=== PATIENT | male | born 1935 | race Caucasian/White ===

== ENCOUNTER 2018-01-20 12:07 | Inpatient (IN) | payer OTHER, SELFPAY ==
[2018-01-20] VITALS (13 sets, daily range): BP systolic 101–124; BP diastolic 64–94; PULSE 70–146; RESP 15–26; TEMP 36.1–36.9; O2SAT 95–99; BMI 23.6
--- NOTE | 2018-01-20 12:40 | DI.RAD.S_ITS ---
PROCEDURE: XR CHEST 2V INDICATIONS: sob TECHNIQUE: 2 views of the chest were acquired. COMPARISON: [facility], , CHEST 1 VIEW, 12/23/2016, 8:45. [facility], , CHEST 2 VIEW, 09/23/2016, 12:03. [facility], , CHEST 1 VIEW, 09/22/2016, 19:06. FINDINGS: Surgical changes and devices: None. Lungs and pleura: No pleural effusions or pneumothorax. Lungs are abnormal with pulmonary hyperexpansion consistent with COPD and there is superimposed mild pulmonary edema. Mediastinum: Mediastinal contours are normal. Heart size is at the upper limits of normal. Bones and chest wall: No suspicious bony abnormalities. Soft tissues appear unremarkable. IMPRESSION: Presumed COPD given the pulmonary hyperexpansion present and there is superimposed mild pulmonary edema and heart size is at the upper limits of normal. Dictated by: Solitario Lam M.D. on 01/20/2018 at 13:01 Approved by: Solitario Lam M.D. on 01/20/2018 at 13:02
[2018-01-20 12:49] LABS: Add Manual Diff / Slide Review NO; Basophils Percent Auto 0.6 % (0-2); Hematocrit 44.4 % (41-53); Lymphocytes Percent Auto 17.1 % (25-40); Mean Corpuscular HGB Conc 33.9 % (30-36); Mean Corpuscular Hemoglobin 31.9 PG (26-34); Mean Corpuscular Volume 94.1 fL (80-100); Monocytes Percent Auto 10.7 % (3-14); Neutrophils Absolute Auto 6500 /uL (3000-5900); Neutrophils Percent Auto 70.6 % (50-75); Platelet Count 162 X10^3/uL (150-400); Red Blood Cell Count 4.71 X10^6/uL (4.5-5.9); White Blood Cell Count 9.3 X10^3/uL (4.5-11.0)
[2018-01-20 12:50] LABS: INR 3.6 (0.9-1.3); Prothrombin Time 40.6 SECONDS (10.1-12.7)
[2018-01-20 12:56] LABS: Blood Urea Nitrogen 24 mg/dL (9-20); Calcium 8.9 mg/dL (8.4-10.2); Carbon Dioxide 24 mmol/L (22-32); Chloride 93 mmol/L (98-107); Estimated Glomerular Filt Rate > 60.0 mL/min (>60); Glucose 127 mg/dL (80-110); HEMOLYSIS 30 (0-50); Potassium 4.3 mmol/L (3.4-5.1); Sodium 125 mmol/L (137-145)
[2018-01-20 13:08] LABS: Troponin I 0.029 ng/mL (0.01-0.034)
--- NOTE | 2018-01-20 14:26 | ED_ITS ---
HPI - SOB/Dyspnea General Chief Complaint: Shortness of Breath/Dyspnea Stated Complaint: Shortness of Breath Time Seen by Provider: 01/20/18 12:26 History of Present Illness HPI 82-year-old male with pAfib/pFlutter (metoprolol and warfarin) and CHF presents for evaluation of 2-3 days of poorly characterized shortness breath that is without clear provoking and relieving factors. Patient without fevers, chills, chest pain. * PE risk factors: no prior DVT or PE. * CHF: denies weight gain, orthopnea, or change in diuretic use. Triage note: Patient was brought in by EMS from the dermatology clinic where he was complaining og (sic) shortness of breath that started today and diarrhea x 3 days. M/S/F/SocHx notable for: A. fib with RVR, CHF, NSTEMI, atrial flutter with RVR, actinic keratosis; remainder reviewed with patient and in chart. ROS: Negative constitutional, eye, cardiovascular, pulmonary, GI, , MSK, skin , neurologic, psychiatric, endocrine unless noted in the HPI. Exam Gen: Pleasant, non-toxic appearing, resting comfortably. HEENT: NC, AT, PEERL, EOMI, trachea midline. Resp: Clear to auscultation bilaterally, normal work of breathing. Card: RRR with no M/R/G, no crackles in lung bases, no pedal edema, no JVD appreciated. GI: NT/ND Vascular: Both ankles, calves, and thighs of equal size, no calf tenderness to palpation bilaterally. MSK: No chest wall TTP. No visible deformities, strength and tone WNL. Skin: Normal color with no visible lesions. Neuro: AO x 3, no facial asymmetry, vision and hearing WNL. Psych: Mood and affect appropriate. Labs / Imaging (pertinent): WBC 9.3, Hb 15.0, PT/INR 3.6, Na 125, K 4.3, creatinine 1.00, troponin 0.029, BNP 587. EKG: atrial fibrillation with ventricular rate of 124 bpm, nonspecific ST segment changes. CXR: presumed COPD given the pulmonary hyperexpansion present and there is superimposed mild pulmonary edema and heart size is at the upper limits of normal. MDM Previous chart, nursing note, and vitals reviewed. A: 82-year-old male with pAfib/pFlutter (metoprolol and warfarin) and CHF presents for evaluation of 2-3 days of poorly characterized shortness breath that is without clear provoking and relieving factors. DDx: pneumonia, reactive airway disease / COPD / Asthma, bronchitis, pneumothorax, anxiety, PE, CHF, pleural effusion, pericardial effusion, ACS. Evaluation: patient with A. fib with RVR, no clear inciting event for demand mediated rapid ventricular response. PRN IV metoprolol ordered. Patient without anemia, no clear evidence of infection. However patient noted to have new onset moderate to severe hyponatremia without clear symptomatology. Patient has mild CHF exacerbation, however it is unclear if this is contribute into shortness of breath as the patient would be an intermittently asymptomatic on the ED. Lasix withheld as this may worsen as hyponatremia. Urine electrolytes, TSH, and cortisol were sent and are pending at the time of admission. [place] to be excluded based upon the the above evaluation is pneumonia, reactive airway disease, bronchitis, pneumothorax, anxiety, PE (therapeutic PT/INR, and absence of hypotension, hypoxemia, as well as a low-risk history), patient has mild pulmonary edema, however is unclear if this is driving his symptoms. Imaging is also without evidence of a pleural effusion, pericardial effusion, ACS is considered effectively excluded given the lack of clear ischemia on his EKG and a negative troponin. Impression: A. fib with RVR, shortness breath, hyponatremia (please reference below for remainder of encounter information) Critical Care Time Organ system(s): Cardiopulmonary Intervention: Assessment of the patient, interpretation of studies, communication related to patient care. Time: 30 minutes were spent directly related to patient care exclusive of separately billed procedures. Related Data Home Medications Medication Instructions Recorded Confirmed rosuvastatin [Crestor] 10 mg PO QDAY #0 08/30/16 01/20/18 spironolactone 12.5 mg PO QDAY #0 12/10/16 01/20/18 flecainide 1 dose PO DIRECTED #0 03/18/17 01/20/18 metoprolol tartrate 50 tab PO BID #30 tab 08/04/17 01/20/18 cholecalciferol (vitamin D3) 1,000 unit PO DAILY 01/20/18 01/20/18 [Vitamin D3] tamsulosin [Flomax] 0.8 mg PO QPM 01/20/18 01/20/18 warfarin [Coumadin] 2.5 mg PO SUMOWEFR 01/20/18 01/20/18 warfarin [Coumadin] 5 mg PO TUTHSA 01/20/18 01/20/18 Previous Rx's Medication Instructions Recorded furosemide 20 mg OR QAM #45 tab 04/10/17 losartan 50 mg tablet 50 mg PO QDAY #90 tab 12/13/17 zolpidem 10 mg tablet 10 mg PO HS PRN #30 tab 01/03/18 Allergies Allergy/AdvReac Type Severity Reaction Status Date / Time KAYLYNN Inhibitors AdvReac Intermediate COUGH Unverified 09/14/17 12:13 [KAYLYNN INHIBITORS] PFSH Family History Father Heart disease Mother Heart disease Social History Smoking Status: Never smoker Exam Initial Vital Signs Initial Vital Signs: Vital Signs Temperature 97.9 F 01/20/18 12:17 Pulse Rate 110 H 01/20/18 12:17 Respiratory Rate 18 01/20/18 12:17 Blood Pressure 118/78 01/20/18 12:17 Pulse Oximetry 97 01/20/18 12:17 Course Orders Ordered: ED Orders 01/20/18 12:00 B Type Natriuretic Peptide Stat Basic Metabolic Panel Stat Calcium Urine Random Stat Complete Blood Count AUTO DIFF Stat Cortisol Random Stat Creatinine Urine Random Stat Osmolality Urine Stat Osmolality, Serum Stat Prothrombin Time INR Stat Sodium Urine Random Stat Thyroid Stimulating Hormone Stat Troponin I Stat Urea Nitrogen,Urine Random Stat 01/20/18 12:40 XR chest 2V Stat 01/20/18 13:49 Urinalysis and Microscopic Stat Metoprolol Tartrate (Lopressor) 5 mg IV Q5M JERRICA Stop: 01/20/18 14:41 Vital Signs - 8 hr 01/20/18 12:17 01/20/18 13:41 Temperature 97.9 F Pulse Rate 110 H 132 H Respiratory Rate 18 20 Blood Pressure 118/78 Blood Pressure [Left Arm] 112/80 Pulse Oximetry 97 97 MDM - SOB/Dyspnea Lab Data Result diagrams: 01/20/18 12:00 01/20/18 12:00 Lab Results 01/20/18 01/20/18 01/20/18 Range/Units 12:00 12:00 12:00 WBC 9.3 (4.5-11.0) X10^3/uL RBC 4.71 (4.5-5.9) X10^6/uL Hgb 15.0 (13.5-17.5) g/dL Hct 44.4 (41-53) % MCV 94.1 (80-100) fL MCH 31.9 (26-34) PG MCHC 33.9 (30-36) % RDW 15.0 H (11.6-14.8) % Plt Count 162 (150-400) X10^3/uL Neut % (Auto) 70.6 (50-75) % Lymph % (Auto) 17.1 L (25-40) % [place] % (Auto) 10.7 (3-14) % Eos % (Auto) 1.0 L (2-4) % Baso % (Auto) 0.6 (0-2) % Neut # (Auto) 6500 H (3151-8153) /uL PT 40.6 H (10.1-12.7) SECONDS INR 3.6 H (0.9-1.3) Sodium 125 L (137-145) mmol/L Potassium 4.3 (3.4-5.1) mmol/L Chloride 93 L (98-107) mmol/L Carbon Dioxide 24 (22-32) mmol/L BUN 24 H (9-20) mg/dL Creatinine 1.00 (0.66-1.25) mg/dL Estimated GFR > 60.0 (>60) mL/min BUN/Creatinine Ratio 24.0 H (6-22) Glucose 127 H (80-110) mg/dL Calcium 8.9 (8.4-10.2) mg/dL Troponin I 0.029 (0.01-0.034) ng/mL B-Natriuretic Peptide 587.0 H (<100) Discharge Plan Departure Prescriptions: No Action rosuvastatin [Crestor] 10 MG tablet 10 mg PO QDAY Qty: 0 RF: 0 spironolactone 25 MG tablet 12.5 mg PO QDAY Qty: 0 RF: 0 flecainide 100 MG tablet 1 dose PO DIRECTED Qty: 0 RF: 0 furosemide 40 MG tablet 20 mg OR QAM Qty: 45 RF: 3 metoprolol tartrate 25 MG tablet 50 tab PO BID Qty: 30 RF: 3 losartan 50 mg tablet 50 mg PO QDAY Qty: 90 RF: 3 zolpidem 10 mg tablet 10 mg PO HS PRN (Reason: insomnia) Qty: 30 RF: 0 warfarin [Coumadin] 5 mg Tablet 2.5 mg PO SUMOWEFR RF: 0 cholecalciferol (vitamin D3) [Vitamin D3] 1,000 unit Tablet 1,000 unit PO DAILY RF: 0 tamsulosin [Flomax] 0.4 MG capsule 0.8 mg PO QPM RF: 0 warfarin [Coumadin] 5 MG tablet 5 mg PO TUTHSA RF: 0
[2018-01-20] MEDS: METOPROLOL TARTRATE 5 MG/5 ML INJ IV ×4 (14:32→20:39)
[2018-01-20 14:59] LABS: Bacteria Urine None Seen
[2018-01-20 15:05] LABS: Thyroid Stimulating Hormone 5.49 uIU/mL (0.47-4.68)
[2018-01-20 15:12] LABS: Appearance Urine UA CLEAR; Bilirubin Urine UA NEGATIVE (NEGATIVE); Color Urine UA YELLOW; Glucose Urine UA NEGATIVE (Normal); Ketones Urine UA NEGATIVE (NEGATIVE); Leukocyte Esterase Urine UA NEGATIVE (NEGATIVE); Nitrite Urine UA Negative (Negative); Occult Blood Urine UA 1+ (Negative); Protein Urine UA NEGATIVE (Negative); Urobilinogen Urine UA 0.2 E.U./dL (0.2); pH Urine UA 5.5 (4.5-8.0)
[2018-01-20 15:19] LABS: Culture Indicated Urine Cult Not Indicated; RBC Urine 1-5/HPF (0-5/HPF); Squamous Epithelial Cell Urine 0-1 /HPF; WBC Urine 0-1/HPF (0-5/HPF)
[2018-01-20 15:22] LABS: Cortisol Random 18.6 ug/dL
[2018-01-20 15:45] LABS: Calcium Urine Random 7.9
[2018-01-20 15:46] LABS: Urea Nitrogen,Urine Random 299 md/dL
[2018-01-20 15:48] LABS: Creatinine Urine Random 28.3 mg/dL; Sodium Urine Random 40 mmol/L (30-90)
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
[2018-01-20] MEDS: dilTIAZem CD 120 MG CAP PO (18:13)
[2018-01-20 19:23] LABS: Troponin I 0.027 ng/mL (0.01-0.034)
[2018-01-20 19:39] LABS: Free T4, Direct Thyroxine 1.98 ng/dL (0.78-2.19)
[2018-01-20] MEDS: ROSUVASTATIN 10 MG TABLET PO (20:28)
[2018-01-20] MEDS: SODIUM CHLORIDE 0.9% 1,000 ML 75 ML IV (22:49)
[2018-01-20] MEDS: METOPROLOL 25 MG TABLET PO (22:50)
[2018-01-20] MEDS: dilTIAZem 25 MG/5 ML SDV 15 MG IV (22:52)
[2018-01-21] VITALS (19 sets, daily range): BP systolic 88–130; BP diastolic 48–94; PULSE 74–144; RESP 15–21; TEMP 35.6–36.4; O2SAT 95–98
--- NOTE | 2018-01-21 04:42 | PC.NURSE ---
Denies any urinary bladder discomfort, pain or CP. 0007- voided 100 cc. scanned 421 PVR, 0230 voided 100 cc PVR 303 cc per bladder scanned. 0345 voided scant amount 15 cc & PVR 257 cc. Pt. reported I did not have my Flomax last night. He also went to the BR & 1 unmeasured void. Will monitor.
[2018-01-21] MEDS: METOPROLOL TARTRATE 5 MG/5 ML INJ IV ×3 (05:04→16:52)
[2018-01-21] MEDS: SODIUM CHLORIDE 0.9% FLUSH 10 ML IV ×2 (05:06→20:48)
--- NOTE | 2018-01-21 05:29 | PC.NURSE ---
Hr. up to 130-140, Apical pulse 1 minute count 120, Metoprolol 5 mg. admin. IVP. B/P 135/70 prior to Metoprolol pushed slowly over 5 mins. Denies any CP & no C/O dizziness. Rechecked B/P after Metoprolol 127/68 & HR. 98-135, will monitor.
[2018-01-21 06:21] LABS: Add Manual Diff / Slide Review NO; Basophils Percent Auto 0.8 % (0-2); Eosinophils Percent Auto 1.5 % (2-4); Hematocrit 44.1 % (41-53); Hemoglobin 14.9 g/dL (13.5-17.5); Lymphocytes Percent Auto 21.3 % (25-40); Mean Corpuscular HGB Conc 33.7 % (30-36); Mean Corpuscular Hemoglobin 31.6 PG (26-34); Mean Corpuscular Volume 93.8 fL (80-100); Monocytes Percent Auto 9.6 % (3-14); Neutrophils Absolute Auto 5300 /uL (3000-5900); Neutrophils Percent Auto 66.8 % (50-75); Platelet Count 163 X10^3/uL (150-400); Red Cell Distribution Width 14.6 % (11.6-14.8); White Blood Cell Count 7.9 X10^3/uL (4.5-11.0)
[2018-01-21 06:30] LABS: INR 3.3 (0.9-1.3); Prothrombin Time 36.7 SECONDS (10.1-12.7)
[2018-01-21 06:37] LABS: Blood Urea Nitrogen 20 mg/dL (9-20); Calcium 8.7 mg/dL (8.4-10.2); Carbon Dioxide 23 mmol/L (22-32); Chloride 96 mmol/L (98-107); Estimated Glomerular Filt Rate > 60.0 mL/min (>60); Glucose 113 mg/dL (80-110); HEMOLYSIS < 15 (0-50); Magnesium 1.9 mg/dL (1.6-2.3); Potassium 4.1 mmol/L (3.4-5.1); Sodium 129 mmol/L (137-145)
[2018-01-21] MEDS: dilTIAZem CD 120 MG CAP PO (07:01)
[2018-01-21] MEDS: METOPROLOL 25 MG TABLET PO ×2 (07:01→20:48)
--- NOTE | 2018-01-21 07:41 | PC.NURSE ---
HR. still up in 130-140's Diltiazem & Metoprolol due @ 0900 given early & report given to day RN. To follow up & monitor.
[2018-01-21] MEDS: CHOLECALCIFEROL (VITAMIN D3) 1,000 UNIT TABLET 1000 UNIT PO (09:08)
[2018-01-21] MEDS: FUROSEMIDE 20 MG TABLET PO (09:08)
--- NOTE | 2018-01-21 09:20 | PT.IIE ---
Surgical History (Last Updated 01/20/18 @ 16:32 by Domitila Keyes MD) S/P excision of skin lesion, follow-up exam (Acute) Medical History (Last Updated 01/20/18 @ 16:31 by Domitila Keyes MD) Atrial fibrillation and flutter (Acute) BPH (benign prostatic hyperplasia) (Acute) Chronic back pain (Acute) Congestive heart failure (Acute) Dyslipidemia (Acute) Skin lesion of face (Acute) Physical Therapy Inpatient Evaluation/Re-Eval M1 PT/OT-IP Prior Functional Status Start: 01/21/18 11:13 Freq: NEEDED Status: Active Protocol: Document 01/21/18 09:20 AB (Rec: 01/21/18 11:32 AB [id number]) Medical Review Prior Functional Status Medical History Reviewed Yes Communication able to make needs known Mobility and Gait pt stated that he is independent with all mobilities and ambulation without AD Social History Household Members other Living Arrangements House Number of Floors (Floors) One Floor Number of Stairs To Enter/Railing? 2 steps to enter without rail Home Environment Tub/Shower Home Equipment Grab Bars In Shower Employment Status Retired Additional Social History Comment pt lives with a roommate and can assist M2 PT-IP Current Condition Start: 01/21/18 11:13 Freq: NEEDED Status: Active Protocol: Document 01/21/18 09:20 AB (Rec: 01/21/18 11:32 AB [id number]) Physical Therapy Current Condition Current Condition Evaluation Date 01/21/18 Treatment Diagnosis CHF Onset Date 01/20/18 M3 PT-IP Subjective Start: 01/21/18 11:13 Freq: NEEDED Status: Active Protocol: Document 01/21/18 09:20 AB (Rec: 01/21/18 11:32 AB [id number]) Subjective Physical Therapy Visit Type Type Initial Evaluation Visit Start Time 09:20 Visit Stop Time 09:55 Total Visit Minutes 35 Number of INTERNET SALES ASSOCIATE Visits 0 Physical Therapy Visit Comments Patient Comments pt agreeable to do therapy Therapy Pain Assessment Pain Present Pain Present Denied Pain M4 PT-IP Mobility and Gait Start: 01/21/18 11:13 Freq: NEEDED Status: Active Protocol: Document 01/21/18 09:20 AB (Rec: 01/21/18 11:32 AB [id number]) PT-Bed Mobility Assessment Rolling Level of Assist Standby Assistance Supine to Sit Supine to Sit Standby Assistance Sit to Supine Sit to Supine Standby Assistance Scooting Scooting to Edge of Bed Standby Assistance PT-Transfer Assessment Sit to and From Stand Sit to and from Stand Standby Assistance Equipment Transfer Assistive Device Gait Belt Transfers Transfer Destination Bed Transfer Technique Stand Step Pivot Transfer Ability Level of Assist Standby Assistance Gait Assessment Gait Gait Assistance Required: Standby Assistance Contact Guard Assist Distance (Feet) (feet) 40 Able to Maintain Weight Bearing Status Yes During Gait Assistive Devices Assistive Device Gait Belt Orthotic/Prosthetic Devices or Brace: No Gait Deviations General Gait Pattern Antalgic Factors Limiting Gait Function Factors Limiting Gait Function Decreased Activity Tolerance Decreased Strength Poor Balance Comments Gait Comments BP 98/69 without c/o dizziness /lightheadedness CT: 84-108 bpm with activity O2 sat 96% PT-Balance Assessment Sitting Balance and Reactions Static Sitting Balance Ability Good Dynamic Sitting Balance Ability Good Standing Balance and Reactions Static Standing Balance Ability Good Dynamic Standing Balance Ability Fair M5 PT-IP Objective Assessments Start: 01/21/18 11:13 Freq: NEEDED Status: Active Protocol: Document 01/21/18 09:20 AB (Rec: 01/21/18 11:32 AB [id number]) Orientation Orientation/Cognition Level of Alertness Alert Orientation Name Age Birthday Month Date Year Day of Week Place Situation Safety Awareness Understands Safety Issues Strength Lower Extremity Strength Assessment Within Functional Limits M6 PT-IP Treatment Start: 01/21/18 11:13 Freq: NEEDED Status: Active Protocol: Document 01/21/18 09:20 AB (Rec: 01/21/18 11:32 AB [id number]) Physical Therapy Treatment Education Education Provided Safety M7 PT-IP Assessment and Plan Start: 01/21/18 11:13 Freq: NEEDED Status: Active Protocol: Document 01/21/18 09:20 AB (Rec: 01/21/18 11:32 AB [id number]) PT Summary Assessment and Plan Potential Rehabilitation Potential Good Status of Condition at Evaluation Stable Summary Impairments Pain ROM Strength Balance Coordination Sensation Tone Cognition Bed Mobility Transfers Gait Activity Tolerance Assessment Summary pt requiring SBA to CGA with mobility and will likely progress during hospital stay. pt plans to go home with his room mate to assist him at home. Goals Bed Mobility Goal Independent Transfer Goal Independent Gait Goal Independent Gait Distance 150 Other Goals up/down 2 steps without rails Days to Meet Goals 3 Frequency of Treatment Frequency Of Treatment Once a Day Treatment Plan Physical Therapy Treatment Plan Bed Mobility Training Transfer Training Gait Training Therapeutic Exercise Balance Retraining Post Op Education Discharge Planning Manual Therapy Recommendations To Nursing Amount of Assist Needed 1 Person Assist Discharge Recommendations PT Discharge Recommendations Home with Assistance
--- NOTE | 2018-01-21 09:20 | PT.IIE ---
Surgical History (Last Updated 01/20/18 @ 16:32 by Domitila Keyes MD) S/P excision of skin lesion, follow-up exam (Acute) Medical History (Last Updated 01/20/18 @ 16:31 by Domitila Keyes MD) Atrial fibrillation and flutter (Acute) BPH (benign prostatic hyperplasia) (Acute) Chronic back pain (Acute) Congestive heart failure (Acute) Dyslipidemia (Acute) Skin lesion of face (Acute) Physical Therapy Inpatient Evaluation/Re-Eval M1 PT/OT-IP Prior Functional Status Start: 01/21/18 11:13 Freq: NEEDED Status: Active Protocol: Document 01/21/18 09:20 AB (Rec: 01/21/18 11:32 AB [id number]) Medical Review Prior Functional Status Medical History Reviewed Yes Communication able to make needs known Mobility and Gait pt stated that he is independent with all mobilities and ambulation without AD Social History Household Members other Living Arrangements House Number of Floors (Floors) One Floor Number of Stairs To Enter/Railing? 2 steps to enter without rail Home Environment Tub/Shower Home Equipment Grab Bars In Shower Employment Status Retired Additional Social History Comment pt lives with a roommate and can assist M2 PT-IP Current Condition Start: 01/21/18 11:13 Freq: NEEDED Status: Active Protocol: Document 01/21/18 09:20 AB (Rec: 01/21/18 11:32 AB [id number]) Physical Therapy Current Condition Current Condition Evaluation Date 01/21/18 Treatment Diagnosis CHF Onset Date 01/20/18 M3 PT-IP Subjective Start: 01/21/18 11:13 Freq: NEEDED Status: Active Protocol: Document 01/21/18 09:20 AB (Rec: 01/21/18 11:32 AB [id number]) Subjective Physical Therapy Visit Type Type Initial Evaluation Visit Start Time 09:20 Visit Stop Time 09:55 Total Visit Minutes 35 Number of [employer]IL[employer] CAR [employer] Visits 0 Physical Therapy Visit Comments Patient Comments pt agreeable to do therapy Therapy Pain Assessment Pain Present Pain Present Denied Pain M4 PT-IP Mobility and Gait Start: 01/21/18 11:13 Freq: NEEDED Status: Active Protocol: Document 01/21/18 09:20 AB (Rec: 01/21/18 11:32 AB [id number]) PT-Bed Mobility Assessment Rolling Level of Assist Standby Assistance Supine to Sit Supine to Sit Standby Assistance Sit to Supine Sit to Supine Standby Assistance Scooting Scooting to Edge of Bed Standby Assistance PT-Transfer Assessment Sit to and From Stand Sit to and from Stand Standby Assistance Equipment Transfer Assistive Device Gait Belt Transfers Transfer Destination Bed Transfer Technique Stand Step Pivot Transfer Ability Level of Assist Standby Assistance Gait Assessment Gait Gait Assistance Required: Standby Assistance Contact Guard Assist Distance (Feet) (feet) 40 Able to Maintain Weight Bearing Status Yes During Gait Assistive Devices Assistive Device Gait Belt Orthotic/Prosthetic Devices or Brace: No Gait Deviations General Gait Pattern Antalgic Factors Limiting Gait Function Factors Limiting Gait Function Decreased Activity Tolerance Decreased Strength Poor Balance Comments Gait Comments BP 98/69 without c/o dizziness /lightheadedness GA: 84-130 bpm with activity O2 sat 96% PT-Balance Assessment Sitting Balance and Reactions Static Sitting Balance Ability Good Dynamic Sitting Balance Ability Good Standing Balance and Reactions Static Standing Balance Ability Good Dynamic Standing Balance Ability Fair M5 PT-IP Objective Assessments Start: 01/21/18 11:13 Freq: NEEDED Status: Active Protocol: Document 01/21/18 09:20 AB (Rec: 01/21/18 11:32 AB [id number]) Orientation Orientation/Cognition Level of Alertness Alert Orientation Name Age Birthday Month Date Year Day of Week Place Situation Safety Awareness Understands Safety Issues Strength Lower Extremity Strength Assessment Within Functional Limits M6 PT-IP Treatment Start: 01/21/18 11:13 Freq: NEEDED Status: Active Protocol: Document 01/21/18 09:20 AB (Rec: 01/21/18 11:32 AB [id number]) Physical Therapy Treatment Education Education Provided Safety M7 PT-IP Assessment and Plan Start: 01/21/18 11:13 Freq: NEEDED Status: Active Protocol: Document 01/21/18 09:20 AB (Rec: 01/21/18 11:32 AB [id number]) PT Summary Assessment and Plan Potential Rehabilitation Potential Good Status of Condition at Evaluation Stable Summary Impairments Pain ROM Strength Balance Coordination Sensation Tone Cognition Bed Mobility Transfers Gait Activity Tolerance Assessment Summary pt requiring SBA to CGA with mobility. pt with decrease activity tolerance; increase in HR with activity to 130 bpm . Pt will likely progress during hospital stay. pt plans to go home with his room mate to assist him at home. Goals Bed Mobility Goal Independent Transfer Goal Independent Gait Goal Independent Gait Distance 150 Other Goals up/down 2 steps without rails Days to Meet Goals 3 Frequency of Treatment Frequency Of Treatment Once a Day Treatment Plan Physical Therapy Treatment Plan Bed Mobility Training Transfer Training Gait Training Therapeutic Exercise Balance Retraining Post Op Education Discharge Planning Manual Therapy Recommendations To Nursing Amount of Assist Needed 1 Person Assist Discharge Recommendations PT Discharge Recommendations Home with Assistance
--- NOTE | 2018-01-21 13:13 | P.PN_ITS ---
Subjective Date Patient Seen: 01/21/18 Time Patient Seen: 12:45 Interval history: This is an 82-year-old female with complex medical problems presenting with is progressive dyspnea at rest and exertion, complains of chills palpitations, intermittent cough, general weakness secondary to atrial fibrillation with rapid ventricular response, CHF exacerbation, hyponatremia. No events overnight, patient reports overall feeling better. His ventricular rate remains suboptimally controlled. Exam Vital Signs (past 8 hours): - 01/21/18 05:05 01/21/18 05:36 01/21/18 05:37 Temperature Pulse Rate 138 H Respiratory Rate 18 Blood Pressure 130/75 H 127/68 H Pulse Oximetry 95 97 01/21/18 07:00 01/21/18 07:37 01/21/18 08:00 Temperature 96.0 F L Pulse Rate 135 H 137 H Respiratory Rate 17 20 Blood Pressure 121/77 H 127/89 H Pulse Oximetry 96 98 Oxygen Delivery Method Room Air Oxygen Flow Rate 0 Narrative Exam Narrative: Constitutional: Well-nourished and well-developed male in NAd; he is alert and oriented x3 HEENT: Unremarkable exam; except for small wound on his forehead after excisional biopsy of skin lesion prior to admission. Eyes: PERRLA, EOMI Neck: Supple, no jugular venous distention, no bruits on auscultation of his carotid arteries Cardiovascular: Irregular rate with suboptiumallty controlled rate, no cardiac murmurs Pulmonary: Clear to auscultation bilaterally, decreased at the bases, no obvious rales, crepitations or wheezing detected Gastrointestinal: No discernible organomegaly, bowel sounds present Extremities: Warm to touch, no edema Skin: with fresh wound on patient's forehead, 1.2x 1.3 cm in size after recent excisional biopsy Objective Imaging Chest x-ray: Radiologist's impression: IMPRESSION: Presumed COPD given the pulmonary hyperexpansion present and there is superimposed mild pulmonary edema and heart size is at the upper limits of normal. Dictated by: Solitario Lam M.D. on 01/20/2018 at 13:01 Approved by: Solitario Lam M.D. on 01/20/2018 at 13:02 ECG: remains in afib with RVR per admission EKG and telemetry readings Labs Result Diagrams: 01/21/18 05:58 08/18/18 05:58 Labs: Laboratory Results - last 24 hr 01/20/18 01/20/18 01/20/18 12:00 12:00 12:00 WBC RBC Hgb Hct MCV MCH MCHC RDW Plt Count Neut % (Auto) Lymph % (Auto) [place] % (Auto) Eos % (Auto) Baso % (Auto) Neut # (Auto) PT INR Sodium Potassium Chloride Carbon Dioxide BUN Creatinine Estimated GFR BUN/Creatinine Ratio Glucose Calcium Magnesium Troponin I 0.029 B-Natriuretic Peptide 587.0 H TSH Free T4 Random Cortisol Urine Color Urine Appearance Urine pH Ur Specific [place] Urine Protein Urine Glucose (UA) Urine Ketones Urine Occult Blood Urine Nitrate Urine Bilirubin Urine Urobilinogen Ur Leukocyte Esterase Urine RBC Urine WBC Ur Squamous Epith Cells Urine Bacteria Ur Culture Indicated? Micro UA Comment Ur Random Sodium 40 Ur Random Calcium Urine Creatinine 28.3 Urine Urea Nitrogen 01/20/18 01/20/18 01/20/18 12:00 12:00 12:00 WBC RBC Hgb Hct MCV MCH MCHC RDW Plt Count Neut % (Auto) Lymph % (Auto) [place] % (Auto) Eos % (Auto) Baso % (Auto) Neut # (Auto) PT INR Sodium Potassium Chloride Carbon Dioxide BUN Creatinine Estimated GFR BUN/Creatinine Ratio Glucose Calcium Magnesium Troponin I B-Natriuretic Peptide TSH 5.49 H Free T4 Random Cortisol 18.6 Urine Color Urine Appearance Urine pH Ur Specific [place] Urine Protein Urine Glucose (UA) Urine Ketones Urine Occult Blood Urine Nitrate Urine Bilirubin Urine Urobilinogen Ur Leukocyte Esterase Urine RBC Urine WBC Ur Squamous Epith Cells Urine Bacteria Ur Culture Indicated? Micro UA Comment Ur Random Sodium Ur Random Calcium 7.9 Urine Creatinine Urine Urea Nitrogen 01/20/18 01/20/18 01/20/18 12:00 13:30 18:40 WBC RBC Hgb Hct MCV MCH MCHC RDW Plt Count Neut % (Auto) Lymph % (Auto) [place] % (Auto) Eos % (Auto) Baso % (Auto) Neut # (Auto) PT INR Sodium Potassium Chloride Carbon Dioxide BUN Creatinine Estimated GFR BUN/Creatinine Ratio Glucose Calcium Magnesium Troponin I 0.027 B-Natriuretic Peptide TSH Free T4 Random Cortisol Urine Color Yellow Urine Appearance Clear Urine pH 5.5 Ur Specific [place] 1.010 Urine Protein Negative Urine Glucose (UA) Negative Urine Ketones Negative Urine Occult Blood 1+ H Urine Nitrate Negative Urine Bilirubin Negative Urine Urobilinogen 0.2 Ur Leukocyte Esterase Negative Urine RBC 1-5/hpf Urine WBC 0-1/hpf Ur Squamous Epith Cells 0-1 /hpf Urine Bacteria None seen Ur Culture Indicated? Cult not indicated Micro UA Comment Not Reportable Ur Random Sodium Ur Random Calcium Urine Creatinine Urine Urea Nitrogen 299 01/20/18 01/21/18 01/21/18 18:40 05:58 05:58 WBC 7.9 RBC 4.70 Hgb 14.9 Hct 44.1 MCV 93.8 MCH 31.6 MCHC 33.7 RDW 14.6 Plt Count 163 Neut % (Auto) 66.8 Lymph % (Auto) 21.3 L [place] % (Auto) 9.6 Eos % (Auto) 1.5 L Baso % (Auto) 0.8 Neut # (Auto) 5300 PT 36.7 H INR 3.3 H Sodium Potassium Chloride Carbon Dioxide BUN Creatinine Estimated GFR BUN/Creatinine Ratio Glucose Calcium Magnesium Troponin I B-Natriuretic Peptide TSH Free T4 1.98 Random Cortisol Urine Color Urine Appearance Urine pH Ur Specific [place] Urine Protein Urine Glucose (UA) Urine Ketones Urine Occult Blood Urine Nitrate Urine Bilirubin Urine Urobilinogen Ur Leukocyte Esterase Urine RBC Urine WBC Ur Squamous Epith Cells Urine Bacteria Ur Culture Indicated? Micro UA Comment Ur Random Sodium Ur Random Calcium Urine Creatinine Urine Urea Nitrogen 01/21/18 05:58 WBC RBC Hgb Hct MCV MCH MCHC RDW Plt Count Neut % (Auto) Lymph % (Auto) [place] % (Auto) Eos % (Auto) Baso % (Auto) Neut # (Auto) PT INR Sodium 129 L Potassium 4.1 Chloride 96 L Carbon Dioxide 23 BUN 20 Creatinine 0.80 Estimated GFR > 60.0 BUN/Creatinine Ratio 25.0 H Glucose 113 H Calcium 8.7 Magnesium 1.9 Troponin I B-Natriuretic Peptide TSH Free T4 Random Cortisol Urine Color Urine Appearance Urine pH Ur Specific [place] Urine Protein Urine Glucose (UA) Urine Ketones Urine Occult Blood Urine Nitrate Urine Bilirubin Urine Urobilinogen Ur Leukocyte Esterase Urine RBC Urine WBC Ur Squamous Epith Cells Urine Bacteria Ur Culture Indicated? Micro UA Comment Ur Random Sodium Ur Random Calcium Urine Creatinine Urine Urea Nitrogen Assessment & Plan Plan: Assessment/Plan Narrative: 1. Acute hypoxic respiratory failure: Multifactorial, resolving, currently saturating well on minimal oxygen support via nasal cannula. 2. Atrial fibrillation with rapid ventricular response: Remains suboptimally controlled. Continue dose adjustments of current medications including long- lasting calcium channel blockers and beta-blockers for optimal control. Patient remains on systemic anticoagulation with Coumadin, current INR at 3.3. 3. Congestive heart failure, acute on chronic, diastolic: with acceptable control on current diuretic therapy with PO lasix, continue as is. 4. BPH/obstructive uropathy: resume tx with PO Flomax 5. Forehead Skin lesion: Status post excision this AM, pending the results of skin histology 6. 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 Hyponatremia: resolving, continue careful IV hydration with NS. Time Spent With Patient Time with patient: 25 - 35 minutes
[2018-01-21] MEDS: SODIUM CHLORIDE 0.9% 1,000 ML 100 ML IV ×2 (13:16→22:19)
[2018-01-21] MEDS: TAMSULOSIN 0.4 MG CAPSULE PO (13:16)
[2018-01-21] MEDS: dilTIAZem 25 MG/5 ML SDV 15 MG IV (13:21)
[2018-01-21] MEDS: dilTIAZem SR 60 MG PO (13:21)
--- NOTE | 2018-01-21 13:31 | OT.IP.EVAL ---
Past Medical History (Last Updated 01/20/18 @ 16:31 by Domitila Keyes MD) Atrial fibrillation and flutter (Acute) BPH (benign prostatic hyperplasia) (Acute) Chronic back pain (Acute) Congestive heart failure (Acute) Dyslipidemia (Acute) Skin lesion of face (Acute) Surgical History (Last Updated 01/20/18 @ 16:32 by Domitila Keyes MD) S/P excision of skin lesion, follow-up exam (Acute) Occupational Therapy Inpatient Evaluation/Re-Eval M1 PT/OT-IP Prior Functional Status Start: 01/21/18 11:13 Freq: NEEDED Status: Active Protocol: Document 01/21/18 09:20 AB (Rec: 01/21/18 11:32 AB [id number]) Medical Review Prior Functional Status Medical History Reviewed Yes Communication able to make needs known Mobility and Gait pt stated that he is independent with all mobilities and ambulation without AD Social History Household Members other Living Arrangements House Number of Floors (Floors) One Floor Number of Stairs To Enter/Railing? 2 steps to enter without rail Home Environment Tub/Shower Home Equipment Grab Bars In Shower Employment Status Retired Additional Social History Comment pt lives with a roommate and can assist M1 PT/OT-IP Prior Functional Status Start: 01/21/18 13:20 Freq: NEEDED Status: Active Protocol: Document 01/21/18 13:21 [facility] (Rec: 01/21/18 13:30 [facility] [id number]) Medical Review Prior Functional Status Medical History Reviewed Yes Communication able to make needs known Mobility and Gait pt stated that he is independent with all mobilities and ambulation without AD Activities of Daily Living and IADL's Pt states independent with all ADL's and still changing out oil for his car. Social History Household Members other Living Arrangements House Number of Floors (Floors) One Floor Number of Stairs To Enter/Railing? 2 steps to enter without rail Home Environment Tub/Shower Home Equipment Grab Bars In Shower Employment Status Retired Additional Social History Comment pt lives with a roommate and can assist M2 OT-IP Current Condition Start: 01/21/18 13:20 Freq: Status: Active Protocol: Document 01/21/18 13:21 [facility] (Rec: 01/21/18 13:30 [facility] [id number]) Occupational Therapy Current Condition Current Condition Evaluation Date 01/21/18 Treatment Diagnosis CHF, SOB Diagnosis Onset Date 01/20/18 Weight Bearing Status Weight Bearing Status Weight Bear as Tolerated M3 OT- IP Subjective and Pain Start: 01/21/18 13:20 Freq: Status: Active Protocol: Document 01/21/18 13:21 [facility] (Rec: 01/21/18 13:30 [facility] [id number]) OT- Subjective Occupational Therapy Visit Type Type Initial Evaluation Visit Start Time 12:55 Visit Stop Time 13:10 Total Visit Minutes 15 Occupational Therapy Visit Comments Patient/Caregiver Goals Pt wanting to go home when medically stable. OT Pain Assessment Pain When Pain Assessed At Rest Pain Present Pain Present Denied Pain M4 OT- IP ADL's Start: 01/21/18 13:20 Freq: Status: Active Protocol: Document 01/21/18 13:21 [facility] (Rec: 01/21/18 13:30 [facility] [id number]) OT ADL-Dressing General Eval Upper Body Dressing Ability Standby Assistance Lower Body Dressing Ability Standby Assistance Comments OT Dressing Comments SBA for balance while standing . Pt given AED for LB dressing to help to conserve his energy. M6 OT- IP Functional Cognition Start: 01/21/18 13:20 Freq: Status: Active Protocol: Document 01/21/18 13:21 [facility] (Rec: 01/21/18 13:30 [facility] [id number]) Cognitive Factors Limiting Selfcare Function Cognitive Ability Level of Alertness Alert Patient Orientation Name Age Birthday Month Date Year Day of Week Place Situation Attention Span Ability Capable of Focused Attention Capable of Sustained Attention Ability to Follow Commands Able to Follow Multi-Step Commands Memory Description No Deficits Noted Safety Awareness No Deficits Noted Problem Solving Ability No deficits Noted OT- Vision and Hearing OT- Hearing Assessment OT- Hearing Assessment WFL OT- Vision Assessment Vision Assessment Comments Glasses for distance. M7 OT- IP Mobility and Balance Start: 01/21/18 13:20 Freq: Status: Active Protocol: Document 01/21/18 13:21 [facility] (Rec: 01/21/18 13:30 [facility] [id number]) OT-Transfer Assessment Sit to and From Stand Sit to and from Stand Standby Assistance Transfers Transfer Ability Contact Guard Assistance Technique Transfer Destination Chair Transfer Technique Stand Step Pivot Devices Transfer Assistive Devices Front Wheeled Walker Comments Mobility Comments CGA due to all IV tubing management and pt not having to use a device. OT- Balance Assessment Sitting Balance and Reactions Static Sitting Balance Ability Normal Dynamic Sitting Balance Ability Normal Standing Balance and Reactions Static Standing Balance Ability Normal Dynamic Standing Balance Ability Fair M8 OT- IP Objective Assessments Start: 01/21/18 13:20 Freq: Status: Active Protocol: Document 01/21/18 13:21 [facility] (Rec: 01/21/18 13:30 [facility] [id number]) OT Strength Comments Strength Comments LUE 4-/5, RUE4/5 Left trigger finger for fifth digit. M9 OT- IP Assessment and Plan Start: 01/21/18 13:20 Freq: Status: Active Protocol: Document 01/21/18 13:21 [facility] (Rec: 01/21/18 13:30 [facility] [id number]) OT Summary Assessment and Plan Potential Rehabilitation Potential Excellent Analytic Complexity at Evaluation Low Summary OT Impairments Balance Functional Mobility Bathing Progress Towards Goals Slow Progress due to Medical Issues Assessment Summary Pt low complexity main barrier is increased HR and mildly decreased for dynamic balance otherwise doing well. Pt given LB AED and energy conservation handout and has good understanding and safety for all. When stable to go home with help of roommate. Goals Bathing Goal Standby Assistance Patient/Caregiver Education Goal Demonstrate Energy Conservation and Pacing Caregiver Independent Assisting Patient Days to Meet Goals 3 Frequency of Treatment Frequency Of Treatment Once a Day Treatment Plan OT Treatment Plan ADL Training Functional Mobility Patient/Family Education Discharge Planning Other Treatment Recommendations and Next Shower Treatment Focus Discharge Recommendations OT Discharge Recommendations Home with Assistance
--- NOTE | 2018-01-21 13:40 | PC.NURSE ---
10mg of IV diltiazem given to patient, BP down to 88/57 with HR at 76, patient remains asymptomatic. Conversant and up in chair. Denies pain or other complaint. IV fluids restarted per orders. Blood pressure stabalizing at 101/60 with HR [address] Wise notified. will continue to monitor.
--- NOTE | 2018-01-21 16:59 | PC.NURSE ---
Pt has been up to toilet with FLORIST'S DECORATOR. Call from ICU pt's HR reached as high as 150. Pt returned to bed and reinforced with FLORIST'S DECORATOR and pt to use urinal going forward to void. HR 140's with rest and prn metoprolol administered. Current BP 124/82.
--- NOTE | 2018-01-21 18:40 | PC.NURSE ---
Discussed with hospitalist, Dr. Keyes, pt's blood pressure and elevated heart rate s/p metoprolol administration. New orders obtained and entered by this automotive service writer. [employer], kirk Cedeño.
[2018-01-21] MEDS: dilTIAZem 25 MG/5 ML SDV 10 MG IV (19:02)
--- NOTE | 2018-01-21 19:38 | PC.NURSE ---
Administered diltiazem 10 mg as per MD verbal order. Pt denies any symptoms associated with elevated heartrate. BP checked: 112/48 with hr 74 jumping as high as 104.
[2018-01-21] MEDS: ROSUVASTATIN 10 MG TABLET PO (20:48)
--- NOTE | 2018-01-21 23:19 | PC.NURSE ---
Pt's heartrate per monitor 74-104. No further notifications from ICU s/p diltiazem administration. Pt's heartrate increases to 130's when standing up at bedside to void. Returns to 80's - 100's with rest in bed. Room air 98%. No verbalizations of pain.
[2018-01-22] VITALS (18 sets, daily range): BP systolic 98–138; BP diastolic 63–96; PULSE 82–149; RESP 15–20; TEMP 35.9–36.6; O2SAT 93–98
--- NOTE | 2018-01-22 02:51 | PC.NURSE ---
Pt. voided only 135, 35 cc ealier & 100 cc now. Asked pt. if we can do a bladder scan, but he refused. States I'm not uncomfortable & I don't want any In & Out catheterization. Also reported I'm tired & I want to get some rest/sleep. Denies any CP & other discomfort, no C/O dyspnea & no SOB noted. RA SPO2 95%, will monitor.
[2018-01-22] MEDS: METOPROLOL TARTRATE 5 MG/5 ML INJ IV ×2 (04:30→10:42)
[2018-01-22 08:33] LABS: INR 2.6 (0.9-1.3); Prothrombin Time 29.3 SECONDS (10.1-12.7)
[2018-01-22 08:39] LABS: BUN Creatinine Ratio 22.5 (6-22); Blood Urea Nitrogen 18 mg/dL (9-20); Calcium 8.7 mg/dL (8.4-10.2); Carbon Dioxide 21 mmol/L (22-32); Chloride 100 mmol/L (98-107); Estimated Glomerular Filt Rate > 60.0 mL/min (>60); Glucose 97 mg/dL (80-110); HEMOLYSIS < 15 (0-50); Potassium 3.8 mmol/L (3.4-5.1); Sodium 131 mmol/L (137-145)
[2018-01-22] MEDS: CHOLECALCIFEROL (VITAMIN D3) 1,000 UNIT TABLET 1000 UNIT PO (08:39)
[2018-01-22] MEDS: FUROSEMIDE 20 MG TABLET PO (08:39)
[2018-01-22] MEDS: METOPROLOL 25 MG TABLET PO (08:39)
[2018-01-22] MEDS: TAMSULOSIN 0.4 MG CAPSULE PO (08:39)
[2018-01-22] MEDS: dilTIAZem CD 240 MG CAP PO (08:48)
--- NOTE | 2018-01-22 14:09 | P.PN_ITS ---
Subjective Date Patient Seen: 01/22/18 Time Patient Seen: 11:15 Interval history: This is an 82-year-old female with complex medical problems presenting with is progressive dyspnea at rest and exertion, complains of chills palpitations, intermittent cough, general weakness secondary to atrial fibrillation with rapid ventricular response, CHF exacerbation, hyponatremia. No events overnight, patient reports overall feeling better, remains hemodynamically stable and essentially asymptomatic. His ventricular rate remains suboptimally controlled in spite of continue dose adjustement of his medications for rate control. Exam Vital Signs (past 8 hours): - 01/22/18 07:25 01/22/18 11:00 Temperature 96.7 F L 97.1 F L Pulse Rate 107 H 117 H Respiratory Rate 15 16 Blood Pressure 138/81 H 125/87 H Pulse Oximetry 97 96 Oxygen Delivery Method Room Air Oxygen Flow Rate 0 Narrative Exam Narrative: Constitutional: Well-nourished and well-developed male in NAD; he is alert and oriented x3 HEENT: Unremarkable exam; except for small wound on his forehead after excisional biopsy of skin lesion prior to admission. Eyes: PERRLA, EOMI Neck: Supple, no jugular venous distention, no bruits on auscultation of his carotid arteries Cardiovascular: Irregular rate with suboptiumallty controlled rate, no cardiac murmurs Pulmonary: Clear to auscultation bilaterally, decreased at the bases, no obvious rales, crepitations or wheezing detected Gastrointestinal: No discernible organomegaly, bowel sounds present Extremities: Warm to touch, no edema Skin: with fresh wound on patient's forehead, 1.2x 1.3 cm in size after recent excisional biopsy Objective Imaging Chest x-ray: Radiologist's impression: IMPRESSION: Presumed COPD given the pulmonary hyperexpansion present and there is superimposed mild pulmonary edema and heart size is at the upper limits of normal. Dictated by: Solitario Lam M.D. on 01/20/2018 at 13:01 Approved by: Solitario Lam M.D. on 01/20/2018 at 13:02 Labs Result Diagrams: 01/21/18 05:58 01/22/18 08:00 Labs: Laboratory Results - last 24 hr 01/22/18 01/22/18 08:00 08:00 PT 29.3 H D INR 2.6 H Sodium 131 L Potassium 3.8 Chloride 100 Carbon Dioxide 21 L BUN 18 Creatinine 0.80 Estimated GFR > 60.0 BUN/Creatinine Ratio 22.5 H Glucose 97 Calcium 8.7 Assessment & Plan Plan: Assessment/Plan Narrative: 1. Acute hypoxic respiratory failure: Multifactorial, resolving, currently saturating well on minimal oxygen support via nasal cannula. 2. Atrial fibrillation with rapid ventricular response: Remains suboptimally controlled. Continue dose adjustments of current medications including long- lasting calcium channel blockers and beta-blockers for optimal control. Patient remains on systemic anticoagulation with Coumadin, current INR at 2.6 . 3. Congestive heart failure, acute on chronic, diastolic: with acceptable control on current diuretic therapy with PO lasix, continue as is. 4. BPH/obstructive uropathy: resume tx with PO Flomax 5. Forehead Skin lesion: Status post excision this AM, pending the results of skin histology 6. 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 Hyponatremia: resolving, current Na level at 131. Time Spent With Patient Time with patient: 25 - 35 minutes
[2018-01-22] MEDS: dilTIAZem 25 MG/5 ML SDV 10 MG IV ×3 (14:14→21:33)
--- NOTE | 2018-01-22 15:36 | PC.NURSE ---
Cardiac: Heart rate 130's-140's consistently when seen this am, MD aware, did give diltiazem oral early. No real change in heart rate. Given metoprolol IVP, heart rate did come down to the 90's to 120's but then was back up to the 130's-140's later on. Cardiazem given IVP and this did help to slow the heart rate from 80's to 120's. Usually around 100's. ICU was called prior admin of both drugs and bp was monitored, lowest was 100's systolic, usually 110's systolic. BP remained stable through out and pt had no dizziness or any worsening of symptoms. Pt also denies any dizziness, c/p or any cardiac issue. Pt has been up in the chair all day and has enjoyed visiting with his family and friends. Cont w/poc.
--- NOTE | 2018-01-22 15:40 | PT.IPTN ---
Physical Therapy Treatment Note M2 PT-IP Current Condition Start: 01/21/18 11:13 Freq: NEEDED Status: Active Protocol: Document 01/21/18 09:20 AB (Rec: 01/21/18 11:32 AB [id number]) Physical Therapy Current Condition Current Condition Evaluation Date 01/21/18 Treatment Diagnosis CHF Onset Date 01/20/18 M3 PT-IP Subjective Start: 01/21/18 11:13 Freq: NEEDED Status: Active Protocol: Document 01/22/18 15:00 CLB (Rec: 01/22/18 15:40 CLB [id number]) Subjective Physical Therapy Visit Type Type Treatment Note Visit Start Time 15:00 Visit Stop Time 15:23 Total Visit Minutes 23 Number of MECHANICAL MANUFACTURING TECHNICIAN Visits 1 Physical Therapy Visit Comments Patient Comments pt agreeable to do therapy Therapy Pain Assessment Pain Present Pain Present Denied Pain M4 PT-IP Mobility and Gait Start: 01/21/18 11:13 Freq: NEEDED Status: Active Protocol: Document 01/22/18 15:00 CLB (Rec: 01/22/18 15:40 CLB [id number]) PT-Transfer Assessment Sit to and From Stand Sit to and from Stand Standby Assistance Equipment Transfer Assistive Device Gait Belt Transfer Ability Level of Assist Standby Assistance Gait Assessment Gait Gait Assistance Required: Standby Assistance Contact Guard Assist Distance (Feet) (feet) 40 Able to Maintain Weight Bearing Status Yes During Gait Assistive Devices Assistive Device Gait Belt Orthotic/Prosthetic Devices or Brace: No Gait Deviations General Gait Pattern Decreased Stride Length Decreased Feet Clearance Narrow Based Gait Factors Limiting Gait Function Factors Limiting Gait Function Decreased Activity Tolerance Decreased Strength Poor Balance Comments Gait Comments BP standing 113/82 NV 80-122 bpm with activity 02 sat 92-96% with activity PT-Balance Assessment Sitting Balance and Reactions Static Sitting Balance Ability Good Dynamic Sitting Balance Ability Good Standing Balance and Reactions Static Standing Balance Ability Good Dynamic Standing Balance Ability Fair M5 PT-IP Objective Assessments Start: 01/21/18 11:13 Freq: NEEDED Status: Active Protocol: Document 01/21/18 09:20 AB (Rec: 01/21/18 11:32 AB [id number]) Orientation Orientation/Cognition Level of Alertness Alert Orientation Name Age Birthday Month Date Year Day of Week Place Situation Safety Awareness Understands Safety Issues Strength Lower Extremity Strength Assessment Within Functional Limits M6 PT-IP Treatment Start: 01/21/18 11:13 Freq: NEEDED Status: Active Protocol: Document 01/21/18 09:20 AB (Rec: 01/21/18 11:32 AB [id number]) Physical Therapy Treatment Education Education Provided Safety M7 PT-IP Assessment and Plan Start: 01/21/18 11:13 Freq: NEEDED Status: Active Protocol: Document 01/22/18 15:00 CLB (Rec: 01/22/18 15:40 CLB [id number]) PT Summary Assessment and Plan Potential Rehabilitation Potential Good Summary Impairments Pain ROM Strength Balance Coordination Sensation Tone Cognition Bed Mobility Transfers Gait Activity Tolerance Assessment Summary Pt continues to require SBA/ CGA for mobility with increased activity tolerance this session. Pt HR peaked at 122 bpm but mostly stayed under 100 bpm for most of the treatment. O2 sat stayed above 92% during activity. Goals Bed Mobility Goal Independent Transfer Goal Independent Gait Goal Independent Gait Distance 150 Other Goals up/down 2 steps without rails Days to Meet Goals 3 Frequency of Treatment Frequency Of Treatment Once a Day Treatment Plan Physical Therapy Treatment Plan Bed Mobility Training Transfer Training Gait Training Therapeutic Exercise Balance Retraining Post Op Education Discharge Planning Manual Therapy Recommendations To Nursing Amount of Assist Needed 1 Person Assist Discharge Recommendations PT Discharge Recommendations Home with Assistance
--- NOTE | 2018-01-22 15:44 | CM.IDA ---
Addendum entered by NAY Lobo 01/22/18 15:55: PT/OT: Home w/assist from SO Original Note: Discharge Planning/Care Management CM Discharge Assessment Start: 01/21/18 16:03 Freq: Status: Active Protocol: Document 01/21/18 16:03 JORDI (Rec: 01/21/18 16:06 JORDI [id number]) Discharge Planning Assessment Assigned Area Development Manager JORDI DPOA/Assigned Designee Name Chetna Shirlene, S.O. Contact Information [phone] Advance Directives? Yes Advance Directives on File No History Provided By Patient Prior Living Arrangements House Household Members significant other Comment SO x12 yrs, Chetna. Type of transporation used prior to Drives own vehicle admit Independent with ADL's Yes Is patient alert and oriented? Yes Discharge Plan Home Transportation Arrangement SO vs adult children Referrals Initiated None needed Additional Comment Likely return home. Pt is mobile and active per pt's report. He and SO garden, spend time w/family and grandchildren and are indp. Chetna is 69 yo. Whiteboard Updated in Patient Room with Yes name and ext. # of Area Development Manager Review Status In Process
--- NOTE | 2018-01-22 16:14 | PC.NURSE ---
Pt up in chair @ beginning of shift. HR @ rest per monitor 115. Pt expresses desire to ambulate into bathroom. This was done with walker and one assist. Denies dizziness when up and mobile. Denies chest pain. No cough. Returned to chair after toileting and hand washing @ sink. HR 95 per monitor. Pt states feels a bit more peppy today than yesterday. Chair alarm in place and call light available. Denies h/o falls and follows commands appropriately. Continuous monitor in place for oxygen level and heartrate monitoring.
[2018-01-22] MEDS: WARFARIN 2.5 MG TABLET PO (17:09)
[2018-01-22] MEDS: SODIUM CHLORIDE 0.9% FLUSH 10 ML IV (18:28)
--- NOTE | 2018-01-22 18:32 | PC.NURSE ---
Pt remains up in recliner. Heartrate compared with room monitor and tele monitor board at [facility]. Rate bouncing frequently from 78-148. Pt denies discomfort or distress. IV diltiazem administered via pump. Will continue to monitor.
--- NOTE | 2018-01-22 18:58 | PC.NURSE ---
10 mg iv diltiazem infused via pump. BP 121/84 with HR 74. Room air 97%.
[2018-01-22] MEDS: METOPROLOL 50 MG TABLET PO (19:54)
[2018-01-22] MEDS: ROSUVASTATIN 10 MG TABLET PO (19:54)
--- NOTE | 2018-01-22 20:01 | PC.NURSE ---
Pt standby assistance to toilet, wash and brush teeth @ sink. Walks around room briefly and places self into bed. HR per monitor 150-154. Administered po metoprolol @ this time and allowed pt to rest. HR to 111 while pt sleeps. As dose of po metoprolol has been increased, will monitor effectiveness of po med prior to administering iv meds to control rate.
--- NOTE | 2018-01-22 21:38 | PC.NURSE ---
Pt's heartrate per monitor now in the 140's. BP 132/78 and pt standing at bedside to void. Returned to bed and iv diltiazem administered as ordered for elevated heartrate. One teen's to 120's at rest in bed lying on left side. Will continue to monitor.
--- NOTE | 2018-01-22 22:03 | PC.NURSE ---
Pt resting quietly in bed with eyes closed. BP 98/63 with HR 90 per monitor s/p diltiazem iv administration.
--- NOTE | 2018-01-22 23:15 | PC.NURSE ---
Up to void small amounts frequently throughout this shift. Agreeable to bladder scan upon return to bed. This was delegated to NOC CUTTER HEAD SHARPENER after change of shift report at bedside. Pt is agreeable.
[2018-01-23] VITALS (10 sets, daily range): BP systolic 104–132; BP diastolic 62–87; PULSE 85–133; RESP 16–18; TEMP 36.3–36.7; O2SAT 95–99
--- NOTE | 2018-01-23 00:55 | PC.NURSE ---
Addendum entered by Mildred Licea R.N. 01/23/18 05:07: HR again reported to be sustaining 120-130 range. Patient lying in bed resting but awake; denies any pain/discomfort. Medicated with Diltiazem. Original Note: Addendum entered by Mildred Licea R.N. 01/23/18 02:09: Patient up to bathroom and BASS GUITAR TEACHER called to inform that HR sustaining in 130's. Once back in bed HR did improve but still more in the 120 range so medicated with IV Diltiazem Original Note: Patient is alert and oriented. Breath sounds CTA with RA sat of 95%; on continuous pulse oximeter. HR irregular with rate fluctuating 90-120's while in room doing assessment; telemetry reading at 0000 was afib CVR. Denies nausea. BT present and abdomen is soft. Denies dysuria, urgency or incontinence. Evening RN reports patient has been up to urinate nearly q1h. Bladder scan at shift change showing 190cc in bladder and patient states he feels he is emptying out. Independent with bed mobility. Walks to bathroom with walker and 1 assist. Wearing bilateral RHYS stockings. Fall risk score is high and bed alarm is on.
[2018-01-23] MEDS: dilTIAZem 25 MG/5 ML SDV 10 MG IV ×3 (01:55→12:19)
[2018-01-23] MEDS: SODIUM CHLORIDE 0.9% FLUSH 10 ML IV ×5 (01:58→23:35)
[2018-01-23 05:57] LABS: Add Manual Diff / Slide Review NO; Basophils Percent Auto 0.7 % (0-2); Eosinophils Percent Auto 1.5 % (2-4); Hematocrit 42.5 % (41-53); Hemoglobin 14.6 g/dL (13.5-17.5); Lymphocytes Percent Auto 20.3 % (25-40); Mean Corpuscular HGB Conc 34.3 % (30-36); Mean Corpuscular Hemoglobin 32.2 PG (26-34); Mean Corpuscular Volume 93.8 fL (80-100); Monocytes Percent Auto 10.5 % (3-14); Neutrophils Absolute Auto 6100 /uL (3000-5900); Platelet Count 162 X10^3/uL (150-400); Red Blood Cell Count 4.54 X10^6/uL (4.5-5.9); Red Cell Distribution Width 14.9 % (11.6-14.8); White Blood Cell Count 9.2 X10^3/uL (4.5-11.0)
[2018-01-23 05:59] LABS: BUN Creatinine Ratio 24.3 (6-22); Blood Urea Nitrogen 17 mg/dL (9-20); Calcium 8.7 mg/dL (8.4-10.2); Carbon Dioxide 22 mmol/L (22-32); Chloride 101 mmol/L (98-107); Estimated Glomerular Filt Rate > 60.0 mL/min (>60); Glucose 96 mg/dL (80-110); HEMOLYSIS < 15 (0-50); Magnesium 1.9 mg/dL (1.6-2.3); Potassium 3.7 mmol/L (3.4-5.1); Sodium 134 mmol/L (137-145)
[2018-01-23] MEDS: dilTIAZem CD 240 MG CAP PO (08:19)
[2018-01-23] MEDS: TAMSULOSIN 0.4 MG CAPSULE PO (08:20)
[2018-01-23] MEDS: METOPROLOL 50 MG TABLET PO (08:20)
[2018-01-23] MEDS: FUROSEMIDE 20 MG TABLET PO (08:20)
[2018-01-23] MEDS: METOPROLOL TARTRATE 5 MG/5 ML INJ IV (08:22)
[2018-01-23] MEDS: CHOLECALCIFEROL (VITAMIN D3) 1,000 UNIT TABLET 1000 UNIT PO (08:22)
--- NOTE | 2018-01-23 11:02 | PT.IPTN ---
Current Diagnoses Unspecified atrial fibrillation (01/20/18) Physical Therapy Treatment Note M2 PT-IP Current Condition Start: 01/21/18 11:13 Freq: NEEDED Status: Active Protocol: Document 01/21/18 09:20 AB (Rec: 01/21/18 11:32 AB [id number]) Physical Therapy Current Condition Current Condition Evaluation Date 01/21/18 Treatment Diagnosis CHF Onset Date 01/20/18 M3 PT-IP Subjective Start: 01/21/18 11:13 Freq: NEEDED Status: Active Protocol: Document 01/23/18 09:50 CLB (Rec: 01/23/18 11:02 CLB [email or web address]) Subjective Physical Therapy Visit Type Type Treatment Note Visit Start Time 09:50 Visit Stop Time 10:15 Total Visit Minutes 25 Number of SPRINKLING TRUCK DRIVER Visits 2 Physical Therapy Visit Comments Patient Comments pt agreeable to do therapy Therapy Pain Assessment Pain Present Pain Present Denied Pain M4 PT-IP Mobility and Gait Start: 01/21/18 11:13 Freq: NEEDED Status: Active Protocol: Document 01/23/18 09:50 CLB (Rec: 01/23/18 11:02 CLB [id number]) PT-Transfer Assessment Sit to and From Stand Sit to and from Stand Standby Assistance Equipment Transfer Assistive Device Gait Belt Transfer Ability Level of Assist Standby Assistance Gait Assessment Gait Gait Assistance Required: Standby Assistance Contact Guard Assist Distance (Feet) (feet) 100 Able to Maintain Weight Bearing Status Yes During Gait Assistive Devices Assistive Device Gait Belt Straight Cane Orthotic/Prosthetic Devices or Brace: No Gait Deviations General Gait Pattern Decreased Stride Length Decreased Feet Clearance Narrow Based Gait Factors Limiting Gait Function Factors Limiting Gait Function Decreased Activity Tolerance Decreased Strength Poor Balance Comments Gait Comments Pt CA 77-122 during activity. O2 saturation 94-99% with activity. Pt trailed cane and was able to increase stride length with increased stability. M5 PT-IP Objective Assessments Start: 01/21/18 11:13 Freq: NEEDED Status: Active Protocol: Document 01/21/18 09:20 AB (Rec: 01/21/18 11:32 AB [id number]) Orientation Orientation/Cognition Level of Alertness Alert Orientation Name Age Birthday Month Date Year Day of Week Place Situation Safety Awareness Understands Safety Issues Strength Lower Extremity Strength Assessment Within Functional Limits M6 PT-IP Treatment Start: 01/21/18 11:13 Freq: NEEDED Status: Active Protocol: Document 01/23/18 09:50 CLB (Rec: 01/23/18 11:02 CLB [id number]) Physical Therapy Treatment Exercises Exercises Quad Sets Seated Knee Flexion/Extension Other Treatments Other Treatment Performed seated marches M7 PT-IP Assessment and Plan Start: 01/21/18 11:13 Freq: NEEDED Status: Active Protocol: Document 01/23/18 09:50 CLB (Rec: 01/23/18 11:02 CLB [id number]) PT Summary Assessment and Plan Summary Assessment Summary Pt able to ambulate in room with rest breaks for 100ft. Pt HR randged 77-122 with activity and O2 remained above 92%. Pt trialed cane and has increased stability with cane. Pt will need to trial stairs before d/c home. Goals Bed Mobility Goal Independent Transfer Goal Independent Gait Goal Independent Gait Distance 150 Other Goals up/down 2 steps without rails Days to Meet Goals 3 Frequency of Treatment Frequency Of Treatment Once a Day Treatment Plan Physical Therapy Treatment Plan Bed Mobility Training Transfer Training Gait Training Therapeutic Exercise Balance Retraining Post Op Education Discharge Planning Manual Therapy Recommendations To Nursing Amount of Assist Needed 1 Person Assist Discharge Recommendations PT Discharge Recommendations Home with Assistance
--- NOTE | 2018-01-23 12:12 | PC.NURSE ---
Addendum entered by Mallory Wahl R.N. 01/23/18 12:31: HR 120-130 sustained at rest IV dilt given. Original Note: Am shift note Pt has continued with variable heart rate, with activity up into 130s. Denies any chest pain, IV Metoprolol x1, IV Dilt x1, and PO meds as scheduled. Friend at bedside and making appt with out patient cardiology.
[2018-01-23] MEDS: METOPROLOL 25 MG TABLET PO (12:26)
--- NOTE | 2018-01-23 13:44 | OT.IP.TRT ---
Current Diagnoses Unspecified atrial fibrillation (01/20/18) Occupational Therapy Treatment Note M2 OT-IP Current Condition Start: 01/21/18 13:20 Freq: Status: Active Protocol: Document 01/21/18 13:21 [facility] (Rec: 01/21/18 13:30 [facility] [id number]) Occupational Therapy Current Condition Current Condition Evaluation Date 01/21/18 Treatment Diagnosis CHF, SOB Diagnosis Onset Date 01/20/18 Weight Bearing Status Weight Bearing Status Weight Bear as Tolerated M3 OT- IP Subjective and Pain Start: 01/21/18 13:20 Freq: Status: Active Protocol: Document 01/23/18 13:38 [facility] (Rec: 01/23/18 13:44 [facility] [id number]) OT- Subjective Occupational Therapy Visit Type Type Treatment Note Visit Start Time 10:30 Visit Stop Time 10:45 Total Visit Minutes 15 Occupational Therapy Visit Comments Patient Comments Pt states already showered with aid and has a stool at home to use if needed. OT Pain Assessment Pain When Pain Assessed At Rest Pain Present Pain Present Denied Pain M4 OT- IP ADL's Start: 01/21/18 13:20 Freq: Status: Active Protocol: Document 01/21/18 13:21 [facility] (Rec: 01/21/18 13:30 [facility] [id number]) OT ADL-Dressing General Eval Upper Body Dressing Ability Standby Assistance Lower Body Dressing Ability Standby Assistance Comments OT Dressing Comments SBA for balance while standing . Pt given AED for LB dressing to help to concerve his energy. M6 OT- IP Functional Cognition Start: 01/21/18 13:20 Freq: Status: Active Protocol: Document 01/21/18 13:21 [facility] (Rec: 01/21/18 13:30 [facility] [id number]) Cognitive Factors Limiting Selfcare Function Cognitive Ability Level of Alertness Alert Patient Orientation Name Age Birthday Month Date Year Day of Week Place Situation Attention Span Ability Capable of Focused Attention Capable of Sustained Attention Ability to Follow Commands Able to Follow Multi-Step Commands Memory Description No Deficits Noted Safety Awareness No Deficits Noted Problem Solving Ability No deficits Noted OT- Vision and Hearing OT- Hearing Assessment OT- Hearing Assessment WFL OT- Vision Assessment Vision Assessment Comments Glasses for distance. M7 OT- IP Mobility and Balance Start: 01/21/18 13:20 Freq: Status: Active Protocol: Document 01/23/18 13:38 [facility] (Rec: 01/23/18 13:44 [facility] [id number]) OT-Transfer Assessment Sit to and From Stand Sit to and from Stand Independent Transfers Transfer Ability Standby Assistance Technique Transfer Destination Chair Devices Transfer Assistive Devices None Comments Mobility Comments Pt able to get dwon to the floor to his knees on a pillow and push up from bech seating by the window with increased time. Noted pt tends to take small steps and not able to stand on one foot. Pt states does not use a device at home and suggested may benefit from use of cane. Spoke to GSA COORDINATOR, GSA COORDINATOR to go and see pt regarding use of cane to increase safety with mobility needs. OT- Balance Assessment Sitting Balance and Reactions Static Sitting Balance Ability Normal Dynamic Sitting Balance Ability Normal Standing Balance and Reactions Static Standing Balance Ability Normal Dynamic Standing Balance Ability Fair M8 OT- IP Objective Assessments Start: 01/21/18 13:20 Freq: Status: Active Protocol: Document 01/21/18 13:21 [facility] (Rec: 01/21/18 13:30 [facility] [id number]) OT Strength Comments Strength Comments LUE 4-/5, RUE4/5 Left trigger finger for fifth digit. M9 OT- IP Assessment and Plan Start: 01/21/18 13:20 Freq: Status: Active Protocol: Document 01/23/18 13:38 [facility] (Rec: 01/23/18 13:44 [facility] [id number]) OT Summary Assessment and Plan Summary OT Impairments Balance Functional Mobility Progress Towards Goals Slow Progress due to Medical Issues Assessment Summary Pt continue for increased HR from 80-130's during minimal activity. Pt looking to go home when medically stable and to have room mate to assist for needs. Goals Patient/Caregiver Education Goal Demonstrate Energy Conservation and Pacing Caregiver Independent Assisting Patient OT-Other Goals Pt to be independent in the room for ADl needs except for showering-SBA. Days to Meet Goals 1 Frequency of Treatment Frequency Of Treatment Once a Day Treatment Plan OT Treatment Plan ADL Training Functional Mobility Patient/Family Education Discharge Planning Other Treatment Recommendations and Next Activity tolerance during ADL' Treatment Focus s. Discharge Recommendations OT Discharge Recommendations Home with Assistance
[2018-01-23] MEDS: WARFARIN 2.5 MG TABLET PO (17:01)
--- NOTE | 2018-01-23 17:09 | P.PN_ITS ---
Subjective Date Patient Seen: 01/23/18 Time Patient Seen: 14:00 Interval history: This is an 82-year-old female with complex medical problems presenting with progressive dyspnea at rest and exertion, complains of chills, palpitations, intermittent cough, general weakness secondary to atrial fibrillation with rapid ventricular response, CHF exacerbation, hyponatremia. No events overnight, patient reports overall feeling better, remains hemodynamically stable and essentially asymptomatic. His ventricular rate is better controlled ,continue dose adjustement of his medications for optimal control. Exam Vital Signs (past 8 hours): - 01/23/18 11:00 01/23/18 15:30 Temperature 97.4 F L 97.5 F L Pulse Rate 98 H 101 H Respiratory Rate 17 18 Blood Pressure 116/76 107/62 Pulse Oximetry 99 95 Oxygen Delivery Method Room Air Oxygen Flow Rate 0 Narrative Exam Narrative: Constitutional: Well-nourished and well-developed male in NAD; he is alert and oriented x3 HEENT: Unremarkable exam; except for small wound on his forehead after excisional biopsy of skin lesion prior to admission. Eyes: PERRLA, EOMI Neck: Supple, no jugular venous distention, no bruits on auscultation of his carotid arteries Cardiovascular: Irregular rate with better controlled rate, no cardiac murmurs Pulmonary: Clear to auscultation bilaterally, decreased at the bases, no obvious rales, crepitations or wheezing detected Gastrointestinal: No discernible organomegaly, bowel sounds present Extremities: Warm to touch, no edema Skin: with fresh wound on patient's forehead, 1.2x 1.3 cm in size after recent excisional biopsy Objective Imaging Chest x-ray: Radiologist's impression: IMPRESSION: Presumed COPD given the pulmonary hyperexpansion present and there is superimposed mild pulmonary edema and heart size is at the upper limits of normal. Dictated by: Solitario Lam M.D. on 01/20/2018 at 13:01 Approved by: Solitario Lam M.D. on 01/20/2018 at 13:02 Labs Result Diagrams: 01/23/18 05:38 01/23/18 05:38 Labs: Laboratory Results - last 24 hr 01/23/18 01/23/18 05:38 05:38 WBC 9.2 RBC 4.54 Hgb 14.6 Hct 42.5 MCV 93.8 MCH 32.2 MCHC 34.3 RDW 14.9 H Plt Count 162 Neut % (Auto) 67.0 Lymph % (Auto) 20.3 L [place] % (Auto) 10.5 Eos % (Auto) 1.5 L Baso % (Auto) 0.7 Neut # (Auto) 6100 H Sodium 134 L Potassium 3.7 Chloride 101 Carbon Dioxide 22 BUN 17 Creatinine 0.70 Estimated GFR > 60.0 BUN/Creatinine Ratio 24.3 H Glucose 96 Calcium 8.7 Magnesium 1.9 Assessment & Plan Plan: Assessment/Plan Narrative: 1. Acute hypoxic respiratory failure: Multifactorial, resolving, currently saturating well on minimal oxygen support via nasal cannula. 2. Atrial fibrillation with rapid ventricular response: better controlled. Continue dose adjustments of current medications including long-lasting calcium channel blockers and beta-blockers for optimal control. Patient remains on systemic anticoagulation with Coumadin, current INR at 2.6 . 3. Congestive heart failure, acute on chronic, diastolic: with acceptable control on current diuretic therapy with PO lasix, continue as is. 4. BPH/obstructive uropathy: resume tx with PO Flomax 5. Forehead Skin lesion: Status post excision this AM, pending the results of skin histology 6. COPD/ emphysema: with no signs of exacerbation, current imaging with hyperinflated lungs, no obvious infiltrative changes 7. Hyponatremia: resolving, current Na level at 134. Time Spent With Patient Time with patient: 25 - 35 minutes
[2018-01-23 17:21] LABS: Osmolality, Serum 263 mosm/kg (260-310)
[2018-01-23 17:27] LABS: Osmolality Urine 250 mosm/kg (220-1300)
[2018-01-23] MEDS: METOPROLOL 25 MG TABLET 75 MG PO (21:13)
--- NOTE | 2018-01-23 21:51 | PC.NURSE ---
NAT SHIFT NOTE: Care assumed of this patient. Patient sitting in chair visiting with family. Room air, VSS. A fib on the monitor low 90s to 110s HR. Patient denies pain this shift. Denies dizziness or shortness of breath. Patient did increase to 140s-150s while brushing teeth and ambulating to bathroom. At rest HR returned to 90s-100s. Patient pleasant, alert and oriented times 4. No acute distress, call light in reach. Will continue to monitor.
[2018-01-24] VITALS (8 sets, daily range): BP systolic 96–135; BP diastolic 68–75; PULSE 76–145; RESP 16–20; TEMP 36.2–36.9; O2SAT 94–96
[2018-01-24] MEDS: SODIUM CHLORIDE 0.9% FLUSH 10 ML IV ×3 (03:39→08:02)
[2018-01-24] MEDS: dilTIAZem 25 MG/5 ML SDV 10 MG IV ×2 (03:45→06:28)
--- NOTE | 2018-01-24 04:02 | PC.NURSE ---
Addendum entered by Eva Parnell R.N. 01/24/18 06:57: Pt remains asymptomatic in reporting any changes throughout night. Telemetry monitoring showed again this AM, Heart rate sustaining in 130's-140's. 2nd dose of prn diltiazem 10mg given at 06:28, pre vitals 110/76 HR 145, post vitals 96/68, HR 110. Original Note: Technology Advisor- Pt A&OX4, able to make needs known using call light. High fall risk precautiosn in place & bed alarm on. Pt appropriate, cooperative. Denies pain, shortness of breath, nausea upon rest or ambulating to BR. OOB to BR using walker and SBA, steady gait, walks slowly. Voiding qs, passing flatus, had 2 very small sized shaheen of BM. On continuous O2 monitoring throughout shift, O2 sat 94-97% on RA. On Telemetry monitoring, HR irregular upon auscultation. Coordinator rec'd call from ICU, HR sustaining above 100bpm up to 140's. Diltiazem 10mg IVP prn given at 0345 per AUG. Pt agreed stated having no symptoms after last prn dose given. Pt denied any symptoms at this time, stating, I feel fine. Will monitor. Call light within reach.
[2018-01-24] MEDS: TAMSULOSIN 0.4 MG CAPSULE PO (08:02)
[2018-01-24] MEDS: FUROSEMIDE 20 MG TABLET PO (08:02)
[2018-01-24] MEDS: CHOLECALCIFEROL (VITAMIN D3) 1,000 UNIT TABLET 1000 UNIT PO (08:02)
[2018-01-24] MEDS: METOPROLOL 25 MG TABLET 75 MG PO (08:02)
[2018-01-24] MEDS: dilTIAZem CD 180 MG CAP PO (08:19)
[2018-01-24] MEDS: dilTIAZem CD 120 MG CAP PO (08:19)
--- NOTE | 2018-01-24 10:06 | PM.DS.1 ---
History of Present Illness Date Patient Seen: 01/24/18 Time Patient Seen: 07:30 Chief complaint: Shortness of Breath Narrative: This is an 82-year-old female with complex medical problems presenting with progressive dyspnea at rest and exertion, complains of chest palpitations, intermittent cough, general weakness secondary to atrial fibrillation with rapid ventricular response, CHF exacerbation, hyponatremia. Patient was sent to ED from the office of his senior sql server dba after the excision biopsy of skin lesion on his forehead. While checking for his vital signs he was recognized with AFib with RVR. Upon admission, patient acknowledged having symptoms as above for the last 2-3 weeks but was reluctant to seek medical attention. His EKG/telemetry with ventricular rates in excess of 140 , clinical labs on admission with hyponatremia of 124 Discharge Providers Date of admission: 01/20/18 15:17 Primary care physician: Fabrizio Alan MD Consults: 01/20/18 17:33 Consult to Discharge Planning Routine Comment: Consult to Occupational Therapy Evaluate & Treat Comment: Physician Instructions: Evaluate and treat Consult to Physical Therapy Evaluate & Treat Comment: Physician Instructions: Evaluate and Treat Discharge provider: Domitila Keyes MD Summary Discharge Diagnosis: 1. Acute hypoxic respiratory failure: Multifactorial, resolved, currently saturating well on RA 2. Atrial fibrillation with rapid ventricular response: better controlled. On changes made to his medications . Getting discharged on Cardizem CD 300 mg po qd and metoprolol tartrate at75 mg po BIO.Patient remains on anticoagulaton with Coumadin, with nost recent INR at 2.6 . Patient has a scheduled appointment with his pomology teacher next week. 3. Congestive heart failure, acute on chronic, diastolic: with acceptable control on current diuretic therapy with PO lasix, continue as is. 4. BPH/obstructive uropathy: resume tx with PO Flomax 5. Forehead Skin lesion: Status post excision this AM, pending the results of skin histology 6. COPD/ emphysema: with no signs of exacerbation, current imaging with hyperinflated lungs, no obvious infiltrative changes seen. 7. Hyponatremia: resolving, msot recent Na level at 134 as compared to 124 o admission. Exam Vital Signs (past 8 hours): - 01/24/18 02:36 01/24/18 03:45 01/24/18 03:52 Temperature 98.4 F Pulse Rate 119 H 95 H Respiratory Rate 20 Blood Pressure 107/75 98/69 Pulse Oximetry 94 95 01/24/18 06:28 01/24/18 06:42 01/24/18 07:54 Temperature 97.2 F L Pulse Rate 145 H 110 H 76 Respiratory Rate 16 Blood Pressure 110/75 96/68 110/74 Pulse Oximetry 96 95 01/24/18 08:15 Temperature Pulse Rate Respiratory Rate Blood Pressure Pulse Oximetry 95 Oxygen Delivery Method Room Air Oxygen Flow Rate 0 Narrative Exam Narrative: Constitutional: Well-developed frail appearing male in NAD; he is alert and oriented x3 HEENT: Unremarkable exam; except for small wound on his forehead after excisional biopsy of skin lesion prior to admission. Eyes: PERRLA, EOMI Neck: Supple, no jugular venous distention, no bruits on auscultation of his carotid arteries Cardiovascular: Irregular rate with better controlled rate, no cardiac murmurs Pulmonary: Clear to auscultation bilaterally, decreased at the bases, no obvious rales, crepitations or wheezing detected Gastrointestinal: No discernible organomegaly, bowel sounds present Extremities: Warm to touch, no edema Skin: with fresh wound on patient's forehead, 1.2x 1.3 cm in size after recent excisional biopsy Objective Imaging Chest x-ray: Radiologist's impression: Chest x-ray: Radiologist's impression: IMPRESSION: Presumed COPD given the pulmonary hyperexpansion present and there is superimposed mild pulmonary edema and heart size is at the upper limits of normal. Dictated by: Solitario Lam M.D. on 01/20/2018 at 13:01 Approved by: Solitario Lam M.D. on 01/20/2018 at 13:02 Labs Result Diagrams: 01/23/18 05:38 01/23/18 05:38 Labs: Laboratory Results - last 24 hr 01/20/18 01/20/18 12:00 12:00 Serum Osmolality 263 Urine Osmolality 250 Discharge Plan Discharge Plan Patient Disposition: Home Discharge comment: Patient to see his PCP and pomology teacher in a week Provider Discharge Instructions Diet: Low-fat Activity: as tolerated Discharge Data Primary Care Provider: Fabrizio Alan Attending Provider: Domitila Keyes Admit Date/Time: 01/20/18 15:17
--- NOTE | 2018-01-24 10:16 | P.DS_ITS ---
History of Present Illness Date Patient Seen: 01/24/18 Time Patient Seen: 07:30 Chief complaint: Shortness of Breath Narrative: This is an 82-year-old female with complex medical problems presenting with progressive dyspnea at rest and exertion, complains of chest palpitations, intermittent cough, general weakness secondary to atrial fibrillation with rapid ventricular response, CHF exacerbation, hyponatremia. 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 While checking for his vital signs he was recognized with AFib with RVR. Upon admission, patient acknowledged having symptoms as above for the last 2-3 weeks but was reluctant to seek medical attention. His EKG/telemetry with ventricular rates in excess of 140 , clinical labs on admission with hyponatremia of 124 Discharge Providers Date of admission: 01/20/18 15:17 Primary care physician: Fabrizio Alan MD Consults: 01/20/18 17:33 Consult to Discharge Planning Routine Comment: Consult to Occupational Therapy Evaluate & Treat Comment: Physician Instructions: Evaluate and treat Consult to Physical Therapy Evaluate & Treat Comment: Physician Instructions: Evaluate and Treat Discharge provider: Domitila Keyes MD Summary Discharge Diagnosis: 1. Acute hypoxic respiratory failure: Multifactorial, resolved, currently saturating well on RA 2. Atrial fibrillation with rapid ventricular response: better controlled. On changes made to his medications . Getting discharged on Cardizem CD 300 mg po qd and metoprolol tartrate at75 mg po BIO.Patient remains on anticoagulaton with Coumadin, with nost recent INR at 2.6 . Patient has a scheduled appointment with his leguillon debeader next week. 3. Congestive heart failure, acute on chronic, diastolic: with acceptable control on current diuretic therapy with PO lasix, continue as is. 4. BPH/obstructive uropathy: resume tx with PO Flomax 5. Forehead Skin lesion: Status post excision this AM, pending the results of skin histology 6. COPD/ emphysema: with no signs of exacerbation, current imaging with hyperinflated lungs, no obvious infiltrative changes seen. 7. Hyponatremia: resolving, msot recent Na level at 134 as compared to 124 o admission. Exam Vital Signs (past 8 hours): - 01/24/18 02:36 01/24/18 03:45 01/24/18 03:52 Temperature 98.4 F Pulse Rate 119 H 95 H Respiratory Rate 20 Blood Pressure 107/75 98/69 Pulse Oximetry 94 95 01/24/18 06:28 01/24/18 06:42 01/24/18 07:54 Temperature 97.2 F L Pulse Rate 145 H 110 H 76 Respiratory Rate 16 Blood Pressure 110/75 96/68 110/74 Pulse Oximetry 96 95 01/24/18 08:15 Temperature Pulse Rate Respiratory Rate Blood Pressure Pulse Oximetry 95 Oxygen Delivery Method Room Air Oxygen Flow Rate 0 Narrative Exam Narrative: Constitutional: Well-developed frail appearing male in NAD; he is alert and oriented x3 HEENT: Unremarkable exam; except for small wound on his forehead after excisional biopsy of skin lesion prior to admission. Eyes: PERRLA, EOMI Neck: Supple, no jugular venous distention, no bruits on auscultation of his carotid arteries Cardiovascular: Irregular rate with better controlled rate, no cardiac murmurs Pulmonary: Clear to auscultation bilaterally, decreased at the bases, no obvious rales, crepitations or wheezing detected Gastrointestinal: No discernible organomegaly, bowel sounds present Extremities: Warm to touch, no edema Skin: with fresh wound on patient's forehead, 1.2x 1.3 cm in size after recent excisional biopsy Objective Imaging Chest x-ray: Radiologist's impression: Chest x-ray: Radiologist's impression: IMPRESSION: Presumed COPD given the pulmonary hyperexpansion present and there is superimposed mild pulmonary edema and heart size is at the upper limits of normal. Dictated by: Solitario Lam M.D. on 01/20/2018 at 13:01 Approved by: Solitario Lam M.D. on 01/20/2018 at 13:02 Labs Result Diagrams: 01/23/18 05:38 01/23/18 05:38 Labs: Laboratory Results - last 24 hr 01/20/18 01/20/18 12:00 12:00 Serum Osmolality 263 Urine Osmolality 250 Discharge Plan Discharge Plan Patient Disposition: Home Discharge comment: Patient to see his PCP and leguillon debeader in a week Provider Discharge Instructions Diet: Low-fat Activity: as tolerated Discharge Data Primary Care Provider: Fabrizio Alan Attending Provider: Domitila Keyes Admit Date/Time: 01/20/18 15:17
--- NOTE | 2018-01-24 11:05 | PT.IPTN ---
Current Diagnoses Unspecified atrial fibrillation (01/20/18) Physical Therapy Treatment Note M2 PT-IP Current Condition Start: 01/21/18 11:13 Freq: NEEDED Status: Active Protocol: Document 01/21/18 09:20 AB (Rec: 01/21/18 11:32 AB [id number]) Physical Therapy Current Condition Current Condition Evaluation Date 01/21/18 Treatment Diagnosis CHF Onset Date 01/20/18 M3 PT-IP Subjective Start: 01/21/18 11:13 Freq: NEEDED Status: Active Protocol: Document 01/24/18 09:45 CLB (Rec: 01/24/18 11:05 CLB [email or web address]) Subjective Physical Therapy Visit Type Type Treatment Note Visit Start Time 09:45 Visit Stop Time 10:10 Total Visit Minutes 25 Number of BONDERITE OPERATOR Visits 3 Physical Therapy Visit Comments Patient Comments pt agreeable to do therapy Therapy Pain Assessment Pain Present Pain Present Denied Pain M4 PT-IP Mobility and Gait Start: 01/21/18 11:13 Freq: NEEDED Status: Active Protocol: Document 01/24/18 09:45 CLB (Rec: 01/24/18 11:05 CLB [id number]) PT-Transfer Assessment Sit to and From Stand Sit to and from Stand Standby Assistance Equipment Transfer Assistive Device Gait Belt Transfers Transfer Destination Chair Wheelchair Transfer Technique Stand Step Pivot Transfer Ability Level of Assist Standby Assistance Gait Assessment Gait Gait Assistance Required: Standby Assistance Contact Guard Assist Distance (Feet) (feet) 40 Able to Maintain Weight Bearing Status Yes During Gait Assistive Devices Assistive Device Gait Belt Orthotic/Prosthetic Devices or Brace: No Gait Deviations General Gait Pattern Decreased Stride Length Decreased Feet Clearance Narrow Based Gait Factors Limiting Gait Function Factors Limiting Gait Function Decreased Activity Tolerance Decreased Strength Poor Balance Comments Gait Comments Pt declined use of cane but stated he would get one to use outside on uneven surfaces. Stair Climbing Assessment Evaluation Level of Assist On Stairs Contact Guard Assistance Devices Stair Climbing Assistive Devices Left Railing Right Railing Technique/Endurance Stair Climbing Direction Ascend and Descend Stair Climbing Technique Step Over Step Number of Steps Climbed 3 Query Text: Stair Climbing Set # Repetitions (reps) 1 Comments Stair Climbing Comments Pt completed stairs safely w/ CGA. M5 PT-IP Objective Assessments Start: 01/21/18 11:13 Freq: NEEDED Status: Active Protocol: Document 01/21/18 09:20 AB (Rec: 01/21/18 11:32 AB [id number]) Orientation Orientation/Cognition Level of Alertness Alert Orientation Name Age Birthday Month Date Year Day of Week Place Situation Safety Awareness Understands Safety Issues Strength Lower Extremity Strength Assessment Within Functional Limits M6 PT-IP Treatment Start: 01/21/18 11:13 Freq: NEEDED Status: Active Protocol: Document 01/24/18 09:45 CLB (Rec: 01/24/18 11:05 CLB [id number]) Physical Therapy Treatment Exercises Exercises Quad Sets Seated Knee Flexion/Extension Education Education Provided Safety M7 PT-IP Assessment and Plan Start: 01/21/18 11:13 Freq: NEEDED Status: Active Protocol: Document 01/24/18 09:45 CLB (Rec: 01/24/18 11:05 CLB [id number]) PT Summary Assessment and Plan Summary Assessment Summary Pt ambulated in room w/o AD at times reaching out for counter or foot of bed. Recommended pt use a cane but he states he probably won't use it indoors but would use a cane outdoors on uneven ground. Pt O2 sat remained above 92% and HR ranged between 88-122 with activity. Pt seems able to d/c home with assist. Goals Bed Mobility Goal Independent Transfer Goal Independent Gait Goal Independent Gait Distance 150 Other Goals up/down 2 steps without rails Days to Meet Goals 3 Frequency of Treatment Frequency Of Treatment Once a Day Treatment Plan Physical Therapy Treatment Plan Bed Mobility Training Transfer Training Gait Training Therapeutic Exercise Balance Retraining Post Op Education Discharge Planning Manual Therapy Recommendations To Nursing Amount of Assist Needed 1 Person Assist Discharge Recommendations PT Discharge Recommendations Home with Assistance Equipment Needed for Home Before recommended use of SPC. Pt Discharge stated he would get one from his daughter in law or [employer].
--- NOTE | 2018-01-24 11:43 | OT.IP.TRT ---
Current Diagnoses Unspecified atrial fibrillation (01/20/18) Occupational Therapy Treatment Note M3 OT- IP Subjective and Pain Start: 01/21/18 13:20 Freq: Status: Active Protocol: Document 01/24/18 11:43 PJM (Rec: 01/24/18 15:31 PJ [id number]) OT- Subjective Occupational Therapy Visit Type Type Treatment Note Visit Start Time 11:15 Visit Stop Time 11:43 Total Visit Minutes 28 Occupational Therapy Visit Comments Patient Comments I am going home today. OT Pain Assessment Pain When Pain Assessed After Treatment Pain Present Pain Present Denied Pain M4 OT- IP ADL's Start: 01/21/18 13:20 Freq: Status: Active Protocol: Document 01/24/18 11:43 PJM (Rec: 01/24/18 15:31 PJ [id number]) OT ADL-Grooming General Evaluation Grooming Ability Independent Comments OT Grooming Comments standing at sink OT ADL-Oral Care General Eval Oral Care Ability Independent Comments Oral Care Comments standing at sink OT ADL-Dressing General Eval Upper Body Dressing Ability Independent Lower Body Dressing Ability Minimal Assistance Areas Needing Assistance Shoes Comments OT Dressing Comments Pt independent with dressing except for min assist with tight shoes due to B pedal edema. Discussed with pt and his roommate. Pt would benefit from Velcro closure shoes for adjustability of width and a firmer heel. Pt provided with long shoe horn yesterday. OT ADL-Toileting General Evaluation Toileting Ability Independent OT ADL-Bathing Comments OT Bathing Comments Pt declined to shower here. Pt has shower seat and grab bar at home. M7 OT- IP Mobility and Balance Start: 01/21/18 13:20 Freq: Status: Active Protocol: Document 01/24/18 11:43 PJM (Rec: 01/24/18 15:31 PJ [id number]) OT-Transfer Assessment Sit to and From Stand Sit to and from Stand Independent Transfers Transfer Ability Independent Technique Transfer Destination Chair Toilet Transfer Technique Stand Step Pivot Devices Transfer Assistive Devices None OT- Gait Assessment Gait Gait Assistance Required: Independent Assistive Devices Assistive Device None Comments Gait Ability Comments Pt ambulating without a device in room today. He states he will obtain cane from [employer] today as per P.T. recommendations. NO LOB noted . Pt moves slowly and stiffly. OT- Balance Assessment Sitting Balance and Reactions Static Sitting Balance Ability Normal Dynamic Sitting Balance Ability Good Standing Balance and Reactions Static Standing Balance Ability Good Dynamic Standing Balance Ability Good Comments Other Balance Tests/Deviations/Treatment No LOB noted during LB : clothing management or when standing to put on pullover shirt. M9 OT- IP Assessment and Plan Start: 01/21/18 13:20 Freq: Status: Active Protocol: Document 01/24/18 11:43 PJM (Rec: 01/24/18 15:31 PJM [id number]) OT Summary Assessment and Plan Summary Assessment Summary Pt appears close to or at self care and functional mobility baseline. He performs self care tasks slowly and carefully. His roommate states his gait is at baseline. Pt plans to d/c home today with assist from roommate PRN. Goals OT-Other Goals met Frequency of Treatment Frequency Of Treatment Discharge Discharge Recommendations OT Discharge Recommendations Home with Assistance
--- NOTE | 2018-01-24 11:56 | PC.NURSE ---
Pt is dressed and ready to be discharged home with room mate. Pt denies pain. HL removed and Pt is dressed. Reviewed d/c instructions with both, discussed d/c meds and dose changes, reviewed chf guidelines and stroke education. Pt to follow up with Dr. Dahl and Dr. Alan in one week. Pt and Friend deny further questions and are ready to be take out to pov when he finishes lunch.
== END 2018-01-24 13:10 | disposition home or self-care (01) | DRG 308 ==
LOC: ED 14:28 → AC 15:18
PROVIDERS: Admitting Provider Hospitalist; Emergency Provider Emergency Medicine; Family Provider Family Medicine; PCP Family Medicine; Visit Provider Hospitalist
DX: I48.91 Unspecified atrial fibrillation (principal); I50.33 Acute on chronic diastolic (congestive) heart failure; E87.1 Hypo-osmolality and hyponatremia; N13.8 Other obstructive and reflux uropathy; Z79.01 Long term (current) use of anticoagulants; J44.9 Chronic obstructive pulmonary disease, unspecified; N40.1 Benign prostatic hyperplasia with lower urinary tract symptoms; L98.9 Disorder of the skin and subcutaneous tissue, unspecified; I48.92 Unspecified atrial flutter
CPT/HCPCS: 36415; 71046; 80048; 81001; 82340; 82533; 82570; 83735; 83880; 83930; 83935; 84300; 84439; 84443; 84484; 84540; 85025; 85610; 93005; 93010; 94762; 96374; 97110; 97116; 97161; 97165; 97530; 97535; 99283; 99285

== ENCOUNTER → 2018-02-03 13:21 | Outpatient (CLI) | payer OTHER, SELFPAY ==
[2018-01-20 17:18] VITALS: BMI 23.6
[2018-02-03 14:02] LABS: Add Manual Diff / Slide Review NO; Basophils Percent Auto 0.7 % (0-2); Eosinophils Percent Auto 1.1 % (2-4); Hematocrit 44.9 % (41-53); Hemoglobin 15.2 g/dL (13.5-17.5); Lymphocytes Percent Auto 16.5 % (25-40); Mean Corpuscular Hemoglobin 32.1 PG (26-34); Mean Corpuscular Volume 94.4 fL (80-100); Monocytes Percent Auto 10.3 % (3-14); Neutrophils Absolute Auto 5900 /uL (3000-5900); Neutrophils Percent Auto 71.4 % (50-75); Platelet Count 175 X10^3/uL (150-400); Red Blood Cell Count 4.75 X10^6/uL (4.5-5.9); Red Cell Distribution Width 15.3 % (11.6-14.8); White Blood Cell Count 8.2 X10^3/uL (4.5-11.0)
[2018-02-03 14:21] LABS: Alanine Aminotransferase 51 IU/L (21-72); Albumin 3.8 g/dL (3.5-5.0); Albumin Globulin Ratio 1.4 (1.0-2.8); Alkaline Phosphatase 60 U/L (38-126); Aspartate Aminotransferase 44 IU/L (17-59); BUN Creatinine Ratio 18.8 (6-22); Bilirubin Total 1.3 mg/dL (0.2-1.3); Blood Urea Nitrogen 15 mg/dL (9-20); Carbon Dioxide 27 mmol/L (22-32); Chloride 98 mmol/L (98-107); Cholesterol 82 mg/dL (140-199); Estimated Glomerular Filt Rate > 60.0 mL/min (>60); Globulin 2.7 g/dL (1.7-4.1); Glucose 104 mg/dL (80-110); HDL Cholesterol 41 mg/dL (40-60); HEMOLYSIS 39 (0-50); LDL Cholesterol Calculated 31 mg/dL (<100); Potassium 4.1 mmol/L (3.4-5.1); Sodium 133 mmol/L (137-145); Total Protein 6.5 g/dL (6.3-8.2); Triglycerides 49 mg/dL (35-150)
== END ==
PROVIDERS: PCP Family Medicine; Visit Provider Internal Medicine Cardiovascular Disease
DX: I48.91 Unspecified atrial fibrillation (principal); I10 Essential (primary) hypertension; I50.9 Heart failure, unspecified; Z13.220 Encounter for screening for lipoid disorders
CPT/HCPCS: 36415; 80053; 80061; 85025

== ENCOUNTER → 2018-02-13 08:18 | Outpatient (CLI) | payer OTHER, SELFPAY ==
[2018-01-20 17:18] VITALS: BMI 23.6
--- NOTE | 2018-02-13 | DI.ECHO.S_ITS ---
[facility] +---------+ : : [address] : : : : [id number] : : : : Phone: [phone]---------+ Echocardiogram Report + + :Name: ABDON LOMELI Study Date: 02/13/2018 Height: 73 in : :[facility] Exam Location: [facility] Weight: 197 lb : : Gender: Male BSA: 2.1 m2 : :: 1935 Age: 82 yrs BP: 112/80 mmHg: :Reason For Study: AFIB : : Performed By: Shan Blackman : :Referring: DEMETRA AL : + + Interpretation Summary The left ventricle is normal in size. Left ventricular systolic function is moderately reduced. Left ventricular ejection fraction is estimated to be 40 +/- 5%. Compared to the prior exam, left ventricular function is slightly decreased. There is mild to moderate global hypokinesis of the left ventricle. The right ventricle is moderately dilated. Right ventricular systolic function is mildly reduced. Right ventricular systolic function has decreased since previous exam. The right ventricular systolic pressure is estimated at 37 mmHg assuming a right atrial pressure of 8 mm Hg. Both atria are severely dilated. The interatrial septum bows toward right atrium consistent with elevated left atrial pressure. There is mild to moderate mitral regurgitation. Compared to the prior echo study, there has been an increase in the severity of mitral regurgitation. There is mild aortic regurgitation. There has been no significant change since the previous study. The tricuspid valve does not coapt well. There is moderate tricuspid regurgitation. Compared to the prior echo exam, there has been an increase in TR severity. The ascending aorta is mild-moderately enlarged. There has been no significant change since the previous study. Procedure: A two-dimensional transthoracic echocardiogram with color flow and Doppler was performed. The study quality was technically adequate. Comparison is made with the echocardiogram of 12/09/16. The patient was in atrial fibrillation with rapid ventricular response during the exam with a heart rate exceeding 100 bpm. The patient had a heart rate of 88-151 beats per minute. Left Ventricle: The left ventricle is normal in size. Left ventricular wall thickness is moderately increased. Left ventricular systolic function is moderately reduced. Left ventricular ejection fraction is estimated to be 40 +/- 5%. Compared to the prior exam, left ventricular function is slightly decreased. There is mild to moderate global hypokinesis of the left ventricle. Diastolic function could not be accurately assessed due to atrial fibrillation. Right Ventricle: The right ventricle is moderately dilated. Right ventricular systolic function is mildly reduced. Right ventricular systolic function has decreased since previous exam. Atria: Both atria are severely dilated. The interatrial septum bows toward right atrium consistent with elevated left atrial pressure. The interatrial septum is intact with no evidence for an atrial septal defect. Mitral Valve: The mitral valve is normal in structure but abnormal in function. There is mild to moderate mitral regurgitation. Compared to the prior echo study, there has been an increase in the severity of mitral regurgitation. Aortic Valve: The aortic valve is trileaflet. The aortic valve opens well. There is mild aortic regurgitation. There has been no significant change since the previous study. Tricuspid Valve: The tricuspid valve does not coapt well. There is moderate tricuspid regurgitation. Compared to the prior echo exam, there has been an increase in TR severity. The right ventricular systolic pressure is estimated at 37 mmHg assuming a right atrial pressure of 8 mm Hg. Pulmonic Valve: The pulmonic valve is normal in structure and function. There is trace pulmonic regurgitation. Great Vessels: The aortic root is normal size. The ascending aorta is mild- moderately enlarged. There has been no significant change since the previous study. The pulmonary artery is normal size. The IVC is dilated (diameter is greater than 2.1 cm) yet it collapses greater than 50% with a sniff. This suggests a right atrial pressure of 8 mm Hg. Pericardium/ Pleura There is no pericardial effusion. There is no pleural effusion. MMode/2D Measurements & Calculations LVIDd: 4.4 cm Ao root diam: 4.5 cm LVIDs: 3.3 cm Aortic Jxn: 3.2 cm FS: 25.2 % asc Aorta Diam: 4.0 cm EPSS: 0.46 cm IVSd: 1.5 cm LVPWd: 1.5 cm LV pierce. diameter/BSA (cm/m^2): 2.1 LV sys. diameter/BSA (cm/m^2): 1.6 LA dimension: 4.8 cm RA long axis: 7.8 cm LA A2 area: 32.2 cm2 RA area: 41.3 cm2 LA A4 area: 36.6 cm2 RA vol: 184.4 ml LA length (vol): 7.8 cm RA : 86.3 ml/m2 LA vol: 127.8 ml IVC diam: 2.4 cm LA vol index: 59.8 ml/m2 RVD1 (basal): 6.3 cm RVD2 (mid): 4.8 cm Doppler Measurements & Calculations Ao V2 max: 74.4 cm/sec LVOT Max Augusto: 73.0 cm/sec Ao V2 mean: 56.4 cm/sec LV V1 max P.2 mmHg Ao max P.2 mmHg LV V1 VTI: 10.3 cm Ao mean P.4 mmHg sev ratio: 1.2 Ao V2 VTI: 8.6 cm MV E max augusto: 53.9 cm/sec TR max augusto: 268.5 cm/sec MV A max augusto: 0.55 cm/sec TR max P.0 mmHg MV E/A: 98.6 PA V2 max: 58.3 cm/sec Med Peak E' Augusto: 5.5 cm/sec PA V2 mean: 44.6 cm/sec E/E' med: 9.8 PA mean P.88 mmHg Lat Peak E' Augusto: 9.7 cm/sec PA pr(Accel): 43.2 mmHg E/E' lat: 5.6 PA Accel Time: 0.08 sec E/e' average: 7.7 MV dec time: 0.08 sec Reading Physician:GRAHAM
== END ==
PROVIDERS: Family Provider Family Medicine; PCP Family Medicine; Visit Provider Internal Medicine Cardiovascular Disease
DX: I08.3 Combined rheumatic disorders of mitral, aortic and tricuspid valves (principal); I48.91 Unspecified atrial fibrillation
CPT/HCPCS: 93306

== ENCOUNTER → 2018-02-18 10:58 | Outpatient (CLI) | payer OTHER, SELFPAY ==
[2018-01-20 17:18] VITALS: BMI 23.6
[2018-02-18 12:18] LABS: Blood Urea Nitrogen 21 mg/dL (9-20); Calcium 9.4 mg/dL (8.4-10.2); Carbon Dioxide 34 mmol/L (22-32); Chloride 96 mmol/L (98-107); Estimated Glomerular Filt Rate > 60.0 mL/min (>60); Glucose 100 mg/dL (80-110); HEMOLYSIS < 15 (0-50); Potassium 3.9 mmol/L (3.4-5.1); Sodium 139 mmol/L (137-145)
[2018-02-18 12:27] LABS: Digoxin 1.1 ng/mL (0.8-2.0)
== END ==
PROVIDERS: Family Provider Family Medicine; PCP Family Medicine; Visit Provider Internal Medicine Cardiovascular Disease
DX: I48.1 Persistent atrial fibrillation (principal)
CPT/HCPCS: 36415; 80048; 80162

== ENCOUNTER → 2018-03-27 12:04 | Outpatient (CLI) | payer OTHER, SELFPAY ==
[2018-01-20 17:18] VITALS: BMI 23.6
[2018-03-27 14:35] LABS: Digoxin 0.7 ng/mL (0.8-2.0)
[2018-03-27 15:45] LABS: BUN Creatinine Ratio 22.2 (6-22); Blood Urea Nitrogen 20 mg/dL (9-20); Calcium 9.5 mg/dL (8.4-10.2); Carbon Dioxide 31 mmol/L (22-32); Chloride 99 mmol/L (98-107); Estimated Glomerular Filt Rate > 60.0 mL/min (>60); Glucose 123 mg/dL (80-110); HEMOLYSIS < 15 (0-50); Potassium 4.4 mmol/L (3.4-5.1); Sodium 141 mmol/L (137-145)
== END ==
PROVIDERS: Family Provider Family Medicine; PCP Student in an Organized Health Care Education/Training Program; Visit Provider Internal Medicine Cardiovascular Disease
DX: I48.1 Persistent atrial fibrillation (principal); I42.9 Cardiomyopathy, unspecified
CPT/HCPCS: 36415; 80048; 80162

== ENCOUNTER 2018-05-26 12:26 | Inpatient (IN) | payer OTHER, SELFPAY ==
[2018-01-20 17:18] VITALS: BMI 23.6
[2018-05-26] VITALS (16 sets, daily range): BP systolic 89–161; BP diastolic 58–86; PULSE 84–138; RESP 15–25; TEMP 35.6–36.6; O2SAT 96–99; BMI 22.1; BMI 23.3
--- NOTE | 2018-05-26 12:37 | DI.RAD.S_ITS ---
PROCEDURE: XR CHEST 1V INDICATIONS: shortness of breath TECHNIQUE: One view of the chest was acquired. COMPARISON: [facility], CT, CT ANGIO CHEST, 05/04/2017, 9:10. [facility], CT, PE STUDY (CTA CHEST), 04/02/2014, 18:40. [facility], CR, XR CHEST 2V, 01/20/2018, 12:19. FINDINGS: Surgical changes and devices: None. Lungs and pleura: Bilateral interstitial thickening. Possible small pleural effusions. No pneumothorax. Mediastinum: Mediastinal contours appear normal. Heart size is mildly enlarged. Bones and chest wall: No suspicious bony lesions. Overlying soft tissues appear unremarkable. IMPRESSION: 1. Moderate cardiomegaly. 2. Bilateral interstitial thickening compatible with congestive heart failure or interstitial lung disease. Recommend clinical correlation. Dictated by: Charlie Sawyer M.D. on 05/26/2018 at 12:56 Approved by: Charlie Sawyer M.D. on 05/26/2018 at 13:03
[2018-05-26 12:56] LABS: Add Manual Diff / Slide Review NO; Basophils Percent Auto 1.3 % (0-2); Hematocrit 52.3 % (41-53); Hemoglobin 17.6 g/dL (13.5-17.5); Lymphocytes Percent Auto 32.2 % (25-40); Mean Corpuscular HGB Conc 33.7 % (30-36); Mean Corpuscular Volume 95.2 fL (80-100); Monocytes Percent Auto 9.8 % (3-14); Neutrophils Absolute Auto 4200 /uL (1500-7000); Neutrophils Percent Auto 54.7 % (50-75); Platelet Count 168 X10^3/uL (150-400); Red Cell Distribution Width 15.7 % (11.6-14.8); White Blood Cell Count 7.7 X10^3/uL (4.5-11.0)
--- NOTE | 2018-05-26 12:56 | ED.SOB ---
HPI - SOB/Dyspnea <JESUS Cadet - Last Filed: 05/26/18 18:27> General Chief Complaint: Shortness of Breath/Dyspnea Stated Complaint: Lump in left calf Time Seen by Provider: 05/26/18 12:45 Source: patient Mode of arrival: ambulatory Limitations: no limitations History of Present Illness Patient is an 83-year-old male nonsmoker with a history of AFib with RVR and CHF who presents with shortness of breath. He states has been going on for 2 days. His roommate called 911 last night but he did not want to be transported to the emergency department. He denies any fever nausea vomiting diarrhea or abdominal pain. He denies any chest pain. He states he has not been drinking enough water. He is on Coumadin and metoprolol tartrate for his atrial fibrillation. He denies any cough. He denies any swelling of the extremities. Related Data Home Medications Medication Instructions Recorded Confirmed cholecalciferol (vitamin D3) 1,000 unit PO QPM 01/20/18 05/26/18 [Vitamin D3] tamsulosin [Flomax] 0.8 mg PO QPM 01/20/18 05/26/18 warfarin [Coumadin] 5 mg PO SUMOWETHFRSA 01/20/18 05/26/18 metoprolol tartrate 100 mg tablet 150 mg PO BID tab 04/14/18 05/26/18 warfarin [Coumadin] 2.5 mg PO TU 05/26/18 05/26/18 Previous Rx's Medication Instructions Recorded furosemide 40 mg tablet 40 mg PO DAILY #90 tab 03/17/18 zolpidem 10 mg tablet 10 mg PO HS PRN #30 tab 03/29/18 Allergies Allergy/AdvReac Type Severity Reaction Status Date / Time KAYLYNN Inhibitors AdvReac Intermediate COUGH Verified 05/26/18 12:41 [KAYLYNN INHIBITORS] Review of Systems <JESUS Cadet - Last Filed: 05/26/18 18:27> Review of Systems GENERAL: Denies chills, fatigue, malaise, fever, sweats. HEENT: Denies sinus pain, ear pain, sore throat, difficulty swallowing, dizziness. RESPIRATORY: HPI CARDIOVASCULAR: Denies chest pain, palpitations, orthopnea, edema, GASTROINTESTINAL: Denies nausea, vomiting, abdominal pain, diarrhea, constipation, melena. : Denies dysuria, frequency, incontinence, hematuria, urinary retention. MUSCULOSKELETAL: denies weakness, joint pain, or bony pain SKIN: Denies rash, skin lesions, or other NEUROLOGIC: Denies weakness, headache, numbness, change in speech, confusion, seizures, incoordination. PSYCHIATRIC: No concerning psychosocial issues. 12 point review of systems is negative except for those stated above Exam <SAJI Cadet-BC - Last Filed: 05/26/18 18:27> Narrative Exam Narrative: GENERAL: Elderly male lying on stretcher HEAD: Atraumatic. Normocephalic. No temporal or scalp tenderness. EYES: Pupils equal round and reactive. Extraocular motions intact. No scleral icterus. No injection or drainage. ENT: Nose without bleeding, purulent drainage or septal hematoma. Throat without erythema, tonsillar hypertrophy or exudate. Uvula midline. Airway patent. NECK: Trachea midline. No JVD or lymphadenopathy. Supple, nontender, no meningeal signs. CARDIOVASCULAR: Rate tachycardic and irregular. RESPIRATORY: Clear to auscultation. Breath sounds equal bilaterally. No wheezes, rales, or rhonchi. No cough on exam. No increased respiratory effort or accessory muscle use. GASTROINTESTINAL: Abdomen soft, non-tender, nondistended. No hepato-splenomegaly, or palpable masses. No guarding. EXTREMITIES: No clubbing, cyanosis, or edema. No joint tenderness, effusion, or edema noted. BACK: Nontender without deformity or crepitance. No flank tenderness. NEURO: AOx3. No slurred speech. Using all extremities equally. SKIN: No rash or erythema. Initial Vital Signs Initial Vital Signs: Vital Signs Temperature 97.8 F 05/26/18 12:35 Pulse Rate 119 H 05/26/18 12:35 Respiratory Rate 25 H 05/26/18 12:35 Blood Pressure 104/86 05/26/18 12:35 Pulse Oximetry 99 05/26/18 12:35 <Shelly Ruiz DO - Last Filed: 05/26/18 19:02> Initial Vital Signs Initial Vital Signs: Vital Signs Temperature 97.8 F 05/26/18 12:35 Pulse Rate 119 H 05/26/18 12:35 Respiratory Rate 25 H 05/26/18 12:35 Blood Pressure 104/86 05/26/18 12:35 Pulse Oximetry 99 05/26/18 12:35 Course <Shelly Franco, TOOLING ENGINEER-BC - Last Filed: 05/26/18 18:27> Course Narrative: I checked on the patient several times throughout his stay in the emergency department. He reported improved breathing after the administration of a diltiazem bolus. Orders Ordered: ED Orders 05/26/18 12:37 Consult to Respiratory Therapy Evaluate & Treat Chest [XR chest 1V] Stat EKG-12 Lead Stat 05/26/18 12:45 B Type Natriuretic Peptide Stat Complete Blood Count AUTO DIFF Stat Comprehensive Metabolic Panel Stat Lactate (Lactic Acid) Stat Prothrombin Time INR Stat Troponin & CK Cardiac Panel Stat 05/26/18 13:30 EKG-12 Lead Stat 05/26/18 15:30 Urine Microscopic Stat 05/26/18 17:38 EC echo complete with contrast Stat Education, smoking cessation ONGOING 05/26/18 18:50 Troponin I Routine Acetaminophen (Tylenol) 650 mg PO Q6HR PRN PRN Reason: As Needed for Fever/Mild Pain Furosemide (Lasix) 40 mg PO DAILY [facility] Influenza Virus Vaccine (Flu Vaccine) 0.5 ml IM .ONCE ONE Stop: 05/26/18 20:01 Metoprolol Tartrate (Lopressor) 150 mg PO BID JERRICA Tamsulosin HCl (Flomax) 0.8 mg PO BEDTIME [facility] Warfarin Sodium (Coumadin) 2.5 mg PO Tu@1700 JERRICA Warfarin Sodium (Coumadin) 5 mg PO SuMoWeThFrSa@1700 JERRICA Zolpidem Tartrate (Ambien) 10 mg PO BEDTIME PRN PRN Reason: Sleep Discontinued Medications Diltiazem HCl (Cardizem) 10 mg IV NOW ONE Stop: 05/26/18 13:04 Last Admin: 05/26/18 13:09 Dose: 10 mg Furosemide (Lasix) 20 mg IV NOW ONE Stop: 05/26/18 13:57 Last Admin: 05/26/18 14:06 Dose: 20 mg Consultations Consultation #1: I spoke with Dr. Kaminski who kindly agreed to admit the patient to observation status. Time: 14:30 Vital Signs - 8 hr 05/26/18 12:35 05/26/18 12:50 05/26/18 13:00 Temperature 97.8 F Pulse Rate 119 H 123 H 132 H Respiratory Rate 25 H 23 18 Blood Pressure 104/86 Blood Pressure [Right Arm] 101/81 101/78 Pulse Oximetry 99 97 98 05/26/18 13:09 05/26/18 13:10 05/26/18 13:16 Temperature Pulse Rate 138 H 138 H 118 H Respiratory Rate 18 18 Blood Pressure 101/78 Blood Pressure [Right Arm] 106/76 98/76 Pulse Oximetry 98 98 05/26/18 13:20 05/26/18 13:25 05/26/18 13:30 Temperature Pulse Rate 93 H 91 H 91 H Respiratory Rate 18 18 18 Blood Pressure Blood Pressure [Right Arm] 89/58 L 94/66 100/72 Pulse Oximetry 98 05/26/18 13:35 05/26/18 14:14 05/26/18 15:21 Temperature Pulse Rate 88 99 H 85 Respiratory Rate 18 23 19 Blood Pressure Blood Pressure [Right Arm] 106/66 100/72 111/78 Pulse Oximetry 97 98 05/26/18 16:48 05/26/18 17:40 Temperature 97.6 F Pulse Rate 84 115 H Respiratory Rate 18 15 Blood Pressure 161/77 H Blood Pressure [Right Arm] 106/73 Pulse Oximetry 99 97 <Shelly Ruiz, DO - Last Filed: 05/26/18 19:02> Orders Ordered: ED Orders 05/26/18 12:37 Consult to Respiratory Therapy Evaluate & Treat Chest [XR chest 1V] Stat EKG-12 Lead Stat 05/26/18 12:45 B Type Natriuretic Peptide Stat Complete Blood Count AUTO DIFF Stat Comprehensive Metabolic Panel Stat Lactate (Lactic Acid) Stat Prothrombin Time INR Stat Troponin & CK Cardiac Panel Stat 05/26/18 13:30 EKG-12 Lead Stat 05/26/18 15:30 Urine Microscopic Stat 05/26/18 17:38 EC echo complete with contrast Stat Education, smoking cessation ONGOING 05/26/18 18:50 Troponin I Routine Acetaminophen (Tylenol) 650 mg PO Q6HR PRN PRN Reason: As Needed for Fever/Mild Pain Furosemide (Lasix) 40 mg PO DAILY [facility] Influenza Virus Vaccine (Flu Vaccine) 0.5 ml IM .ONCE ONE Stop: 05/26/18 20:01 Metoprolol Tartrate (Lopressor) 150 mg PO BID [facility] Tamsulosin HCl (Flomax) 0.8 mg PO BEDTIME [facility] Warfarin Sodium (Coumadin) 2.5 mg PO Tu@1700 [facility] Warfarin Sodium (Coumadin) 5 mg PO SuMoWeThFrSa@1700 [facility] Zolpidem Tartrate (Ambien) 10 mg PO BEDTIME PRN PRN Reason: Sleep Discontinued Medications Diltiazem HCl (Cardizem) 10 mg IV NOW ONE Stop: 05/26/18 13:04 Last Admin: 05/26/18 13:09 Dose: 10 mg Furosemide (Lasix) 20 mg IV NOW ONE Stop: 05/26/18 13:57 Last Admin: 05/26/18 14:06 Dose: 20 mg Vital Signs - 8 hr 05/26/18 12:35 05/26/18 12:50 05/26/18 13:00 Temperature 97.8 F Pulse Rate 119 H 123 H 132 H Respiratory Rate 25 H 23 18 Blood Pressure 104/86 Blood Pressure [Right Arm] 101/81 101/78 Pulse Oximetry 99 97 98 05/26/18 13:09 05/26/18 13:10 05/26/18 13:16 Temperature Pulse Rate 138 H 138 H 118 H Respiratory Rate 18 18 Blood Pressure 101/78 Blood Pressure [Right Arm] 106/76 98/76 Pulse Oximetry 98 98 05/26/18 13:20 05/26/18 13:25 05/26/18 13:30 Temperature Pulse Rate 93 H 91 H 91 H Respiratory Rate 18 18 18 Blood Pressure Blood Pressure [Right Arm] 89/58 L 94/66 100/72 Pulse Oximetry 98 05/26/18 13:35 05/26/18 14:14 05/26/18 15:21 Temperature Pulse Rate 88 99 H 85 Respiratory Rate 18 23 19 Blood Pressure Blood Pressure [Right Arm] 106/66 100/72 111/78 Pulse Oximetry 97 98 05/26/18 16:48 05/26/18 17:40 Temperature 97.6 F Pulse Rate 84 115 H Respiratory Rate 18 15 Blood Pressure 161/77 H Blood Pressure [Right Arm] 106/73 Pulse Oximetry 99 97 MDM - SOB/Dyspnea <JESUS Cadet - Last Filed: 05/26/18 18:27> Lab Data Result diagrams: 05/26/18 12:45 05/26/18 12:45 Lab Results 05/26/18 05/26/18 05/26/18 Range/Units 12:45 12:45 12:45 WBC 7.7 (4.5-11.0) X10^3/uL RBC 5.50 (4.5-5.9) X10^6/uL Hgb 17.6 H (13.5-17.5) g/dL Hct 52.3 (41-53) % MCV 95.2 (80-100) fL MCH 32.0 (26-34) PG MCHC 33.7 (30-36) % RDW 15.7 H (11.6-14.8) % Plt Count 168 (150-400) X10^3/uL Neut % (Auto) 54.7 (50-75) % Lymph % (Auto) 32.2 (25-40) % [place] % (Auto) 9.8 (3-14) % Eos % (Auto) 2.0 (2-4) % Baso % (Auto) 1.3 (0-2) % Neut # (Auto) 4200 (5155-6442) /uL PT 32.3 H (10.1-12.7) SECONDS INR 2.7 H (0.9-1.3) Sodium 132 L (137-145) mmol/L Potassium 3.5 (3.4-5.1) mmol/L Chloride 92 L (98-107) mmol/L Carbon Dioxide 26 (22-32) mmol/L BUN 29 H (9-20) mg/dL Creatinine 0.90 (0.66-1.25) mg/dL Estimated GFR > 60.0 (>60) mL/min BUN/Creatinine Ratio 32.2 H (6-22) Glucose 114 H (80-110) mg/dL Lactate (0.7-2.1) mmol/L Calcium 9.2 (8.4-10.2) mg/dL Total Bilirubin 2.4 H (0.2-1.3) mg/dL AST 41 (17-59) IU/L ALT 46 (21-72) IU/L Alkaline Phosphatase 68 (38-126) U/L Total Creatine Kinase 72 (55-170) U/L CK-MB (CK-2) TNP CK-MB (CK-2) Rel Index TNP Troponin I 0.041 H (0.01-0.034) ng/mL B-Natriuretic Peptide 878 H (<100) Total Protein 7.2 (6.3-8.2) g/dL Albumin 4.1 (3.5-5.0) g/dL Globulin 3.1 (1.7-4.1) g/dL Albumin/Globulin Ratio 1.3 (1.0-2.8) Urine RBC (0-5/HPF) Urine WBC (0-5/HPF) Urine Bacteria (None) Ur Culture Indicated? Micro UA Comment 05/26/18 05/26/18 Range/Units 12:45 15:30 WBC (4.5-11.0) X10^3/uL RBC (4.5-5.9) X10^6/uL Hgb (13.5-17.5) g/dL Hct (41-53) % MCV (80-100) fL MCH (26-34) PG MCHC (30-36) % RDW (11.6-14.8) % Plt Count (150-400) X10^3/uL Neut % (Auto) (50-75) % Lymph % (Auto) (25-40) % [place] % (Auto) (3-14) % Eos % (Auto) (2-4) % Baso % (Auto) (0-2) % Neut # (Auto) (2614-0206) /uL PT (10.1-12.7) SECONDS INR (0.9-1.3) Sodium (137-145) mmol/L Potassium (3.4-5.1) mmol/L Chloride (98-107) mmol/L Carbon Dioxide (22-32) mmol/L BUN (9-20) mg/dL Creatinine (0.66-1.25) mg/dL Estimated GFR (>60) mL/min BUN/Creatinine Ratio (6-22) Glucose (80-110) mg/dL Lactate 2.0 (0.7-2.1) mmol/L Calcium (8.4-10.2) mg/dL Total Bilirubin (0.2-1.3) mg/dL AST (17-59) IU/L ALT (21-72) IU/L Alkaline Phosphatase (38-126) U/L Total Creatine Kinase (55-170) U/L CK-MB (CK-2) CK-MB (CK-2) Rel Index Troponin I (0.01-0.034) ng/mL B-Natriuretic Peptide (<100) Total Protein (6.3-8.2) g/dL Albumin (3.5-5.0) g/dL Globulin (1.7-4.1) g/dL Albumin/Globulin Ratio (1.0-2.8) Urine RBC None seen (0-5/HPF) Urine WBC None seen (0-5/HPF) Urine Bacteria None seen (None) Ur Culture Indicated? Not Reportable Micro UA Comment Not Reportable Urine Dip Bedside Urine Glucose Negative Bedside Urine Bilirubin - Negative Bedside Urine Ketone - Negative Urine Specific [place] 1.010 Bedside Urine Occult Blood +/- Bedside Urine pH 6.0 Bedside Urine Protein - Negative Bedside Urine Urobilinogen - Negative Bedside Urine Nitrite - Negative Bedside Urine Leukocytes - Negative Esterase Imaging Data Chest x-ray: Radiologist's impression: Diagnostics Reports Anthony Coates 83 M 1935 Allergy/Adv: KAYLYNN Inhibitors CLOSE Chest X-Ray (Signed) Greta Sawyer - 05/26/18 Echocardiogram Ultrasound (Signed) Gerard Frazier - 02/13/18 Telemetry Strips 01/20/18 Bladder Scan 01/20/18 Chest X-Ray (Signed) Solitario Lam - 01/20/18 Launch Image View Report History [address] [address] XRay Report Signed Patient: Anthony Coates MR#: [id number] : 1935 Acct:[id number] Age/Sex: 83 / M Date of Service: 05/26/18 Loc: ED Accession Number: [id number] Procedure: XR chest 1V Ordering Provider: Shelly Ruiz D.O. PROCEDURE: XR CHEST 1V INDICATIONS: shortness of breath TECHNIQUE: One view of the chest was acquired. COMPARISON: [facility], CT, CT ANGIO CHEST, 05/04/2017, 9:10. [facility], CT, PE STUDY (CTA CHEST), 04/02/2014, 18:40. [facility], CR, XR CHEST 2V, 01/20/2018, 12:19. FINDINGS: Surgical changes and devices: None. Lungs and pleura: Bilateral interstitial thickening. Possible small pleural effusions. No pneumothorax. Mediastinum: Mediastinal contours appear normal. Heart size is mildly enlarged. Bones and chest wall: No suspicious bony lesions. Overlying soft tissues appear unremarkable. IMPRESSION: 1. Moderate cardiomegaly. 2. Bilateral interstitial thickening compatible with congestive heart failure or interstitial lung disease. Recommend clinical correlation. Dictated by: Charlie Sawyer M.D. on 05/26/2018 at 12:56 Approved by: Charlie Sawyer M.D. on 05/26/2018 at 13:03 ECG Data Attestation: I personally reviewed and interpreted this ECG as follows: Interpretation: Atrial fibrillation with rapid ventricular response. Ventricular rate 123. No ectopy noted. No ST elevation or depression noted. MDM Narrative Medical decision making narrative: The patient is an 83-year-old male who presents with a chief complaint of shortness of breath. EKG illustrate AFib with RVR. He was given a bolus of diltiazem, which decreased his rate down to the 80s to 90s range and improved shortness of breath. A full cardiac workup was done. His troponin came back at in determinate 0.04. Given that he denies any chest pain throughout this, I believe this is likely demand related due to his AFib with RVR. He was also noted to have an elevated BNP of almost 900. Thus I did give him a little bit of Lasix in the emergency department. Dr. Kaminski was kind enough to admit the patient to observation status for continued diuresis, monitoring, and trending of troponin as well as a possible echocardiogram in the morning at 14:30. I discussed this with the patient, and he was appreciative and understanding of staying in the hospital. <Shelly Ruiz, - Last Filed: 05/26/18 19:02> Lab Data Lab Results 05/26/18 05/26/18 05/26/18 Range/Units 12:45 12:45 12:45 WBC 7.7 (4.5-11.0) X10^3/uL RBC 5.50 (4.5-5.9) X10^6/uL Hgb 17.6 H (13.5-17.5) g/dL Hct 52.3 (41-53) % MCV 95.2 (80-100) fL MCH 32.0 (26-34) PG MCHC 33.7 (30-36) % RDW 15.7 H (11.6-14.8) % Plt Count 168 (150-400) X10^3/uL Neut % (Auto) 54.7 (50-75) % Lymph % (Auto) 32.2 (25-40) % [place] % (Auto) 9.8 (3-14) % Eos % (Auto) 2.0 (2-4) % Baso % (Auto) 1.3 (0-2) % Neut # (Auto) 4200 (9470-4988) /uL PT 32.3 H (10.1-12.7) SECONDS INR 2.7 H (0.9-1.3) Sodium 132 L (137-145) mmol/L Potassium 3.5 (3.4-5.1) mmol/L Chloride 92 L (98-107) mmol/L Carbon Dioxide 26 (22-32) mmol/L BUN 29 H (9-20) mg/dL Creatinine 0.90 (0.66-1.25) mg/dL Estimated GFR > 60.0 (>60) mL/min BUN/Creatinine Ratio 32.2 H (6-22) Glucose 114 H (80-110) mg/dL Lactate (0.7-2.1) mmol/L Calcium 9.2 (8.4-10.2) mg/dL Total Bilirubin 2.4 H (0.2-1.3) mg/dL AST 41 (17-59) IU/L ALT 46 (21-72) IU/L Alkaline Phosphatase 68 (38-126) U/L Total Creatine Kinase 72 (55-170) U/L CK-MB (CK-2) TNP CK-MB (CK-2) Rel Index TNP Troponin I 0.041 H (0.01-0.034) ng/mL B-Natriuretic Peptide 878 H (<100) Total Protein 7.2 (6.3-8.2) g/dL Albumin 4.1 (3.5-5.0) g/dL Globulin 3.1 (1.7-4.1) g/dL Albumin/Globulin Ratio 1.3 (1.0-2.8) Urine RBC (0-5/HPF) Urine WBC (0-5/HPF) Urine Bacteria (None) Ur Culture Indicated? Micro UA Comment 05/26/18 05/26/18 Range/Units 12:45 15:30 WBC (4.5-11.0) X10^3/uL RBC (4.5-5.9) X10^6/uL Hgb (13.5-17.5) g/dL Hct (41-53) % MCV (80-100) fL MCH (26-34) PG MCHC (30-36) % RDW (11.6-14.8) % Plt Count (150-400) X10^3/uL Neut % (Auto) (50-75) % Lymph % (Auto) (25-40) % [place] % (Auto) (3-14) % Eos % (Auto) (2-4) % Baso % (Auto) (0-2) % Neut # (Auto) (1527-4433) /uL PT (10.1-12.7) SECONDS INR (0.9-1.3) Sodium (137-145) mmol/L Potassium (3.4-5.1) mmol/L Chloride (98-107) mmol/L Carbon Dioxide (22-32) mmol/L BUN (9-20) mg/dL Creatinine (0.66-1.25) mg/dL Estimated GFR (>60) mL/min BUN/Creatinine Ratio (6-22) Glucose (80-110) mg/dL Lactate 2.0 (0.7-2.1) mmol/L Calcium (8.4-10.2) mg/dL Total Bilirubin (0.2-1.3) mg/dL AST (17-59) IU/L ALT (21-72) IU/L Alkaline Phosphatase (38-126) U/L Total Creatine Kinase (55-170) U/L CK-MB (CK-2) CK-MB (CK-2) Rel Index Troponin I (0.01-0.034) ng/mL B-Natriuretic Peptide (<100) Total Protein (6.3-8.2) g/dL Albumin (3.5-5.0) g/dL Globulin (1.7-4.1) g/dL Albumin/Globulin Ratio (1.0-2.8) Urine RBC None seen (0-5/HPF) Urine WBC None seen (0-5/HPF) Urine Bacteria None seen (None) Ur Culture Indicated? Not Reportable Micro UA Comment Not Reportable Urine Dip Bedside Urine Glucose Negative Bedside Urine Bilirubin - Negative Bedside Urine Ketone - Negative Urine Specific [place] 1.010 Bedside Urine Occult Blood +/- Bedside Urine pH 6.0 Bedside Urine Protein - Negative Bedside Urine Urobilinogen - Negative Bedside Urine Nitrite - Negative Bedside Urine Leukocytes - Negative Esterase Discharge Plan Departure Patient Disposition: Admitted as Observation Clinical Impression: A-fib, Elevated troponin, Elevated brain natriuretic peptide (BNP) level Discharge Date/Time: 05/26/18 16:59 Interventions: ED Discharge Assessment Last Done: 05/26/18 17:05 Admit Date/Time: 05/26/18 15:00 Admit Provider: Diana Kaminski <Shelly Ruiz DO - Last Filed: 05/26/18 19:02> Cosign ED Attending Cosignature Attestation: I was immediately available in the department for consultation. This documentation has been reviewed and I agree with assessment and plan. Supervised by Shelly Ruiz DO
[2018-05-26 13:02] LABS: INR 2.7 (0.9-1.3); Prothrombin Time 32.3 SECONDS (10.1-12.7)
[2018-05-26] MEDS: dilTIAZem 5 MG/ML SDV 10 MG IV (13:09)
[2018-05-26 13:14] LABS: Alanine Aminotransferase 46 IU/L (21-72); Albumin 4.1 g/dL (3.5-5.0); Albumin Globulin Ratio 1.3 (1.0-2.8); Alkaline Phosphatase 68 U/L (38-126); Aspartate Aminotransferase 41 IU/L (17-59); BUN Creatinine Ratio 32.2 (6-22); Bilirubin Total 2.4 mg/dL (0.2-1.3); Blood Urea Nitrogen 29 mg/dL (9-20); Calcium 9.2 mg/dL (8.4-10.2); Carbon Dioxide 26 mmol/L (22-32); Chloride 92 mmol/L (98-107); Creatine Kinase 72 U/L (55-170); Estimated Glomerular Filt Rate > 60.0 mL/min (>60); Globulin 3.1 g/dL (1.7-4.1); Glucose 114 mg/dL (80-110); HEMOLYSIS < 15 (0-50); Potassium 3.5 mmol/L (3.4-5.1); Sodium 132 mmol/L (137-145); Total Protein 7.2 g/dL (6.3-8.2)
[2018-05-26 13:16] LABS: B Type Natriuretic Peptide 878 (<100)
[2018-05-26 13:24] LABS: Troponin I 0.041 ng/mL (0.01-0.034)
[2018-05-26] MEDS: FUROSEMIDE 20 MG/2 ML VIAL IV (14:06)
[2018-05-26 15:34] LABS: Bacteria Urine None Seen; RBC Urine None Seen (0-5/HPF); WBC Urine None Seen (0-5/HPF)
[2018-05-26 19:20] LABS: Troponin I 0.035 ng/mL (0.01-0.034)
[2018-05-26] MEDS: TAMSULOSIN 0.4 MG CAPSULE 0.8 MG PO (20:30)
[2018-05-26] MEDS: METOPROLOL IR 50 MG TABLET 150 MG PO (20:30)
--- NOTE | 2018-05-26 21:13 | PC.NURSE ---
Addendum entered by Mallory Wahl R.N. 05/26/18 22:47: Pt is unsure of Flu vaccine was given this year, please clarify with PCP. Original Note: Arrived from ED, admitted to Room 227. Pt is A/o x3, pleasant and conversing. Tele in place, denies CP and feels SOB has improved since arrival to the ER. Reports no palpitations, My heart is a little faster than it should be Admission completed with Float RN Janett. Denies pain and agrees to use call light for assist after medications given tonight in ER. Call light in jodi, [place] active.
--- NOTE | 2018-05-26 22:22 | P.HP_ITS ---
History of Present Illness Date Patient Seen: 05/26/18 Time Patient Seen: 22:03 Chief complaint: Lump in left calf Narrative: This is an 83-year-old male patient who is admitted to the hospital after presenting to the ER with shortness of breath for 2 days. The patient states he has had a history atrial fibrillation and is coming on and has undergone ablation procedure without successful resolution of arrhythmia. He presented today related to shortness of breath after moving compost and cutting brush. In the ER he had atrial fibrillation with RVR in the 130s. He has been compliant his metoprolol therapy. On ER labs he had an intermediate troponin 0.04, a BNP of 878. His chest x-ray was unremarkable for acute disease. He is on warfarin which is therapeutic with an INR of 2.7. Reports feeling palpitations and has done so intermittently related to his arrhythmia. He denies recent illness, cold or flu symptoms and otherwise describes himself as healthy ?an 8 on a 10 scale?. He has not had any other complaints of chest pain , weakness dizziness or headache. Patient History Medical History Atrial fibrillation with RVR (Resolved) NSTEMI (non-ST elevated myocardial infarction) (Resolved) Atrial flutter with rapid ventricular response (Resolved) Actinic keratosis (Chronic 06/19/15) Allergic rhinitis due to pollen (Chronic 06/19/15) Congestive heart failure (Chronic 06/19/15) Essential hypertension (Chronic 06/19/15) Midline low back pain without sciatica (Chronic 06/19/15) Paroxysmal atrial fibrillation (Chronic 06/19/15) Rosacea (Chronic 06/19/15) Spinal stenosis of lumbosacral region (Chronic 06/19/15) Benign non-nodular prostatic hyperplasia with lower urinary tract symptoms ( Chronic 08/05/15) Chronic fatigue (Chronic 08/05/15) 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/16) Venous insufficiency of both lower extremities (Acute) BPH (benign prostatic hyperplasia) (Acute) Chronic back pain (Acute) Congestive heart failure (Acute) Dyslipidemia (Acute) Skin lesion of face (Acute) Atrial fibrillation and flutter (Chronic 2013) Hypertension (Chronic) Rosacea (Chronic 2009) Actinic keratosis (Resolved) Basal cell carcinoma (Resolved) Cataracts, bilateral (Resolved ~2014) Fractures (Resolved ~1961) Knee pain, right (Resolved 07/2017) Neck pain (Resolved 03/2017) Squamous cell carcinoma (Resolved) Surgical History Hx of Moh's micrographic surgery for skin cancer (Resolved) History of cardioversion (Resolved) History of ankle surgery (Resolved ~196) Hx of cataract surgery (Resolved 2014) History of radiofrequency ablation (RFA) procedure for cardiac arrhythmia ( Chronic 06/10/17) S/P excision of skin lesion, follow-up exam (Resolved) Family & Social History Family History: Reviewed 05/26/18 by JONO Simpson Social History: household members significant other Prior Living Arrangements House Safety & Behavioral: Feels Safe in Current Yes Environment Been Physically Hurt or No Threatened By a Person Suicidal Ideation Description None Tobacco & Substance use: Smoking Status Never smoker alcohol intake former alcohol intake frequency 0-2 drinks per day Substance Use Type does not use Meds Home Medications Medication Instructions Recorded Confirmed Type cholecalciferol (vitamin D3) 1,000 unit PO QPM 01/20/18 05/26/18 History [Vitamin D3] tamsulosin [Flomax] 0.8 mg PO QPM 01/20/18 05/26/18 History warfarin [Coumadin] 5 mg PO SUMOWETHFRSA 01/20/18 05/26/18 History furosemide 40 mg tablet 40 mg PO DAILY #90 tab 03/17/18 05/26/18 Rx zolpidem 10 mg tablet 10 mg PO HS PRN #30 tab 03/29/18 05/26/18 Rx metoprolol tartrate 100 mg tablet 150 mg PO BID tab 04/14/18 05/26/18 History warfarin [Coumadin] 2.5 mg PO TU 05/26/18 05/26/18 History Allergies Allergy/AdvReac Type Severity Reaction Status Date / Time KAYLYNN Inhibitors AdvReac Intermediate COUGH Verified 05/26/18 12:41 [KAYLYNN INHIBITORS] Review of Systems Review of Systems All systems reviewed & are unremarkable except as noted in HPI and below Constitutional Constitutional: Denies body ache(s), Denies chills, Denies excessive sweating, Denies headache(s), Denies weakness and Denies weight loss Eyes Eyes: Denies change in vision, Denies other visual disturbances and Reports requires corrective lenses ENT Ears, Nose, Mouth, and Throat: No abnormal hearing, No difficulty swallowing, No dizziness, No headache(s), No nose bleed, No nasal discharge, No neck pain, No poor balance (no falls) and No sore throat Cardiovascular Cardiovascular: Reports chest pain, Denies chest pain at rest, Denies chest pain with activity, Denies fainting, Reports foot swelling (by the end of the day), Reports irregular heart rhythm, Denies leg pain with activity, Denies lightheadedness and Reports shortness of breath with activity Respiratory Respiratory: Denies cough, Denies hemoptysis, Reports dyspnea on exertion and Denies wheezing Gastrointestinal Gastrointestinal: Denies abdominal pain, Denies bloating, Denies change in bowel habits, Denies constipation, Denies dysphagia and Reports other (regular BM, denies blood in the stool) Genitourinary Genitourinary: Reports nocturia (3 times nightly) Musculoskeletal Musculoskeletal: Denies back pain, Denies myalgias, Denies arthralgias, Denies joint swelling, Denies neck pain, Denies numbness and Denies tingling Integumentary/Breasts Skin/Breast: Reports lesions (history of skin lesions removed from the forehead) , Denies rash, Denies sores and Denies wounds Neurologic Neurologic: Denies abnormal hearing, Denies dizziness, Denies syncope, Denies headache(s), Denies memory loss, Denies numbness, Denies other visual disturbances, Denies sensory deficit, Denies tingling, Denies disequilibrium ( no falls) and Denies weakness Psychiatric Psychiatric: Reports abnormal sleep pattern (insomnia), Denies anxiety, Denies depression, Denies irritability, Denies memory loss, Denies panic attacks and Denies hallucinations Endocrine Endocrine: Denies cold intolerance, Denies excessive sweating, Denies heat intolerance, Denies polyphagia, Denies polydipsia and Denies polyuria Hematologic/Lymphatic Hematologic/Lymphatic: Reports easy bleeding (anticoagulated on warfarin) Allergic/Immunologic Allergic/Immunologic: Denies wheezing Exam Vital Signs (past 8 hours): - 05/26/18 12:35 05/26/18 12:50 05/26/18 13:00 Temperature 97.8 F Pulse Rate 119 H 123 H 132 H Respiratory Rate 25 H 23 18 Blood Pressure 104/86 Blood Pressure [Right Arm] 101/81 101/78 Pulse Oximetry 99 97 98 05/26/18 13:09 12/21/18 13:10 05/26/18 13:16 Temperature Pulse Rate 138 H 138 H 118 H Respiratory Rate 18 18 Blood Pressure 101/78 Blood Pressure [Right Arm] 106/76 98/76 Pulse Oximetry 98 98 05/26/18 13:20 05/26/18 13:25 05/26/18 13:30 Temperature Pulse Rate 93 H 91 H 91 H Respiratory Rate 18 18 18 Blood Pressure Blood Pressure [Right Arm] 89/58 L 94/66 100/72 Pulse Oximetry 98 05/26/18 13:35 05/26/18 14:14 05/26/18 15:21 Temperature Pulse Rate 88 99 H 85 Respiratory Rate 18 23 19 Blood Pressure Blood Pressure [Right Arm] 106/66 100/72 111/78 Pulse Oximetry 97 98 05/26/18 16:48 05/26/18 17:40 Temperature 97.6 F Pulse Rate 84 115 H Respiratory Rate 18 15 Blood Pressure 161/77 H Blood Pressure [Right Arm] 106/73 Pulse Oximetry 99 97 Oxygen Delivery Method Room Air Const General: cooperative, comfortable, well developed, well groomed and No acute distress Nutritional Appearance: average body habitus Orientation: alert, awake and oriented x3 Limitations: mental status not altered and no behavioral limitations HENMT Head: normal to inspection and atraumatic Ears: hearing grossly normal bilaterally Nose: external nose normal Face and sinus: normal facial exam and no tenderness Mouth: oral mucosae normal, tongue normal and moist mucous membranes Throat: posterior oropharynx normal and uvula midline Eyes General: appearance normal, both eyes and all related structures Alignment and Position: alignment normal Sclera: sclerae normal Pupils: PERRL and accommodation normal EOM: EOM intact bilaterally Neck Neck: normal visual inspection, trachea midline, No tender and No JVD Thyroid: thyroid normal Carotids: normal carotid upstroke Lymphatic: No lymphadenopathy Chest Chest: normal inspection of the chest and normal palpation of entire chest wall Resp Effort & Inspection: normal respiratory effort, able to speak in complete sentences, no cough, not labored and not tachypneic Auscultation: clear to auscultation bilaterally, no rales, no rhonchi and no wheezes Cardio Heart Sounds: S1 normal, S2 normal, no gallops, no murmurs and no rubs Bruits: no abdominal aortic bruits and no carotid bruits Pulses: normal peripheral pulses Other: Trace bilateral pedal edema GI Inspection: normal to inspection and non-distended Palpation: no hepatosplenomegaly, No mass, No tender and No ascites Percussion: dullness to percussion Auscultation: normal bowel sounds General: bladder normal to palpation Back/Spine/Pelvis Back: No back tenderness and No CVA tenderness Skin General: warm and other (Skin is pink, warm and dry) Lesions: no lesions Rashes: no rashes Wounds: no wounds Nails: normal and no clubbing Neuro General: alert, awake, oriented x3, moves all extremities, normal light touch, pain and propioception and CN's II-XI intact bilaterally Cognition: normal cognition Speech: speech normal Motor: muscle tone normal throughout, strength 5/5 throughout and No tremor Sensory Exam: no sensory deficits noted Extrem General: full ROM, capillary refill normal, No calf tenderness and edema (trace bilateral pedal edema) Psych Affect: normal affect Attitude: cooperative Thought Process: normal Thought Content: normal Judgment: judgment good Objective Labs Result Diagrams: 05/26/18 12:45 05/26/18 12:45 Labs: Laboratory Results - last 24 hr 05/26/18 05/26/18 05/26/18 12:45 12:45 12:45 WBC 7.7 RBC 5.50 Hgb 17.6 H Hct 52.3 MCV 95.2 MCH 32.0 MCHC 33.7 RDW 15.7 H Plt Count 168 Neut % (Auto) 54.7 Lymph % (Auto) 32.2 Mobile % (Auto) 9.8 Eos % (Auto) 2.0 Baso % (Auto) 1.3 Neut # (Auto) 4200 PT 32.3 H INR 2.7 H Sodium 132 L Potassium 3.5 Chloride 92 L Carbon Dioxide 26 BUN 29 H Creatinine 0.90 Estimated GFR > 60.0 BUN/Creatinine Ratio 32.2 H Glucose 114 H Lactate Calcium 9.2 Total Bilirubin 2.4 H AST 41 ALT 46 Alkaline Phosphatase 68 Total Creatine Kinase 72 CK-MB (CK-2) TNP CK-MB (CK-2) Rel Index TNP Troponin I 0.041 H B-Natriuretic Peptide 878 H Total Protein 7.2 Albumin 4.1 Globulin 3.1 Albumin/Globulin Ratio 1.3 Urine RBC Urine WBC Urine Bacteria Ur Culture Indicated? Micro UA Comment 05/26/18 05/26/18 05/26/18 12:45 15:30 18:50 WBC RBC Hgb Hct MCV MCH MCHC RDW Plt Count Neut % (Auto) Lymph % (Auto) Mobile % (Auto) Eos % (Auto) Baso % (Auto) Neut # (Auto) PT INR Sodium Potassium Chloride Carbon Dioxide BUN Creatinine Estimated GFR BUN/Creatinine Ratio Glucose Lactate 2.0 Calcium Total Bilirubin AST ALT Alkaline Phosphatase Total Creatine Kinase CK-MB (CK-2) CK-MB (CK-2) Rel Index Troponin I 0.035 H B-Natriuretic Peptide Total Protein Albumin Globulin Albumin/Globulin Ratio Urine RBC None seen Urine WBC None seen Urine Bacteria None seen Ur Culture Indicated? Not Reportable Micro UA Comment Not Reportable Assessment & Plan Plan: Assessment/Plan Narrative: Atrial fibrillation Chronic and recurring atrial fibrillation, status post ablation without control of arrhythmia Complaint with metoprolol and warfarin Received diltiazem 10 mg x1 in the emergency department His prior echo reveals an EF of 40% Indeterminate troponin Initial troponin was 0.04, no complaints of chest pain Second troponin was 0.035. The patient remains free of chest pain and shortness of breath has resolved. Potassium level is borderline at 3.5. Will and potassium 10 mEq b.i.d.. Will also assess labs in the morning rechecking BMP, magnesium, BNP and troponin . Troponin may be elevated in the presence of AFib with RVR. Advanced directives Reviewed the patient's wishes for resuscitation, the patient agrees to initiation of CPR but declines intubation. The patient's surrogate decision maker is his son Michael Coates The patient is admitted to observation status. Quality VTE Deep Vein Thrombosis/Pulmonary Embolism Present on Admission: No
[2018-05-27] VITALS (11 sets, daily range): BP systolic 90–106; BP diastolic 60–78; PULSE 101–137; RESP 16–18; TEMP 35.9–36.6; O2SAT 94–99
[2018-05-27 06:35] LABS: B Type Natriuretic Peptide 1090 (<100)
[2018-05-27 06:40] LABS: Blood Urea Nitrogen 29 mg/dL (9-20); Calcium 8.9 mg/dL (8.4-10.2); Carbon Dioxide 27 mmol/L (22-32); Chloride 93 mmol/L (98-107); Estimated Glomerular Filt Rate > 60.0 mL/min (>60); Glucose 118 mg/dL (80-110); HEMOLYSIS < 15 (0-50); Magnesium 1.9 mg/dL (1.6-2.3); Potassium 3.5 mmol/L (3.4-5.1); Sodium 132 mmol/L (137-145)
[2018-05-27 06:42] LABS: Troponin I 0.037 ng/mL (0.01-0.034)
[2018-05-27] MEDS: FUROSEMIDE 40 MG TABLET PO (08:09)
[2018-05-27] MEDS: METOPROLOL IR 50 MG TABLET 150 MG PO (08:09)
[2018-05-27] MEDS: POTASSIUM CHLORIDE 10 MEQ TAB PO ×2 (10:05→17:16)
--- NOTE | 2018-05-27 11:13 | CM.DANOTE ---
DCP: Case received, EMR reviewed and met with patient. Introduced self and role. DCP template completed with information currently available. Patient is an 83 year old male who admitted yesterday afternoon to the care of the hospitalist team. PCP: Dr. Maya. Payer: confirmed: [facility]. Patient came to hospital via family vehicle due to cardiac symptoms. Patient carries diagnosis of A-Fib. Met with patient in room. Stated, I have been here before with these same symptoms. Patient is independent at home, and lives locally. Has a son that lives in [place]. P: DCP to continue to follow. Patient should be able to go home when stable. Will also need to follow up with his consultant electronics. Claudia Walsh RN/Shoe Repairer Helper
[2018-05-27] MEDS: METOPROLOL IR 50 MG TABLET PO (14:10)
--- NOTE | 2018-05-27 14:21 | PC.NURSE ---
Patient up ad satya in room, to bathroom, steady on feet. Heart rate AFIB with RVR 90-138 this morning. Patient denies chest pain, shortness or breath or other complaint. Dr. Kaminski notified this morning and into see patient, no new orders received at that time. ECHO completed today awaiting results. Heart rate continued to stay elevated and Dr. Kaminski notified again. Additional metoprolol of 50mg added this afternoon and given. Will monitor for effect. Orders for prn iv diltiazem added in addition- will follow. Call light within reach.
[2018-05-27] MEDS: dilTIAZem 5 MG/ML SDV IV (17:16)
[2018-05-27] MEDS: WARFARIN 5 MG TABLET PO (17:16)
--- NOTE | 2018-05-27 17:38 | DI.ECHO.S_ITS ---
[facility] +---------+ [facility] +---------+ : : [address] : : [place], [place] : : : : [id number] : : : : Phone: [phone] Echocardiogram Report + + :Name: ABDON LOMELI Study Date: 05/27/2018 Height: 74 in : :[facility] Weight: 172 lb : : Gender: Male BSA: 2.0 m2 : :: 1935 Age: 83 yrs BP: 103/60 mmHg: :Reason For Study: Congestive Heart Failure : :Ordering Physician: Jeanne : :Hospitalist Performed By: Kiki Boyle : :Referring: UNSPECIFIED : + + Interpretation Summary Left ventricular wall thickness is moderately increased. The left ventricular cavity is small. Left ventricular systolic function is severely reduced. Left ventricular ejection fraction is estimated to be 20%. Left ventricular function has significantly worsened compared to the previous exam. On top of the global hypokinesis there is akinesis along the basal inferior wall. Diastolic function could not be accurately assessed due to atrial fibrillation. The right ventricle is mildly dilated. Spontaneous contrast is noted consistent with low flow state. Right ventricular systolic function is moderately reduced. Right ventricular systolic function has decreased since previous exam. The right ventricular systolic pressure is estimated to be at least 40 mmHg based on an estimated right atrial pressure of 15 mm Hg. Both atria are severely dilated. The interatrial septum bows toward right atrium consistent with elevated left atrial pressure. There is mild to moderate mitral regurgitation. This is unchanged compared to the previous study. There is mild aortic regurgitation. This is unchanged compared to the previous study. There is mild to moderate tricuspid regurgitation. Compared to the prior echo exam, there has been a decrease in TR severity. 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 The ascending aorta is mild-moderately enlarged. Procedure: A two-dimensional transthoracic echocardiogram with color flow and Doppler was performed. The study quality was technically good. Comparison is made with the echocardiogram of 02/13/2018. The patient was in atrial fibrillation with heart rates between 81-139 bpm during the exam. Left Ventricle: Left ventricular wall thickness is moderately increased. The left ventricular cavity is small. There is no thrombus. Left ventricular systolic function is severely reduced. Left ventricular ejection fraction is estimated to be 20%. Left ventricular function has significantly worsened compared to the previous exam. On top of the global hypokinesis there is akinesis along the basal inferior wall. Diastolic function could not be accurately assessed due to atrial fibrillation. Right Ventricle: The right ventricle is mildly dilated. Spontaneous contrast is noted consistent with low flow state. There is no mass or thrombus in the right ventricle. Right ventricular systolic function is moderately reduced. Right ventricular systolic function has decreased since previous exam. Atria: Both atria are severely dilated. Chiari network (normal variant) is noted. The interatrial septum is intact with no evidence for an atrial septal defect. The interatrial septum bows toward right atrium consistent with elevated left atrial pressure. Mitral Valve: The mitral valve is normal in structure but abnormal in function. There is mild to moderate mitral regurgitation. This is unchanged compared to the previous study. Aortic Valve: The aortic valve is trileaflet. The aortic valve opens well. There is mild aortic regurgitation. This is unchanged compared to the previous study. Tricuspid Valve: The tricuspid annulus is dilated. Poor coaptation of the TV leaflet tips. There is mild to moderate tricuspid regurgitation. Compared to the prior echo exam, there has been a decrease in TR severity. The right ventricular systolic pressure is estimated to be at least 40 mmHg based on an estimated right atrial pressure of 15 mm Hg. Pulmonic Valve: The pulmonic valve is normal in structure and function. There is a trace or physiologic amount of pulmonic regurgitation. 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 The ascending aorta is mild-moderately enlarged. The aortic arch could not be visualized. The IVC is dilated (diameter is greater than 2.1 cm) and it collapses less than 50% with a sniff. This suggests a high right atrial pressure of 15 mm Hg. Pericardium/ Pleura There is no pericardial effusion. There is no pleural effusion. MMode/2D Measurements & Calculations LVIDd: 3.5 cm LVOT diam: 2.1 cm LVIDs: 2.9 cm Ao root diam: 4.1 cm FS: 18.0 % Aortic Jxn: 3.1 cm EPSS: 1.4 cm asc Aorta Diam: 4.0 cm IVSd: 1.9 cm LVPWd: 1.7 cm LV pierce. diameter/BSA (cm/m^2): 1.7 LV sys. diameter/BSA (cm/m^2): 1.4 LA A2 area: 36.4 cm2 RA long axis: 7.2 cm LA A4 area: 34.3 cm2 RA area: 39.1 cm2 LA length (vol): 7.0 cm RA vol: 180.2 ml LA vol: 151.6 ml RA : 88.4 ml/m2 LA vol index: 74.4 ml/m2 IVC diam: 2.8 cm RVD1 (basal): 4.7 cm RVD2 (mid): 3.1 cm TAPSE: 0.78 cm Doppler Measurements & Calculations Ao V2 max: 54.4 cm/sec LVOT Max Augusto: 46.8 cm/sec Ao V2 mean: 40.4 cm/sec LV V1 max P.89 mmHg Ao max P.2 mmHg LV V1 VTI: 6.9 cm Ao mean P.76 mmHg MINDA(I,D): 4.3 cm2 Ao V2 VTI: 5.7 cm MINDA(V,D): 3.1 cm2 sev ratio: 1.2 MINDA indexed to BSA (cm^2/m^2): 2.1 MV E max augusto: 53.4 cm/sec TR max augusto: 250.5 cm/sec Med Peak E' Augusto: 4.1 cm/sec TR max P.2 mmHg E/E' med: 13.2 PA V2 max: 32.0 cm/sec Lat Peak E' Augusto: 9.3 cm/sec PA V2 mean: 20.9 cm/sec E/E' lat: 5.8 PA mean P.21 mmHg E/e' average: 9.5 PA Accel Time: 0.07 sec MV P1/2t: 40.0 msec MV P1/2t max augusto: 53.4 cm/sec SV(LVOT): 24.8 ml MVA(P1/2t): 5.5 cm2 Reading Physician:GRAHAM
--- NOTE | 2018-05-27 20:13 | PM.PN.1 ---
Subjective Date Patient Seen: 05/27/18 Interval history: Anthony Coates is a 83-year-old male past medical history significant for atrial fibrillation with RVR, NSTEMI, CHF, hypertension, , hyperlipidemia, and BPH who was admitted for atrial fibrillation with RVR. The patient is resting in bed comfortably and in no acute distress. He was stable overnight. He continues to be tachycardic from the 110-130 with intermittent spikes up to 140. He is asymptomatic other than occasional shortness of breath. He denies headache, lightheadedness or dizziness, chest pain, abdominal pain, nausea, vomiting, fever, chills, dysuria, diarrhea constipation. He is able to void and eliminate without difficulty. He is up ambulating without assistance. Exam Vital Signs (past 8 hours): - 05/27/18 12:36 05/27/18 13:35 05/27/18 15:46 Temperature 97.8 F 97.3 F L Pulse Rate 135 H 101 H Respiratory Rate 18 16 Blood Pressure 98/68 106/71 Pulse Oximetry 97 99 05/27/18 15:55 05/27/18 17:16 05/27/18 19:00 Temperature 96.7 F L Pulse Rate 135 H 132 H Respiratory Rate 17 Blood Pressure 100/70 103/60 Pulse Oximetry 99 96 Oxygen Delivery Method Room Air Narrative Exam Narrative: General: Elderly gentleman lying in bed and in no acute distress, well-developed, well-nourished, appropriately interactive. HEENT: Normocephalic, atraumatic. External ears without defect. Pupils equal, round, and reactive to light. Anicteric sclerae, moist conjunctivae, and no lid lag. Oropharynx free of erythema and cobble stoning with moist mucosa. Neck: Supple with full range of motion. No jugular venous distension. No bruits. No lymphadenopathy or thyromegaly. Cardiovascular: Irregularly irregular without murmurs, rubs, or gallops appreciated Pulmonary: Clear to auscultation bilaterally without crackles, wheezes, or rhonchi. Normal respiratory effort with no use of accessory muscles. Abdomen: Bowel tones present. Soft, nontender, nondistended. No hepatosplenomegaly or masses appreciated. Extremities: No clubbing, cyanosis, or edema. Skin: Normal temperature, turgor, and texture; no rash, ulcers, or subcutaneous nodules appreciated. Neurological: Cranial nerves grossly intact. Psychiatric: Normal mood and affect. Alert and oriented to person, place, and time. Objective Labs Result Diagrams: 05/26/18 12:45 05/27/18 05:09 Labs: Laboratory Results - last 24 hr 05/27/18 05/27/18 05:09 05:09 Sodium 132 L Potassium 3.5 Chloride 93 L Carbon Dioxide 27 BUN 29 H Creatinine 1.00 Estimated GFR > 60.0 BUN/Creatinine Ratio 29.0 H Glucose 118 H Calcium 8.9 Magnesium 1.9 Troponin I 0.037 H B-Natriuretic Peptide 1090 H Assessment & Plan Plan: Assessment/Plan Narrative: Anthony Coates is a 83-year-old male past medical history significant for atrial fibrillation with RVR, NSTEMI, CHF, hypertension, hyperlipidemia, and BPH who was admitted for atrial fibrillation with RVR. 1. Atrial fibrillation with RVR, present on admission. Active. -Chronic and recurring atrial fibrillation, status post ablation without control of arrhythmia -Complaint with metoprolol and warfarin. We will plan to continue warfarin and titrate up on metoprolol tartrate 150 b.i.d. to 200 b.i.d. Ordered diltiazem 5 mg IV q.8 hours as needed for sustained heart rate 130 for 15 min with SBP>90. -His prior echo reveals an EF of 40%. Ordered repeat echocardiogram, pending. -Indeterminate troponin which was repeated and trending down and is secondary to atrial fibrillation with RVR. The patient remains free of chest pain and shortness of breath has resolved. -Potassium level is borderline at 3.5. Ordered potassium 10 mEq b.i.d. and will monitor daily. 2. Systolic CHF currently compensated, present on admission. Stable. -Continue cardiac medications. -Ordered echocardiogram, pending. 3. BPH, present on admission. Stable. -Continue tamsulosin 0.8 mg q.p.m.. Disposition: Depending upon cardiac workup and rate control the patient is likely to be discharged in 1-2 days. Quality VTE Deep Vein Thrombosis/Pulmonary Embolism Present on Admission: No
[2018-05-27] MEDS: TAMSULOSIN 0.4 MG CAPSULE 0.8 MG PO (20:17)
[2018-05-27] MEDS: METOPROLOL IR 50 MG TABLET 200 MG PO (20:18)
--- NOTE | 2018-05-27 20:20 | PC.NURSE ---
1500- assumed care of pt form outgoing shift. pt given PRN cardizem as pt HR sustained 130s. Pt could be laying down or ambulating and HR is anywhere from 110-146 at any given times. pt tolerated well. Pt takes pills whole with water. pt had half sandwich before dinner and ate dinner. Pt ambulates around room, steady gait. pt calls if needing assistance. Pt cooperative and pleasant to work with. Pt denies needs at this time. will continue to monitor pt for safety.
[2018-05-28 00:25] VITALS: BP 107/70; PULSE 106; RESP 16; TEMP 36.3; O2SAT 99
[2018-05-28 00:30] VITALS: O2SAT 99
[2018-05-28] MEDS: FUROSEMIDE 40 MG/4 ML VIAL IV (00:30)
[2018-05-28 03:53] VITALS: BP 90/65; PULSE 126; RESP 16; TEMP 35.9; O2SAT 96
--- NOTE | 2018-05-28 04:13 | PC.NURSE ---
Improvement Analyst Note: 0030: Awake, vital signs stable. Remains on telemetry. Pulse is irregular. Pt steady on his feet, up to bathroom with sba. Pt denies pain or discomfort at this time.
[2018-05-28 06:07] LABS: INR 2.9 (0.9-1.3); Prothrombin Time 34.2 SECONDS (10.1-12.7)
[2018-05-28 06:09] LABS: Add Manual Diff / Slide Review NO; Basophils Percent Auto 0.8 % (0-2); Hematocrit 47.6 % (41-53); Hemoglobin 15.9 g/dL (13.5-17.5); Lymphocytes Percent Auto 25.9 % (25-40); Mean Corpuscular HGB Conc 33.3 % (30-36); Monocytes Percent Auto 10.2 % (3-14); Neutrophils Absolute Auto 4500 /uL (1500-7000); Neutrophils Percent Auto 61.1 % (50-75); Platelet Count 145 X10^3/uL (150-400); Red Blood Cell Count 4.96 X10^6/uL (4.5-5.9); Red Cell Distribution Width 15.8 % (11.6-14.8); White Blood Cell Count 7.4 X10^3/uL (4.5-11.0)
[2018-05-28 06:46] LABS: Alanine Aminotransferase 41 IU/L (21-72); Albumin 3.5 g/dL (3.5-5.0); Albumin Globulin Ratio 1.3 (1.0-2.8); Alkaline Phosphatase 58 U/L (38-126); Aspartate Aminotransferase 37 IU/L (17-59); BUN Creatinine Ratio 29.1 (6-22); Bilirubin Total 1.5 mg/dL (0.2-1.3); Blood Urea Nitrogen 32 mg/dL (9-20); Calcium 9.3 mg/dL (8.4-10.2); Carbon Dioxide 25 mmol/L (22-32); Chloride 95 mmol/L (98-107); Estimated Glomerular Filt Rate > 60.0 mL/min (>60); Globulin 2.8 g/dL (1.7-4.1); Glucose 122 mg/dL (80-110); HEMOLYSIS < 15 (0-50); Magnesium 1.9 mg/dL (1.6-2.3); Potassium 4.1 mmol/L (3.4-5.1); Sodium 132 mmol/L (137-145); Total Protein 6.3 g/dL (6.3-8.2)
[2018-05-28] MEDS: POTASSIUM CHLORIDE 10 MEQ TAB PO (08:55)
[2018-05-28] MEDS: METOPROLOL IR 50 MG TABLET 200 MG PO (08:55)
[2018-05-28 08:58] VITALS: PULSE 135
[2018-05-28] MEDS: DIGOXIN 500 MCG/2 ML AMPUL 250 MCG IV (08:58)
--- NOTE | 2018-05-28 09:14 | PM.DS.1 ---
History of Present Illness Date Patient Seen: 05/28/18 Chief complaint: Lump in left calf Narrative: Anthony Coates is a 83-year-old male past medical history significant for atrial fibrillation with RVR, NSTEMI, CHF, hypertension, , hyperlipidemia, and BPH who was admitted for atrial fibrillation with RVR. The patient is resting in bedside chair comfortably and in no acute distress. He was stable overnight. He continues to be tachycardic from the 110-130 with intermittent spikes up to 140. He is asymptomatic other than occasional shortness of breath. He denies headache, lightheadedness or dizziness, chest pain, abdominal pain, nausea, vomiting, fever, chills, dysuria, diarrhea constipation. He is able to void and eliminate without difficulty. He is up ambulating without assistance. Discussed echocardiogram findings with the patient in detail and recommendations of lace cutter Dr. Frazier and patient is agreeable for transfer. Discharge Providers Date of admission: 05/26/18 15:00 Primary care physician: Aniceto Maya MD Consults: 05/26/18 12:37 Consult to Respiratory Therapy Evaluate & Treat Comment: Physician Instructions: Evaluate and treat Discharge provider: Diana Kaminski DO Discharge Date: 05/28/18 Summary Discharge Diagnosis: 1. Atrial fibrillation with RVR, present on admission. Active. 2. Decompensated systolic heart failure with reduced ejection fraction of 20%, present on admission. Stable. 3. BPH, present on admission. Stable. Hospital Course: Anthony Coates is a 83-year-old male past medical history significant for atrial fibrillation with RVR, NSTEMI, CHF, hypertension, hyperlipidemia, and BPH who was admitted for atrial fibrillation with RVR. The patient had a repeat echocardiogram which demonstrated significantly worsening left ventricular systolic function from 40% to 20% over a 3 month period. In addition, the patient has had global hypokinesis but now there is akinesis of the basal inferior wall that is new. The patient reports he has never had an ischemic workup in the past. His lace cutter is Dr. Dahl at [facility]. Discussed the patient with the on-call lace cutter, Dr. Frazier, who recommended continued metoprolol 200 mg b.i.d. and adding digoxin 0.25 mg IV x1 with likely 1-2 additional doses later this afternoon and transferring him to [facility] for further cardiac ischemic workup. Discussed the patient with the on-call hospitalist, Dr. Brown, at [facility] who accepts the patient transfer. Status at Discharge Functional status at discharge: independent ambulation Exam Vital Signs (past 8 hours): - 05/28/18 03:53 05/28/18 08:58 Temperature 96.7 F L Pulse Rate 126 H 135 H Respiratory Rate 16 Blood Pressure 90/65 Pulse Oximetry 96 Oxygen Delivery Method Room Air Narrative Exam Narrative: General: Elderly gentleman lying in bed and in no acute distress, well-developed, well-nourished, appropriately interactive. HEENT: Normocephalic, atraumatic. External ears without defect. Pupils equal, round, and reactive to light. Anicteric sclerae, moist conjunctivae, and no lid lag. Oropharynx free of erythema and cobble stoning with moist mucosa. Neck: Supple with full range of motion. jugular venous distension. No lymphadenopathy or thyromegaly. Cardiovascular: Irregularly irregular without murmurs, rubs, or gallops appreciated Pulmonary: Clear to auscultation bilaterally with fine crackles at bases bilaterally. No wheezes or rhonchi. Normal respiratory effort with no use of accessory muscles. Abdomen: Bowel tones present. Soft, nontender, nondistended. No hepatosplenomegaly or masses appreciated. Extremities: No clubbing or cyanosis. Mild pedal edema. Skin: Normal temperature, turgor, and texture; no rash, ulcers, or subcutaneous nodules appreciated. Neurological: Cranial nerves grossly intact. Psychiatric: Normal mood and affect. Alert and oriented to person, place, and time. Objective Labs Result Diagrams: 05/28/18 05:18 05/28/18 05:18 Labs: Laboratory Results - last 24 hr 05/28/18 05/28/18 05/28/18 05:18 05:18 05:18 WBC 7.4 RBC 4.96 Hgb 15.9 Hct 47.6 MCV 96.0 MCH 32.0 MCHC 33.3 RDW 15.8 H Plt Count 145 L Neut % (Auto) 61.1 Lymph % (Auto) 25.9 [place] % (Auto) 10.2 Eos % (Auto) 2.0 Baso % (Auto) 0.8 Neut # (Auto) 4500 PT 34.2 H INR 2.9 H Sodium 132 L Potassium 4.1 Chloride 95 L Carbon Dioxide 25 BUN 32 H Creatinine 1.10 Estimated GFR > 60.0 BUN/Creatinine Ratio 29.1 H Glucose 122 H Calcium 9.3 Magnesium 1.9 Total Bilirubin 1.5 H AST 37 ALT 41 Alkaline Phosphatase 58 Total Protein 6.3 Albumin 3.5 Globulin 2.8 Albumin/Globulin Ratio 1.3 Echocardiogram Interpretation Summary Left ventricular wall thickness is moderately increased. The left ventricular cavity is small. Left ventricular systolic function is severely reduced. Left ventricular ejection fraction is estimated to be 20%. Left ventricular function has significantly worsened compared to the previous exam. On top of the global hypokinesis there is akinesis along the basal inferior wall. Diastolic function could not be accurately assessed due to atrial fibrillation. The right ventricle is mildly dilated. Spontaneous contrast is noted consistent with low flow state. Right ventricular systolic function is moderately reduced. Right ventricular systolic function has decreased since previous exam. The right ventricular systolic pressure is estimated to be at least 40 mmHg based on an estimated right atrial pressure of 15 mm Hg. Both atria are severely dilated. The interatrial septum bows toward right atrium consistent with elevated left atrial pressure. There is mild to moderate mitral regurgitation. This is unchanged compared to the previous study. There is mild aortic regurgitation. This is unchanged compared to the previous study. There is mild to moderate tricuspid regurgitation. Compared to the prior echo exam, there has been a decrease in TR severity. 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 The ascending aorta is mild-moderately enlarged. Reading Physician:PM Discharge Plan Discharge Plan Transfer to: [facility] Transportation: Ambulance The receiving facility has agreed to accept transfer and provide medical treatment.: Yes Discharge Med Rec/Prescriptions Prescriptions: New potassium chloride [Klor-Con M10] 10 mEq Tablet,Er Particles/Crystals 10 meq PO BIDWM Qty: 30 RF: 0 metoprolol tartrate 50 mg Tablet 200 mg PO BID Qty: 30 RF: 0 furosemide 10 mg/mL Solution 40 mg IV Q12HR Qty: 4 RF: 0 Continue zolpidem 10 mg tablet 10 mg PO HS PRN (Reason: insomnia) Qty: 30 RF: 2 cholecalciferol (vitamin D3) [Vitamin D3] 1,000 unit Tablet 1,000 unit PO QPM RF: 0 tamsulosin [Flomax] 0.4 MG capsule 0.8 mg PO QPM RF: 0 warfarin [Coumadin] 5 MG tablet 5 mg PO SUMOWETHFRSA RF: 0 warfarin [Coumadin] 5 mg Tablet 2.5 mg PO TU RF: 0 Discontinued metoprolol tartrate 100 mg tablet 150 mg PO BID RF: 0 furosemide 40 mg tablet 40 mg PO DAILY Qty: 90 RF: 0 Discharge Orders: Discharge (Order); Ordered 05/28/18 Ordered By: Diana Kaminski Discharge Health Status Multidrug resistant organism: No MDRO Precautions: [place] Provider Discharge Instructions Diet: Low-sodium and Low-cholesterol Discharge Data Primary Care Provider: Aniceto Maya Attending Provider: Diana Kaminski Admit Date/Time: 05/26/18 15:00 Quality VTE Deep Vein Thrombosis/Pulmonary Embolism Present on Admission: No
[2018-05-28 09:33] VITALS: BP 145/83; PULSE 122; RESP 16; O2SAT 96
--- NOTE | 2018-05-28 11:25 | PC.NURSE ---
Report given to Catie RAMOS at [facility]. Patient picked up by ambulance, with all belongings. Patient states he notified his room mate Chetna of transfer and she will notify his son, declined offer to help him connect with his son of the phone. Patient continues to deny pain, lightheadness, dizziness or other complaint other than I've just been fatigued for about a month. IV to left forearm maintained intact.
== END 2018-05-28 11:45 | disposition short-term general hospital (02) | DRG 308 ==
LOC: ED 14:26 → AC 15:00
PROVIDERS: Emergency Medicine; Nurse Practitioner Adult Health; Admitting Provider Internal Medicine; Emergency Provider Nurse Practitioner Family; Family Provider Family Medicine; PCP Student in an Organized Health Care Education/Training Program; Visit Provider Internal Medicine
DX: I48.91 Unspecified atrial fibrillation (principal); I50.23 Acute on chronic systolic (congestive) heart failure; I11.0 Hypertensive heart disease with heart failure; Z79.01 Long term (current) use of anticoagulants; N40.0 Benign prostatic hyperplasia without lower urinary tract symptoms
CPT/HCPCS: 36415; 36591; 71045; 80048; 80053; 81003; 81015; 82550; 83605; 83735; 83880; 84484; 85025; 85610; 93005; 93306; 96374; 96375; 99284; 99285; G0378; J1160; J1940

== ENCOUNTER → 2018-06-12 13:22 | Outpatient (CLI) | payer OTHER, SELFPAY ==
[2018-05-26 17:40] VITALS: BMI 23.3
[2018-06-12 13:59] LABS: Blood Urea Nitrogen 24 mg/dL (9-20); Calcium 9.7 mg/dL (8.4-10.2); Carbon Dioxide 37 mmol/L (22-32); Chloride 94 mmol/L (98-107); Estimated Glomerular Filt Rate > 60.0 mL/min (>60); Glucose 88 mg/dL (80-110); HEMOLYSIS < 15 (0-50); Potassium 4.1 mmol/L (3.4-5.1); Sodium 140 mmol/L (137-145)
== END ==
PROVIDERS: Family Provider Student in an Organized Health Care Education/Training Program; PCP Student in an Organized Health Care Education/Training Program; Visit Provider Hospitalist
DX: I50.23 Acute on chronic systolic (congestive) heart failure (principal)
CPT/HCPCS: 36415; 80048

== ENCOUNTER 2018-06-18 11:55 | Emergency (ER) | payer OTHER, SELFPAY ==
[2018-05-26 17:40] VITALS: BMI 23.3
[2018-06-18 12:05] VITALS: BP 135/89; PULSE 74; RESP 15; TEMP 36.2; O2SAT 99; BMI 20.7
[2018-06-18 13:00] VITALS: BP 119/68; PULSE 74; O2SAT 96
--- NOTE | 2018-06-18 13:10 | ED.SKABFB ---
HPI - Skin/Abscess/Foreign Bdy General Chief complaint: Skin/Abscess/Foreign Body Stated complaint: RT HEEL GROWTH Time Seen by Provider: 06/18/18 12:39 Source: patient Mode of arrival: ambulatory Limitations: no limitations History of Present Illness HPI narrative: This is an 83-year-old male who comes to the emergency department with complaint of cracks on his posterior heel. He states he had on both heels but the left 1 has since healed. He states the right 1 has developed scabs and seems to be improving. He states this started after he was in the hospital for AFib with RVR. He is not sure if his feet were sitting on the bed as he is quite tall or they were just hanging off but that is when he noticed the cracks in the posterior feet. Patient states that he has been soaking it and it has been slowly improving. He denies any new redness, he denies any drainage, he states that the pain is actually been improving. Patient was concerned as he is scheduled for an ablation this upcoming week and he wanted to make sure that this would not prevent him from having his treatment. Related Data Home Medications Medication Instructions Recorded Confirmed cholecalciferol (vitamin D3) 1,000 unit PO QPM 01/20/18 05/26/18 [Vitamin D3] tamsulosin [Flomax] 0.8 mg PO QPM 01/20/18 05/26/18 warfarin [Coumadin] 5 mg PO SUMOWETHFRSA 01/20/18 05/26/18 warfarin [Coumadin] 2.5 mg PO TU 05/26/18 05/26/18 metoprolol tartrate 50 mg tablet 150 mg PO BID tab 05/31/18 Previous Rx's Medication Instructions Recorded zolpidem 10 mg tablet 10 mg PO HS PRN #30 tab 03/29/18 digoxin 125 mcg tablet 0.125 mg PO DAILY #30 tab 05/31/18 furosemide 40 mg tablet 40 mg PO DAILY #30 tab 05/31/18 potassium chloride ER 20 mEq 20 meq PO DAILY #30 tab 05/31/18 tablet,extended release trazodone 50 mg tablet 50 mg PO DAILY #30 tab 05/31/18 Allergies Allergy/AdvReac Type Severity Reaction Status Date / Time KAYLYNN Inhibitors AdvReac Intermediate COUGH Verified 05/31/18 11:36 [KAYLYNN INHIBITORS] Review of Systems Review of Systems ROS Unobtainable: All systems reviewed & are unremarkable except as noted in HPI and below Integumentary/Breasts Reports as per HPI, Denies bleeding lesions, Reports dry skin, Denies new lesions, Denies erythema, Denies rash, Denies skin ulcer and Reports wounds (cracks posterior heel on right, left healed.) [facility] Medical History Atrial fibrillation with RVR (Resolved) NSTEMI (non-ST elevated myocardial infarction) (Resolved) Atrial flutter with rapid ventricular response (Resolved) Actinic keratosis (Chronic 06/19/15) Allergic rhinitis due to pollen (Chronic 06/19/15) Essential hypertension (Chronic 06/19/15) Midline low back pain without sciatica (Chronic 06/19/15) Rosacea (Chronic 06/19/15) Spinal stenosis of lumbosacral region (Chronic 06/19/15) Benign non-nodular prostatic hyperplasia with lower urinary tract symptoms (Chronic 08/05/15) Chronic fatigue (Chronic 08/05/15) 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/16) BPH (benign prostatic hyperplasia) (Acute) Chronic back pain (Acute) Congestive heart failure (Acute) Dyslipidemia (Acute) Skin lesion of face (Acute) Venous insufficiency of both lower extremities (Acute) Atrial fibrillation and flutter (Chronic 2013) Hypertension (Chronic) Rosacea (Chronic 2009) Actinic keratosis (Resolved) Basal cell carcinoma (Resolved) Cataracts, bilateral (Resolved ~2014) Fractures (Resolved ~1961) Knee pain, right (Resolved 07/2017) Neck pain (Resolved 03/2017) Squamous cell carcinoma (Resolved) Surgical History Hx of Moh's micrographic surgery for skin cancer (Resolved) History of cardioversion (Resolved) History of ankle surgery (Resolved ~1961) Hx of cataract surgery (Resolved 2014) History of radiofrequency ablation (RFA) procedure for cardiac arrhythmia (Chronic 06/10/17) S/P excision of skin lesion, follow-up exam (Resolved) Social History household members: significant other Smoking Status: Never smoker alcohol intake: former Exam Narrative Exam Narrative: GENERAL: Alert and oriented x three, thin, well-appearing elderly male in no acute distress. HEENT: Head normocephalic, atraumatic, EOMI, pupils reactive, face symmetric, moist mucous membranes NECK: Supple, full range of motion CARDIOVASCULAR: Regular rate and rhythm without murmurs, rubs or gallops. RESPIRATORY: Breath sounds equal bilaterally, no wheezes rales or rhonchi. ABDOMEN: Soft, nontender. Normoactive bowel sounds all 4 quadrants. No guarding or rebound, rigidity, no mass EXTREMITIES: Normal range of motion, no clubbing or edema. Patient has multiple, 7 or 8 small horizontal cracks on the posterior heel that appeared to have scabbed over, there is no new surrounding erythema, there is no drainage, no fluctuance, no induration. Area is nontender to touch. Patient has some erythema of the heel but this is present on both feet patient states he always has that discoloration. NEUROLOGICAL: Cranial nerves II through XII grossly intact. Moving all extremities. Normal gait. SKIN: Warm, dry, no petechiae, no rashes or lesions. Initial Vital Signs Initial Vital Signs: Vital Signs Temperature 97.1 F L 06/18/18 12:05 Pulse Rate 74 06/18/18 12:05 Respiratory Rate 15 06/18/18 12:05 Blood Pressure 135/89 06/18/18 12:05 Pulse Oximetry 99 06/18/18 12:05 Course Vital Signs - 8 hr 06/18/18 12:05 06/18/18 13:00 Temperature 97.1 F L Pulse Rate 74 74 Respiratory Rate 15 Blood Pressure 135/89 Blood Pressure [Left Arm] 119/68 Pulse Oximetry 99 96 MDM - Skin/Abscess/Foreign Bdy MDM Narrative Medical decision making narrative: Discussed with patient it sounds like the correct on his heel the right 1 has healed, left 1 sounds like it is continuing to improve. We discussed some basic skin care management including an emollient at least once daily best with putting socks over immediately afterwards and that patient can soak once daily. Patient is comfortable with the plan. He we also discussed that he should let the manufacturing scheduler know when he goes in for his ablation Jordin is in the hospital they can keep a close eye and make sure he does not have any further skin breakdown. Discharge Plan Departure Patient Disposition: Home Clinical Impression: Cracked skin on feet Discharge Date/Time: 06/18/18 13:28 Interventions: ED Discharge Assessment Last Done: 06/18/18 13:28 Activity Restrictions/Additional Instructions: Follow up with your provider at your scheduled appointment for ablation. You may use aquaphor or a thick emollient (petroleum based) moisturizer before bed daily on your feet, then wear socks afterwards. You may soak daily in epsom salts. Wound Care: Keep wound(s) clean and dry. Wash daily with soap and water only. Return if fever greater than 100.4 Fahrenheit, increased swelling, increasing pain or worsening symptoms such as increased discharge or spreading redness. Use warm compresses 3 times daily for 20 minutes to the affected area. Prescriptions: No Action zolpidem 10 mg tablet 10 mg PO HS PRN (Reason: insomnia) Qty: 30 RF: 2 metoprolol tartrate 50 mg tablet 150 mg PO BID RF: 0 digoxin 125 mcg tablet 0.125 mg PO DAILY Qty: 30 RF: 2 furosemide 40 mg tablet 40 mg PO DAILY Qty: 30 RF: 5 potassium chloride 20 mEq tablet extended release 20 meq PO DAILY Qty: 30 RF: 2 trazodone 50 mg tablet 50 mg PO DAILY Qty: 30 RF: 2 cholecalciferol (vitamin D3) [Vitamin D3] 1,000 unit Tablet 1,000 unit PO QPM RF: 0 tamsulosin [Flomax] 0.4 MG capsule 0.8 mg PO QPM RF: 0 warfarin [Coumadin] 5 MG tablet 5 mg PO SUMOWETHFR RF: 0 warfarin [Coumadin] 5 mg Tablet 2.5 mg PO TU RF: 0
--- NOTE | 2018-06-18 13:19 | ED_ITS ---
HPI - Skin/Abscess/Foreign Bdy General Chief complaint: Skin/Abscess/Foreign Body Stated complaint: RT HEEL GROWTH Time Seen by Provider: 06/18/18 12:39 Source: patient Mode of arrival: ambulatory Limitations: no limitations History of Present Illness HPI narrative: This is an 83-year-old male who comes to the emergency department with complaint of cracks on his posterior heel. He states he had on both heels but the left 1 has since healed. He states the right 1 has developed scabs and seems to be improving. He states this started after he was in the hospital for AFib with RVR. He is not sure if his feet were sitting on the bed as he is quite tall or they were just hanging off but that is when he noticed the cracks in the posterior feet. Patient states that he has been soaking it and it has been slowly improving. He denies any new redness, he denies any drainage, he states that the pain is actually been improving. Patient was concerned as he is scheduled for an ablation this upcoming week and he wanted to make sure that this would not prevent him from having his treatment. Related Data Home Medications Medication Instructions Recorded Confirmed cholecalciferol (vitamin D3) 1,000 unit PO QPM 01/20/18 05/26/18 [Vitamin D3] tamsulosin [Flomax] 0.8 mg PO QPM 01/20/18 05/26/18 warfarin [Coumadin] 5 mg PO SUMOWETHFRSA 01/20/18 05/26/18 warfarin [Coumadin] 2.5 mg PO TU 05/26/18 05/26/18 metoprolol tartrate 50 mg tablet 150 mg PO BID tab 05/31/18 Previous Rx's Medication Instructions Recorded zolpidem 10 mg tablet 10 mg PO HS PRN #30 tab 03/29/18 digoxin 125 mcg tablet 0.125 mg PO DAILY #30 tab 05/31/18 furosemide 40 mg tablet 40 mg PO DAILY #30 tab 05/31/18 potassium chloride ER 20 mEq 20 meq PO DAILY #30 tab 05/31/18 tablet,extended release trazodone 50 mg tablet 50 mg PO DAILY #30 tab 05/31/18 Allergies Allergy/AdvReac Type Severity Reaction Status Date / Time KAYLYNN Inhibitors AdvReac Intermediate COUGH Verified 05/31/18 11:36 [KAYLYNN INHIBITORS] Review of Systems Review of Systems ROS Unobtainable: All systems reviewed & are unremarkable except as noted in HPI and below Integumentary/Breasts Reports as per HPI, Denies bleeding lesions, Reports dry skin, Denies new lesions, Denies erythema, Denies rash, Denies skin ulcer and Reports wounds ( cracks posterior heel on right, left healed.) [facility] Medical History Atrial fibrillation with RVR (Resolved) NSTEMI (non-ST elevated myocardial infarction) (Resolved) Atrial flutter with rapid ventricular response (Resolved) Actinic keratosis (Chronic 06/19/15) Allergic rhinitis due to pollen (Chronic 06/19/15) Essential hypertension (Chronic 06/19/15) Midline low back pain without sciatica (Chronic 06/19/15) Rosacea (Chronic 06/19/15) Spinal stenosis of lumbosacral region (Chronic 06/19/15) Benign non-nodular prostatic hyperplasia with lower urinary tract symptoms ( Chronic 08/05/15) Chronic fatigue (Chronic 08/05/15) 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/16) BPH (benign prostatic hyperplasia) (Acute) Chronic back pain (Acute) Congestive heart failure (Acute) Dyslipidemia (Acute) Skin lesion of face (Acute) Venous insufficiency of both lower extremities (Acute) Atrial fibrillation and flutter (Chronic 2013) Hypertension (Chronic) Rosacea (Chronic 2009) Actinic keratosis (Resolved) Basal cell carcinoma (Resolved) Cataracts, bilateral (Resolved ~2014) Fractures (Resolved ~1961) Knee pain, right (Resolved 07/2017) Neck pain (Resolved 03/2017) Squamous cell carcinoma (Resolved) Surgical History Hx of Moh's micrographic surgery for skin cancer (Resolved) History of cardioversion (Resolved) History of ankle surgery (Resolved ~1961) Hx of cataract surgery (Resolved 2014) History of radiofrequency ablation (RFA) procedure for cardiac arrhythmia ( Chronic 06/10/17) S/P excision of skin lesion, follow-up exam (Resolved) Social History household members: significant other Smoking Status: Never smoker alcohol intake: former Exam Narrative Exam Narrative: GENERAL: Alert and oriented x three, thin, well-appearing elderly male in no acute distress. HEENT: Head normocephalic, atraumatic, EOMI, pupils reactive, face symmetric, moist mucous membranes NECK: Supple, full range of motion CARDIOVASCULAR: Regular rate and rhythm without murmurs, rubs or gallops. RESPIRATORY: Breath sounds equal bilaterally, no wheezes rales or rhonchi. ABDOMEN: Soft, nontender. Normoactive bowel sounds all 4 quadrants. No guarding or rebound, rigidity, no mass EXTREMITIES: Normal range of motion, no clubbing or edema. Patient has multiple , 7 or 8 small horizontal cracks on the posterior heel that appeared to have scabbed over, there is no new surrounding erythema, there is no drainage, no fluctuance, no induration. Area is nontender to touch. Patient has some erythema of the heel but this is present on both feet patient states he always has that discoloration. NEUROLOGICAL: Cranial nerves II through XII grossly intact. Moving all extremities. Normal gait. SKIN: Warm, dry, no petechiae, no rashes or lesions. Initial Vital Signs Initial Vital Signs: Vital Signs Temperature 97.1 F L 06/18/18 12:05 Pulse Rate 74 06/18/18 12:05 Respiratory Rate 15 06/18/18 12:05 Blood Pressure 135/89 06/18/18 12:05 Pulse Oximetry 99 06/18/18 12:05 Course Vital Signs - 8 hr 06/18/18 12:05 06/18/18 13:00 Temperature 97.1 F L Pulse Rate 74 74 Respiratory Rate 15 Blood Pressure 135/89 Blood Pressure [Left Arm] 119/68 Pulse Oximetry 99 96 MDM - Skin/Abscess/Foreign Bdy MDM Narrative Medical decision making narrative: Discussed with patient it sounds like the correct on his heel the right 1 has healed, left 1 sounds like it is continuing to improve. We discussed some basic skin care management including an emollient at least once daily best with putting socks over immediately afterwards and that patient can soak once daily. Patient is comfortable with the plan. He we also discussed that he should let the taping machine operator know when he goes in for his ablation Jordin is in the hospital they can keep a close eye and make sure he does not have any further skin breakdown. Discharge Plan Departure Patient Disposition: Home Clinical Impression: Cracked skin on feet Discharge Date/Time: 06/18/18 13:28 Interventions: ED Discharge Assessment Last Done: 06/18/18 13:28 Activity Restrictions/Additional Instructions: Follow up with your provider at your scheduled appointment for ablation. You may use aquaphor or a thick emollient (petroleum based) moisturizer before bed daily on your feet, then wear socks afterwards. You may soak daily in epsom salts. Wound Care: Keep wound(s) clean and dry. Wash daily with soap and water only. Return if fever greater than 100.4 Fahrenheit, increased swelling, increasing pain or worsening symptoms such as increased discharge or spreading redness. Use warm compresses 3 times daily for 20 minutes to the affected area. Prescriptions: No Action zolpidem 10 mg tablet 10 mg PO HS PRN (Reason: insomnia) Qty: 30 RF: 2 metoprolol tartrate 50 mg tablet 150 mg PO BID RF: 0 digoxin 125 mcg tablet 0.125 mg PO DAILY Qty: 30 RF: 2 furosemide 40 mg tablet 40 mg PO DAILY Qty: 30 RF: 5 potassium chloride 20 mEq tablet extended release 20 meq PO DAILY Qty: 30 RF: 2 trazodone 50 mg tablet 50 mg PO DAILY Qty: 30 RF: 2 cholecalciferol (vitamin D3) [Vitamin D3] 1,000 unit Tablet 1,000 unit PO QPM RF: 0 tamsulosin [Flomax] 0.4 MG capsule 0.8 mg PO QPM RF: 0 warfarin [Coumadin] 5 MG tablet 5 mg PO SUMOWETHFR RF: 0 warfarin [Coumadin] 5 mg Tablet 2.5 mg PO TU RF: 0
== END 2018-06-18 13:28 | disposition home or self-care (01) ==
PROVIDERS: Emergency Provider Emergency Medicine; Family Provider Student in an Organized Health Care Education/Training Program; PCP Student in an Organized Health Care Education/Training Program
DX: R23.4 Changes in skin texture (principal)
CPT/HCPCS: 99282

== ENCOUNTER → 2018-07-29 11:57 | Outpatient (CLI) | payer OTHER, SELFPAY ==
[2018-05-26 17:40] VITALS: BMI 23.3
[2018-07-29 12:52] LABS: BUN Creatinine Ratio 32.2 (6-22); Blood Urea Nitrogen 29 mg/dL (9-20); Calcium 9.5 mg/dL (8.4-10.2); Carbon Dioxide 34 mmol/L (22-32); Chloride 97 mmol/L (98-107); Estimated Glomerular Filt Rate > 60.0 mL/min (>60); Glucose 134 mg/dL (80-110); HEMOLYSIS 15 (0-50); Potassium 4.2 mmol/L (3.4-5.1); Sodium 141 mmol/L (137-145)
== END ==
PROVIDERS: Family Provider Student in an Organized Health Care Education/Training Program; PCP Student in an Organized Health Care Education/Training Program; Visit Provider Hospitalist
DX: I48.2 Chronic atrial fibrillation (principal)
CPT/HCPCS: 36415; 80048

== ENCOUNTER → 2019-03-01 08:29 | Outpatient (CLI) | payer OTHER, SELFPAY ==
[2018-08-11 10:36] VITALS: BMI 23.3
--- NOTE | 2019-03-01 | DI.ECHO.S_ITS ---
[facility]---------+ [facility] +---------+ : : [address] : : : : [id number] : : : : Phone: [phone]+ Echocardiogram Report + + :Name: ABDON LOMELI Study Date: 03/01/2019 Height: 74 in : :[facility] Weight: 172 lb : : Gender: Male BSA: 2.0 m2 : :: 1935 Age: 83 yrs BP: 110/60 mmHg: :Reason For Study: Cardiomyopathy : : Performed By: Janett Cornejo : :Referring: CLAUDE BYRD : + + Interpretation Summary The left ventricular ejection fraction is normal. Left ventricular wall thickness is mild-moderately increased. The right ventricle grossly appears normal in size with probable normal systolic function. The right ventricular systolic pressure is estimated to be at least 33 mmHg based on an estimated right atrial pressure of 3 mm Hg. There is severe biatrial enlargement. -Compared to the prior echo, the LVEF has recovered and patient is post PPM implantation. The right-sided feeling pressure has improved as well. Procedure: A two-dimensional transthoracic echocardiogram with color flow and Doppler was performed. The study quality was technically good. Comparison is made with the echocardiogram of 05-27-19. The patient has a paced rhythm. Left Ventricle: The left ventricle is grossly normal size. Left ventricular wall thickness is mild-moderately increased. The ejection fraction is estimated to be 60-65%. The left ventricular ejection fraction is normal. There are no focal wall motion abnormalities. Diastolic function could not be accurately assessed due to paced rhythm. However, the E/e' suggests normal filling pressures. Right Ventricle: The right ventricle grossly appears normal in size with probable normal systolic function. There is a pacemaker lead in the right ventricle. Atria: There is severe biatrial enlargement. There is no Doppler evidence for an interatrial shunt. Mitral Valve: The mitral valve leaflets appear mildly thickened, but open well. There is no mitral valve stenosis. There is mild mitral regurgitation. Aortic Valve: The aortic valve is trileaflet. The aortic valve opens well. There is no aortic valve stenosis. There is mild aortic regurgitation. Tricuspid Valve: The tricuspid valve leaflets are thin and pliable. There is mild tricuspid regurgitation. The right ventricular systolic pressure is estimated to be at least 33 mmHg based on an estimated right atrial pressure of 3 mm Hg. Pulmonic Valve: The pulmonic valve is not well visualized. Great Vessels: The aortic root is borderline dilated. The ascending aorta is at the upper limits of normal in size. The aortic arch is normal in size. The IVC is of normal diameter and collapses greater than 50% with a sniff. This suggests a low right atrial pressure of 3 mm Hg. Pericardium/ Pleura There is no pericardial effusion. There is no pleural effusion. MMode/2D Measurements & Calculations LVIDd: 4.7 cm Ao root diam: 4.1 cm LVIDs: 2.8 cm Aortic Jxn: 3.4 cm FS: 39.7 % asc Aorta Diam: 3.9 cm IVSd: 1.3 cm Ao Arch Diam (Prox Trans): 2.9 cm LVPWd: 1.2 cm LV pierce. diameter/BSA (cm/m^2): 2.3 LV sys. diameter/BSA (cm/m^2): 1.4 LA dimension: 5.0 cm RA long axis: 7.1 cm LA A2 area: 38.1 cm2 RA area: 30.9 cm2 LA A4 area: 37.0 cm2 RA vol: 114.6 ml LA length (vol): 7.7 cm RA : 56.2 ml/m2 LA vol: 154.8 ml IVC diam: 1.8 cm LA vol index: 76.0 ml/m2 Doppler Measurements & Calculations MV E max augusto: 71.5 cm/sec TR max augusto: 273.1 cm/sec MV A max augusto: 60.9 cm/sec TR max P.8 mmHg MV E/A: 1.2 Med Peak E' Augusto: 5.4 cm/sec E/E' med: 13.3 Lat Peak E' Augusto: 7.9 cm/sec E/E' lat: 9.1 E/e' average: 11.2 MV dec time: 0.15 sec MV P1/2t: 47.4 msec MV P1/2t max augusto: 72.8 cm/sec MVA(P1/2t): 4.6 cm2 Electronically signed by: Claude Byrd M.D. on Reading Physician:03/02/2019 11:50 AM
== END ==
PROVIDERS: Family Provider Student in an Organized Health Care Education/Training Program; PCP Student in an Organized Health Care Education/Training Program; Visit Provider Hospitalist
DX: I08.3 Combined rheumatic disorders of mitral, aortic and tricuspid valves (principal); R00.0 Tachycardia, unspecified; Z95.0 Presence of cardiac pacemaker
CPT/HCPCS: 93306

== ENCOUNTER → 2019-03-30 12:23 | Outpatient (CLI) | payer OTHER, SELFPAY ==
[2018-08-11 10:36] VITALS: BMI 23.3
[2019-03-30 13:51] LABS: Blood Urea Nitrogen 18 mg/dL (9-20); Calcium 9.5 mg/dL (8.4-10.2); Carbon Dioxide 29 mmol/L (22-32); Chloride 100 mmol/L (98-107); Estimated Glomerular Filt Rate > 60.0 mL/min (>60); Glucose 103 mg/dL (80-110); HEMOLYSIS < 15 (0-50); Potassium 4.5 mmol/L (3.4-5.1); Sodium 139 mmol/L (137-145)
== END ==
PROVIDERS: PCP Student in an Organized Health Care Education/Training Program; Visit Provider Hospitalist
DX: I48.21 Permanent atrial fibrillation (principal)
CPT/HCPCS: 36415; 80048

== ENCOUNTER → 2020-01-01 12:13 | Outpatient (CLI) | payer OTHER, SELFPAY ==
[2018-08-11 10:36] VITALS: BMI 23.3
[2020-01-01 13:29] LABS: Blood Urea Nitrogen 24 mg/dL (9-20); Calcium 9.6 mg/dL (8.4-10.2); Carbon Dioxide 32 mmol/L (22-32); Chloride 103 mmol/L (98-107); Estimated Glomerular Filt Rate > 60.0 mL/min (>60); Glucose 106 mg/dL (80-110); HEMOLYSIS < 15 (0-50); Potassium 4.6 mmol/L (3.4-5.1); Sodium 140 mmol/L (137-145)
== END ==
PROVIDERS: PCP Student in an Organized Health Care Education/Training Program; Referring Provider Hospitalist; Visit Provider Hospitalist
DX: R00.0 Tachycardia, unspecified (principal); I43 Cardiomyopathy in diseases classified elsewhere; I48.21 Permanent atrial fibrillation
CPT/HCPCS: 36415; 80048

== ENCOUNTER → 2020-05-21 11:35 | Outpatient (CLI) | payer OTHER, SELFPAY ==
[2020-04-23 10:49] VITALS: BMI 23.3
[2020-05-21 12:46] LABS: BUN Creatinine Ratio 32.1 (6-22); Blood Urea Nitrogen 36 mg/dL (9-20); Calcium 9.4 mg/dL (8.4-10.2); Carbon Dioxide 35 mmol/L (22-32); Chloride 100 mmol/L (98-107); Estimated Glomerular Filt Rate > 60.0 mL/min (>60); Glucose 128 mg/dL (80-110); HEMOLYSIS 20 (0-50); Potassium 4.4 mmol/L (3.4-5.1); Sodium 141 mmol/L (137-145)
== END ==
PROVIDERS: PCP Student in an Organized Health Care Education/Training Program; Referring Provider Specialist; Visit Provider Specialist
DX: R31.9 Hematuria, unspecified (principal); Z12.5 Encounter for screening for malignant neoplasm of prostate
CPT/HCPCS: 36415; 80048; 84153

== ENCOUNTER → 2020-05-22 10:55 | Outpatient (CLI) | payer OTHER, SELFPAY ==
[2020-04-23 10:49] VITALS: BMI 23.3
--- NOTE | 2020-05-22 11:30 | DI.CT.S_ITS ---
PROCEDURE: CT ABDOMEN PELVIS WO/W CON INDICATIONS: Micro hematuria TECHNIQUE: Optional 5 mm thick noncontrast images acquired from the diaphragm to the symphysis pubis. After the administration of intravenous contrast, 5 mm thick images acquired from the diaphragm to the symphysis pubis after a 10-minute delay. 2 mm thick coronal and sagittal reformats were then performed of the kidneys and ureters. For radiation dose reduction, the following was used: automated exposure control, adjustment of mA and/or kV according to patient size. COMPARISON: None. FINDINGS: Image quality: Excellent. Lung bases: There is linear scarring within the lung bases as well as septal thickening suggestive of chronic interstitial lung disease. Heart size is enlarged. There are pacemaker leads extending into the right ventricle and coronary sinus noted. Urinary system: Kidneys demonstrate no renal stones or hydronephrosis. There is minimal bilateral nonspecific perinephric stranding. There is symmetric bilateral renal enhancement. Bilateral renal cysts are demonstrated. Renal calyces appear normal in morphology when filled with contrast without suspicious filling defects. Opacified portions of both ureters demonstrate normal caliber. No calcified bladder stones. The urinary bladder demonstrates concentric bladder wall thickening and trabeculation compatible with sequelae of chronic bladder outlet obstruction. There also linear filling defects within the partially opacified bladder. There is heterogeneous enlargement of the prostate. Other solid organs: There are 2 small oval hypodensities in the left hepatic lobe likely representing cysts. The gallbladder appears within normal limits without calcified gallstones. Biliary system is non-dilated. Pancreas enhances normally. No peripancreatic fat stranding or fluid collections. No pancreatic duct dilatation. There is a small lobulated spleen. No adrenal nodules. Peritoneum and bowel: Bowel loops demonstrate normal wall thickness and caliber. There is colonic diverticulosis without acute diverticulitis. No free fluid or air. Nodes and vessels: No retroperitoneal or mesenteric adenopathy by size criteria. Aorta and inferior vena cava are normal in size. Abdominal wall: No ventral hernias. Pelvis: No pathologic free pelvic fluid. No inguinal hernias or adenopathy. Bones: No suspicious bony lesions. No vertebral body compression fractures. IMPRESSION: 1. No evidence of nephrolithiasis or discrete renal mass. No hydronephrosis. 2. Concentric bladder wall thickening and trabeculation compatible with sequelae of chronic bladder outlet obstruction. 3. Linear filling defects within the partially opacified bladder is nonspecific but may reflect blood product or scarring. Further evaluation may be obtained with cystoscopy. 4. Heterogeneous enlargement of the prostate. Dictated by: Jb Flaherty M.D. on 05/22/2020 at 17:22 Approved by: Jb Flaherty M.D. on 05/22/2020 at 17:28
== END ==
PROVIDERS: PCP Student in an Organized Health Care Education/Training Program; Referring Provider Student in an Organized Health Care Education/Training Program; Visit Provider Specialist
DX: R31.29 Other microscopic hematuria (principal); N32.89 Other specified disorders of bladder; N40.0 Benign prostatic hyperplasia without lower urinary tract symptoms; K57.90 Diverticulosis of intestine, part unspecified, without perforation or abscess without bleeding
CPT/HCPCS: 74178; Q9967

== ENCOUNTER → 2021-01-06 11:40 | Outpatient (CLI) | payer OTHER, SELFPAY ==
[2020-11-11 13:33] VITALS: BMI 23.3
[2021-01-06 14:45] LABS: Prostate Specific Antigen 3.04 ng/mL (0.10-4.00)
== END ==
PROVIDERS: PCP Student in an Organized Health Care Education/Training Program; Referring Provider Specialist; Visit Provider Specialist
DX: N13.8 Other obstructive and reflux uropathy (principal); N40.1 Benign prostatic hyperplasia with lower urinary tract symptoms
CPT/HCPCS: 36415; 84153

== ENCOUNTER → 2021-07-07 10:31 | Outpatient (CLI) | payer OTHER, SELFPAY ==
[2021-01-08 08:46] VITALS: BMI 23.3
[2021-07-07 13:54] LABS: Prostate Specific Antigen Scrn 2.67 ng/mL (0.1-4.0)
== END ==
PROVIDERS: PCP Student in an Organized Health Care Education/Training Program; Referring Provider Specialist; Visit Provider Specialist
DX: R97.20 Elevated prostate specific antigen [PSA] (principal)
CPT/HCPCS: 36415; G0103

== ENCOUNTER → 2021-11-19 13:16 | Outpatient (CLI) | payer OTHER, SELFPAY ==
[2021-09-23 11:46] VITALS: BMI 23.3
[2021-11-19 13:46] LABS: Add Manual Diff / Slide Review NO; Basophils Absolute Auto 100 /uL (0-100); Eosinophils Absolute Auto 100 /uL (0-450); Eosinophils Percent Auto 1.4 % (2-4); Hematocrit 43.4 % (41-53); Hemoglobin 14.8 g/dL (13.5-17.5); Lymphocytes Absolute Auto 1100 /uL (1100-4500); Lymphocytes Percent Auto 15.5 % (25-40); Mean Corpuscular HGB Conc 34.1 % (30-36); Mean Corpuscular Hemoglobin 31.5 PG (26-34); Mean Corpuscular Volume 92.3 fL (80-100); Monocytes Absolute Auto 600 /uL (0-900); Monocytes Percent Auto 8.1 % (3-14); Neutrophils Absolute Auto 5300 /uL (1500-7000); Platelet Count 215 X10^3/uL (150-400); Red Cell Distribution Width 14.2 % (11.6-14.8); White Blood Cell Count 7.2 X10^3/uL (4.5-11.0)
[2021-11-19 14:09] LABS: BUN Creatinine Ratio 29.6 (6-22); Blood Urea Nitrogen 34 mg/dL (9-20); Calcium 9.3 mg/dL (8.4-10.2); Carbon Dioxide 36 mmol/L (22-32); Chloride 100 mmol/L (98-107); Estimated Glomerular Filt Rate > 60 mL/min (>60); Glucose 129 mg/dL (80-110); HEMOLYSIS < 15 (0-50); Potassium 4.5 mmol/L (3.4-5.1); Sodium 140 mmol/L (137-145); Uric Acid 10.9 mg/dL (3.5-8.5)
== END ==
PROVIDERS: PCP Student in an Organized Health Care Education/Training Program; Referring Provider Student in an Organized Health Care Education/Training Program; Visit Provider Student in an Organized Health Care Education/Training Program
DX: M79.674 Pain in right toe(s) (principal)
CPT/HCPCS: 36415; 80048; 84550; 85025

== ENCOUNTER → 2022-01-12 16:09 | Outpatient (CLI) | payer OTHER, SELFPAY ==
[2021-09-23 11:46] VITALS: BMI 23.3
[2022-01-12 18:08] LABS: BUN Creatinine Ratio 30.7 (6-22); Blood Urea Nitrogen 31 mg/dL (9-20); Calcium 9.2 mg/dL (8.4-10.2); Carbon Dioxide 31 mmol/L (22-32); Chloride 102 mmol/L (98-107); Estimated Glomerular Filt Rate > 60 mL/min (>60); Glucose 103 mg/dL (80-110); HEMOLYSIS < 15 (0-50); Potassium 4.6 mmol/L (3.4-5.1); Sodium 137 mmol/L (137-145); Uric Acid 6.1 mg/dL (3.5-8.5)
== END ==
PROVIDERS: PCP Student in an Organized Health Care Education/Training Program; Referring Provider Student in an Organized Health Care Education/Training Program; Visit Provider Student in an Organized Health Care Education/Training Program
DX: M1A.9XX1 Chronic gout, unspecified, with tophus (tophi) (principal)
CPT/HCPCS: 36415; 80048; 84550

== ENCOUNTER → 2022-01-25 12:48 | Outpatient (CLI) | payer OTHER, SELFPAY ==
[2021-09-23 11:46] VITALS: BMI 23.3
[2022-01-25 15:07] LABS: INR 2.9 (0.9-1.3); Prothrombin Time 33.7 SECONDS (10.1-12.7)
== END ==
PROVIDERS: PCP Student in an Organized Health Care Education/Training Program; Referring Provider Student in an Organized Health Care Education/Training Program; Visit Provider Student in an Organized Health Care Education/Training Program
DX: Z79.01 Long term (current) use of anticoagulants (principal)
CPT/HCPCS: 36415; 85610

== ENCOUNTER → 2022-02-25 13:25 | Outpatient (CLI) | payer OTHER, SELFPAY ==
[2021-09-23 11:46] VITALS: BMI 23.3
[2022-02-25 14:55] LABS: INR 4.5 (0.9-1.3); Prothrombin Time 52.5 SECONDS (10.1-12.7)
== END ==
PROVIDERS: PCP Student in an Organized Health Care Education/Training Program; Referring Provider Student in an Organized Health Care Education/Training Program; Visit Provider Student in an Organized Health Care Education/Training Program
DX: I48.21 Permanent atrial fibrillation (principal); Z79.01 Long term (current) use of anticoagulants
CPT/HCPCS: 36415; 85610

== ENCOUNTER → 2022-03-04 16:05 | Outpatient (CLI) | payer OTHER, SELFPAY ==
[2021-09-23 11:46] VITALS: BMI 23.3
[2022-03-04 18:21] LABS: INR 2.5 (0.9-1.3)
== END ==
PROVIDERS: PCP Student in an Organized Health Care Education/Training Program; Referring Provider Student in an Organized Health Care Education/Training Program; Visit Provider Student in an Organized Health Care Education/Training Program
DX: I48.91 Unspecified atrial fibrillation (principal)
CPT/HCPCS: 36415; 85610

== ENCOUNTER → 2022-03-27 10:23 | Outpatient (CLI) | payer OTHER, SELFPAY ==
[2021-09-23 11:46] VITALS: BMI 23.3
[2022-03-27 11:36] LABS: INR 2.8 (0.9-1.3)
== END ==
PROVIDERS: PCP Student in an Organized Health Care Education/Training Program; Referring Provider Student in an Organized Health Care Education/Training Program; Visit Provider Student in an Organized Health Care Education/Training Program
DX: Z79.01 Long term (current) use of anticoagulants (principal); I48.21 Permanent atrial fibrillation
CPT/HCPCS: 36415; 85610

== ENCOUNTER → 2022-04-10 11:54 | Outpatient (CLI) | payer OTHER, SELFPAY ==
[2021-09-23 11:46] VITALS: BMI 23.3
[2022-04-10 13:37] LABS: INR 2.7 (0.9-1.3); Prothrombin Time 31.3 SECONDS (10.1-12.7)
== END ==
PROVIDERS: PCP Student in an Organized Health Care Education/Training Program; Referring Provider Student in an Organized Health Care Education/Training Program; Visit Provider Student in an Organized Health Care Education/Training Program
DX: Z79.01 Long term (current) use of anticoagulants (principal); I48.21 Permanent atrial fibrillation
CPT/HCPCS: 36415; 85610

== ENCOUNTER → 2022-05-10 10:49 | Outpatient (CLI) | payer OTHER, SELFPAY ==
[2021-09-23 11:46] VITALS: BMI 23.3
[2022-05-10 11:56] LABS: INR 2.2 (0.9-1.3)
== END ==
PROVIDERS: PCP Student in an Organized Health Care Education/Training Program; Referring Provider Student in an Organized Health Care Education/Training Program; Visit Provider Student in an Organized Health Care Education/Training Program
DX: I48.21 Permanent atrial fibrillation (principal); Z79.01 Long term (current) use of anticoagulants
CPT/HCPCS: 36415; 85610

== ENCOUNTER → 2022-06-03 09:42 | Outpatient (CLI) | payer OTHER, SELFPAY ==
[2021-09-23 11:46] VITALS: BMI 23.3
[2022-06-03 10:54] LABS: INR 2.3 (0.9-1.3); Prothrombin Time 26.7 SECONDS (10.1-12.7)
== END ==
PROVIDERS: PCP Student in an Organized Health Care Education/Training Program; Referring Provider Student in an Organized Health Care Education/Training Program; Visit Provider Student in an Organized Health Care Education/Training Program
DX: I48.21 Permanent atrial fibrillation (principal); Z79.01 Long term (current) use of anticoagulants
CPT/HCPCS: 36415; 85610

== ENCOUNTER → 2022-06-18 11:49 | Outpatient (CLI) | payer OTHER, SELFPAY ==
[2021-09-23 11:46] VITALS: BMI 23.3
[2022-06-18 13:30] LABS: INR 2.5 (0.9-1.3); Prothrombin Time 29.4 SECONDS (10.1-12.7)
== END ==
PROVIDERS: PCP Student in an Organized Health Care Education/Training Program; Referring Provider Student in an Organized Health Care Education/Training Program; Visit Provider Student in an Organized Health Care Education/Training Program
DX: Z79.01 Long term (current) use of anticoagulants (principal); I48.21 Permanent atrial fibrillation
CPT/HCPCS: 36415; 85610

== ENCOUNTER → 2022-09-14 06:43 | Outpatient (CLI) | payer OTHER, SELFPAY ==
[2022-06-21 13:00] VITALS: BMI 23.3
== END ==
PROVIDERS: PCP Student in an Organized Health Care Education/Training Program; Referring Provider Specialist; Visit Provider Specialist
DX: R97.20 Elevated prostate specific antigen [PSA] (principal)
CPT/HCPCS: 36415; 84153

== ENCOUNTER → 2022-10-29 15:34 | Outpatient (CLI) | payer OTHER, SELFPAY ==
[2022-06-21 13:00] VITALS: BMI 23.3
[2022-10-29 16:11] LABS: Alanine Aminotransferase 28 IU/L (<50); Albumin Globulin Ratio 1.3 (1.0-2.8); Alkaline Phosphatase 48 U/L (38-126); Aspartate Aminotransferase 27 IU/L (17-59); BUN Creatinine Ratio 32.7 (6-22); Bilirubin Total 1.2 mg/dL (0.2-1.3); Blood Urea Nitrogen 32 mg/dL (9-20); Calcium 9.2 mg/dL (8.4-10.2); Carbon Dioxide 24 mmol/L (22-32); Chloride 101 mmol/L (98-107); Estimated Glomerular Filt Rate > 60 mL/min (>60); Globulin 3.1 g/dL (1.7-4.1); Glucose 119 mg/dL (80-110); HEMOLYSIS < 15 (0-50); Potassium 4.7 mmol/L (3.4-5.1); Sodium 133 mmol/L (137-145); Total Protein 7.1 g/dL (6.3-8.2)
== END ==
PROVIDERS: PCP Student in an Organized Health Care Education/Training Program; Referring Provider Internal Medicine Cardiovascular Disease; Visit Provider Internal Medicine Cardiovascular Disease
DX: I48.21 Permanent atrial fibrillation (principal)
CPT/HCPCS: 36415; 80053

== ENCOUNTER 2022-11-20 13:12 | Inpatient (IN) | payer OTHER, SELFPAY ==
[2022-06-21 13:00] VITALS: BMI 23.3
[2022-11-20] VITALS (13 sets, daily range): BP systolic 121–168; BP diastolic 54–72; PULSE 60–68; RESP 16–30; TEMP 35.6–36.4; O2SAT 94–99; BMI 22.1; BMI 20.6
--- NOTE | 2022-11-20 13:19 | DI.CT.S_ITS ---
PROCEDURE: CT HEAD/BRAIN WO CON INDICATIONS: fall hit head on thinners x 2 weeks ago TECHNIQUE: Noncontrast 4.5 mm thick angled axial sections acquired from the foramen magnum to the vertex, with coronal and sagittal reformats. For radiation dose reduction, the following was used: automated exposure control, adjustment of mA and/or kV according to patient size. COMPARISON: None. FINDINGS: Image quality: Excellent. CSF spaces: Basal cisterns are patent. No extra-axial fluid collections. Ventricles are normal in size and shape. Brain: No midline shift. No intracranial masses or hemorrhage. Harry-white matter interface is normal. Moderate cerebral and cerebellar volume loss with multifocal white matter chronic ischemic change noted. Atherosclerotic calcification noted associated with cavernous segments of both internal carotid arteries. Skull and face: Calvarium and visualized facial bones are intact, without suspicious lesions. Sinuses: Visualized sinuses and mastoids are clear. IMPRESSION: Atrophy and chronic ischemic change without intracranial hemorrhage or mass effect Approved by: Yury Berumen M.D. on 11/20/2022 at 13:29
--- NOTE | 2022-11-20 13:19 | DI.CT.S_ITS ---
PROCEDURE: CT CERVICAL SPINE WO CON INDICATIONS: fall hit head on thinners x 2 weeks ago TECHNIQUE: Noncontrast 3 mm thick sections acquired from the skull base to the T4 level. Sagittal and coronal reformats were then constructed. For radiation dose reduction, the following was used: automated exposure control, adjustment of mA and/or kV according to patient size. COMPARISON: None. FINDINGS: Image quality: Excellent. Bones: No fractures or dislocations. Visualized superior ribs are intact. There is straightening the normal cervical lordosis present. Disc spaces are relatively preserved. Facet arthropathy present throughout the exam resulting in varying degrees of foraminal stenosis. No significant central stenosis. Soft tissues: Prevertebral soft tissues are normal in thickness. No paravertebral hematomas. No apical pneumothoraces. IMPRESSION: Degenerative disc disease and arthropathy without fracture or traumatic malalignment. Approved by: Yury Berumen M.D. on 11/20/2022 at 13:32
--- NOTE | 2022-11-20 13:21 | DI.RAD.S_ITS ---
PROCEDURE: XR CHEST 1V INDICATIONS: chest pain TECHNIQUE: One view of the chest was acquired. COMPARISON: [facility], , XR CHEST 1V, 05/26/2018, 13:05. FINDINGS: Surgical changes and devices: Biventricular pacemaker Lungs and pleura: Mild blunting the right costophrenic angle Mediastinum: Mediastinal contours appear normal. Heart size is normal. Bones and chest wall: No suspicious bony lesions. Overlying soft tissues appear unremarkable. IMPRESSION: Small right pleural effusion Approved by: Yury Berumen M.D. on 11/20/2022 at 14:13
[2022-11-20 14:49] LABS: INR 1.9 (0.9-1.3)
[2022-11-20 14:51] LABS: PTT Partial Thromboplastin Tim 37 SECONDS (26-36)
[2022-11-20 14:53] LABS: Add Manual Diff / Slide Review NO; Basophils Absolute Auto 0 /uL (0-100); Basophils Percent Auto 0.6 % (0-2); Eosinophils Absolute Auto 100 /uL (0-450); Eosinophils Percent Auto 1.3 % (2-4); Hematocrit 39.6 % (41-53); Hemoglobin 13.4 g/dL (13.5-17.5); Lymphocytes Absolute Auto 900 /uL (1100-4500); Mean Corpuscular HGB Conc 33.8 % (30-36); Mean Corpuscular Hemoglobin 32.1 PG (26-34); Mean Corpuscular Volume 95.2 fL (80-100); Monocytes Absolute Auto 800 /uL (0-900); Monocytes Percent Auto 10.8 % (3-14); Neutrophils Absolute Auto 5400 /uL (1500-7000); Neutrophils Percent Auto 75.3 % (50-75); Platelet Count 222 X10^3/uL (150-400); Red Blood Cell Count 4.16 X10^6/uL (4.5-5.9); Red Cell Distribution Width 16.1 % (11.6-14.8); White Blood Cell Count 7.1 X10^3/uL (4.5-11.0)
[2022-11-20 14:54] LABS: Alanine Aminotransferase 26 IU/L (<50); Albumin 3.5 g/dL (3.5-5.0); Albumin Globulin Ratio 1.3 (1.0-2.8); Alkaline Phosphatase 55 U/L (38-126); Aspartate Aminotransferase 23 IU/L (17-59); BUN Creatinine Ratio 25.6 (6-22); Bilirubin Total 1.1 mg/dL (0.2-1.3); Blood Urea Nitrogen 34 mg/dL (9-20); Calcium 9.2 mg/dL (8.4-10.2); Carbon Dioxide 33 mmol/L (22-32); Chloride 97 mmol/L (98-107); Creatine Kinase 39 U/L (55-170); Estimated Glomerular Filt Rate 52 mL/min (>60); Globulin 2.8 g/dL (1.7-4.1); Glucose 111 mg/dL (80-110); HEMOLYSIS < 15 (0-50); Lipase 117 U/L (23-300); Magnesium 1.9 mg/dL (1.6-2.3); Potassium 3.5 mmol/L (3.4-5.1); Sodium 136 mmol/L (137-145); Total Protein 6.3 g/dL (6.3-8.2)
[2022-11-20 15:08] LABS: Troponin I 0.172 ng/mL (0.01-0.034)
--- NOTE | 2022-11-20 15:23 | ED_ITS ---
HPI - Fall General Chief Complaint: Fall Stated Complaint: fall, head injury Time Seen by Provider: 11/20/22 15:03 Source: patient, RN notes reviewed and old records reviewed Mode of arrival: Family Vehicle Limitations: no limitations History of Present Illness HPI Narrative: This is an 87-year-old male with history of atrial fibrillation with pacemaker, CHF, hypertension, dyslipidemia, gout on warfarin with complaint of slip and fall 2 weeks ago fell on his butt and then hit his head on concrete and then did it again shortly thereafter. He states this was on November 07. Since then he is had some headache and pain in his neck along with some dizziness. He states the headache and neck pain have been improving. He denies numbness, tingling or weakness. He feels a little off balance but can walk a straight line. He denies chest pain, no shortness of breath. He is noted some increased swelling in his lower extremities. He denies any numbness, tingling or weakness. He is had some nausea along with his headache but no vomiting. No bladder or bowel incontinence. No diarrhea, constipation or other urinary symptoms. Patient states he had a pacemaker placed 4 years ago he denies other surgeries cu rrently. No known drug allergies. No tobacco, alcohol or illicit. Does note he is stopped all some of his medications including his water pills for about 2 weeks and then restarted those 3 days ago when he noticed the swelling. Patient's primary care was Dr. Maya. His dope dry house operator is Dr. Phillips and he is seen Dr. Mckeon for electrophysiology. Patient presents today because of increased swelling in his extremities as well as some partition persistent nausea. Related Data Home Medications Medication Instructions Recorded Confirmed cholecalciferol (vitamin D3) 25 2,000 unit PO QPM 01/20/18 11/20/22 mcg (1,000 unit) tablet (Vitamin D3) Previous Rx's Medication Instructions Recorded tamsulosin 0.4 mg capsule (Flomax) 0.8 mg PO BEDTIME #180 caps 10/15/21 allopurinol 300 mg tablet 300 mg PO DAILY #90 tabs 01/13/22 furosemide 40 mg tablet 40 mg PO DAILY #90 tabs 03/01/22 dutasteride 0.5 mg capsule See Rx Instructions .Route 03/19/22 .COMPLEX #90 caps losartan 25 mg tablet 25 mg PO DAILY #90 tabs 05/19/22 metoprolol tartrate 100 mg tablet 150 mg PO BID #270 tabs 06/08/22 montelukast 10 mg tablet 10 mg PO QPM #90 tabs 06/08/22 warfarin 5 mg tablet 2.5 mg PO .COMPLEX #60 tabs 06/08/22 potassium chloride 20 mEq 20 meq PO DAILY #90 tabs 08/19/22 tablet,extended release Allergies Allergy/AdvReac Type Severity Reaction Status Date / Time KAYLYNN Inhibitors AdvReac Intermediate COUGH Verified 09/21/22 14:01 [KAYLYNN INHIBITORS] Review of Systems Review of Systems ROS Unobtainable: All systems reviewed & are unremarkable except as noted in HPI and below Patient History Medical History Actinic keratosis Adjustment insomnia (10/07/16) Allergic rhinitis due to pollen (06/19/15) Anticoagulation monitoring, INR range 2-3 Atrial fibrillation and flutter (2013) Basal cell carcinoma BPH (benign prostatic hyperplasia) BPH w urinary obs/LUTS Cataracts, bilateral (~2014) Chronic back pain Congestive heart failure Dyslipidemia Essential hypertension (06/19/15) Fractures (~1961) Hypertension Knee pain, right (07/2017) Microscopic hematuria Midline low back pain without sciatica (06/19/15) Neck pain (03/2017) NSTEMI (non-ST elevated myocardial infarction) Rosacea (06/19/15) Rosacea (2009) Skin lesion of face Spinal stenosis of lumbosacral region (06/19/15) Squamous cell carcinoma Venous insufficiency of both lower extremities Xerosis of skin Surgical History History of ankle surgery (~1961) History of cardioversion History of permanent cardiac pacemaker placement History of radiofrequency ablation (RFA) procedure for cardiac arrhythmia (06/10/17) Hx of cataract surgery (2014) Hx of Moh's micrographic surgery for skin cancer S/P excision of skin lesion, follow-up exam Family History Father Heart disease Mother Heart disease Social History marital status: number of children: 2 household members: significant other Smoking Status: Never smoker alcohol intake: former caffeine: No Smoking Status: Never smoker alcohol intake frequency: 0-2 drinks per day Substance Use Type: does not use Exam Narrative Exam Narrative: GEN: Patient appears in mild distress. HEAD: No evidence of trauma, no raccoon/Fuentes sign. NECK: Nontender, painless range of motion, trachea midline Negative Nexus criteria, no midline line tenderness, distracting injury, altered mental status, neuro deficit, recent EtOH. EYES: PERRLA, EOMI ENT: External inspection normal, trachea is midline, Nares are clear, no septal hematoma, no dental or oral injury, airway is normal and with normal occlusion, No bony tenderness RESP: Chest is nontender and has symmetric movement, no ecchymosis, breath sounds are normal no crackles, wheezes or rales CVS: Heart sounds are normal, no murmur noted, No JVD. Patient does have bilate ral lower extremity swelling. ABG/GI: Nontender, soft, normal bowel sounds, no distention, no organomegaly, pelvic rock is negative NEURO: Oriented AOx3, neuro is grossly intact, sensation and motor is normal all 4 extremities moving, cranial nerves II through XII are intact, GCS is 15 PSYCH: Normal mood and affect SKIN: Intact, warm and dry, no crepitus and without decubitus BACK: No CVA tenderness, no vertebral tenderness, no step-off's, no crepitus EXT: Atraumatic, hips are nontender, no pedal edema, normal color and temperature, normal range of motion of extremities with normal tendon exam, 2+ pulses in all four extremities Initial Vital Signs Initial Vital Signs: Vital Signs Temperature 97.6 F 11/20/22 13:15 Pulse Rate 63 11/20/22 13:15 Respiratory Rate 16 11/20/22 13:15 Blood Pressure 146/64 H 11/20/22 13:15 Pulse Oximetry 97 11/20/22 13:15 Oxygen Delivery Method Room Air 11/20/22 13:15 Course Orders Ordered: ED Orders 11/20/22 13:19 CT cervical spine wo con Stat CT head/brain wo con Stat 11/20/22 13:21 XR chest 1V Stat EKG-12 Lead Stat 11/20/22 14:30 BNP [NT-proBNP (BNP-Adult 18+)] Stat Complete Blood Count AUTO DIFF Stat Comprehensive Metabolic Panel Stat Lipase Stat Magnesium Stat PTT Partial Thromboplastin Esteban Stat Prothrombin Time INR Stat Troponin & CK Cardiac Panel Stat 11/20/22 16:39 Trop I [Troponin I] Stat Discontinued Medications Aspirin (Aspirin 81 Mg Chew Tab) 324 mg PO NOW ONE Stop: 11/20/22 17:31 Furosemide 60 mg/ Sodium (Chloride) 56 mls @ 112 mls/hr IV NOW ONE Stop: 11/20/22 17:27 Vital Signs Vital signs: Vital Signs - 8 hr 11/20/22 13:15 11/20/22 13:47 11/20/22 13:48 Temperature 97.6 F Pulse Rate 63 61 Respiratory Rate 16 Blood Pressure 146/64 H 141/63 H Pulse Oximetry 97 98 Oxygen Delivery Method Room Air 11/20/22 14:00 11/20/22 14:30 11/20/22 15:00 Temperature Pulse Rate 62 65 61 Respiratory Rate 27 H 30 H 27 H Blood Pressure Pulse Oximetry 98 97 97 Oxygen Delivery Method 11/20/22 15:16 11/20/22 15:16 11/20/22 15:30 Temperature Pulse Rate 63 Respiratory Rate 26 H Blood Pressure 124/62 126/63 Pulse Oximetry 98 Oxygen Delivery Method 11/20/22 15:30 11/20/22 16:00 11/20/22 16:00 Temperature Pulse Rate 63 60 Respiratory Rate 24 18 Blood Pressure 135/65 Pulse Oximetry 98 98 Oxygen Delivery Method Room Air MDM - Fall Lab Data 11/20/22 14:30 11/20/22 14:30 Labs: Lab Results 11/20/22 11/20/22 11/20/22 Range/Units 14:30 14:30 14:30 WBC 7.1 (4.5-11.0) X10^3/uL RBC 4.16 L (4.5-5.9) X10^6/uL Hgb 13.4 L (13.5-17.5) g/dL Hct 39.6 L (41-53) % MCV 95.2 (80-100) fL MCH 32.1 (26-34) PG MCHC 33.8 (30-36) % RDW 16.1 H (11.6-14.8) % Plt Count 222 (150-400) X10^3/uL Neut % (Auto) 75.3 H (50-75) % Lymph % (Auto) 12.0 L (25-40) % Meriwether % (Auto) 10.8 (3-14) % Eos % (Auto) 1.3 L (2-4) % Baso % (Auto) 0.6 (0-2) % Neut # (Auto) 5400 (9863-5044) /uL Lymph # (Auto) 900 L (8941-7128) /uL Meriwether # (Auto) 800 (0-900) /uL Eos # (Auto) 100 (0-450) /uL Baso # (Auto) 0 (0-100) /uL PT 22.0 H (10.1-12.7) SECONDS INR 1.9 H (0.9-1.3) APTT 37 H (26-36) SECONDS Sodium 136 L (137-145) mmol/L Potassium 3.5 (3.4-5.1) mmol/L Chloride 97 L (98-107) mmol/L Carbon Dioxide 33 H (22-32) mmol/L BUN 34 H (9-20) mg/dL Creatinine 1.33 H (0.66-1.25) mg/dL Estimated GFR 52 L (>60) mL/min BUN/Creatinine Ratio 25.6 H (6-22) Glucose 111 H (80-110) mg/dL Calcium 9.2 (8.4-10.2) mg/dL Magnesium 1.9 (1.6-2.3) mg/dL Total Bilirubin 1.1 (0.2-1.3) mg/dL AST 23 (17-59) IU/L ALT 26 (<50) IU/L Alkaline Phosphatase 55 (38-126) U/L Total Creatine Kinase 39 L (55-170) U/L CK-MB (CK-2) TNP CK-MB (CK-2) Rel Index TNP Troponin I 0.172 H* (0.01-0.034) ng/mL NT-Pro-B Natriuret Pep (<450) pg/mL Total Protein 6.3 (6.3-8.2) g/dL Albumin 3.5 (3.5-5.0) g/dL Globulin 2.8 (1.7-4.1) g/dL Albumin/Globulin Ratio 1.3 (1.0-2.8) Lipase 117 (23-300) U/L 11/20/22 11/20/22 Range/Units 14:30 16:39 WBC (4.5-11.0) X10^3/uL RBC (4.5-5.9) X10^6/uL Hgb (13.5-17.5) g/dL Hct (41-53) % MCV (80-100) fL MCH (26-34) PG MCHC (30-36) % RDW (11.6-14.8) % Plt Count (150-400) X10^3/uL Neut % (Auto) (50-75) % Lymph % (Auto) (25-40) % Meriwether % (Auto) (3-14) % Eos % (Auto) (2-4) % Baso % (Auto) (0-2) % Neut # (Auto) (7592-8110) /uL Lymph # (Auto) (6577-9293) /uL Meriwether # (Auto) (0-900) /uL Eos # (Auto) (0-450) /uL Baso # (Auto) (0-100) /uL PT (10.1-12.7) SECONDS INR (0.9-1.3) APTT (26-36) SECONDS Sodium (137-145) mmol/L Potassium (3.4-5.1) mmol/L Chloride (98-107) mmol/L Carbon Dioxide (22-32) mmol/L BUN (9-20) mg/dL Creatinine (0.66-1.25) mg/dL Estimated GFR (>60) mL/min BUN/Creatinine Ratio (6-22) Glucose (80-110) mg/dL Calcium (8.4-10.2) mg/dL Magnesium (1.6-2.3) mg/dL Total Bilirubin (0.2-1.3) mg/dL AST (17-59) IU/L ALT (<50) IU/L Alkaline Phosphatase (38-126) U/L Total Creatine Kinase (55-170) U/L CK-MB (CK-2) CK-MB (CK-2) Rel Index Troponin I 0.176 H* (0.01-0.034) ng/mL NT-Pro-B Natriuret Pep 66888 H (<450) pg/mL Total Protein (6.3-8.2) g/dL Albumin (3.5-5.0) g/dL Globulin (1.7-4.1) g/dL Albumin/Globulin Ratio (1.0-2.8) Lipase (23-300) U/L Imaging Data Chest x-ray: Radiologist's Impression: [address] [address] XRay Report Signed Patient: Anthony Coates MR#: [id number] : 1935 Acct:[id number] Age/Sex: 87 / M Date of Service: 11/20/22 Loc: ED Accession Number: [id number] ?? Procedure: XR chest 1V Ordering Provider: Shelly Ruiz D.O. PROCEDURE:? XR CHEST 1V ? INDICATIONS:? chest pain ? TECHNIQUE:? One view of the chest was acquired.? ? COMPARISON:? [facility], CR, XR CHEST 1V, 05/26/2018, 13:05. ? FINDINGS:? ? Surgical changes and devices:? Biventricular pacemaker ? Lungs and pleura:? Mild blunting the right costophrenic angle ? Mediastinum:? Mediastinal contours appear normal.? Heart size is normal.? ? Bones and chest wall:? No suspicious bony lesions.? Overlying soft tissues appear unremarkable.? ? IMPRESSION:? Small right pleural effusion ? ? ? Approved by: Yury Berumen M.D. on 11/20/2022 at 14:13? CT scan - head: Radiologist's Impression: Close Chest X-Ray (Signed) Yury Berumen - 11/20/[address] (Signed) AtaYury - 11/20/[address] (Signed) AtaYury - 11/20/22 Abdomen/Pelvis CT (Signed) Jb Flaherty - 05/22/20 Echocardiogram Ultrasound (Signed) Mark Ponce - 03/01/19 Telemetry Strips 05/28/18 Echocardiogram Ultrasound (Signed) Gerard Frazier - 05/27/18 Chest X-Ray (Signed) Greta Sawyer - 05/26/18 Echocardiogram Ultrasound (Signed) Gerard Frazier - 02/13/18 Telemetry Strips 01/20/18 Bladder Scan 01/20/18 Chest X-Ray (Signed) Solitario Lam - 01/20/18 Telemetry Strips 12/23/16 Telemetry Strips 12/23/16 Telemetry Strips 12/23/16 Launch?Image [address] [address] [address] Scan Report Signed Patient: Anthony Coates MR#: [id number] : 1935 Acct:[id number] Age/Sex: 87 / M Date of Service: 11/20/22 Loc: ED Accession Number: [id number] ?? Procedure: CT head/brain wo con Ordering Provider: Shelly Ruiz D.O. PROCEDURE:? CT HEAD/BRAIN WO CON ? INDICATIONS:? fall hit head on thinners x 2 weeks ago ? TECHNIQUE:? Noncontrast 4.5 mm thick angled axial sections acquired from the foramen magnum to the vertex, with coronal and sagittal reformats.? For radiation dose reduction, the following was used:? automated exposure control, adjustment of mA and/or kV according to patient size.? ? COMPARISON:? None. ? FINDINGS:? Image quality:? Excellent.? ? CSF spaces:? Basal cisterns are patent.? No extra-axial fluid collections.? Ventricles are normal in size and shape.? ? Brain:? No midline shift.? No intracranial masses or hemorrhage.? Harry-white matter interface is normal.? Moderate cerebral and cerebellar volume loss with multifocal white matter chronic ischemic change noted.? Atherosclerotic calcification noted associated with cavernous segments of both internal carotid arteries. ? Skull and face:? Calvarium and visualized facial bones are intact, without suspicious lesions.? ? Sinuses:? Visualized sinuses and mastoids are clear.? ? IMPRESSION:? Atrophy and chronic ischemic change without intracranial hemorrhage or mass effect ? ? ? Approved by: Yury Berumen M.D. on 11/20/2022 at 13:29? CT - cervical spine: Radiologist's Impression: [address] [address] [address] Scan Report Signed Patient: Anthony Coates MR#: [id number] : 1935 Acct:[id number] Age/Sex: 87 / M Date of Service: 11/20/22 Loc: ED Accession Number: [id number] ?? Procedure: CT cervical spine wo con Ordering Provider: Shelly Ruiz D.O. PROCEDURE:? CT CERVICAL SPINE WO CON ? INDICATIONS:? fall hit head on thinners x 2 weeks ago ? TECHNIQUE:? Noncontrast 3 mm thick sections acquired from the skull base to the T4 level.? Sagittal and coronal reformats were then constructed.? For radiation dose reduction, the following was used:? automated exposure control, adjustment of mA and/or kV according to patient size.? ? COMPARISON:? None. ? FINDINGS:? Image quality:? Excellent.? ? Bones:? No fractures or dislocations.? Visualized superior ribs are intact.? There is straightening the normal cervical lordosis present.? Disc spaces are relatively preserved.? Facet arthropathy present throughout the exam resulting in varying degrees of foraminal stenosis.? No significant central stenosis. ? Soft tissues:? Prevertebral soft tissues are normal in thickness.? No parav ertebral hematomas.? No apical pneumothoraces.? ? ? IMPRESSION:? ? Degenerative disc disease and arthropathy without fracture or traumatic malalignment. ? Approved by: Yury Berumen M.D. on 11/20/2022 at 13:32? ECG Data Attestation: I personally reviewed and interpreted this ECG as follows: Interpretation: Ventricularly paced rhythm, rate of 60 QRS of 160 QTC 484. Patient has prior from 05/26/2018 shows AFib are right bundle-branch block but was not paced. EKG number rate of 67 QRS 162 QTC 502. Intermittently paced wide complex QRS rhythm patient appears to be paced every other beat. Left axis deviation. MDM Narrative Medical decision making narrative: This is an 87-year-old male had been level fall 2 weeks ago hit his head has had continued headache and some dizziness. Some nausea that has been slowly improving but present had some increased swelling in his lower extremities. Head CT C-spine were negative patient was on warfarin felt appropriate for imaging, chest x-ray shows small right pleural effusion. CBC shows a white count of 7, hemoglobin 13 platelets 20 22. Patient does have a bump in his creatinine of 1.33 with a BUN of 34 electrolytes otherwise normal, CK is 39 with a troponin of 0.17 to BNP is 10,000, repeat troponin is slightly elevated from 0.172 to 0.176. Patient continues to be asymptomatic. Discussed with Dr. Sams, cardiology with [facility] with his warfarin she would recommended continue warfarin with goal of therapeutic level and not to start heparin she suspect that his troponin is more secondary to heart failure and demand ischemia 10 true NSTEMI. Particularly she is not having shortness of breath or chest pain. She recommend diuresis with close monitoring of renal function trending out troponin and recontact as needed. I did discuss with patient's family, sounds like patient is DNR/DNI with limited interventions. He is unsure if he would wish to pursue cardiac catheterization if it was offered. He states he had a POLST form filled out with Dr. Richmond. I am not able to access it. Family (son and [id number]) states that someone took it from the refrigerator so they are aware but do not know exactly what it says. Spoke with Dr. Walters hospitalist who accepts for admission reviewed recommendations from Cardiology. Discussed patient's workup, current findings, he has been asymptomatic so far. Probably little component of dementia. Discharge Plan Departure Patient Disposition: Admitted As Inpatient Clinical Impression: Acute exacerbation of CHF (congestive heart failure), LEO (acute kidney injury), Elevated troponin Admit Date/Time: 11/20/22 17:27 Admit Provider: Hallie Walters
[2022-11-20 15:57] LABS: NT-proBNP (BNP-Adult 18+) 10500 pg/mL (<450)
--- NOTE | 2022-11-20 17:05 | PC.NURSE ---
Pt ambulated in room and gutierrez with steady gait using walker and family members at side. Denies dizziness or lightheadedness.
[2022-11-20 17:16] LABS: Troponin I 0.176 ng/mL (0.01-0.034)
[2022-11-20] MEDS: FUROSEMIDE 60 MG in SODIUM CHLORIDE 0.9% 50 ML 112 MG IV (18:08)
[2022-11-20] MEDS: ASPIRIN 81 MG CHEW TAB 324 MG PO (18:09)
--- NOTE | 2022-11-20 20:04 | P.HP_ITS ---
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 Patient reported he had 2 falls approximately 2 weeks ago injuring his buttocks/head on concrete since that time he is had a headache with nausea, neck pain, dizziness and feeling a bit off balance these symptoms have been intermittent and are improving. Patient has stopped all of his medi cations approximately 2 weeks ago and restarted 3 days ago when he noticed increased bilateral lower extremity swelling. On admit patient reported that all his symptoms have since resolved with the exception of lower extremity edema. He denies history of urinary retention or UTI. Patient denies chest pain, shortness in breath, changes in vision, difficulty swallowing, speech impairment, weakness, numbness, tingling, LOC, fever, body aches, chills, cough, recent exposure to illness, abdominal pain, vomiting, urinary incontinence, dysuria, frequency, urgency, hematuria, bowel changes, constipation, incontinence, melena, rashes, recent illness or trauma. Admit vital signs are stable/normotensive 96.1?, 168/69, 67, 17, 98% on room air. Patient had been moderately tachypneic in ED respiratory rate 24-30, but now resolved. Noted LEO BUN 34, creatinine 133, GFR 52. PT 22, INR 1.9, PTT 37-on Coumadin. Initial troponin 0.172, repeat 0.176 (asymptomatic). BNP 33538, chest x-ray noted small right pleural effusion, head CT negative for acute changes, C-spine DDD without fracture or acute changes. I personally reviewed all imaging and EKG: Ventricular paced rate of 60 white QRS 160 QTC 484. Patient admitted for CHF exacerbation, LEO, myocardial injury. [facility] Medical History Actinic keratosis Adjustment insomnia (10/07/16) Allergic rhinitis due to pollen (06/19/15) Anticoagulation monitoring, INR range 2-3 Atrial fibrillation and flutter (2013) Basal cell carcinoma BPH (benign prostatic hyperplasia) BPH w urinary obs/LUTS Cataracts, bilateral (~2014) Chronic back pain Congestive heart failure Dyslipidemia Essential hypertension (06/19/15) Fractures (~1961) Hypertension Knee pain, right (07/2017) Microscopic hematuria Midline low back pain without sciatica (06/19/15) Neck pain (03/2017) NSTEMI (non-ST elevated myocardial infarction) Rosacea (06/19/15) Rosacea (2009) Skin lesion of face Spinal stenosis of lumbosacral region (06/19/15) Squamous cell carcinoma Venous insufficiency of both lower extremities Xerosis of skin Surgical History History of ankle surgery (~1961) History of cardioversion History of permanent cardiac pacemaker placement History of radiofrequency ablation (RFA) procedure for cardiac arrhythmia (06/10/17) Hx of cataract surgery (2014) Hx of Moh's micrographic surgery for skin cancer S/P excision of skin lesion, follow-up exam Family History Father Heart disease Mother Heart disease Social History marital status: number of children: 2 household members: significant other Smoking Status: Never smoker alcohol intake: former caffeine: No Meds Home Medications and Allergies Home Medications Medication Instructions Recorded Confirmed Type cholecalciferol (vitamin D3) 25 2,000 unit PO QPM 01/20/18 11/20/22 History mcg (1,000 unit) tablet (Vitamin D3) tamsulosin 0.4 mg capsule (Flomax) 0.8 mg PO BEDTIME #180 caps 10/15/21 11/20/22 Rx allopurinol 300 mg tablet 300 mg PO DAILY #90 tabs 01/13/22 11/20/22 Rx furosemide 40 mg tablet 40 mg PO DAILY #90 tabs 03/01/22 11/20/22 Rx dutasteride 0.5 mg capsule See Rx Instructions .Route 03/19/22 11/20/22 Rx .COMPLEX #90 caps losartan 25 mg tablet 25 mg PO DAILY #90 tabs 05/19/22 11/20/22 Rx metoprolol tartrate 100 mg tablet 150 mg PO BID #270 tabs 06/08/22 11/20/22 Rx montelukast 10 mg tablet 10 mg PO QPM #90 tabs 06/08/22 11/20/22 Rx warfarin 5 mg tablet 2.5 mg PO .COMPLEX #60 tabs 06/08/22 11/20/22 Rx potassium chloride 20 mEq 20 meq PO DAILY #90 tabs 08/19/22 11/20/22 Rx tablet,extended release Allergies Allergy/AdvReac Type Severity Reaction Status Date / Time KAYLYNN Inhibitors AdvReac Intermediate COUGH Verified 09/21/22 14:01 [KAYLYNN INHIBITORS] Review of Systems Review of Systems Narrative: All 12 point systems reviewed with the patient and are negative except otherwise documented. Exam Vital Signs (past 8 hours): - 11/20/22 13:15 11/20/22 13:47 11/20/22 13:48 Temperature 97.6 F Pulse Rate 63 61 Respiratory Rate 16 Blood Pressure 146/64 H 141/63 H Pulse Oximetry 97 98 Oxygen Delivery Method Room Air Oxygen Flow Rate 11/20/22 14:00 11/20/22 14:30 11/20/22 15:00 Temperature Pulse Rate 62 65 61 Respiratory Rate 27 H 30 H 27 H Blood Pressure Pulse Oximetry 98 97 97 Oxygen Delivery Method Oxygen Flow Rate 11/20/22 15:16 11/20/22 15:16 11/20/22 15:30 Temperature Pulse Rate 63 Respiratory Rate 26 H Blood Pressure 124/62 126/63 Pulse Oximetry 98 Oxygen Delivery Method Oxygen Flow Rate 11/20/22 15:30 11/20/22 16:00 11/20/22 16:00 Temperature Pulse Rate 63 60 Respiratory Rate 24 18 Blood Pressure 135/65 Pulse Oximetry 98 98 Oxygen Delivery Method Room Air Oxygen Flow Rate 11/20/22 16:50 11/20/22 17:00 11/20/22 17:00 Temperature Pulse Rate 65 64 Respiratory Rate 20 20 Blood Pressure 150/72 H Pulse Oximetry 94 99 Oxygen Delivery Method Oxygen Flow Rate 11/20/22 18:37 11/20/22 20:00 Temperature 96.1 F L 97.5 F L Pulse Rate 67 68 Respiratory Rate 17 20 Blood Pressure 168/69 H 121/54 L Pulse Oximetry 98 96 Oxygen Delivery Method Oxygen Flow Rate 0 Oxygen Delivery Method Room Air Oxygen Flow Rate 0 Narrative Exam Narrative: General: Patient is a well-developed, well-nourished pleasant male in no distress at this time. HEENT: Normocephalic, atraumatic, extraocular muscles intact, oral pharynx is clear and mucous membranes are dry. Neck is supple and symmetric, trachea is midline, no adenopathy, no thyroid enlargement, nontender, no masses palpated. Negative for JVD Chest: Normal AP diameter and contour without kyphoscoliosis, Equal chest rise without nasal flaring, retractions, tachypneic or labored breathing. Lungs: Auscultation of all lung cadet are clear without adventitious sounds, wheezes, rhonchi, or rales. Cardio: paced regular rate and rhythm without murmur, rubs, or gallops, no carotid bruit, no cardiac pulsations present. Patient appears to be hypovolemic Abdomen: Soft nontender, negative for organomegaly, or masses. Bowel sounds are present in all 4 quadrants without guarding or rebound, no CVA tenderness. Musculoskeletal: Muscle strength and tone are equal, no deformity, crepitus, effusions, cyanosis, clubbing present. chronic Bilateral equal lower extremity edema, LT +3 pitting/Rt +2 pitting. Full range of motion intact radial and pedal pulses are normal. Skin: Warm dry and intact without rashes, ulcerations or petechiae. Neuro: Alert and orientated x3, moves all extremities, sensation to touch intact, no gross deficits noted of cranial nerves. GCS 15 Psych: Patient has a well-kept appearance, appropriate affect, mental status attitude thought context and judgment are appropriate for age. Objective Labs 11/20/22 14:30 11/20/22 14:30 Labs: Laboratory Results - last 24 hr 11/20/22 11/20/22 11/20/22 14:30 14:30 14:30 WBC 7.1 RBC 4.16 L Hgb 13.4 L Hct 39.6 L MCV 95.2 MCH 32.1 MCHC 33.8 RDW 16.1 H Plt Count 222 Neut % (Auto) 75.3 H Lymph % (Auto) 12.0 L [place] % (Auto) 10.8 Eos % (Auto) 1.3 L Baso % (Auto) 0.6 Neut # (Auto) 5400 Lymph # (Auto) 900 L [place] # (Auto) 800 Eos # (Auto) 100 Baso # (Auto) 0 PT 22.0 H INR 1.9 H APTT 37 H Sodium 136 L Potassium 3.5 Chloride 97 L Carbon Dioxide 33 H BUN 34 H Creatinine 1.33 H Estimated GFR 52 L BUN/Creatinine Ratio 25.6 H Glucose 111 H Calcium 9.2 Magnesium 1.9 Total Bilirubin 1.1 AST 23 ALT 26 Alkaline Phosphatase 55 Total Creatine Kinase 39 L CK-MB (CK-2) TNP CK-MB (CK-2) Rel Index TNP Troponin I 0.172 H* NT-Pro-B Natriuret Pep Total Protein 6.3 Albumin 3.5 Globulin 2.8 Albumin/Globulin Ratio 1.3 Lipase 117 11/20/22 11/20/22 14:30 16:39 WBC RBC Hgb Hct MCV MCH MCHC RDW Plt Count Neut % (Auto) Lymph % (Auto) [place] % (Auto) Eos % (Auto) Baso % (Auto) Neut # (Auto) Lymph # (Auto) [place] # (Auto) Eos # (Auto) Baso # (Auto) PT INR APTT Sodium Potassium Chloride Carbon Dioxide BUN Creatinine Estimated GFR BUN/Creatinine Ratio Glucose Calcium Magnesium Total Bilirubin AST ALT Alkaline Phosphatase Total Creatine Kinase CK-MB (CK-2) CK-MB (CK-2) Rel Index Troponin I 0.176 H* NT-Pro-B Natriuret Pep 95784 H Total Protein Albumin Globulin Albumin/Globulin Ratio Lipase Assessment & Plan Assessment & Plan narrative: Anthony Coates is an 87 year old male with a past medical history essen tial HTN, HLD, BPH with LUTS, permanent AFib, a flutter s/p atrioventricular node ablation, tachy induced cardiomyopathy, pacemaker, 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 Patient admitted for CHF exacerbation, LEO, myocardial injury. Patient requires gentle IV diuresis, with gentle rehydration for LEO, trending troponins and monitoring for NSTEMI. Chronic HFpEF, exacerbation, acute on chronic, present on admission * With small right pleural effusion, chronic +3/+2 pitting lower extremity edema. * Patient appears hypovolemic, with mild bilateral lower extremity pitting edema which appears chronic, no shortness of breath or chest pain, lung sounds are clear. Currently asymptomatic. * 96.1?, 168/69, 67, 17, 98% on room air * BNP 24372 * 60 Lasix given in ED * 20 mg IV b.i.d. Lasix for gentle diuresis * Fluid restriction, low-sodium diet, daily weights, I&Os strict * Monitor electrolytes closely, TSH ordered, monitor for fluid overload * Last echo 2018, EF 60-65%, last EKG 10/19/2022 underlying atrial flutter, ventricularly paced rhythm * chest x-ray noted small right pleural effusion * Holding oral Lasix in lieu of IV Lasix, continue potassium, metoprolol, losartan LEO, acute, present on admission * Suspect UTI secondary to BPH resulting in urinary retention. * BUN 34, creatinine 133, GFR 52 * BUN 31-34, GFR and creatinine have been normal. * ordered am Blood culturesx2, Lactate, procal * NS @60cc/HR x 1 bag for gentle rehydration * Avoid nephrotoxic medications * Continue to monitor renal function closely * Strict I&O Myocardial injury, acute, as evidenced by troponin elevated above 99th percentile, present on admission * Likely demand ischemia secondary to LEO CHF exacerbation * Patient is asymptomatic without shortness of breath or chest pain- hemodynamically stable: 96.1?, 168/69, 67, 17, 98% on room air * Stable K+ 3.5, Mag 1.9 * [facility] consult Dr. Sams: Advised to continue warfarin for a goal therapeutic level, no heparin as this is likely demand ischemia secondary to CHF exacerbation and patient is asymptomatic. * Consult [facility] for any further concerns * PT 22, INR 1.9, PTT 37-on Coumadin. We will trend PT/INR * Initial troponin 0.172, repeat 0.176. -will trend troponins * I personally reviewed all imaging and EKG: Ventricular paced rate of 60 white QRS 160 QTC 484. Atrial fibrillation, persistent/permanent, with atrial flutter s/p atrioventricular node ablation, chronic, with pacemaker in place, present on admission * Continue Coumadin * On tele Hypertension, essential, present on admission * Continue metoprolol, losartan BPH with LUTS, chronic, present on admission * UA, bladder scans as needed * Continue Flomax holding Avodart as it is not available * Patient had a post void residual 273 cc, will repeat scan after next voiding. * 1st time >500 cc urine retention-straight cath, 2nd time> [address] Montes or * If patient has >100 cc postvoid residual x2 place Montes Tachy-induced cardiomyopathy, chronic, present on admission * Managed by Cardiology * Pacemaker in place Malnutrition, moderate, acute on chronic, present on admission * BMI 20.7 * patient's malnutrition places them at high risk for medical and surgical complications in relation to acute illness LEO, CHF exacerbation /chronic illness. This increases the difficulty in complexity of medical management and increases the chances poor outcomes such as mortality and morbidity as well as impaired wound healing, and immune suppression. * dietary consult ordered to evaluate and implement steps to improve caloric intake and nutrition. Code status: DNR/DNI with limited interventions per patient interview in ED Surrogate decision maker: Son DVT/VTE prophylaxis: Coumadin SCDs Disposition: Patient brought in for gentle diuresis, resolution of LEO, and monitoring elevated troponins. Patient's expected length of stay not to exceed 2 midnights. I have utilized all available immediate resources to obtain, update, or review the patient's current medications. I confirmed that the patient's advanced care plan is present, Code status is documented and/or surrogate decision maker is listed in the patient's medical r ecord. I have personally reviewed patient's chart notes from PCP, specialists, diagnostic imaging, and laboratory results.
[2022-11-20 21:02] LABS: Thyroid Stimulating Hormone 4.18 uIU/mL (0.47-4.68)
[2022-11-20 21:18] LABS: Troponin I 0.219 ng/mL (0.01-0.034)
[2022-11-20] MEDS: SENNOSIDES 8.6 MG TABLET 17.2 MG PO (21:39)
[2022-11-20] MEDS: TAMSULOSIN 0.4 MG CAPSULE 0.8 MG PO (21:39)
[2022-11-20] MEDS: SODIUM CHLORIDE 0.9% 500 ML 60 ML IV (21:39)
[2022-11-20] MEDS: METOPROLOL IR 50 MG TABLET 150 MG PO (21:40)
[2022-11-20 23:32] LABS: Appearance Urine UA CLEAR; Bilirubin Urine UA NEGATIVE (NEGATIVE); Color Urine UA YELLOW; Glucose Urine UA NEGATIVE (Negative); Ketones Urine UA NEGATIVE (NEGATIVE); Leukocyte Esterase Urine UA NEGATIVE (NEGATIVE); Nitrite Urine UA NEGATIVE (Negative); Occult Blood Urine UA 1+ (Negative); Protein Urine UA NEGATIVE (Negative); Urobilinogen Urine UA 0.2 E.U./dL (0.2); pH Urine UA 5.5 (4.5-8.0)
[2022-11-20 23:51] LABS: Bacteria Urine None Seen; Culture Indicated Urine Cult Not Indicated; RBC Urine 0-1/HPF (0-5/HPF); Squamous Epithelial Cell Urine None Seen (0-5/HPF); WBC Urine None Seen (0-5/HPF)
[2022-11-21] VITALS (7 sets, daily range): BP systolic 114–120; BP diastolic 55–70; PULSE 61–68; RESP 15–21; TEMP 35.8–36.6; O2SAT 96–99
--- NOTE | 2022-11-21 01:54 | PC.NURSE ---
325 ml of clear yellow urine after perez cath insertion.
[2022-11-21 04:50] LABS: Add Manual Diff / Slide Review NO; Basophils Absolute Auto 100 /uL (0-100); Eosinophils Absolute Auto 100 /uL (0-450); Eosinophils Percent Auto 1.8 % (2-4); Hematocrit 41.1 % (41-53); Hemoglobin 13.8 g/dL (13.5-17.5); Lymphocytes Absolute Auto 1000 /uL (1100-4500); Lymphocytes Percent Auto 15.4 % (25-40); Mean Corpuscular HGB Conc 33.5 % (30-36); Mean Corpuscular Volume 95.6 fL (80-100); Monocytes Absolute Auto 600 /uL (0-900); Monocytes Percent Auto 9.5 % (3-14); Neutrophils Absolute Auto 4800 /uL (1500-7000); Neutrophils Percent Auto 72.3 % (50-75); Platelet Count 213 X10^3/uL (150-400); Red Blood Cell Count 4.29 X10^6/uL (4.5-5.9); Red Cell Distribution Width 16.1 % (11.6-14.8); White Blood Cell Count 6.7 X10^3/uL (4.5-11.0)
[2022-11-21 04:52] LABS: INR 1.8 (0.9-1.3); Prothrombin Time 20.4 SECONDS (10.1-12.7)
[2022-11-21 04:55] LABS: PTT Partial Thromboplastin Tim 35 SECONDS (26-36)
[2022-11-21 04:57] LABS: Lactate (Lactic Acid) 1.1 mmol/L (0.7-2.1)
[2022-11-21 05:00] LABS: Blood Urea Nitrogen 36 mg/dL (9-20); Calcium 8.7 mg/dL (8.4-10.2); Carbon Dioxide 34 mmol/L (22-32); Chloride 98 mmol/L (98-107); Estimated Glomerular Filt Rate 57 mL/min (>60); Glucose 115 mg/dL (80-110); HEMOLYSIS < 15 (0-50); Magnesium 1.8 mg/dL (1.6-2.3); Potassium 3.3 mmol/L (3.4-5.1); Sodium 136 mmol/L (137-145)
[2022-11-21 05:15] LABS: Procalcitonin 0.14 ng/mL (<0.5); Troponin I 0.287 ng/mL (0.01-0.034)
[2022-11-21] MEDS: FUROSEMIDE 20 MG/2 ML VIAL IV (09:27)
[2022-11-21] MEDS: LOSARTAN 25 MG TABLET PO (09:27)
[2022-11-21] MEDS: METOPROLOL IR 50 MG TABLET 150 MG PO ×2 (09:27→20:21)
[2022-11-21] MEDS: POTASSIUM CHLORIDE 20 MEQ TAB PO (09:27)
--- NOTE | 2022-11-21 10:26 | CM.DANOTE ---
Patient is an 87 yo male who was admitted on 11/20/22 for GLF. Pt has [facility] for insurance and his PCP just changed from Dr. Maya to Dr. Alvarez. EMR was reviewed. Per , pt with hx of permanent AFIB with chronic edema and CHF with last EF 60-65%. Pt admitted for CHF exac and LEO and needing diuresis and gentle fluids. PT ordered and pending. SW met bedside with pt and adult son/DPOA Kassi Serrano and explained role and they confirm pt lives at home alone in [place] but is currently in the process of moving to [place] to live with Randy very soon. Pt states he's lived in his house for 17 yrs and they have been sorting through his items and helping him move. Pt denies any hx of HH or SNF but family would be agreeable to HH if recommended. Pt states he is independent with ADLs but hasn't been driving much and does not use DME for ambulation but did use a walker here in the hospital for ambulating to the bathroom. SW discussed if walker recommended at d/c then PT can issue one under his insurance at d/c or loaner DME at [facility] or on [facility]. Plan: SW to follow closely for PT eval and recommendations to r/o possible HH and confirm safe d/c home with family assist when medically stable. NAY Huang Discharge Planning/Care Management CM Discharge Assessment Start: 11/21/22 10:23 Freq: Status: Active Protocol: Document 11/21/22 10:24 BF (Rec: 11/21/22 10:25 BF [id number]) Discharge Planning Assessment Assigned Rail Engineer NAY Daniels [id number]/Assigned Designee Name son Michael Coates Contact Information [phone] Advance Directives? Yes: DPOA, Living Will, HIPAA Auth Advance Directives on File No History Provided By Patient,Family Member,Medical Record Has Patient been admitted in last 30 No days? Prior Living Arrangements House Household Members none Type of transporation used prior to Relies on Others admit Independent with ADL's Yes Is patient alert and oriented? Yes Needs Assistance With Managing Medications,Home Chores / Shopping Caregiver for Another No DME Already Rented / Owned Cane Patient/Family Preference Home with Home Health Comment PT eval pending Barriers to Discharge No Discharge Plan Home Transportation Arrangement Son and DIL bedside and will transport Referrals Initiated Home Health Additional Comment Follow for PT eval to r/o HH vs outpt Whiteboard Updated in Patient Room with Yes name and ext. # of Rail Engineer Review Status In Process Please Provide Date Initial DC 11/21/22 Assessment Was Performed Next Review Type Continued Stay Review
--- NOTE | 2022-11-21 10:29 | P.PN_ITS ---
Subjective Subjective Interval history: Feeling much better. No pain. When got up to go the bathroom felt something pull where his Montes catheter was and has had some hematuria since. No clots. Less swelling in his lower extremities. Exam Vital Signs (past 8 hours): - 11/21/22 04:00 11/21/22 08:22 11/21/22 09:27 Temperature 96.7 F L 98 F Pulse Rate 63 68 68 Respiratory Rate 21 18 Blood Pressure 118/62 120/55 L 120/55 L Pulse Oximetry 99 98 Oxygen Flow Rate 0 Oxygen Delivery Method Room Air Oxygen Flow Rate 0 Narrative Exam Narrative: General:? Patient is a well-developed, well-nourished pleasant male in no dis tress at this time. HEENT:? Normocephalic, atraumatic, extraocular muscles intact Chest:? Normal AP diameter and contour without kyphoscoliosis, Equal chest rise without nasal flaring, retractions, tachypneic or labored breathing. Lungs:? Auscultation of all lung cadet are clear with no wheezes and minimal intermittent crackles at the bases only. Cardio: paced regular rate and rhythm without extra sounds or murmurs. Abdomen:? Soft nontender, bowel sounds normal Musculoskeletal:? Muscle strength and tone are equal, no deformity. Minimal 1+ edema of the lower extremities at this time. Skin:? 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 Neuro:? Alert and orientated x3, moves all extremities, sensation to touch intact Psych:? Patient has a well-kept appearance, appropriate affect, mental status attitude thought context and judgment are appropriate for age. Objective Labs 11/21/22 04:32 11/21/22 04:32 Labs: Laboratory Results - last 24 hr 11/20/22 11/20/22 11/20/22 14:30 14:30 14:30 WBC 7.1 RBC 4.16 L Hgb 13.4 L Hct 39.6 L MCV 95.2 MCH 32.1 MCHC 33.8 RDW 16.1 H Plt Count 222 Neut % (Auto) 75.3 H Lymph % (Auto) 12.0 L Campbell % (Auto) 10.8 Eos % (Auto) 1.3 L Baso % (Auto) 0.6 Neut # (Auto) 5400 Lymph # (Auto) 900 L Campbell # (Auto) 800 Eos # (Auto) 100 Baso # (Auto) 0 PT 22.0 H INR 1.9 H APTT 37 H Sodium 136 L Potassium 3.5 Chloride 97 L Carbon Dioxide 33 H BUN 34 H Creatinine 1.33 H Estimated GFR 52 L BUN/Creatinine Ratio 25.6 H Glucose 111 H Lactate Calcium 9.2 Magnesium 1.9 Total Bilirubin 1.1 AST 23 ALT 26 Alkaline Phosphatase 55 Total Creatine Kinase 39 L CK-MB (CK-2) TNP CK-MB (CK-2) Rel Index TNP Troponin I 0.172 H* NT-Pro-B Natriuret Pep Total Protein 6.3 Albumin 3.5 Globulin 2.8 Albumin/Globulin Ratio 1.3 Lipase 117 Procalcitonin TSH Urine Color Urine Appearance Urine pH Ur Specific [place] Urine Protein Urine Glucose (UA) Urine Ketones Urine Occult Blood Urine Nitrate Urine Bilirubin Urine Urobilinogen Ur Leukocyte Esterase Urine RBC Urine WBC Ur Squamous Epith Cells Urine Bacteria Ur Culture Indicated? 11/20/22 11/20/22 11/20/22 14:30 14:30 16:39 WBC RBC Hgb Hct MCV MCH MCHC RDW Plt Count Neut % (Auto) Lymph % (Auto) Campbell % (Auto) Eos % (Auto) Baso % (Auto) Neut # (Auto) Lymph # (Auto) Campbell # (Auto) Eos # (Auto) Baso # (Auto) PT INR APTT Sodium Potassium Chloride Carbon Dioxide BUN Creatinine Estimated GFR BUN/Creatinine Ratio Glucose Lactate Calcium Magnesium Total Bilirubin AST ALT Alkaline Phosphatase Total Creatine Kinase CK-MB (CK-2) CK-MB (CK-2) Rel Index Troponin I 0.176 H* NT-Pro-B Natriuret Pep 45923 H Total Protein Albumin Globulin Albumin/Globulin Ratio Lipase Procalcitonin TSH 4.18 Urine Color Urine Appearance Urine pH Ur Specific [place] Urine Protein Urine Glucose (UA) Urine Ketones Urine Occult Blood Urine Nitrate Urine Bilirubin Urine Urobilinogen Ur Leukocyte Esterase Urine RBC Urine WBC Ur Squamous Epith Cells Urine Bacteria Ur Culture Indicated? 11/20/22 11/20/22 11/21/22 20:46 22:30 04:32 WBC 6.7 RBC 4.29 L Hgb 13.8 Hct 41.1 MCV 95.6 MCH 32.0 MCHC 33.5 RDW 16.1 H Plt Count 213 Neut % (Auto) 72.3 Lymph % (Auto) 15.4 L Campbell % (Auto) 9.5 Eos % (Auto) 1.8 L Baso % (Auto) 1.0 Neut # (Auto) 4800 Lymph # (Auto) 1000 L Campbell # (Auto) 600 Eos # (Auto) 100 Baso # (Auto) 100 PT INR APTT Sodium Potassium Chloride Carbon Dioxide BUN Creatinine Estimated GFR BUN/Creatinine Ratio Glucose Lactate Calcium Magnesium Total Bilirubin AST ALT Alkaline Phosphatase Total Creatine Kinase CK-MB (CK-2) CK-MB (CK-2) Rel Index Troponin I 0.219 H* NT-Pro-B Natriuret Pep Total Protein Albumin Globulin Albumin/Globulin Ratio Lipase Procalcitonin TSH Urine Color Yellow Urine Appearance Clear Urine pH 5.5 Ur Specific [place] 1.010 Urine Protein Negative Urine Glucose (UA) Negative Urine Ketones Negative Urine Occult Blood 1+ H Urine Nitrate Negative Urine Bilirubin Negative Urine Urobilinogen 0.2 Ur Leukocyte Esterase Negative Urine RBC 0-1/hpf Urine WBC None seen Ur Squamous Epith Cells None seen Urine Bacteria None seen Ur Culture Indicated? Cult not indicated 11/21/22 11/21/22 11/21/22 04:32 04:32 04:32 WBC RBC Hgb Hct MCV MCH MCHC RDW Plt Count Neut % (Auto) Lymph % (Auto) Campbell % (Auto) Eos % (Auto) Baso % (Auto) Neut # (Auto) Lymph # (Auto) Campbell # (Auto) Eos # (Auto) Baso # (Auto) PT 20.4 H INR 1.8 H APTT 35 Sodium 136 L Potassium 3.3 L Chloride 98 Carbon Dioxide 34 H BUN 36 H Creatinine 1.24 Estimated GFR 57 L BUN/Creatinine Ratio 29.0 H Glucose 115 H Lactate Calcium 8.7 Magnesium 1.8 Total Bilirubin AST ALT Alkaline Phosphatase Total Creatine Kinase CK-MB (CK-2) CK-MB (CK-2) Rel Index Troponin I 0.287 H* NT-Pro-B Natriuret Pep Total Protein Albumin Globulin Albumin/Globulin Ratio Lipase Procalcitonin TSH Urine Color Urine Appearance Urine pH Ur Specific [place] Urine Protein Urine Glucose (UA) Urine Ketones Urine Occult Blood Urine Nitrate Urine Bilirubin Urine Urobilinogen Ur Leukocyte Esterase Urine RBC Urine WBC Ur Squamous Epith Cells Urine Bacteria Ur Culture Indicated? 11/21/22 11/21/22 04:32 04:32 WBC RBC Hgb Hct MCV MCH MCHC RDW Plt Count Neut % (Auto) Lymph % (Auto) Campbell % (Auto) Eos % (Auto) Baso % (Auto) Neut # (Auto) Lymph # (Auto) Campbell # (Auto) Eos # (Auto) Baso # (Auto) PT INR APTT Sodium Potassium Chloride Carbon Dioxide BUN Creatinine Estimated GFR BUN/Creatinine Ratio Glucose Lactate 1.1 Calcium Magnesium Total Bilirubin AST ALT Alkaline Phosphatase Total Creatine Kinase CK-MB (CK-2) CK-MB (CK-2) Rel Index Troponin I NT-Pro-B Natriuret Pep Total Protein Albumin Globulin Albumin/Globulin Ratio Lipase Procalcitonin 0.14 TSH Urine Color Urine Appearance Urine pH Ur Specific [place] Urine Protein Urine Glucose (UA) Urine Ketones Urine Occult Blood Urine Nitrate Urine Bilirubin Urine Urobilinogen Ur Leukocyte Esterase Urine RBC Urine WBC Ur Squamous Epith Cells Urine Bacteria Ur Culture Indicated? [facility] Medical History Actinic keratosis Adjustment insomnia (10/07/16) Allergic rhinitis due to pollen (06/19/15) Anticoagulation monitoring, INR range 2-3 Atrial fibrillation and flutter (2013) Basal cell carcinoma BPH (benign prostatic hyperplasia) BPH w urinary obs/LUTS Cataracts, bilateral (~2014) Chronic back pain Congestive heart failure Dyslipidemia Essential hypertension (06/19/15) Fractures (~1961) Hypertension Knee pain, right (07/2017) Microscopic hematuria Midline low back pain without sciatica (06/19/15) Neck pain (03/2017) NSTEMI (non-ST elevated myocardial infarction) Rosacea (06/19/15) Rosacea (2009) Skin lesion of face Spinal stenosis of lumbosacral region (06/19/15) Squamous cell carcinoma Venous insufficiency of both lower extremities Xerosis of skin Surgical History History of ankle surgery (~1961) History of cardioversion History of permanent cardiac pacemaker placement History of radiofrequency ablation (RFA) procedure for cardiac arrhythmia (06/10/17) Hx of cataract surgery (2014) Hx of Moh's micrographic surgery for skin cancer S/P excision of skin lesion, follow-up exam Family History Father Heart disease Mother Heart disease Social History marital status: number of children: 2 household members: none Smoking Status: Never smoker alcohol intake: former caffeine: No Assessment & Plan Assessment & Plan narrative: Chronic HFpEF, exacerbation, acute on chronic, present on admission * With small right pleural effusion, chronic +3/+2 pitting lower extremity edema. Edema has improved significantly today. * Patient appears hypovolemic, with mild bilateral lower extremity pitting edema which appears chronic as per evaluation on admission. Currently edema has settled. Pending BNP for today * 96.1?, 168/69, 67, 17, 98% on room air * BNP 72185 on admission. Pending BNP for today. * 60 Lasix given in ED * 20 mg IV b.i.d. Lasix for gentle diuresis-continue * Fluid restriction, low-sodium diet, daily weights, I&Os strict * Monitor electrolytes closely, TSH ordered, monitor for fluid overload -TSH normal * Last echo 2018, EF 60-65%, last EKG 10/19/2022 underlying atrial flutter, ventricularly paced rhythm * chest x-ray noted small right pleural effusion * Holding oral Lasix in lieu of IV Lasix, continue potassium, metoprolol, losartan LEO, acute, present on admission * Suspect UTI concern on admission secondary to BPH resulting in urinary retention. Not currently on antibiotics. No urine culture pending. Blood culture pending. * BUN 34, creatinine 133, GFR 52 * BUN 31-34, GFR and creatinine have been normal. * ordered am Blood culturesx2, Lactate, procal -cultures pending but lactate and procalcitonin normal. * NS @60cc/HR x 1 bag for gentle rehydration -completed. * Avoid nephrotoxic medications * Continue to monitor renal function closely * Strict I&O Myocardial injury, acute, as evidenced by troponin elevated above 99th percentile, present on admission -however thought to be demand ischemia per Cardiology telephone advised * Likely demand ischemia secondary to LEO CHF exacerbation * Patient is asymptomatic without shortness of breath or chest pain- hemodynamically stable: 96.1?, 168/69, 67, 17, 98% on room air * Stable K+ 3.5, Mag 1.9 * [facility] consult Dr. Sams:? Advised to continue warfarin for a goal therapeutic level, no heparin as this is likely demand ischemia secondary to CHF exacerbation and patient is asymptomatic. * Consult [facility] for any further concerns * PT 22, INR 1.9, PTT 37-on Coumadin.? We will trend PT/INR * Initial troponin 0.172, repeat 0.176. Then 0.287? -will trend troponins Atrial fibrillation, persistent/permanent, with atrial flutter s/p atrioventricular node ablation, chronic, with pacemaker in place, present on admission * Continue Coumadin * On tele * Contributing to hematuria with anticoagulation Hypertension, essential, present on admission * Continue metoprolol, losartan? BPH with LUTS, chronic, present on admission * UA, bladder scans as needed * Continue Flomax holding Avodart as it is not available * Patient had a post void residual 273 cc, will repeat scan after next voiding. * 1st time >500 cc urine retention-straight cath, 2nd time> [address] Montes or * Montes has been placed and now patient has some hematuria likely secondary to irritation with a Montes and patient being on anticoagulation. Continue to monitor CBC. CBI for bladder. Tachy-induced cardiomyopathy, chronic, present on admission * Managed by Cardiology * Pacemaker in place Malnutrition, moderate, acute on chronic, present on admission * BMI 20.7 * patient's malnutrition places them at high risk for medical and surgical complications in relation to acute illness LEO, CHF exacerbation /chronic illness.? This increases the difficulty in complexity of medical management and increases the chances poor outcomes such as mortality and morbidity as well as impaired wound healing, and immune suppression. * dietary consult ordered to evaluate and implement steps to improve caloric intake and nutrition. Code status:? DNR/DNI with limited interventions per patient interview in ED Surrogate decision maker:? Son DVT/VTE prophylaxis:? Coumadin SCDs
[2022-11-21 11:08] LABS: NT-proBNP (BNP-Adult 18+) 11500 pg/mL (<450)
--- NOTE | 2022-11-21 12:14 | PT.IIE ---
Current Diagnoses Acute on chronic diastolic (congestive) heart failure (11/20/22) Hematuria, unspecified (11/20/22) Adverse effect of anticoagulants, initial encounter (11/20/22) Surgical History (Last Reviewed 11/20/22 @ 20:09 by SAJI Lo-) History of ankle surgery (~1961) History of cardioversion History of permanent cardiac pacemaker placement History of radiofrequency ablation (RFA) procedure for cardiac arrhythmia (06/10/17) Hx of cataract surgery (2014) Hx of Moh's micrographic surgery for skin cancer S/P excision of skin lesion, follow-up exam Medical History (Last Reviewed 11/20/22 @ 20:09 by SAJI Lo-) Actinic keratosis Adjustment insomnia (10/07/16) Allergic rhinitis due to pollen (06/19/15) Anticoagulation monitoring, INR range 2-3 Atrial fibrillation and flutter (2013) Basal cell carcinoma BPH (benign prostatic hyperplasia) BPH w urinary obs/LUTS Cataracts, bilateral (~2014) Chronic back pain Congestive heart failure Dyslipidemia Essential hypertension (06/19/15) Fractures (~1961) Hypertension Knee pain, right (07/2017) Microscopic hematuria Midline low back pain without sciatica (06/19/15) Neck pain (03/2017) NSTEMI (non-ST elevated myocardial infarction) Rosacea (06/19/15) Rosacea (2009) Skin lesion of face Spinal stenosis of lumbosacral region (06/19/15) Squamous cell carcinoma Venous insufficiency of both lower extremities Xerosis of skin Physical Therapy Inpatient Evaluation/Re-Eval M1 PT/OT-IP Prior Functional Status Start: 11/21/22 10:34 Freq: NEEDED Status: Active Protocol: Document 11/21/22 12:14 DLM (Rec: 11/21/22 12:46 DLM [id number]) Medical Review Prior Functional Status Medical History Reviewed Yes Diet/Fluid Consistency Regular Communication WFL, wears glasses for distance Mobility and Gait Independent without device, ambulates short distances in the community Activities of Daily Living and IADL's Independent, doing some local driving Prior Functional Level (Other details) he has plans to move into a trailer at his Son's house in [place] Social History Household Members none Living Arrangements House Number of Floors (Floors) One Floor Number of Stairs To Enter/Railing? 2 steps with rail Home Environment Standard Height Toilet,Tub/ Shower Employment Status Retired Additional Social History Comment He is aware he can get equipment at [facility] [employer]. He reports having two falls about 2 weeks ago where he fell backwards on the sidewalk and hit his head. He thinks he may have been a little dizzy when he fell. M2 PT-IP Current Condition Start: 11/21/22 10:34 Freq: NEEDED Status: Active Protocol: Document 11/21/22 12:14 DLM (Rec: 11/21/22 12:46 DLM [id number]) Physical Therapy Current Condition Current Condition Evaluation Date 11/21/22 Treatment Diagnosis CHF, LEO, MA, decreased activity tolerance Onset Date 11/20/22 M3 PT-IP Subjective Start: 11/21/22 10:34 Freq: NEEDED Status: Active Protocol: Document 11/21/22 12:14 DLM (Rec: 11/21/22 12:46 DLM [id number]) Subjective Physical Therapy Visit Type Type Initial Evaluation Visit Start Time 11:45 Visit Stop Time 12:14 Total Visit Minutes 29 Notes no family present this visit Number of EMBEDDED SOFTWARE ENGINEER Visits 0 Physical Therapy Visit Comments Patient Comments He thinks the walker has helped while here at the hospital. He thinks his leg swelling is down. He reports no chest pain nor shortness of breath. He describes decreased appetite. Patient Goals Discharge home Therapy Pain Assessment Pain When Pain Assessed During Mobility Pain Present Pain Present Denied Pain M4 PT-IP Mobility and Gait Start: 11/21/22 10:34 Freq: NEEDED Status: Active Protocol: Document 11/21/22 12:14 DLM (Rec: 11/21/22 12:46 DLM [id number]) PT-Bed Mobility Assessment Supine to Sit Supine to Sit Standby Assistance Sit to Supine Sit to Supine Standby Assistance Scooting Scooting to Edge of Bed Independent PT-Transfer Assessment Sit to and From Stand Sit to and from Stand Standby Assistance,Use of Upper Extremities Equipment Transfer Assistive Device Gait Belt,Front Wheeled Walker Transfers Transfer Destination Bed,Chair Transfer Technique Stand Step Pivot Transfer Ability Level of Assist Standby Assistance,Use of Upper Extremities Comments Mobility Comments He is not able to achieve sit to stand without assist from bilateral UE's. He can achieve upright standing position without the walker but then he wants to reach for support of furniture. He is slow getting out of bed and finds multiple covers challenging to move around. He declined to stay up in the chair for lunch and requested back to bed. Gait Assessment Gait Gait Assistance Required: Standby Assistance Distance (Feet) 60 Assistive Devices Assistive Device Gait Belt,Front Wheeled Walker Gait Deviations General Gait Pattern Decreased Stride Length,Flexed Trunk Factors Limiting Gait Function Factors Limiting Gait Function Decreased Activity Tolerance, Poor Balance Comments Gait Comments Trial of gait performed without a device but pt shows shorter strides and reaches UE 's out for support of furniture and diego. His gait pattern is safer with the FWW and pt agrees to use it. Stair Climbing Assessment Comments Stair Climbing Comments held stair training this visit since Troponin levels have been elevated, pt appears fatigued this visit PT-Balance Assessment Sitting Balance and Reactions Static Sitting Balance Ability Normal Dynamic Sitting Balance Ability Normal Standing Balance and Reactions Static Standing Balance Ability Fair Dynamic Standing Balance Ability Fair Device Used none M5 PT-IP Objective Assessments Start: 11/21/22 10:34 Freq: NEEDED Status: Active Protocol: Document 11/21/22 12:14 DLM (Rec: 11/21/22 12:46 DL [id number]) Orientation Orientation/Cognition Level of Alertness Alert Orientation Name,Age,Birthday,Month,Date, Year,Day of Week,Place, Situation Language Function Ability No Deficits Noted Safety Awareness Understands Safety Issues Memory Description No Deficits Noted Comments Decreased problem solving noted. He is agreeable and pleasant. Pt did not eat his lunch when it arrived in his room. Gross Range of Motion Upper Extremity ROM Assessment Within Functional Limits Impairments mild end range shoulder stiffness with elevation but he reports no pain Lower Extremity ROM Assessment Within Functional Limits Strength Upper Extremity Strength Assessment Within Functional Limits Lower Extremity Strength Assessment Within Functional Limits Coordination Assessment Gross Coordination Gross Coordination Impaired Assessment Pronation/Supination Test Minimal Impairment Foot Tapping Test Moderate Impairment Coordination Comments he is bradykinetic with all movements Sensation Assessment Sensation Gross Sensation WNL Comments Sensation Comments he denies any numbness or tingling in his extremities Muscle Tone Muscle Tone WNL Yes M6 PT-IP Treatment Start: 11/21/22 10:34 Freq: NEEDED Status: Active Protocol: Document 11/21/22 12:14 DLM (Rec: 11/21/22 12:46 DL [id number]) Physical Therapy Treatment Education Education Provided Safety Other Treatments Other Treatment Performed Educated pt in his need for a walker at home (FWW or 4WW). Pt reports pain with the urinary catheter when moving his legs to get into bed. Noted bloody area around the catheter. His nurse is aware. Positioned catheter to minimize discomfort for pt. M7 PT-IP Assessment and Plan Start: 11/21/22 10:34 Freq: NEEDED Status: Active Protocol: Document 11/21/22 12:14 DLM (Rec: 11/21/22 12:46 DL [id number]) PT Summary Assessment and Plan Potential Rehabilitation Potential Good Status of Condition at Evaluation Evolving Summary Impairments Balance,Coordination,Transfers ,Gait,Activity Tolerance Assessment Summary Janes is alert and resting in bed with his feet elevated. He reports he is feeling better today. He feels the swelling in his legs has decreased. He appears fatigued after light activity this visit but he denies it when asked. Pt returned to bed after short distances of gait. Noted his Troponins are still elevated so did not encourage long walks at this time. Pt demonstrates a safer gait pattern with a FWW instead of no device at this time. Pt is agreeable to using a walker for gait. He is bradykinetic with all movements and mobility so it takes him extra time to do all tasks. Will continue to follow him for discharge planning, gait training with a walker, home equipment assessment, stair training when medically appropriate. Goals Bed Mobility Goal Independent Transfer Goal Independent,Front Wheeled Walker,Four Wheeled Walker Gait Goal Independent,Front Wheel Walker ,Four Wheel Walker Gait Distance 100 feet Other Goals up/down 2 steps with rail and SBA Days to Meet Goals 3 Frequency of Treatment Frequency Of Treatment Once a Day Treatment Plan Physical Therapy Treatment Plan Gait Training,Therapeutic Exercise,Balance Retraining, Discharge Planning, Neuromuscular Re-ed Other Recommendations and Next Treatment gait training with walker for Focus home use, continue to assess safety awareness assess use of FWW vs 4WW to assist with home equipment needs Precautions Other Precautions elevated Troponins that are still trending up Recommendations To Nursing Amount of Assist Needed Standby Assistance Discharge Recommendations PT Discharge Recommendations Home with Assistance Other Discharge Recommendations pt needs to use a walker for gait at discharge, pt reports family is in town right now, continue to assess if he could benefit from home health at discharge Equipment Needed for Home Before needs FWW or 4WW for home use Discharge Transportation Needs at Discharge Private Vehicle
[2022-11-21 13:06] LABS: Add Manual Diff / Slide Review NO; Basophils Absolute Auto 100 /uL (0-100); Basophils Percent Auto 1.2 % (0-2); Eosinophils Absolute Auto 100 /uL (0-450); Eosinophils Percent Auto 0.9 % (2-4); Hematocrit 43.1 % (41-53); Hemoglobin 14.3 g/dL (13.5-17.5); Lymphocytes Absolute Auto 900 /uL (1100-4500); Lymphocytes Percent Auto 7.4 % (25-40); Mean Corpuscular HGB Conc 33.1 % (30-36); Mean Corpuscular Hemoglobin 31.6 PG (26-34); Mean Corpuscular Volume 95.4 fL (80-100); Monocytes Absolute Auto 800 /uL (0-900); Monocytes Percent Auto 6.9 % (3-14); Neutrophils Absolute Auto 10200 /uL (1500-7000); Neutrophils Percent Auto 83.6 % (50-75); Platelet Count 219 X10^3/uL (150-400); Red Blood Cell Count 4.52 X10^6/uL (4.5-5.9); White Blood Cell Count 12.1 X10^3/uL (4.5-11.0)
[2022-11-21 13:45] LABS: Troponin I 0.291 ng/mL (0.01-0.034)
[2022-11-21 18:40] LABS: Troponin I 0.308 ng/mL (0.01-0.034)
[2022-11-21 19:15] LABS: NT-proBNP (BNP-Adult 18+) 11400 pg/mL (<450)
[2022-11-21] MEDS: FUROSEMIDE 40 MG/4 ML VIAL 20 MG IV (19:26)
[2022-11-21] MEDS: SODIUM CHLORIDE 0.9% FLUSH 10 ML IV ×2 (19:26→23:37)
[2022-11-21] MEDS: TAMSULOSIN 0.4 MG CAPSULE 0.8 MG PO (20:21)
[2022-11-21] MEDS: SENNOSIDES 8.6 MG TABLET 17.2 MG PO (20:21)
--- NOTE | 2022-11-21 22:59 | PC.NURSE ---
Patient is alert and oriented except did not know day of month. Breath sounds CTA with RA sat of 97%. HRR w/telemetry reading of v-paced. Denies nausea. BT present and is passing flatus. Indwelling catheter is patent; urine with noted small clots vs mucous threads. Is able to turn himself in bed. Reportedly gets out of bed with walker and SBA w/some weakness noted. Denies pain. Refusing SCD's so reminded to ankle wave when awake. Fall risk score is high and bed alarm is activated.
[2022-11-21] MEDS: FUROSEMIDE 40 MG/4 ML VIAL IV (23:37)
[2022-11-22] VITALS: BP 117/62; PULSE 60; RESP 19; TEMP 35.9; O2SAT 96
[2022-11-22 04:00] VITALS: BP 113/60; PULSE 66; RESP 20; TEMP 35.8; O2SAT 97
[2022-11-22 04:45] LABS: INR 1.5 (0.9-1.3); Prothrombin Time 17.6 SECONDS (10.1-12.7)
[2022-11-22 04:47] LABS: PTT Partial Thromboplastin Tim 35 SECONDS (26-36)
[2022-11-22 04:51] LABS: BUN Creatinine Ratio 29.1 (6-22); Blood Urea Nitrogen 34 mg/dL (9-20); Calcium 8.8 mg/dL (8.4-10.2); Carbon Dioxide 34 mmol/L (22-32); Chloride 97 mmol/L (98-107); Estimated Glomerular Filt Rate > 60 mL/min (>60); Glucose 105 mg/dL (80-110); HEMOLYSIS 16 (0-50); Potassium 3.3 mmol/L (3.4-5.1); Sodium 135 mmol/L (137-145)
[2022-11-22 04:58] LABS: NT-proBNP (BNP-Adult 18+) 10000 pg/mL (<450)
[2022-11-22 08:00] VITALS: BP 114/59; PULSE 63; RESP 16; TEMP 35.5; O2SAT 95
[2022-11-22 08:05] LABS: Troponin I 0.293 ng/mL (0.01-0.034)
[2022-11-22 10:03] VITALS: BP 114/59
[2022-11-22] MEDS: LOSARTAN 25 MG TABLET PO (10:03)
[2022-11-22] MEDS: METOPROLOL IR 50 MG TABLET 150 MG PO (10:03)
[2022-11-22] MEDS: POTASSIUM CHLORIDE 20 MEQ TAB PO (10:03)
[2022-11-22] MEDS: SODIUM CHLORIDE 0.9% FLUSH 10 ML IV (10:04)
--- NOTE | 2022-11-22 10:46 | PT.IPTN ---
Current Diagnoses Acute on chronic diastolic (congestive) heart failure (11/20/22) Hematuria, unspecified (11/20/22) Adverse effect of anticoagulants, initial encounter (11/20/22) Physical Therapy Treatment Note M2 PT-IP Current Condition Start: 11/21/22 10:34 Freq: NEEDED Status: Active Protocol: Document 11/21/22 12:14 DLM (Rec: 11/21/22 12:46 DLM [id number]) Physical Therapy Current Condition Current Condition Evaluation Date 11/21/22 Treatment Diagnosis CHF, LEO, FL, decreased activity tolerance Onset Date 11/20/22 M3 PT-IP Subjective Start: 11/21/22 10:34 Freq: NEEDED Status: Active Protocol: Document 11/22/22 11:25 TS (Rec: 11/22/22 11:47 TS [id number]) Subjective Physical Therapy Visit Type Type Treatment Note Visit Start Time 10:46 Visit Stop Time 11:15 Total Visit Minutes 29 Notes DIL present. Number of SNOW FENCE ERECTOR Visits 1 Physical Therapy Visit Comments Patient Comments Pt found resting in bed, reports decreased swelling in LEs, agreeable to PT. Patient Goals Discharge home M4 PT-IP Mobility and Gait Start: 11/21/22 10:34 Freq: NEEDED Status: Active Protocol: Document 11/22/22 11:25 TS (Rec: 11/22/22 11:47 TS [id number]) PT-Bed Mobility Assessment Supine to Sit Supine to Sit Standby Assistance Sit to Supine Sit to Supine Standby Assistance Scooting Scooting to Edge of Bed Independent PT-Transfer Assessment Sit to and From Stand Sit to and from Stand Standby Assistance,Use of Upper Extremities Equipment Transfer Assistive Device Gait Belt,Front Wheeled Walker Comments Mobility Comments Supine to sit SBA with HOB elevated, slow to get up with BUE support on bed. Sit to stand SBA with FWW, slow to stand, provided cues for BUE support and weight forward. He ambulated ~150' with FWW slow step to thru gait, no buckling or LOB. He ambulated another 150' with 4WW step thru gait, slightly unsteady with some swaying but no LOB. He performed stairs x2 with single handrail assist, no LOB . Pt was left in bedside chair with call light nearby, DIL in room, RN notified. Gait Assessment Gait Gait Assistance Required: Standby Assistance Distance (Feet) 300 Assistive Devices Assistive Device Gait Belt,Front Wheeled Walker Gait Deviations General Gait Pattern Decreased Stride Length,Flexed Trunk Factors Limiting Gait Function Factors Limiting Gait Function Poor Balance Comments Gait Comments See mobility comments. Stair Climbing Assessment Evaluation Level of Assist On Stairs Contact Guard Assistance Devices Stair Climbing Assistive Devices Left Railing Technique/Endurance Stair Climbing Direction Ascend and Descend Stair Climbing Technique Step to Step Number of Steps Climbed 2 Comments Stair Climbing Comments See mobility comments. PT-Balance Assessment Sitting Balance and Reactions Static Sitting Balance Ability Normal Dynamic Sitting Balance Ability Normal Standing Balance and Reactions Static Standing Balance Ability Good Dynamic Standing Balance Ability Fair M5 PT-IP Objective Assessments Start: 11/21/22 10:34 Freq: NEEDED Status: Active Protocol: Document 11/21/22 12:14 DLM (Rec: 11/21/22 12:46 DLM [id number]) Orientation Orientation/Cognition Level of Alertness Alert Orientation Name,Age,Birthday,Month,Date, Year,Day of Week,Place, Situation Language Function Ability No Deficits Noted Safety Awareness Understands Safety Issues Memory Description No Deficits Noted Comments Decreased problem solving noted. He is agreeable and pleasant. Pt did not eat his lunch when it arrived in his room. Gross Range of Motion Upper Extremity ROM Assessment Within Functional Limits Impairments mild end range shoulder stiffness with elevation but he reports no pain Lower Extremity ROM Assessment Within Functional Limits Strength Upper Extremity Strength Assessment Within Functional Limits Lower Extremity Strength Assessment Within Functional Limits Coordination Assessment Gross Coordination Gross Coordination Impaired Assessment Pronation/Supination Test Minimal Impairment Foot Tapping Test Moderate Impairment Coordination Comments he is bradykinetic with all movements Sensation Assessment Sensation Gross Sensation WNL Comments Sensation Comments he denies any numbness or tingling in his extremities Muscle Tone Muscle Tone WNL Yes M6 PT-IP Treatment Start: 11/21/22 10:34 Freq: NEEDED Status: Active Protocol: Document 11/22/22 11:25 TS (Rec: 11/22/22 11:47 TS [id number]) Physical Therapy Treatment Education Education Provided Safety M7 PT-IP Assessment and Plan Start: 11/21/22 10:34 Freq: NEEDED Status: Active Protocol: Document 11/22/22 11:25 TS (Rec: 11/22/22 11:47 TS [id number]) PT Summary Assessment and Plan Potential Rehabilitation Potential Good Summary Impairments Balance,Coordination,Transfers ,Gait,Activity Tolerance Progress Towards Goals Progressing Toward Goals Assessment Summary Anthony is progressing well with his mobility this session . He was SBA/Ind for all bed mobility. He progressed his ambulation to ~150'SBA with FWW and ~150'SBA with 4WW, slightly unsteady with 4WW recommended FWW for home use. He performed stairs x2 with with L railing CGA, no bucklig or LOB. Pt is slow with all mobility and requires extra time for tasks, he follows multi-step instructions well. PT is recommending return home with son and DIL for assist and HHPT. Pt will need FWW before d/c. Goals Bed Mobility Goal Independent Transfer Goal Independent,Front Wheeled Walker,Four Wheeled Walker Gait Goal Independent,Front Wheel Walker ,Four Wheel Walker Gait Distance 100 feet Other Goals up/down 2 steps with rail and SBA Days to Meet Goals 3 Frequency of Treatment Frequency Of Treatment Once a Day Treatment Plan Physical Therapy Treatment Plan Gait Training,Therapeutic Exercise,Balance Retraining, Discharge Planning, Neuromuscular Re-ed Other Recommendations and Next Treatment gait training with walker for Focus home use, continue to assess safety awareness assess use of FWW vs 4WW to assist with home equipment needs Precautions Other Precautions elevated Troponins that are still trending up Recommendations To Nursing Amount of Assist Needed Standby Assistance Discharge Recommendations PT Discharge Recommendations Home with Assistance,Home Health Other Discharge Recommendations pt needs to use a walker for gait at discharge, pt reports family is in town right now, continue to assess if he could benefit from home health at discharge Equipment Needed for Home Before needs FWW or 4WW for home use Discharge Transportation Needs at Discharge Private Vehicle
[2022-11-22 12:00] VITALS: BP 96/52; PULSE 62; RESP 18; O2SAT 99
--- NOTE | 2022-11-22 12:06 | CM.DPC ---
Addendum entered by NAY Huang 11/22/22 15:39: ADD: Per RN, pt may be having urinary retention since perez d/c'd. Pt able to void small amount but also on fluid restrictions so pt may just not have enough fluid to void, nursing staff will bladder scan to help determine. SW to follow for plan of d/c tonight vs tomorrow pending pt's ability to void independently. BF Original Note: DCP Discharge Home with HH Per MD, pt is medically stable to d/c home today with family and agreeable with HH and no identified barriers to discharge. Per MILLING SUPERVISOR, recommending home with family assist, FWW and HH. SW met bedside with pt and Dtr in [facility] and confirmed that Dtr in [facility] can provide transport home today and states pt will be discharging to their home in [place] and provided the address. SW discussed HH recommendation again and services and frequency and provided HH Choice List and preference is [facility]. SW provided brochure and confirmed best to schedule home visits through Dtr in [place] phone number. ELI Martinez kindly making [facility] referral and faxing clinicals including completed F2F and HH orders with family's address and contact number in referral. Plan: Patient to d/c home today via Dtr POV to their house and new [facility] referral made to open pt to service at d/c in [place]. NAY Huang
[2022-11-22] MEDS: FUROSEMIDE 40 MG/4 ML VIAL IV (12:16)
[2022-11-22] MEDS: POTASSIUM CHLORIDE 20 MEQ TAB 40 MEQ PO (12:16)
--- NOTE | 2022-11-22 12:22 | OT.IP.EVAL ---
Current Diagnoses Acute on chronic diastolic (congestive) heart failure (11/20/22) Hematuria, unspecified (11/20/22) Adverse effect of anticoagulants, initial encounter (11/20/22) Past Medical History (Last Reviewed 11/20/22 @ 20:09 by Mallory Orellana [facility]) Actinic keratosis Adjustment insomnia (10/07/16) Allergic rhinitis due to pollen (06/19/15) Anticoagulation monitoring, INR range 2-3 Atrial fibrillation and flutter (2013) Basal cell carcinoma BPH (benign prostatic hyperplasia) BPH w urinary obs/LUTS Cataracts, bilateral (~2014) Chronic back pain Congestive heart failure Dyslipidemia Essential hypertension (06/19/15) Fractures (~1961) Hypertension Knee pain, right (07/2017) Microscopic hematuria Midline low back pain without sciatica (06/19/15) Neck pain (03/2017) NSTEMI (non-ST elevated myocardial infarction) Rosacea (06/19/15) Rosacea (2009) Skin lesion of face Spinal stenosis of lumbosacral region (06/19/15) Squamous cell carcinoma Venous insufficiency of both lower extremities Xerosis of skin Surgical History (Last Reviewed 11/20/22 @ 20:09 by Mallory Orellana [facility]) History of ankle surgery (~1961) History of cardioversion History of permanent cardiac pacemaker placement History of radiofrequency ablation (RFA) procedure for cardiac arrhythmia (06/10/17) Hx of cataract surgery (2014) Hx of Moh's micrographic surgery for skin cancer S/P excision of skin lesion, follow-up exam Occupational Therapy Inpatient Evaluation/Re-Eval M1 PT/OT-IP Prior Functional Status Start: 11/21/22 10:34 Freq: NEEDED Status: Active Protocol: Document 11/22/22 13:49 CGR (Rec: 11/22/22 14:19 CGR [id number]) Medical Review Prior Functional Status Medical History Reviewed Yes Diet/Fluid Consistency Regular Communication WFL, wears glasses for distance Mobility and Gait Independent without device, ambulates short distances in the community Activities of Daily Living and IADL's Independent, doing some local driving Prior Functional Level (Other details) he has plans to move into a trailer at his Son's house in [place] Social History Household Members none Living Arrangements House Number of Floors (Floors) One Floor Number of Stairs To Enter/Railing? 2 steps with rail Home Environment Standard Height Toilet,Tub/ Shower Employment Status Retired Additional Social History Comment He is aware he can get equipment at [facility]. Daughter in law states they will get a walker for pt to use at home and does not want the issued one at this time from the hospital. He reports having two falls about 2 weeks ago where he fell backwards on the sidewalk and hit his head. He thinks he may have been a little dizzy when he fell. M2 OT-IP Current Condition Start: 11/22/22 13:49 Freq: Status: Active Protocol: Document 11/22/22 13:49 CGR (Rec: 11/22/22 14:19 CGR [id number]) Occupational Therapy Current Condition Current Condition Evaluation Date 11/22/22 Treatment Diagnosis LE swelling, nausea and vomiting, LEO UTI, CHR exacerbation Diagnosis Onset Date 11/20/22 M3 OT- IP Subjective and Pain Start: 11/22/22 13:49 Freq: Status: Active Protocol: Document 11/22/22 13:49 CGR (Rec: 11/22/22 14:19 CGR [id number]) OT- Subjective Occupational Therapy Visit Type Type Initial Evaluation Visit Start Time 11:54 Visit Stop Time 12:22 Total Visit Minutes 28 Notes Pt's daughter in law present throughout OT Pain Assessment Pain When Pain Assessed At Rest Pain Present Pain Present Denied Pain M4 OT- IP ADL's Start: 11/22/22 13:49 Freq: Status: Active Protocol: Document 11/22/22 13:49 CGR (Rec: 11/22/22 14:19 CGR [id number]) OT [id number] Comments OT Self-Feeding Comments not meal time OT ADL-Grooming General Evaluation Grooming Ability Standby Assistance Areas Needing Assistance Face Washing Comments OT Grooming Comments standing at sink OT ADL-Oral Care General Eval Oral Care Ability Standby Assistance Areas of Assistance Brushing Teeth Comments Oral Care Comments standing at sink OT ADL-Dressing General Eval Lower Body Dressing Ability Independent Areas Needing Assistance Socks Comments OT Dressing Comments seated in chair OT ADL-Toileting General Evaluation Toileting Ability Independent Comments OT Toileting Comments simulated seated on toilet. Pt was unable to void. OT ADL-Bathing Comments OT Bathing Comments not performed M5 OT- IP IADL's Start: 11/22/22 13:49 Freq: Status: Active Protocol: Document 11/22/22 13:49 CGR (Rec: 11/22/22 14:19 CGR [id number]) OT-Instrumental Activities of Daily Living Deficits IADL Deficits Identified No Deficits Home Safety Awareness Awareness of Need for Assistance at Home Good Awareness Ability to Problem Solve Emergency Able to Problem Solve Situations Medication Management Medication Management Caregiver Administers Money Management Money Management Caregiver Provides Assistance Meal Preparation Meal Preparation Caregiver Provides Assist Room Cleaner Room Cleaner Caregiver Provides Assist Driving Driving Concerns Identified Regarding Safety Driving Comments Pt states he drives locally M6 OT- IP Functional Cognition Start: 11/22/22 13:49 Freq: Status: Active Protocol: Document 11/22/22 13:49 CGR (Rec: 11/22/22 14:19 CGR [id number]) Cognitive Factors Limiting Selfcare Function Cognitive Ability Level of Alertness Alert Patient Orientation Name,Age,Birthday,Month,Date, Year,Day of Week,Place, Situation Attention Span Ability Capable of Focused Attention, Capable of Sustained Attention Ability to Follow Commands Able to Follow One Step Commands with Increased Time, Able to Follow One Step Commands with Repetition OT- Vision and Hearing OT- Hearing Assessment OT- Hearing Assessment WFL OT- Vision Assessment Vision History Cataracts Visual Acuity WFL Visual Attentiveness WFL Occular Pursuits WFL Visual Convergence WFL Vision Assessment Comments Pt states he wears glasses for driving. M7 OT- IP Mobility and Balance Start: 11/22/22 13:49 Freq: Status: Active Protocol: Document 11/22/22 13:49 CGR (Rec: 11/22/22 14:19 CGR [id number]) OT-Transfer Assessment Sit to and From Stand Sit to and from Stand Minimal Assistance Transfers Transfer Ability Standby Assistance Technique Transfer Destination Chair,Toilet Transfer Technique Stand Step Pivot Devices Transfer Assistive Devices Gait Belt,Front Wheeled Walker Comments Mobility Comments Pt needed min a off the low chair but was able to get self off the toilet without assist . OT- Balance Assessment Sitting Balance and Reactions Static Sitting Balance Ability Good Dynamic Sitting Balance Ability Good M8 OT- IP Objective Assessments Start: 11/22/22 13:49 Freq: Status: Active Protocol: Document 11/22/22 13:49 CGR (Rec: 11/22/22 14:19 CGR [id number]) OT Gross Range of Motion Upper Extremity Range of Motion Assessment Within Functional Limits OT Strength Upper Extremity Strength Assessment Within Functional Limits Comments Strength Comments 4/5 OT- Coordination Assessment Upper Extremity Finger to Nose Test Within Functional Limits Finger Tapping Test Within Functional Limits OT-Muscle Tone Assessment Muscle Tone WNL Yes OT Sensation Assessment Edema Edema Absent M9 OT- IP Assessment and Plan Start: 11/22/22 13:49 Freq: Status: Active Protocol: Document 11/22/22 13:49 CGR (Rec: 11/22/22 14:19 CGR [id number]) OT Summary Assessment and Plan Potential Rehabilitation Potential Good Analytic Complexity at Evaluation Moderate Summary OT Impairments Strength,Balance,Functional Mobility,Grooming,Dressing, Toileting,Bathing,Toilet Transfers,Shower Transfers, Activity Tolerance Progress Towards Goals Progressing Toward Goals Assessment Summary Pt presents as a moderate complexity evaluation s/p admit for CHF exacerbation. Pt is planning to move into his son's trail next to their home after this hospitalization. Information above is for the the trailer. Pt has supportive family. Recommend d/c to son' s home with family support. Goals Bathing Goal Independent Shower Transfer Goal Independent Days to Meet Goals 2 Frequency of Treatment Frequency Of Treatment Once a Day Treatment Plan OT Treatment Plan ADL Training,Functional Mobility,Patient/Family Education,Discharge Planning Other Treatment Recommendations and Next shower Treatment Focus Discharge Recommendations OT Discharge Recommendations Home with Assistance Transportation Needs at Discharge Private Vehicle
--- NOTE | 2022-11-22 12:22 | OT.IP.EVAL ---
Current Diagnoses Acute on chronic diastolic (congestive) heart failure (11/20/22) Hematuria, unspecified (11/20/22) Adverse effect of anticoagulants, initial encounter (11/20/22) Past Medical History (Last Reviewed 11/20/22 @ 20:09 by Mallory Orellana [facility]) Actinic keratosis Adjustment insomnia (10/07/16) Allergic rhinitis due to pollen (06/19/15) Anticoagulation monitoring, INR range 2-3 Atrial fibrillation and flutter (2013) Basal cell carcinoma BPH (benign prostatic hyperplasia) BPH w urinary obs/LUTS Cataracts, bilateral (~2014) Chronic back pain Congestive heart failure Dyslipidemia Essential hypertension (06/19/15) Fractures (~1961) Hypertension Knee pain, right (07/2017) Microscopic hematuria Midline low back pain without sciatica (06/19/15) Neck pain (03/2017) NSTEMI (non-ST elevated myocardial infarction) Rosacea (06/19/15) Rosacea (2009) Skin lesion of face Spinal stenosis of lumbosacral region (06/19/15) Squamous cell carcinoma Venous insufficiency of both lower extremities Xerosis of skin Surgical History (Last Reviewed 11/20/22 @ 20:09 by Mallory Orellana [facility]) History of ankle surgery (~1961) History of cardioversion History of permanent cardiac pacemaker placement History of radiofrequency ablation (RFA) procedure for cardiac arrhythmia (06/10/17) Hx of cataract surgery (2014) Hx of Moh's micrographic surgery for skin cancer S/P excision of skin lesion, follow-up exam Occupational Therapy Inpatient Evaluation/Re-Eval M1 PT/OT-IP Prior Functional Status Start: 11/21/22 10:34 Freq: NEEDED Status: Active Protocol: Document 11/22/22 13:49 CGR (Rec: 11/22/22 14:19 CGR [id number]) Medical Review Prior Functional Status Medical History Reviewed Yes Diet/Fluid Consistency Regular Communication WFL, wears glasses for distance Mobility and Gait Independent without device, ambulates short distances in the community Activities of Daily Living and IADL's Independent, doing some local driving Prior Functional Level (Other details) he has plans to move into a trailer at his Son's house in [place] Social History Household Members none Living Arrangements House Number of Floors (Floors) One Floor Number of Stairs To Enter/Railing? 2 steps with rail Home Environment Standard Height Toilet,Tub/ Shower Employment Status Retired Additional Social History Comment He is aware he can get equipment at [facility]. Daughter in law states they will get a walker for pt to use at home and does not want the issued one at this time from the hospital. He reports having two falls about 2 weeks ago where he fell backwards on the sidewalk and hit his head. He thinks he may have been a little dizzy when he fell. M2 OT-IP Current Condition Start: 11/22/22 13:49 Freq: Status: Active Protocol: Document 11/22/22 13:49 CGR (Rec: 11/22/22 14:19 CGR [id number]) Occupational Therapy Current Condition Current Condition Evaluation Date 11/22/22 Treatment Diagnosis LE swelling, nausea and vomiting, LEO UTI, CHR exacerbation Diagnosis Onset Date 11/20/22 M3 OT- IP Subjective and Pain Start: 11/22/22 13:49 Freq: Status: Active Protocol: Document 11/22/22 13:49 CGR (Rec: 11/22/22 14:19 CGR [id number]) OT- Subjective Occupational Therapy Visit Type Type Initial Evaluation Visit Start Time 11:54 Visit Stop Time 12:22 Total Visit Minutes 28 Notes Pt's daughter in law present throughout OT Pain Assessment Pain When Pain Assessed At Rest Pain Present Pain Present Denied Pain M4 OT- IP ADL's Start: 11/22/22 13:49 Freq: Status: Active Protocol: Document 11/22/22 13:49 CGR (Rec: 11/22/22 14:19 CGR [id number]) OT [id number] Comments OT Self-Feeding Comments not meal time OT ADL-Grooming General Evaluation Grooming Ability Standby Assistance Areas Needing Assistance Face Washing Comments OT Grooming Comments standing at sink OT ADL-Oral Care General Eval Oral Care Ability Standby Assistance Areas of Assistance Brushing Teeth Comments Oral Care Comments standing at sink OT ADL-Dressing General Eval Lower Body Dressing Ability Independent Areas Needing Assistance Socks Comments OT Dressing Comments seated in chair OT ADL-Toileting General Evaluation Toileting Ability Independent Comments OT Toileting Comments simulated seated on toilet. Pt was unable to void. OT ADL-Bathing Comments OT Bathing Comments not performed M5 OT- IP IADL's Start: 11/22/22 13:49 Freq: Status: Active Protocol: Document 11/22/22 13:49 CGR (Rec: 11/22/22 14:19 CGR [id number]) OT-Instrumental Activities of Daily Living Deficits IADL Deficits Identified No Deficits Home Safety Awareness Awareness of Need for Assistance at Home Good Awareness Ability to Problem Solve Emergency Able to Problem Solve Situations Medication Management Medication Management Caregiver Administers Money Management Money Management Caregiver Provides Assistance Meal Preparation Meal Preparation Caregiver Provides Assist Public Policy Mediator Public Policy Mediator Caregiver Provides Assist Driving Driving Concerns Identified Regarding Safety Driving Comments Pt states he drives locally M6 OT- IP Functional Cognition Start: 11/22/22 13:49 Freq: Status: Active Protocol: Document 11/22/22 13:49 CGR (Rec: 11/22/22 14:19 CGR [id number]) Cognitive Factors Limiting Selfcare Function Cognitive Ability Level of Alertness Alert Patient Orientation Name,Age,Birthday,Month,Date, Year,Day of Week,Place, Situation Attention Span Ability Capable of Focused Attention, Capable of Sustained Attention Ability to Follow Commands Able to Follow One Step Commands with Increased Time, Able to Follow One Step Commands with Repetition OT- Vision and Hearing OT- Hearing Assessment OT- Hearing Assessment WFL OT- Vision Assessment Vision History Cataracts Visual Acuity WFL Visual Attentiveness WFL Occular Pursuits WFL Visual Convergence WFL Vision Assessment Comments Pt states he wears glasses for driving. M7 OT- IP Mobility and Balance Start: 11/22/22 13:49 Freq: Status: Active Protocol: Document 11/22/22 13:49 CGR (Rec: 11/22/22 14:19 CGR [id number]) OT-Transfer Assessment Sit to and From Stand Sit to and from Stand Minimal Assistance Transfers Transfer Ability Standby Assistance Technique Transfer Destination Chair,Toilet Transfer Technique Stand Step Pivot Devices Transfer Assistive Devices Gait Belt,Front Wheeled Walker Comments Mobility Comments Pt needed min a off the low chair but was able to get self off the toilet without assist . OT- Balance Assessment Sitting Balance and Reactions Static Sitting Balance Ability Good Dynamic Sitting Balance Ability Good M8 OT- IP Objective Assessments Start: 11/22/22 13:49 Freq: Status: Active Protocol: Document 11/22/22 13:49 CGR (Rec: 11/22/22 14:19 CGR [id number]) OT Gross Range of Motion Upper Extremity Range of Motion Assessment Within Functional Limits OT Strength Upper Extremity Strength Assessment Within Functional Limits Comments Strength Comments 4/5 OT- Coordination Assessment Upper Extremity Finger to Nose Test Within Functional Limits Finger Tapping Test Within Functional Limits OT-Muscle Tone Assessment Muscle Tone WNL Yes OT Sensation Assessment Edema Edema Absent M9 OT- IP Assessment and Plan Start: 11/22/22 13:49 Freq: Status: Active Protocol: Document 11/22/22 13:49 CGR (Rec: 11/22/22 14:19 CGR [id number]) OT Summary Assessment and Plan Potential Rehabilitation Potential Good Analytic Complexity at Evaluation Moderate Summary OT Impairments Strength,Balance,Functional Mobility,Grooming,Dressing, Toileting,Bathing,Toilet Transfers,Shower Transfers, Activity Tolerance Progress Towards Goals Progressing Toward Goals Assessment Summary Pt presents as a moderate complexity evaluation s/p admit for CHF exacerbation. Pt is planning to move into his son's trail next to their home after this hospitalization. Information above is for the the trailer. Pt has supportive family. Recommend d/c to son' s home with family support. Goals Bathing Goal Independent Shower Transfer Goal Independent Days to Meet Goals 2 Frequency of Treatment Frequency Of Treatment Once a Day Treatment Plan OT Treatment Plan ADL Training,Functional Mobility,Patient/Family Education,Discharge Planning Other Treatment Recommendations and Next shower Treatment Focus Discharge Recommendations OT Discharge Recommendations Home with Assistance Transportation Needs at Discharge Private Vehicle
--- NOTE | 2022-11-22 13:25 | P.DS_ITS ---
History of Present Illness History of Present Illness Date Patient Seen: 11/22/22 Time Patient Seen: 09:30 Chief complaint: CHF exac,LEO, Myocardial injury Narrative: Anthony Coates is pleasant 87 year old male with a past medical history essential HTN, HLD, BPH with LUTS, permanent AFib, a flutter s/p atrioventricular node ablation, tachy induced cardiomyopathy, pacemaker, chronic CHFpEF 60-65%, with chronic LEedema who presented to the ED today with a chief complaint of lower extremity swelling and persistent nausea w/o vomiting, with intermittent headache. Patient reported he had 2 falls approximately 2 weeks ago injuring his buttocks/head on concrete since that time he is had a headache with nausea, neck pain, dizziness and feeling a bit off balance these symptoms have been intermittent and are improving. Patient has stopped all of his medi cations approximately 2 weeks ago and restarted 3 days ago when he noticed increased bilateral lower extremity swelling. On admit patient reported that all his symptoms have since resolved with the exception of lower extremity edema. He denies history of urinary retention or UTI. Patient denies chest pain, shortness in breath, changes in vision, difficulty swallowing, speech impairment, weakness, numbness, tingling, LOC, fever, body aches, chills, cough, recent exposure to illness, abdominal pain, vomiting, urinary incontinence, dysuria, frequency, urgency, hematuria, bowel changes, constipation, incontinence, melena, rashes, recent illness or trauma. Admit vital signs are stable/normotensive 96.1?, 168/69, 67, 17, 98% on room air. Patient had been moderately tachypneic in ED respiratory rate 24-30, but now resolved. Noted LEO BUN 34, creatinine 133, GFR 52. PT 22, INR 1.9, PTT 37-on Coumadin. Initial troponin 0.172, repeat 0.176 (asymptomatic). BNP 80212, chest x-ray noted small right pleural effusion, head CT negative for acute changes, C-spine DDD without fracture or acute changes. I personally reviewed all imaging and EKG: Ventricular paced rate of 60 white QRS 160 QTC 484. Patient admitted for CHF exacerbation, LEO, myocardial injury. Discharge Providers Provider Date of admission: 11/20/22 17:27 Discharge Date: 11/22/22 Primary care physician: Sudhir Alvarez MD Consults: 11/20/22 20:03 Consult to Dietitian, Adult Routine Comment: Reason For Exam: BMI 20 Consult to Discharge Planning Routine Comment: Consult to Occupational Therapy Evaluate & Treat Comment: Physician Instructions: Evaluate and treat Consult to Physical Therapy Evaluate & Treat Comment: Physician Instructions: Evaluate and Treat 11/22/22 11:19 Consult to Home Health Routine Comment: CHF exacerbation, weakness, SOB, EF 60-65% Reason For Exam: Set up FWW for home use 11/22/22 11:20 Consult to Home Health Routine Comment: CHF exacerbation, weakness, SOB, EF 60-65% Reason For Exam: Set up HH RN/PT/OT for discharge to home Discharge provider: Aaron Lorenz DO Summary Hospital Course Discharge Diagnosis: HFpEF, exacerbation, acute on chronic, present on admission LEO, acute, present on admission Myocardial injury Atrial fibrillation, persistent/permanent, with atrial flutter s/p atrioventr icular node ablation, chronic, with pacemaker in place, present on admission Hypertension, essential, present on admission BPH with LUTS, chronic, present on admission Tachy-induced cardiomyopathy, chronic, present on admission Malnutrition, moderate, acute on chronic, present on admission Hospital Course: This is an 87 yaer old male who was admitted with LEO and presumed heart failure exacerbation. He improved with diuresis after 2L were removed with intravenous furosemide. CHF exacerbation is also likely in the setting of acute urinary retention secondary to BPH requiring perez catheter placement on admission. He had an elevated troponin likely due to demand and downtrended after admission. His kidney function improved with slight diuresis and perez placement. Many of his home BP medications were held in favor of diuretic therapy due to low normal blood pressures. He was instructed to resume home losartan in a couple of days only if SBP is >130 at home. Prior to discharge home, patient's perez catheter was removed and he was able to adequately void with incomplete but sufficient bladder emptying. Time Spent with Patient Time spent: Greater than 30 minutes Exam Vital Signs (past 8 hours): - 11/22/22 08:00 11/22/22 10:03 11/22/22 12:00 Temperature 95.9 F L Pulse Rate 63 62 Respiratory Rate 16 18 Blood Pressure 114/59 L 114/59 L 96/52 L Pulse Oximetry 95 99 Oxygen Flow Rate 0 0 Oxygen Delivery Method Room Air Oxygen Flow Rate 0 Narrative Exam Narrative: General:? Patient is a well-developed, well-nourished pleasant male in no distress at this time. HEENT:? Normocephalic, atraumatic, extraocular muscles intact Chest:? Normal AP diameter and contour without kyphoscoliosis, Equal chest rise without nasal flaring, retractions, tachypneic or labored breathing. Lungs:? Auscultation of all lung cadet are clear with no wheezes and minimal intermittent crackles at the bases only. Cardio: paced regular rate and rhythm without extra sounds or murmurs. Abdomen:? Soft nontender, bowel sounds normal Musculoskeletal:? Muscle strength and tone are equal, no deformity. Minimal 1+ edema of the lower extremities at this time. Skin:? 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 Neuro:? Alert and orientated x3, moves all extremities, sensation to touch int act Psych:? Patient has a well-kept appearance, appropriate affect, mental status attitude thought context and judgment are appropriate for age. Objective Labs 11/21/22 12:30 11/22/22 04:29 Labs: Laboratory Results - last 24 hr 11/21/22 11/21/22 11/21/22 12:30 18:10 18:10 PT INR APTT Sodium Potassium Chloride Carbon Dioxide BUN Creatinine Estimated GFR BUN/Creatinine Ratio Glucose Calcium Troponin I 0.291 H* 0.308 H* NT-Pro-B Natriuret Pep [id number] H 11/22/22 11/22/22 11/22/22 04:29 04:29 04:29 PT 17.6 H INR 1.5 H APTT 35 Sodium 135 L Potassium 3.3 L Chloride 97 L Carbon Dioxide 34 H BUN 34 H Creatinine 1.17 Estimated GFR > 60 BUN/Creatinine Ratio 29.1 H Glucose 105 Calcium 8.8 Troponin I NT-Pro-B Natriuret Pep 40418 H 11/22/22 04:29 PT INR APTT Sodium Potassium Chloride Carbon Dioxide BUN Creatinine Estimated GFR BUN/Creatinine Ratio Glucose Calcium Troponin I 0.293 H* NT-Pro-B Natriuret Pep [facility] Medical History Actinic keratosis Adjustment insomnia (10/07/16) Allergic rhinitis due to pollen (06/19/15) Anticoagulation monitoring, INR range 2-3 Atrial fibrillation and flutter (2013) Basal cell carcinoma BPH (benign prostatic hyperplasia) BPH w urinary obs/LUTS Cataracts, bilateral (~2014) Chronic back pain Congestive heart failure Dyslipidemia Essential hypertension (06/19/15) Fractures (~1961) Hypertension Knee pain, right (07/2017) Microscopic hematuria Midline low back pain without sciatica (06/19/15) Neck pain (03/2017) NSTEMI (non-ST elevated myocardial infarction) Rosacea (06/19/15) Rosacea (2009) Skin lesion of face Spinal stenosis of lumbosacral region (06/19/15) Squamous cell carcinoma Venous insufficiency of both lower extremities Xerosis of skin Surgical History History of ankle surgery (~1961) History of cardioversion History of permanent cardiac pacemaker placement History of radiofrequency ablation (RFA) procedure for cardiac arrhythmia (06/10/17) Hx of cataract surgery (2014) Hx of Moh's micrographic surgery for skin cancer S/P excision of skin lesion, follow-up exam Family History Father Heart disease Mother Heart disease Social History marital status: number of children: 2 household members: none Smoking Status: Never smoker alcohol intake: former caffeine: No Discharge Plan Discharge Plan Patient Disposition: Home Health Service Provider Discharge Comment: You were admitted to the hospital with congestive heart failure which improved with fluid removal. AFter removal of fluid, please continue your previous medications, but hold your home losartan for a couple of days at home. Resume Losartan on as long as your systolic blood press ure (top number) is >130 at home, otherwise I would reach out to PCP or caridology office for medication management. continue to follow BP and weight at home. Discharge orders & Medications Prescriptions: Continued tamsulosin [Flomax] 0.4 mg capsule 0.8 mg PO BEDTIME Qty: 180 3RF allopurinol 300 mg tablet 300 mg PO DAILY Qty: 90 3RF furosemide 40 mg tablet 40 mg PO DAILY Qty: 90 3RF dutasteride 0.5 mg capsule See Rx Instructions .ROUTE .COMPLEX Qty: 90 3RF Dose Instruction: TAKE ONE CAPSULE BY MOUTH ONE TIME DAILY Rx Instructions: TAKE ONE CAPSULE BY MOUTH ONE TIME DAILY losartan 25 mg tablet 25 mg PO DAILY Qty: 90 2RF metoprolol tartrate 100 mg tablet 150 mg PO BID Qty: 270 1RF montelukast 10 mg tablet 10 mg PO QPM Qty: 90 3RF warfarin 5 mg tablet 2.5 mg PO .COMPLEX Qty: 60 1RF Rx Instructions: Take 5mg on Tuesday' and 2.5mg all other days; or as directed. potassium chloride 20 mEq tablet extended release 20 meq PO DAILY Qty: 90 1RF cholecalciferol (vitamin D3) [Vitamin D3] 1,000 unit Tablet 2,000 unit PO QPM Follow up/Referrals: Sudhir Alvarez MD [Primary Care Provider] - Diet/Activity/Treatments Diet: Diet as Tolerated and Low-sodium Activity: As tolerated Visit Report/Discharge Packet Instructions: DI for Prescription Opioid Use Stand Alone Forms: Congestive Heart Failure, Patient Portal/API, Stroke Signs & Symptoms Discharge Data Primary Care Provider: Sudhir Alvarez Discharges patient from system. Discharge Date/Time: 11/22/22 17:09 Quality MIPS - DC The patient has current or prior documentation of left ventricular ejection fraction (LVEF) less than or equal to 40%, or moderate or severely depressed left ventricular systolic function.: No
== END 2022-11-22 17:09 | disposition home health service (06) | DRG 291 ==
LOC: ED 17:27 → AC 17:27
PROVIDERS: Nurse Practitioner Family; Admitting Provider Neuromusculoskeletal Medicine, Sports Medicine; Emergency Provider Emergency Medicine; PCP Pediatrics; Referring Provider Emergency Medicine; Visit Provider Neuromusculoskeletal Medicine, Sports Medicine
DX: I11.0 Hypertensive heart disease with heart failure (principal); I50.33 Acute on chronic diastolic (congestive) heart failure; N17.9 Acute kidney failure, unspecified; I48.21 Permanent atrial fibrillation; I48.92 Unspecified atrial flutter; E44.0 Moderate protein-calorie malnutrition; I5A Non-ischemic myocardial injury (non-traumatic); N40.1 Benign prostatic hyperplasia with lower urinary tract symptoms; R33.8 Other retention of urine; I42.8 Other cardiomyopathies; Z66 Do not resuscitate; Z68.20 Body mass index [BMI] 20.0-20.9, adult; Z95.0 Presence of cardiac pacemaker; Z79.01 Long term (current) use of anticoagulants; Z20.822 Contact with and (suspected) exposure to COVID-19
CPT/HCPCS: 36415; 70450; 71045; 72125; 80048; 80053; 81001; 82550; 83605; 83690; 83735; 83880; 84145; 84443; 84484; 85025; 85610; 85730; 87040; 93005; 97116; 97162; 97166; 97530; 97535; 99284; 99285; J1940

== ENCOUNTER → 2023-01-06 16:57 | Outpatient (CLI) | payer OTHER, SELFPAY ==
[2022-11-20 18:40] VITALS: BMI 20.6
[2023-01-06 17:54] LABS: Blood Urea Nitrogen 38 mg/dL (9-20); Calcium 9.1 mg/dL (8.4-10.2); Carbon Dioxide 29 mmol/L (22-32); Chloride 100 mmol/L (98-107); Estimated Glomerular Filt Rate 53 mL/min (>60); Glucose 113 mg/dL (80-110); HEMOLYSIS < 15 (0-50); Magnesium 2.2 mg/dL (1.6-2.3); Potassium 3.9 mmol/L (3.4-5.1); Sodium 136 mmol/L (137-145)
== END ==
PROVIDERS: PCP Pediatrics; Referring Provider Nurse Practitioner; Visit Provider Nurse Practitioner
DX: I50.20 Unspecified systolic (congestive) heart failure (principal)
CPT/HCPCS: 36415; 80048; 83735

== ENCOUNTER → 2023-03-04 14:05 | Outpatient (CLI) | payer OTHER, SELFPAY ==
[2022-11-20 18:40] VITALS: BMI 20.6
--- NOTE | 2023-03-04 | DI.US.S_ITS ---
PROCEDURE: US ARTERIAL DUPLEX LE BI INDICATIONS: PERIPHERAL VASCULAR DISEASE TECHNIQUE: Color and pulse Doppler interrogation was performed of both lower extremity arterial systems, with image documentation. COMPARISON: None. FINDINGS: Right lower extremity: Common femoral artery: 48.8 cm/sec, with triphasic flow. Deep femoral artery: 24.4 cm/sec, with triphasic flow. Proximal superficial femoral artery: 55.7 cm/sec, with triphasic flow. Mid superficial femoral artery: 41.4 cm/sec, with biphasic flow. Distal superficial femoral artery: 30.5 cm/sec, with biphasic flow. Popliteal artery: 26.8 cm/sec, with biphasic flow. Posterior tibial artery: 46.3 cm/sec, with monophasic flow. Anterior tibial artery/dorsalis pedis: 118.3 cm/sec, with monophasic flow. Question occlusion of dorsalis pedis. Harry-scale imaging description: No significant stenosis from the common femoral through the popliteal. Monophasic waveforms distally consistent with distal small vessel disease. Question dorsalis pedis occlusion. Left lower extremity: Common femoral artery: 53.9 cm/sec, with triphasic flow. Deep femoral artery: 22.2 cm/sec, with triphasic flow. Proximal superficial femoral artery: 46.6 cm/sec, with biphasic flow. Mid superficial femoral artery: 29.4 cm/sec, with biphasic flow. Distal superficial femoral artery: 22.1 cm/sec, with biphasic flow. Popliteal artery: 17.9 cm/sec, with biphasic flow. Posterior tibial artery: 35.2 cm/sec, with monophasic flow. Anterior tibial artery/dorsalis pedis: 42.8 cm/sec, with monophasic flow. Question dorsalis pedis occlusion. Harry-scale imaging description: No significant stenosis from the common femoral through the popliteal. Distal monophasic waveforms are consistent with distal small vessel disease. Question dorsalis pedis occlusion. IMPRESSION: 1. No evidence of inflow stenosis or hemodynamically significant stenosis from the common femorals through the popliteals bilaterally. 2. Distal small vessel disease bilaterally. Question bilateral dorsalis pedis occlusion. Dictated by: Marek Bone M.D. on 03/04/2023 at 16:57 Approved by: Marek Bone M.D. on 03/04/2023 at 17:01
== END ==
PROVIDERS: PCP Pediatrics; Referring Provider Orthopaedic Surgery Foot and Ankle Surgery; Visit Provider Orthopaedic Surgery Foot and Ankle Surgery
DX: I73.9 Peripheral vascular disease, unspecified (principal)
CPT/HCPCS: 93925

== ENCOUNTER → 2023-04-20 09:25 | Outpatient (CLI) | payer OTHER, SELFPAY ==
[2022-11-20 18:40] VITALS: BMI 20.6
--- NOTE | 2023-04-20 | DI.ECHO.S_ITS ---
[place] [facility]---------+ [facility] +---------+ : : [address] : : : : [id number] : : : : Phone: [phone]+ Echocardiogram Report + + :Name: ABDON LOMELI Study Date: 04/20/2023 Height: 74 in : :[facility] ReadingLocation: Weight: 158 lb : : Gender: Male BSA: 2.0 m2 : :: 1935 Age: 87 yrs BP: 134/80 mmHg: :Reason For Study: ATRIAL FIBRILLATION : :Ordering Physician: KATHRIN, : :WANDA Performed By: Jeanne Campbell : :Referring: WANDA PINON : + + Interpretation Summary 1) Normal left ventricular size with moderately reduced systolic function (EF 35-40%). 2) Mildly enlarged right ventricle with mildly reduced function. There is a pacemaker lead in the right ventricle. 3) Severe biatrial enlargement present. 4) There is mild to moderate mitral regurgitation. 5) The right ventricular systolic pressure is estimated to be at least 53 mmHg based on an estimated right atrial pressure of 15 mm Hg. 6) There is a small left-sided pleural effusion. 7) Compared to the Echo done 04/20/2023, LVEF has decreased from normal to moderately reduced on this study and hypervolemia is present on this study. Procedure: A two-dimensional transthoracic echocardiogram with color flow and Doppler was performed. The study quality was technically adequate. Comparison is made with the echocardiogram of 03/01/2019. The heart rate ranged between 60-65 bpm during the study. Left Ventricle: The left ventricle is normal in size. Left ventricular wall thickness is mildly increased. Proximal septal thickening is noted. The ejection fraction is estimated to be 35-40%. There is moderate global hypokinesis of the left ventricle. Right Ventricle: There is a pacemaker lead in the right ventricle. The right ventricle is mildly dilated. Right ventricular systolic function is mildly reduced. Atria: The left atrium is severely dilated. The right atrium is severely dilated. There is a catheter/pacemaker lead seen in the right atrium. There is no Doppler evidence for an interatrial shunt. Mitral Valve: The mitral valve leaflets appear mildly thickened, but open well. There is mild to moderate mitral regurgitation. Aortic Valve: The aortic valve is trileaflet. The aortic valve opens well. There is no aortic valve stenosis. There is mild aortic regurgitation. Tricuspid Valve: The tricuspid valve leaflets are thin and pliable. There is mild to moderate tricuspid regurgitation. The right ventricular systolic pressure is estimated to be at least 53 mmHg based on an estimated right atrial pressure of 15 mm Hg. Pulmonic Valve: The pulmonic valve leaflets are thin and pliable; valve motion is normal. There is mild pulmonic regurgitation. 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 The dimensions of the ascending aorta are normal. The IVC is dilated (diameter is greater than 2.1 cm) and it collapses less than 50% with a sniff. This suggests a high right atrial pressure of 15 mm Hg. Pericardium/ Pleura There is no pericardial effusion. There is a small left- sided pleural effusion. MMode/2D Measurements & Calculations LVIDd: 4.1 cm LVOT diam: 1.9 cm LVIDs: 3.6 cm Ao root diam: 4.1 cm FS: 10.4 % asc Aorta Diam: 3.6 cm EPSS: 0.42 cm IVSd: 1.6 cm LVPWd: 1.1 cm LV pierce. diameter/BSA (cm/m^2): 2.1 LV sys. diameter/BSA (cm/m^2): 1.9 LA A2 area: 27.5 cm2 RA long axis: 7.2 cm LA A4 area: 36.3 cm2 RA area: 36.3 cm2 LA length (vol): 7.6 cm RA vol: 156.7 ml LA vol: 111.9 ml RA : 79.7 ml/m2 LA vol index: 56.9 ml/m2 IVC diam: 2.4 cm RVD1 (basal): 4.4 cm TAPSE: 1.4 cm Doppler Measurements & Calculations Ao V2 max: 99.4 cm/sec LVOT Max Augusto: 71.5 cm/sec Ao V2 mean: 69.9 cm/sec LV V1 max P.0 mmHg Ao max P.0 mmHg LV V1 VTI: 14.9 cm Ao mean P.2 mmHg MINDA(I,D): 2.2 cm2 Ao V2 VTI: 18.6 cm MINDA(V,D): 1.9 cm2 sev ratio: 0.80 MINDA indexed to BSA (cm^2/m^2): 1.1 TR max augusto: 310.0 cm/sec SV(LVOT): 40.1 ml TR max P.4 mmHg PA V2 max: 64.8 cm/sec PA V2 mean: 45.9 cm/sec PA mean P.92 mmHg PA pr(Accel): 48.2 mmHg Reading Physician:01:00 PM
== END ==
PROVIDERS: PCP Family Medicine; Referring Provider Internal Medicine Cardiovascular Disease; Visit Provider Internal Medicine Cardiovascular Disease
DX: I48.21 Permanent atrial fibrillation (principal); I08.3 Combined rheumatic disorders of mitral, aortic and tricuspid valves; J90 Pleural effusion, not elsewhere classified
CPT/HCPCS: 93306

== ENCOUNTER → 2023-05-03 14:35 | Outpatient (CLI) | payer OTHER, SELFPAY ==
[2022-11-20 18:40] VITALS: BMI 20.6
--- NOTE | 2023-05-03 14:45 | DI.RAD.S_ITS ---
PROCEDURE: XR FOOT RT MIN 3V INDICATIONS: bone necrosis/ulcer TECHNIQUE: 3 views of the foot were acquired. COMPARISON: [facility] [place], CR, XR TOE(S) RIGHT, 02/16/2023, 14:33. FINDINGS: Bones: No fractures or dislocations. No suspicious bony lesions. There is severe stable osteoarthritic type degenerative change involving the right 1st metatarsophalangeal joint. Soft tissues: No tibiotalar joint effusion. Achilles tendon appears normal. IMPRESSION: 1. 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 This appears relatively stable from prior examination of 02/16/2023. However, given the associated lucencies surrounding the joint I cannot completely exclude osteomyelitis and if further evaluation is indicated an MRI of the right forefoot with and without intravenous gadolinium may be of further clinical value. Dictated by: Chance Renteria M.D. on 05/03/2023 at 16:47 Approved by: Chance Renteria M.D. on 05/03/2023 at 16:51
--- NOTE | 2023-05-03 14:45 | DI.RAD.S_ITS ---
PROCEDURE: XR FOOT LT MIN 3V INDICATIONS: bone necrosis/ulcer TECHNIQUE: 3 views of the foot were acquired. COMPARISON: [facility], CR, XR FOOT 3+ VIEWS RIGHT, 01/18/2023, 13:58. [facility] [place], CR, XR TOE(S) RIGHT, 02/16/2023, 14:33. FINDINGS: There is old post traumatic change involving the distal left tibia and fibula with a surgical screw transfixing the medial malleolus. There is some lucency involving the medial base of the left 1st metatarsophalangeal joint. Given the imaging findings if there is suspicion for osteomyelitis in this region a MRI of the left forefoot may be of further clinical value. No acute fracture or dislocation is seen. Soft tissues show some mild soft tissue swelling in the region of the forefoot. IMPRESSION: 1. Areas of lucency involving the medial aspect of the left 1st metatarsophalangeal joint. If there is clinical suspicion of osteomyelitis in this region and MRI of the forefoot may be of further clinical value. 2. Surgical screw transfixing the medial malleolus. 3. Soft tissue swelling involving the forefoot. Dictated by: Chance Renteria M.D. on 05/03/2023 at 17:19 Approved by: Chance Renteria M.D. on 05/03/2023 at 17:24
== END ==
PROVIDERS: PCP Family Medicine; Referring Provider Family Medicine; Visit Provider Family Medicine
DX: M87.00 Idiopathic aseptic necrosis of unspecified bone (principal); M79.89 Other specified soft tissue disorders; Z98.890 Other specified postprocedural states
CPT/HCPCS: 73630

== ENCOUNTER → 2023-08-25 14:43 | Outpatient (CLI) | payer OTHER, SELFPAY ==
[2022-11-20 18:40] VITALS: BMI 20.6
[2023-08-25 15:42] LABS: Prothrombin Time 23.4 SECONDS (9.4-12.5)
== END ==
PROVIDERS: PCP Family Medicine; Referring Provider Family Medicine; Visit Provider Family Medicine
DX: I82.409 Acute embolism and thrombosis of unspecified deep veins of unspecified lower extremity (principal)
CPT/HCPCS: 36415; 85610

== ENCOUNTER 2023-10-19 19:51 | Emergency (ER) | payer OTHER, SELFPAY ==
[2022-11-20 18:40] VITALS: BMI 20.6
[2023-10-19] VITALS (12 sets, daily range): BP systolic 99–117; BP diastolic 52–58; PULSE 60–67; RESP 15–21; TEMP 36.1; O2SAT 93–100; BMI 20.7
--- NOTE | 2023-10-19 20:08 | ED.NAVMDI ---
HPI - Nausea/Vomiting/Diarrhea General Chief complaint: Nausea/Vomiting/Diarrhea Stated complaint: sent by Dr Lacy, not feeling well Time Seen by Provider: 10/19/23 20:08 Source: patient Mode of arrival: Wheelchair History of Present Illness HPI Narrative: 88-year-old gentleman with history of atrial fibrillation, anticoagulated on warfarin, systolic congestive heart failure, peripheral arterial disease, pacemaker in place, currently being treated by Dr. Peck, infectious disease specialist as formerly [facility] for left 4th toe nonhealing ulcer and underlying osteomyelitis. Initially treated with doxycycline recently switched to lizinalid. He also has a new wound on his left leg currently followed by wound care. Most recent note from Infectious Disease on October 10 suggests no realistic a surgical options available for revascularization but family wanted to proceed with medical management for now. Recommended continuing lizinolid, weekly CBC to monitor platelets and coordinating with Cardiology regarding diuresis and renal function. Today he was seen by his primary care physician. Patient states that he has been having more low back pain over the last week to week and a half. He does use a walker any complains that his legs have been less steady. He has not having chest pain or dyspnea. No increased lower extremity edema. Warfarin/INR level this morning was 4.0 and is currently being held. With the complaints of the low back pain is primary care physician suggested evaluation in the emergency department. Related Data Home Medications Medication Instructions Recorded Confirmed cholecalciferol (vitamin D3) 25 2,000 unit PO QPM 01/20/18 09/28/23 mcg (1,000 unit) tablet (Vitamin D3) metoprolol succinate 25 mg 25 mg PO BID 06/08/23 09/28/23 tablet,extended release 24 hr spironolactone 25 mg tablet 25 mg PO DAILY 06/08/23 09/28/23 atorvastatin 40 mg tablet 40 mg PO DAILY 08/25/23 09/28/23 furosemide 40 mg tablet 20 mg PO .COMPLEX 08/25/23 09/28/23 Previous Rx's Medication Instructions Recorded tramadol 50 mg tablet 50 mg PO TID PRN pain #30 tabs 11/26/22 mupirocin 2 % topical ointment 1 applic topical TID #22 grams 02/24/23 potassium chloride 20 mEq 20 meq PO DAILY #90 tabs 03/23/23 tablet,extended release dutasteride 0.5 mg capsule 0.5 mg PO DAILY #90 caps 06/13/23 allopurinol 300 mg tablet 300 mg PO DAILY #90 tabs 07/13/23 tamsulosin 0.4 mg capsule 0.8 mg (2 x 0.4 mg) PO BEDTIME 08/03/23 #180 caps prothrombin time test strips #18 ea 09/01/23 (Coaguchek XS strips) losartan 25 mg tablet 25 mg PO DAILY #90 tabs 09/05/23 montelukast 10 mg tablet 10 mg PO QPM #90 tabs 09/18/23 warfarin 5 mg tablet 2.5 mg (1/2 x 5 mg) PO DAILY #90 09/28/23 tabs Allergies Allergy/AdvReac Type Severity Reaction Status Date / Time Penicillins Allergy Intermediate Rash Verified 10/19/23 20:00 KAYLYNN Inhibitors AdvReac Intermediate COUGH Verified 10/19/23 20:00 [KAYLYNN INHIBITORS] Review of Systems Review of Systems Narrative: Pertinent positive and negative findings as per HPI Patient History Medical History Elevated troponin Eustachian tube dysfunction Ulcer of [place] Callus of toe Toe ulcer Anticoagulation monitoring, INR range 2-3 Microscopic hematuria Xerosis of skin BPH w urinary obs/LUTS Venous insufficiency of both lower extremities Cataracts, bilateral (~2014) Hypertension Knee pain, right (07/2017) Neck pain (03/2017) Actinic keratosis Basal cell carcinoma Squamous cell carcinoma Rosacea (2009) Fractures (~1961) Skin lesion of face BPH (benign prostatic hyperplasia) Chronic back pain Dyslipidemia Congestive heart failure Atrial fibrillation and flutter (2013) Adjustment insomnia (10/07/16) Spinal stenosis of lumbosacral region (06/19/15) Rosacea (06/19/15) Midline low back pain without sciatica (06/19/15) Essential hypertension (06/19/15) Allergic rhinitis due to pollen (06/19/15) NSTEMI (non-ST elevated myocardial infarction) Surgical History History of permanent cardiac pacemaker placement Hx of cataract surgery (2014) History of ankle surgery (~1961) History of cardioversion Hx of Moh's micrographic surgery for skin cancer S/P excision of skin lesion, follow-up exam History of radiofrequency ablation (RFA) procedure for cardiac arrhythmia (06/10/17) Family History Father Heart disease Mother Heart disease Social History marital status: number of children: 2 household members: none Smoking Status: Never smoker alcohol intake: former caffeine: No Smoking Status: Never smoker alcohol intake frequency: holidays/special occasions only Substance Use Type: does not use Exam Initial Vital Signs Initial Vital Signs: Vital Signs Temperature 97.0 F L 10/19/23 19:53 Pulse Rate 64 10/19/23 19:53 Respiratory Rate 15 10/19/23 19:53 Blood Pressure 99/58 L 10/19/23 19:53 Pulse Oximetry 99 10/19/23 19:53 Oxygen Delivery Method Room Air 10/19/23 19:53 General: Chronically ill-appearing gentleman, in no acute distress. He is able to speak in full sentences HEENT: Moist mucous membranes, normal sclera with reactive pupils, skin is quite pale, multiple skin cancers over the head and neck. Neck: No JVD, no cervical adenopathy Respiratory: Lungs are clear to auscultation, no wheezing no rales no rhonchi. Full and symmetrical air movement Cardiac: Irregular, I do not appreciate murmurs. Abdomen: Soft, nontender, he is no tenderness along his thoracic or lumbar spine to palpation. No flank pain Skin: Pale, multiple bruises in various stages of healing, multiple skin cancers Neurologic: Globally weak but otherwise Grossly neurologically intact with no obvious asymmetries or abnormalities Extremities: Poor perfusion overall, chronic venous stasis changes, ulceration of the left heel, left 4th toe with chronic appearing wound Psych: Cooperative, linear thought process Course Orders Ordered: ED Orders 10/19/23 20:09 XR chest 1V Stat EKG-12 Lead Stat 10/19/23 20:27 Urinalysis and Microscopic Stat 10/19/23 20:30 Complete Blood Count AUTO DIFF Stat Comprehensive Metabolic Panel Stat Lactate (Lactic Acid) Stat Lipase Stat Magnesium Stat NT-proBNP (BNP-Adult 18+) Stat Procalcitonin Stat Troponin I Stat 10/19/23 20:35 Blood Culture Stat 10/19/23 22:00 XR lumbar spine 2-3V Stat XR thoracic spine 2V Stat Vital Signs Vital signs: Vital Signs - 8 hr 10/19/23 19:53 10/19/23 19:58 10/19/23 19:59 Temperature 97.0 F L Pulse Rate 64 64 Respiratory Rate 15 Blood Pressure 99/58 L Pulse Oximetry 99 97 98 Oxygen Delivery Method Room Air 10/19/23 19:59 10/19/23 20:00 10/19/23 20:00 Temperature Pulse Rate 63 Respiratory Rate Blood Pressure 99/58 L 103/56 L Pulse Oximetry 97 Oxygen Delivery Method 10/19/23 20:28 10/19/23 20:30 10/19/23 20:30 Temperature Pulse Rate 60 61 Respiratory Rate Blood Pressure 99/52 L Pulse Oximetry 97 98 Oxygen Delivery Method 10/19/23 21:00 10/19/23 21:00 10/19/23 21:30 Temperature Pulse Rate 64 Respiratory Rate 20 Blood Pressure 101/53 L 103/52 L Pulse Oximetry 100 Oxygen Delivery Method 10/19/23 21:30 10/19/23 22:00 10/19/23 22:00 Temperature Pulse Rate 63 67 Respiratory Rate 19 21 Blood Pressure 106/58 L Pulse Oximetry 99 98 Oxygen Delivery Method 10/19/23 22:30 10/19/23 22:30 Temperature Pulse Rate 64 Respiratory Rate 20 Blood Pressure 106/55 L Pulse Oximetry 98 Oxygen Delivery Method MDM - Nausea/Vomiting/Diarrhea Lab Data 10/19/23 20:30 10/19/23 20:30 Labs: Lab Results 10/19/23 10/19/23 10/19/23 Range/Units 20:27 20:30 22:45 WBC 7.0 (4.5-11.0) X10^3/uL RBC 3.09 L (4.5-5.9) X10^6/uL Hgb 10.3 L (13.5-17.5) g/dL Hct 30.8 L (41-53) % MCV 99.7 (80-100) fL MCH 33.2 (26-34) PG MCHC 33.3 (30-36) % RDW 17.1 H (11.6-14.8) % Plt Count 90 L (150-400) X10^3/uL Neut % (Auto) 80.2 H (50-75) % Lymph % (Auto) 13.5 L (25-40) % [place] % (Auto) 3.0 (3-14) % Eos % (Auto) 1.8 L (2-4) % Baso % (Auto) 1.5 (0-2) % Neut # (Auto) 5600 (0455-8686) /uL Lymph # (Auto) 900 L (7878-6100) /uL [place] # (Auto) 200 (0-900) /uL Eos # (Auto) 100 (0-450) /uL Baso # (Auto) 100 (0-100) /uL Sodium 133 L (137-145) mmol/L Potassium 4.4 (3.4-5.1) mmol/L Chloride 107 (98-107) mmol/L Carbon Dioxide 13 L (22-32) mmol/L BUN 71 H (9-20) mg/dL Creatinine 1.94 H (0.66-1.25) mg/dL Estimated GFR 33 L (>60) mL/min BUN/Creatinine Ratio 36.6 H (6-22) Glucose 141 H (80-110) mg/dL Lactate 3.1 H 2.0 (0.7-2.1) mmol/L Calcium 9.4 (8.4-10.2) mg/dL Magnesium 2.3 (1.6-2.3) mg/dL Total Bilirubin 0.7 (0.2-1.3) mg/dL AST 27 (17-59) IU/L ALT 28 (<50) IU/L Alkaline Phosphatase 55 (38-126) U/L Troponin I 0.142 H* (0.01-0.034) ng/mL NT-Pro-B Natriuret Pep 9250 H (<450) pg/mL Total Protein 6.8 (6.3-8.2) g/dL Albumin 3.9 (3.5-5.0) g/dL Globulin 2.9 (1.7-4.1) g/dL Albumin/Globulin Ratio 1.3 (1.0-2.8) Lipase 255 (23-300) U/L Procalcitonin 0.19 (<0.5) ng/mL Urine Color Yellow Urine Appearance Clear Urine pH 5.0 (4.5-8.0) Ur Specific [place] 1.010 (1.000-1.035) Urine Protein Negative (Negative) Urine Glucose (UA) Negative (Negative) g/dL Urine Ketones Negative (NEGATIVE) Urine Occult Blood 1+ H (Negative) Urine Nitrate Negative (Negative) Urine Bilirubin Negative (NEGATIVE) Urine Urobilinogen 0.2 (0.2) E.U./dL Ur Leukocyte Esterase Negative (NEGATIVE) Urine RBC 0-1/hpf (0-5/HPF) Urine WBC None seen (0-5/HPF) Ur Squamous Epith Cells 0-1 /hpf (0-5/HPF) Urine Bacteria None seen (None) Hyaline Casts 0-1/lpf (None) Ur Culture Indicated? Cult not indicated Vol Urine Centrifuged 10ml (spun) MDM Narrative Medical decision making narrative: CC: Complex medical history, end-stage cardiac disease with significant peripheral vascular disease osteomyelitis of the left 4th toe with increasing overall weakness and low back pain with flank pain not reproducible on clinical exam Complicating co-morbidities: CC HPI, summary of notes reviewed from formerly [facility] with hospitalizations and recent infectious disease notes Data collected from: patient, daughter, son Medical records reviewed: Notes from [facility] as well as primary care notes from [facility] are all reviewed Heart catheterization on June 21, 2023 done for cardiomyopathy and peripheral vascular disease shows mild calcification no significant disease in the left main, LAD with mild luminal irregularities, left circumflex is nondominant and free of disease, right coronary artery shows no significant disease Abdominal angiogram with runoff shows arteries down to the external iliac are free of significant disease. Severe infrapopliteal disease Differential considered: Sepsis, significant bladder distention, pyelonephritis, spontaneous compression fracture of the lumbar vertebrae Exam documented above, pertinent findings include: Frail, chronically ill-appearing gentleman. Has a slight amount of blood in the right [place] which his daughter says is chronic. I do not appreciate significant JVD or crackles. No change to chronic lower extremity findings and does not appear to have worsening infection Lab Test results independently reviewed as above. Pertinent findings: CBC is notable for white count of 7, H and H of 10.3 and 30.8 with platelets 90. Comparison from October 10 show an H&H of 10.7 and 32.6 with platelets at 207 INR this morning was 4.0 Chemistries show potassium of 4.4. Creatinine is 1.9. Comparison is October 10 with creatinine at 2.2. Lactic acid elevated at 3.1 Troponin is elevated at 0.142. Prior troponins in November had been as high as 0.3. BNP is 9250 which is actually slightly lower than his usual numbers Procalcitonin is not elevated Independently reviewed EKG: Paced rhythm at a rate of 65 with underlying atrial flutter Imaging studies independently reviewed: XR of the thoracic and lumbar spine do not show any clear compression fractures Discussion: 88-year-old gentleman with multiple chronic medical problems. Presents with lower back and flank type pain not reproducible on physical exam. X-rays do not suggest new compression fractures he does have quite a bit of gas and he does note after ?releasing that in the bathroom? he does actually feel a bit better. Regarding his chronic medical issues his troponin is elevated however less than it has been previously and in light of remarkably clean heart catheterization in June of this year I do not suspect acute coronary syndrome. He does have congestive heart failure that does appear to be at his baseline if not slightly improved with renal insufficiency that is not worsening. He does appear to be on appropriate doses of diuretic at this point. There was no sign of overwhelming infection or sepsis. We will continue with the lives in the [facility] for the left toe osteomyelitis. Findings concerns chronic problems and absence of any acute or new findings are reviewed with the patient and his family members. Questions are answered and he is safe for discharge home at this time Discharge Plan Departure Patient Disposition: Home Clinical Impression: Peripheral vascular disease, Troponin level elevated, Chronic systolic (congestive) heart failure, Osteomyelitis of fourth toe of left foot Midline low back pain without sciatica Qualifiers: Chronicity: acute Qualified Code(s): M54.50 - Low back pain, unspecified Activity Restrictions/Additional Instructions: Thank you for coming in tonight As we discussed, I am not finding any new or worsening findings that would suggest the need for hospitalization. We did x-rays of your thoracic and lumbar spine and I do not see any new compression fractures or acute changes that would explain the pain and tightness you have had in your lower back over the last week and a half. Your chronic problems appear chronic and certainly not worse perhaps even improving. These include: -A chronically elevated troponin level. This can suggest a heart attack however your heart catheterization 4 months ago that showed minimal coronary disease was very reassuring -Chronic congestive heart failure seems to be slightly improved, certainly not worse -chronic kidney disease. Not worse, perhaps slightly improved. It does seem that you are in the appropriate dose of diuretic to manage both your heart and your kidney diseases -osteomyelitis of your toe. You do need to follow up with Dr. Estrada. I have given you copies of the blood work that she had wanted you to get done. Please call her office to review If you find that you are getting worse or develop any new symptoms, please feel free to return to the emergency department for further evaluation. Prescriptions: No Action metoprolol succinate 25 mg tablet extended release 24 hr 25 mg PO BID spironolactone 25 mg tablet 25 mg PO DAILY atorvastatin 40 mg tablet 40 mg PO DAILY furosemide 40 mg tablet 20 mg PO .COMPLEX Rx Instructions: 20 mg orally once per week; tramadol 50 mg tablet 50 mg PO TID PRN (Reason: pain) Qty: 30 0RF potassium chloride 20 mEq tablet extended release 20 meq PO DAILY Qty: 90 0RF dutasteride 0.5 mg capsule 0.5 mg PO DAILY Qty: 90 1RF allopurinol 300 mg tablet 300 mg PO DAILY Qty: 90 3RF tamsulosin 0.4 mg capsule 0.8 mg PO BEDTIME Qty: 180 1RF (DME) Coaguchek XS Strip See Rx Instructions .Route Qty: 18 11RF Rx Instructions: As directed losartan 25 mg tablet 25 mg PO DAILY Qty: 90 1RF Rx Instructions: one tab daily montelukast 10 mg tablet 10 mg PO QPM Qty: 90 0RF warfarin 5 mg tablet 2.5 mg PO DAILY Qty: 90 1RF Rx Instructions: Take 1/2 tab (2.5 mg) daily or as directed. mupirocin 2 % ointment 1 applic topical TID Qty: 22 1RF Rx Instructions: ok for smaller tube if only one available or cost an issue. Consider using 2-3 times daily for 5-7 days whenever sore opens and on existing one. cholecalciferol (vitamin D3) [Vitamin D3] 1,000 unit Tablet 2,000 unit PO QPM Referrals: Hunter Lacy MD [Primary Care Provider] - Stand Alone Forms: Patient Portal/API
--- NOTE | 2023-10-19 20:09 | DI.RAD.S_ITS ---
PROCEDURE: XR CHEST 1V INDICATIONS: flank pain TECHNIQUE: One view of the chest was acquired. COMPARISON: [facility], CR, XR CHEST 1V, 11/20/2022, 13:20. [facility], CR, XR CHEST 1V, 05/26/2018, 13:05. FINDINGS: Surgical changes and devices: Left pacemaker with right atrial and right ventricular leads. Lungs and pleura: Lungs are clear. No pleural effusions. Trace right pleural effusion. Mediastinum: Mediastinal contours appear unchanged. Heart size is enlarged. Bones and chest wall: No suspicious bony lesions. Overlying soft tissues appear unremarkable. IMPRESSION: Trace right pleural effusion suspected. Bibasilar atelectasis. Dictated by: Deuce Pandey M.D. on 10/19/2023 at 20:54 Approved by: Deuce Pandey M.D. on 10/19/2023 at 20:56
[2023-10-19 20:51] LABS: Add Manual Diff / Slide Review NO; Basophils Absolute Auto 100 /uL (0-100); Basophils Percent Auto 1.5 % (0-2); Eosinophils Absolute Auto 100 /uL (0-450); Eosinophils Percent Auto 1.8 % (2-4); Hematocrit 30.8 % (41-53); Hemoglobin 10.3 g/dL (13.5-17.5); Lymphocytes Absolute Auto 900 /uL (1100-4500); Lymphocytes Percent Auto 13.5 % (25-40); Mean Corpuscular HGB Conc 33.3 % (30-36); Mean Corpuscular Hemoglobin 33.2 PG (26-34); Mean Corpuscular Volume 99.7 fL (80-100); Monocytes Absolute Auto 200 /uL (0-900); Neutrophils Absolute Auto 5600 /uL (1500-7000); Neutrophils Percent Auto 80.2 % (50-75); Platelet Count 90 X10^3/uL (150-400); Red Blood Cell Count 3.09 X10^6/uL (4.5-5.9); Red Cell Distribution Width 17.1 % (11.6-14.8)
[2023-10-19 21:01] LABS: Lactate (Lactic Acid) 3.1 mmol/L (0.7-2.1)
[2023-10-19 21:03] LABS: Alanine Aminotransferase 28 IU/L (<50); Albumin 3.9 g/dL (3.5-5.0); Albumin Globulin Ratio 1.3 (1.0-2.8); Alkaline Phosphatase 55 U/L (38-126); Aspartate Aminotransferase 27 IU/L (17-59); BUN Creatinine Ratio 36.6 (6-22); Bilirubin Total 0.7 mg/dL (0.2-1.3); Blood Urea Nitrogen 71 mg/dL (9-20); Calcium 9.4 mg/dL (8.4-10.2); Carbon Dioxide 13 mmol/L (22-32); Chloride 107 mmol/L (98-107); Estimated Glomerular Filt Rate 33 mL/min (>60); Globulin 2.9 g/dL (1.7-4.1); Glucose 141 mg/dL (80-110); HEMOLYSIS < 15 (0-50); Lipase 255 U/L (23-300); Magnesium 2.3 mg/dL (1.6-2.3); Potassium 4.4 mmol/L (3.4-5.1); Sodium 133 mmol/L (137-145); Total Protein 6.8 g/dL (6.3-8.2)
[2023-10-19 21:14] LABS: NT-proBNP (BNP-Adult 18+) 9250 pg/mL (<450)
[2023-10-19 21:19] LABS: Procalcitonin 0.19 ng/mL (<0.5)
[2023-10-19 21:44] LABS: Troponin I 0.142 ng/mL (0.01-0.034)
--- NOTE | 2023-10-19 22:00 | DI.RAD.S_ITS ---
PROCEDURE: XR THORACIC SPINE 2V INDICATIONS: pain. ? compression fx TECHNIQUE: 3 views of the thoracic spine were acquired. COMPARISON: None. FINDINGS: Bones: No fractures or dislocations. No suspicious bony lesions. 12 pairs of ribs are noted, and appear intact where visualized. Soft tissues: No paravertebral stripe thickening. Prominent heart size. Left pacemaker. IMPRESSION: No acute bony abnormality. Dictated by: Deuce Pandey M.D. on 10/19/2023 at 23:52 Approved by: Deuce Pandey M.D. on 10/19/2023 at 23:54
--- NOTE | 2023-10-19 22:00 | DI.RAD.S_ITS ---
PROCEDURE: XR LUMBAR SPINE 2-3V INDICATIONS: pain, ? compression fracture TECHNIQUE: 3 views of the lumbar spine were acquired. COMPARISON: [facility], , L-SPINE 2-3 VIEWS, 12/01/2010, 11:17. CT abdomen pelvis 05/22/2020. FINDINGS: Bones: 5 [id number] vertebrae are present. Mild scoliosis. Multilevel disc space height loss. Multilevel vertebral body osteophytes. Lower lumbar spine facet joint hypertrophy. Minimal height loss at L5 is unchanged. No suspicious bony lesions. Soft tissues: Overlying bowel gas pattern is normal. No suspicious soft tissue calcifications. Aortic vascular calcifications. IMPRESSION: No acute compression fracture. Dictated by: Deuce Pandey M.D. on 10/19/2023 at 23:48 Approved by: Deuce Pandey M.D. on 10/19/2023 at 23:50
[2023-10-19 22:05] LABS: Appearance Urine UA CLEAR; Bilirubin Urine UA NEGATIVE (NEGATIVE); Color Urine UA YELLOW; Glucose Urine UA NEGATIVE (Negative); Ketones Urine UA NEGATIVE (NEGATIVE); Leukocyte Esterase Urine UA NEGATIVE (NEGATIVE); Nitrite Urine UA NEGATIVE (Negative); Occult Blood Urine UA 1+ (Negative); Protein Urine UA NEGATIVE (Negative); Urobilinogen Urine UA 0.2 E.U./dL (0.2)
[2023-10-19 22:08] LABS: Bacteria Urine None Seen; Culture Indicated Urine Cult Not Indicated; Hyaline Casts Urine 0-1/LPF; RBC Urine 0-1/HPF (0-5/HPF); Squamous Epithelial Cell Urine 0-1 /HPF (0-5/HPF); Urine Volume 10mL (spun); WBC Urine None Seen (0-5/HPF)
[2023-10-19 22:21] LABS: Reflexed Lactate in 2 Hours Y
[2023-10-20] VITALS: BP 106/53; PULSE 62; RESP 23; O2SAT 99
== END 2023-10-20 00:23 | disposition home or self-care (01) ==
PROVIDERS: Emergency Provider Emergency Medicine; PCP Family Medicine
DX: I73.9 Peripheral vascular disease, unspecified (principal); M86.9 Osteomyelitis, unspecified; I50.22 Chronic systolic (congestive) heart failure; R79.89 Other specified abnormal findings of blood chemistry; M54.50 Low back pain, unspecified; R10.9 Unspecified abdominal pain; Z79.01 Long term (current) use of anticoagulants; Z79.899 Other long term (current) drug therapy
CPT/HCPCS: 71045; 72070; 72100; 80053; 81001; 83605; 83690; 83735; 83880; 84145; 84484; 85025; 87040; 93005; 93010; 99282; 99284

== ENCOUNTER 2023-11-06 14:49 | Inpatient (IN) | payer OTHER, SELFPAY ==
[2022-11-20 18:40] VITALS: BMI 20.6
[2023-11-06] VITALS (29 sets, daily range): BP systolic 88–127; BP diastolic 50–64; PULSE 60–86; RESP 15–22; TEMP 35.7–36.5; O2SAT 95–100; BMI 18.7
[2023-11-06] MEDS: PANTOPRAZOLE 40 MG VIAL 80 MG IV (15:19)
[2023-11-06 15:27] LABS: Add Manual Diff / Slide Review YES; Hematocrit 23.5 % (41-53); Hemoglobin 7.8 g/dL (13.5-17.5); Mean Corpuscular HGB Conc 33.1 % (30-36); Mean Corpuscular Volume 99.5 fL (80-100); Platelet Count 260 X10^3/uL (150-400); Red Blood Cell Count 2.36 X10^6/uL (4.5-5.9); Red Cell Distribution Width 17.6 % (11.6-14.8); White Blood Cell Count 7.5 X10^3/uL (4.5-11.0)
[2023-11-06 15:28] LABS: INR 2.1 (0.9-1.3); Prothrombin Time 24.5 SECONDS (9.4-12.5)
[2023-11-06 15:31] LABS: PTT Partial Thromboplastin Tim 37 SECONDS (25.1-36.5)
[2023-11-06 15:32] LABS: Alanine Aminotransferase 21 IU/L (<50); Albumin 3.2 g/dL (3.5-5.0); Albumin Globulin Ratio 1.4 (1.0-2.8); Alkaline Phosphatase 69 U/L (38-126); Aspartate Aminotransferase 27 IU/L (17-59); BUN Creatinine Ratio 41.4 (6-22); Bilirubin Total 0.8 mg/dL (0.2-1.3); Blood Urea Nitrogen 58 mg/dL (9-20); Calcium 8.5 mg/dL (8.4-10.2); Carbon Dioxide 19 mmol/L (22-32); Chloride 110 mmol/L (98-107); Estimated Glomerular Filt Rate 49 mL/min (>60); Globulin 2.3 g/dL (1.7-4.1); Glucose 157 mg/dL (80-110); HEMOLYSIS < 15 (0-50); Potassium 3.7 mmol/L (3.4-5.1); Sodium 135 mmol/L (137-145); Total Protein 5.5 g/dL (6.3-8.2)
--- NOTE | 2023-11-06 15:40 | ED.GIBLEED ---
HPI - GI Bleed General Chief complaint: GI Bleed Stated complaint: Extreme Anemia Time Seen by Provider: 11/06/23 15:20 Source: patient, family, RN notes reviewed and old records reviewed Mode of arrival: Family Vehicle Limitations: no limitations History of Present Illness HPI Narrative: 88-year-old male with history of atrial fibrillation anticoagulated on warfarin, systolic congestive heart failure, peripheral arterial disease, pacemaker following with Dr. Boyce with Infectious Disease at [facility] for a left 4th toe nonhealing ulcer and underlying osteomyelitis. Patient has recently stopped antibiotics under their direction. Patient had outpatient labs in the last and found a significant drop in his hemoglobin. Patient is on warfarin they typically check it every Tuesday but his daughter states she was unable to get blood sample. Patient denies any lightheadedness or passing out, no chest pain or shortness of breath, no nausea or vomiting. Had some black tarry stool yesterday, denies recurrent episodes in the last 24 hours. He did note he was having some black stools in the last couple weeks but has been having a nosebleed and related prior black stools to that. Patient's blood pressure has been 8200 systolic family states that is very normal for him. He does have a remote history of colonoscopy with colon polyp 10 or 20 years ago never had follow up colonoscopy after that. Patient primary care is Dr. Lacy. Related Data Home Medications Medication Instructions Recorded Confirmed cholecalciferol (vitamin D3) 25 2,000 unit PO QPM 01/20/18 11/06/23 mcg (1,000 unit) tablet (Vitamin D3) metoprolol succinate 25 mg 25 mg PO BID 06/08/23 11/06/23 tablet,extended release 24 hr atorvastatin 40 mg tablet 40 mg PO DAILY 08/25/23 11/06/23 furosemide 40 mg tablet 20 mg PO .COMPLEX 11/03/23 11/06/23 losartan 25 mg tablet 12.5 mg PO DAILY 11/03/23 11/06/23 spironolactone 25 mg tablet 12.5 mg PO DAILY 11/03/23 11/06/23 Previous Rx's Medication Instructions Recorded mupirocin 2 % topical ointment 1 applic topical TID #22 grams 02/24/23 potassium chloride 20 mEq 20 meq PO DAILY #90 tabs 03/23/23 tablet,extended release dutasteride 0.5 mg capsule 0.5 mg PO DAILY #90 caps 06/13/23 tamsulosin 0.4 mg capsule 0.8 mg (2 x 0.4 mg) PO BEDTIME 08/03/23 #180 caps prothrombin time test strips #18 ea 09/01/23 (Coaguchek XS strips) montelukast 10 mg tablet 10 mg PO QPM #90 tabs 09/18/23 warfarin 5 mg tablet 2.5 mg (1/2 x 5 mg) PO DAILY #90 09/28/23 tabs allopurinol 300 mg tablet 300 mg PO DAILY #90 tabs 10/24/23 Allergies Allergy/AdvReac Type Severity Reaction Status Date / Time Penicillins Allergy Intermediate Rash Verified 11/03/23 14:00 KAYLYNN Inhibitors AdvReac Intermediate COUGH Verified 11/03/23 14:00 [KAYLYNN INHIBITORS] Review of Systems Review of Systems ROS Unobtainable: All systems reviewed & are unremarkable except as noted in HPI and below Patient History Medical History Elevated troponin Eustachian tube dysfunction Ulcer of patton Callus of toe Toe ulcer Anticoagulation monitoring, INR range 2-3 Microscopic hematuria Xerosis of skin BPH w urinary obs/LUTS Venous insufficiency of both lower extremities Cataracts, bilateral (~2014) Hypertension Knee pain, right (07/2017) Neck pain (03/2017) Actinic keratosis Basal cell carcinoma Squamous cell carcinoma Rosacea (2009) Fractures (~1961) Skin lesion of face BPH (benign prostatic hyperplasia) Chronic back pain Dyslipidemia Congestive heart failure Atrial fibrillation and flutter (2013) Adjustment insomnia (10/07/16) Spinal stenosis of lumbosacral region (06/19/15) Rosacea (06/19/15) Midline low back pain without sciatica (06/19/15) Essential hypertension (06/19/15) Allergic rhinitis due to pollen (06/19/15) NSTEMI (non-ST elevated myocardial infarction) Surgical History History of permanent cardiac pacemaker placement Hx of cataract surgery (2014) History of ankle surgery (~1961) History of cardioversion Hx of Moh's micrographic surgery for skin cancer S/P excision of skin lesion, follow-up exam History of radiofrequency ablation (RFA) procedure for cardiac arrhythmia (06/10/17) Family History Father Heart disease Mother Heart disease Social History marital status: number of children: 2 household members: family Smoking Status: Never smoker alcohol intake: former caffeine: No Smoking Status: Never smoker alcohol intake frequency: holidays/special occasions only Substance Use Type: does not use Exam Narrative Exam Narrative: GENERAL: Alert and oriented x three, elderly male in mild distress. Patient does appear pale. He appears in good spirits joking around. HEENT: Head normocephalic, atraumatic, EOMI, pupils reactive, face symmetric, positive for conjunctival pallor, moist mucous membranes NECK: Supple, full range of motion CARDIOVASCULAR: Regular rate and rhythm without murmurs, rubs or gallops. No edema bilateral lower extremities. RESPIRATORY: Breath sounds equal bilaterally, no wheezes rales or rhonchi. ABDOMEN: Soft, nontender. Nondistended. Normoactive bowel sounds all 4 quadrants. No guarding or rebound, rigidity, no mass : No CVA tenderness EXTREMITIES: Normal range of motion, no clubbing or edema. Neurovascularly intact NEUROLOGICAL: Cranial nerves II through XII grossly intact. Moving all extremities SKIN: Warm, dry, no petechiae, no rashes or lesions, patient has some ecchymosis on his forearm, few small areas of ecchymosis but no large hematomas. No petechiae appreciated. Initial Vital Signs Initial Vital Signs: Vital Signs Temperature 97.7 F 11/06/23 14:53 Pulse Rate 86 11/06/23 14:53 Respiratory Rate 16 11/06/23 14:53 Blood Pressure 88/53 L 11/06/23 14:53 Pulse Oximetry 98 11/06/23 14:53 Oxygen Delivery Method Room Air 11/06/23 14:53 Course Orders Ordered: ED Orders 11/06/23 15:09 EKG-12 Lead Stat 11/06/23 15:12 Complete Blood Count AUTO DIFF Stat Comprehensive Metabolic Panel Stat PTT Partial Thromboplastin Esteban Stat Pathologist Review (for CBC) Stat Prothrombin Time INR Stat 11/06/23 15:53 PRBC [Packed Cells] Stat Type and Screen Stat 11/06/23 15:59 Consult to General Surgery Stat Acetaminophen (Acetaminophen 325 Mg Tablet) 650 mg PO Q6H PRN PRN Reason: Fever/Mild Pain (1-3) Metoprolol Succinate (Metoprolol Er 25 Mg Tablet) 25 mg PO BID [facility] Naloxone HCl (Naloxone 0.4 Mg/Ml Vial) 0.2 mg IV Q2MIN PRN PRN Reason: Opiate Reversal Ondansetron HCl (Ondansetron 4 Mg/2 Ml Inj) 4 mg IV Q8HR PRN PRN Reason: Nausea And Vomiting Pantoprazole Sodium (Pantoprazole 40 Mg Vial) 20 mg IV DAILY [facility] Discontinued Medications Furosemide (Furosemide 40 Mg/4 Ml Vial) 40 mg IV NOW ONE Stop: 11/06/23 15:59 Sodium Chloride (Normal Saline 0.9%) 250 mls @ 21 mls/hr IV CONT [facility] Last Admin: 11/06/23 18:42 Dose: Not Given Documented By: BERNABE Ondansetron HCl (Ondansetron 4 Mg/2 Ml Inj) 4 mg IV NOW PRN PRN Reason: Nausea And Vomiting Ondansetron HCl (Ondansetron 4 Mg Odt) 4 mg SL NOW PRN PRN Reason: Nausea And Vomiting Pantoprazole Sodium (Pantoprazole 40 Mg Vial) 80 mg IV NOW ONE Stop: 11/06/23 15:10 Last Admin: 11/06/23 15:19 Dose: 80 mg Documented By: Sodium Chloride (Sodium Chloride 0.9% Flush) 10 ml IV PRN PRN PRN Reason: Flush Sodium Chloride (Sodium Chloride 0.9% Flush) 10 ml IV BID [facility] Vital Signs Vital signs: Vital Signs - 8 hr 11/06/23 14:53 11/06/23 15:09 11/06/23 15:12 Temperature 97.7 F Pulse Rate 86 62 Respiratory Rate 16 20 Blood Pressure 88/53 L 105/51 L Pulse Oximetry 98 100 Oxygen Delivery Method Room Air 11/06/23 15:12 11/06/23 15:15 11/06/23 15:15 Temperature Pulse Rate 63 63 Respiratory Rate 18 Blood Pressure 110/56 L Pulse Oximetry 100 100 Oxygen Delivery Method 11/06/23 15:16 11/06/23 15:16 11/06/23 15:17 Temperature Pulse Rate 63 Respiratory Rate Blood Pressure 111/56 L 112/57 L Pulse Oximetry 100 Oxygen Delivery Method 11/06/23 15:17 11/06/23 15:18 11/06/23 15:18 Temperature Pulse Rate 65 62 Respiratory Rate 21 20 Blood Pressure 109/53 L Pulse Oximetry 100 100 Oxygen Delivery Method 11/06/23 15:19 11/06/23 15:19 11/06/23 15:20 Temperature Pulse Rate 63 Respiratory Rate Blood Pressure 105/53 L 102/51 L Pulse Oximetry 100 Oxygen Delivery Method 11/06/23 15:20 11/06/23 15:28 11/06/23 15:28 Temperature Pulse Rate 64 65 Respiratory Rate 20 Blood Pressure 104/56 L Pulse Oximetry 100 100 Oxygen Delivery Method 11/06/23 15:30 11/06/23 15:30 11/06/23 15:45 Temperature Pulse Rate 66 Respiratory Rate Blood Pressure 110/51 L 100/54 L Pulse Oximetry 100 Oxygen Delivery Method 11/06/23 15:45 11/06/23 15:53 11/06/23 16:10 Temperature Pulse Rate 63 64 Respiratory Rate 22 19 Blood Pressure 101/59 L Pulse Oximetry 100 100 Oxygen Delivery Method 11/06/23 16:11 11/06/23 16:20 11/06/23 16:20 Temperature Pulse Rate 60 60 Respiratory Rate 15 18 Blood Pressure 96/53 L Pulse Oximetry 100 100 Oxygen Delivery Method MDM - GI Bleed Lab Data 11/06/23 15:12 11/06/23 15:12 Labs: Lab Results 11/06/23 11/06/23 Range/Units 15:12 15:53 WBC 7.5 (4.5-11.0) X10^3/uL RBC 2.36 L (4.5-5.9) X10^6/uL Hgb 7.8 L (13.5-17.5) g/dL Hct 23.5 L (41-53) % MCV 99.5 (80-100) fL MCH 33.0 (26-34) PG MCHC 33.1 (30-36) % RDW 17.6 H (11.6-14.8) % Plt Count 260 (150-400) X10^3/uL Neut % (Auto) Not Reportable Lymph % (Auto) Not Reportable [place] % (Auto) Not Reportable Eos % (Auto) Not Reportable Baso % (Auto) Not Reportable Lymph # (Auto) Not Reportable [place] # (Auto) Not Reportable Baso # (Auto) Not Reportable Total Counted 100 Seg Neutrophils % 68.0 (38-70) % Band Neutrophils % 1.0 L (3-7) % Lymphocytes % (Manual) 20.0 L (25-45) % Monocytes % (Manual) 10.0 (2-11) % Eosinophils % (Manual) 1.0 L (2-4) % Neutrophils # (Manual) 5175 (1244-1911) /uL Nucleated RBCs 144 H ( - 0) #/Diff RBC Morphology See below Polychromasia 1+ H Hypochromasia 2+ H Poikilocytosis 2+ H Anisocytosis 2+ H Target Cells 1+ H Acanthocytes (Spur) 3+ Schistocytes 2+ H PT 24.5 H (9.4-12.5) SECONDS INR 2.1 H (0.9-1.3) APTT 37 H (25.1-36.5) SECONDS Sodium 135 L (137-145) mmol/L Potassium 3.7 (3.4-5.1) mmol/L Chloride 110 H (98-107) mmol/L Carbon Dioxide 19 L (22-32) mmol/L BUN 58 H (9-20) mg/dL Creatinine 1.40 H (0.66-1.25) mg/dL Estimated GFR 49 L (>60) mL/min BUN/Creatinine Ratio 41.4 H (6-22) Glucose 157 H (80-110) mg/dL Calcium 8.5 (8.4-10.2) mg/dL Total Bilirubin 0.8 (0.2-1.3) mg/dL AST 27 (17-59) IU/L ALT 21 (<50) IU/L Alkaline Phosphatase 69 (38-126) U/L Total Protein 5.5 L (6.3-8.2) g/dL Albumin 3.2 L (3.5-5.0) g/dL Globulin 2.3 (1.7-4.1) g/dL Albumin/Globulin Ratio 1.4 (1.0-2.8) Blood Type A Positive Rho(D) Type Cancelled Antibody Screen Negative Crossmatch See Detail ECG Data Attestation: I personally reviewed and interpreted this ECG as follows: Interpretation: Particularly paced rhythm, rate of 64 QRS of 166 QTC of 503, no acute ST changes. Nonspecific change. MDM Narrative Medical decision making narrative: 88-year-old male who presents with complaint of low blood count on outpatient labs. These were drawn on direction in his infectious disease doctor to follow up labs. Had hemoglobin is 7.8 labs patient's family presents with. Patient was 10.3 on 10/19/2023, platelets today or to 60, hemoglobin 7.5. INR is 2.1, sodium 135 potassium 3.7 chloride 110 CO2 of 19, BUN 58, creatinine 1.4 improved from prior in October, glucose is 157 LFTs are negative. Patient was hypotensive initially here on arrival but per family patient that has a normal range for him 80s to 100. EKG shows a paced rhythm. Patient does appear that he would benefit he has been having black tarry stools at least today 1 time and had occasional although he would related that to prior nosebleeds. He has not had any nosebleeds recently. Patient was covered with Protonix 80 mg. Patient is agreeable for transfusion. Patient does have history of CHF unlikely given dose of Lasix in between units. Spoke with general surgery, Dr. Alicea, she is happy to see patient. Plan for EGD tomorrow. Spoke with patient and family, he is currently full code. Spoke with Dr. Flynn accepts patient. Was here in the department to see patient. Critical Care Time Critical Care Time Critical Care Time: Yes Total Critical Care Time: 25 Attestation: The high probability of a clinically significant, sudden or life threatening deterioration of the cardiac system(s) required my full and direct attention, intervention and personal management. The aggregate critical care time was 45 minutes. This time is in addition to time spent performing reported procedures but includes the following: [x] Data Review and interpretation [x] Patient assessment and monitoring of vital signs [x] Documentation [x] Medication orders and management Discharge Plan Departure Patient Disposition: Admitted As Inpatient Clinical Impression: Acute GI bleeding, Anemia, Elevated INR Admit Date/Time: 11/06/23 16:23 Admit Provider: Choco Flynn
[2023-11-06 16:00] LABS: Neutrophils Absolute Manual 5175 /uL (3000-5900); Nucleated Red Blood Cells 144 #/Diff; Total Cells Counted 100
[2023-11-06 16:18] LABS: Acanthocytes 3+; Poikilocytosis 2+; Schistocytes 2+; Target Cells 1+
[2023-11-06 16:19] LABS: Anisocytosis 2+; Hypochromasia 2+; Polychromasia 1+
--- NOTE | 2023-11-06 17:37 | PC.NURSE ---
Pt arrived in wheelchair from ED at 1715, 1x assist to bed with FWW. A&Ox4, VSS on RA, no c/o pain. Lungs CTA, bowel sounds present, CMS+. Tele placed: V-paced. Blood retrieved from blood bank and started, consent on chart. Patient and family at bedside oriented to room and call light. Bed in low position, bed alarm activated, call light within reach, SCDs on.
--- NOTE | 2023-11-06 18:50 | P.HP_ITS ---
History of Present Illness History of Present Illness Date Patient Seen: 11/06/23 Time Patient Seen: 18:50 Chief complaint: Extreme Anemia Narrative: Patient is an 88-year-old male patient of Dr. Lacy who I am seeing in [facility] [place]. No other changes. Patient has a history of atrial fibrillation on Coumadin. Peripheral artery disease. Has a pacemaker. Apparently has been followed for by Infectious Disease for left 2nd toe osteomyelitis and ulcer. Apparently has recently stopped antibiotics because there was an issue with platelets and kidney function. Patient had outpatient labs recently and was called to say that he had a low hematocrit and was asked to come to the emergency room. Patient has been overall feeling okay. Very fatigued. He would noticed some black stools yesterday maybe today but no other changes. He has had no nausea vomiting abdominal pain. Appetite has been okay over the last 3 weeks he has lost a lot a weight but has had no other change. Apparently he also had a lot of fluid on board and it is unclear how that was removed. Patient otherwise has had no history of ulcers. Has a history of colon polyps somewhere around 20 years ago and no colonoscopy after that. No other significant changes or complaints. Patient otherwise feels well. No chest pain shortness for breath orthopnea PND. Patient has had a lot of back pain. And has not been taking anything for it. Some question whether it is related to his kidneys. But it is all low back in the bone. [facility] Medical History Elevated troponin Eustachian tube dysfunction Ulcer of patton Callus of toe Toe ulcer Anticoagulation monitoring, INR range 2-3 Microscopic hematuria Xerosis of skin BPH w urinary obs/LUTS Venous insufficiency of both lower extremities Cataracts, bilateral (~2014) Hypertension Knee pain, right (07/2017) Neck pain (03/2017) Actinic keratosis Basal cell carcinoma Squamous cell carcinoma Rosacea (2009) Fractures (~1962) Skin lesion of face BPH (benign prostatic hyperplasia) Chronic back pain Dyslipidemia Congestive heart failure Atrial fibrillation and flutter (2013) Adjustment insomnia (10/07/16) Spinal stenosis of lumbosacral region (06/19/15) Rosacea (06/19/15) Midline low back pain without sciatica (06/19/15) Essential hypertension (06/19/15) Allergic rhinitis due to pollen (06/19/15) NSTEMI (non-ST elevated myocardial infarction) Surgical History History of permanent cardiac pacemaker placement Hx of cataract surgery (2014) History of ankle surgery (~1962) History of cardioversion Hx of Moh's micrographic surgery for skin cancer S/P excision of skin lesion, follow-up exam History of radiofrequency ablation (RFA) procedure for cardiac arrhythmia (06/10/17) Family History Father Heart disease Mother Heart disease Social History marital status: number of children: 2 household members: family Smoking Status: Never smoker alcohol intake: former caffeine: No Meds Home Medications and Allergies Home Medications Medication Instructions Recorded Confirmed Type cholecalciferol (vitamin D3) 25 2,000 unit PO QPM 01/20/18 11/06/23 History mcg (1,000 unit) tablet (Vitamin D3) mupirocin 2 % topical ointment 1 applic topical TID #22 grams 02/24/23 11/03/23 Rx potassium chloride 20 mEq 20 meq PO DAILY #90 tabs 03/23/23 11/03/23 Rx tablet,extended release metoprolol succinate 25 mg 25 mg PO BID 06/08/23 11/06/23 History tablet,extended release 24 hr dutasteride 0.5 mg capsule 0.5 mg PO DAILY #90 caps 06/13/23 11/06/23 Rx tamsulosin 0.4 mg capsule 0.8 mg (2 x 0.4 mg) PO BEDTIME 08/03/23 11/06/23 Rx #180 caps atorvastatin 40 mg tablet 40 mg PO DAILY 08/25/23 11/06/23 History prothrombin time test strips #18 ea 09/01/23 11/03/23 Rx (Coaguchek XS strips) montelukast 10 mg tablet 10 mg PO QPM #90 tabs 09/18/23 11/06/23 Rx warfarin 5 mg tablet 2.5 mg (1/2 x 5 mg) PO DAILY #90 09/28/23 11/06/23 Rx tabs allopurinol 300 mg tablet 300 mg PO DAILY #90 tabs 10/24/23 11/06/23 Rx furosemide 40 mg tablet 20 mg PO .COMPLEX 11/03/23 11/06/23 History losartan 25 mg tablet 12.5 mg PO DAILY 11/03/23 11/06/23 History spironolactone 25 mg tablet 12.5 mg PO DAILY 11/03/23 11/06/23 History Allergies Allergy/AdvReac Type Severity Reaction Status Date / Time Penicillins Allergy Intermediate Rash Verified 11/03/23 14:00 KAYLYNN Inhibitors AdvReac Intermediate COUGH Verified 11/03/23 14:00 [KAYLYNN INHIBITORS] Review of Systems Review of Systems Narrative: Negative except above Exam Vital Signs (past 8 hours): - 11/06/23 14:53 11/06/23 15:09 11/06/23 15:12 Temperature 97.7 F Pulse Rate 86 62 Respiratory Rate 16 20 Blood Pressure 88/53 L 105/51 L Pulse Oximetry 98 100 Oxygen Delivery Method Room Air 11/06/23 15:12 11/06/23 15:15 11/06/23 15:15 Temperature Pulse Rate 63 63 Respiratory Rate 18 Blood Pressure 110/56 L Pulse Oximetry 100 100 Oxygen Delivery Method 11/06/23 15:16 11/06/23 15:16 11/06/23 15:17 Temperature Pulse Rate 63 Respiratory Rate Blood Pressure 111/56 L 112/57 L Pulse Oximetry 100 Oxygen Delivery Method 11/06/23 15:17 11/06/23 15:18 11/06/23 15:18 Temperature Pulse Rate 65 62 Respiratory Rate 21 20 Blood Pressure 109/53 L Pulse Oximetry 100 100 Oxygen Delivery Method 11/06/23 15:19 11/06/23 15:19 11/06/23 15:20 Temperature Pulse Rate 63 Respiratory Rate Blood Pressure 105/53 L 102/51 L Pulse Oximetry 100 Oxygen Delivery Method 11/06/23 15:20 11/06/23 15:28 11/06/23 15:28 Temperature Pulse Rate 64 65 Respiratory Rate 20 Blood Pressure 104/56 L Pulse Oximetry 100 100 Oxygen Delivery Method 11/06/23 15:30 11/06/23 15:30 11/06/23 15:45 Temperature Pulse Rate 66 Respiratory Rate Blood Pressure 110/51 L 100/54 L Pulse Oximetry 100 Oxygen Delivery Method 11/06/23 15:45 11/06/23 15:53 11/06/23 16:10 Temperature Pulse Rate 63 64 Respiratory Rate 22 19 Blood Pressure 101/59 L Pulse Oximetry 100 100 Oxygen Delivery Method 11/06/23 16:11 11/06/23 16:20 11/06/23 16:20 Temperature Pulse Rate 60 60 Respiratory Rate 15 18 Blood Pressure 96/53 L Pulse Oximetry 100 100 Oxygen Delivery Method 11/06/23 16:30 11/06/23 16:30 11/06/23 16:40 Temperature Pulse Rate 60 Respiratory Rate 19 Blood Pressure 97/54 L 98/54 L Pulse Oximetry 100 Oxygen Delivery Method 11/06/23 16:40 11/06/23 16:50 11/06/23 16:50 Temperature Pulse Rate 62 63 Respiratory Rate 20 20 Blood Pressure 103/58 L Pulse Oximetry 100 100 Oxygen Delivery Method 11/06/23 17:00 11/06/23 17:00 11/06/23 17:36 Temperature 97 F L Pulse Rate 63 67 Respiratory Rate 18 20 Blood Pressure 103/55 L 105/53 L Pulse Oximetry 100 100 Oxygen Delivery Method 11/06/23 17:43 11/06/23 17:49 11/06/23 18:01 Temperature 97 F L 97.5 F L Pulse Rate 67 66 Respiratory Rate 20 20 Blood Pressure 105/53 L 106/50 L Pulse Oximetry Oxygen Delivery Method Room Air Oxygen Delivery Method Room Air Narrative Exam Narrative: Alert fatigued appearing elderly male pale in appearance sounds completely nontender. Bulbar conjunctivae are quite pale. Posterior pharynx is normal neck supple without adenopathy lungs are clear. Heart is regular rate and rhythm. Abdomen is soft positive bowel. Back shows some tenderness in the SI joint region but no flank tenderness. Neurologic exam appears normal Objective Labs 11/06/23 15:12 11/06/23 15:12 Labs: Laboratory Results - last 24 hr 11/06/23 11/06/23 15:12 15:53 WBC 7.5 RBC 2.36 L Hgb 7.8 L Hct 23.5 L MCV 99.5 MCH 33.0 MCHC 33.1 RDW 17.6 H Plt Count 260 Neut % (Auto) Not Reportable Lymph % (Auto) Not Reportable Pike % (Auto) Not Reportable Eos % (Auto) Not Reportable Baso % (Auto) Not Reportable Lymph # (Auto) Not Reportable Pike # (Auto) Not Reportable Baso # (Auto) Not Reportable Total Counted 100 Seg Neutrophils % 68.0 Band Neutrophils % 1.0 L Lymphocytes % (Manual) 20.0 L Monocytes % (Manual) 10.0 Eosinophils % (Manual) 1.0 L Neutrophils # (Manual) 5175 Nucleated RBCs 144 H RBC Morphology See below Polychromasia 1+ H Hypochromasia 2+ H Poikilocytosis 2+ H Anisocytosis 2+ H Target Cells 1+ H Acanthocytes (Spur) 3+ Schistocytes 2+ H PT 24.5 H INR 2.1 H APTT 37 H Sodium 135 L Potassium 3.7 Chloride 110 H Carbon Dioxide 19 L BUN 58 H Creatinine 1.40 H Estimated GFR 49 L BUN/Creatinine Ratio 41.4 H Glucose 157 H Calcium 8.5 Total Bilirubin 0.8 AST 27 ALT 21 Alkaline Phosphatase 69 Total Protein 5.5 L Albumin 3.2 L Globulin 2.3 Albumin/Globulin Ratio 1.4 Blood Type A Positive Rho(D) Type Cancelled Antibody Screen Negative Crossmatch See Detail Assessment & Plan Assessment & Plan narrative: GI bleed. Acute. Patient with elevated INR appropriate for his Coumadin but at this point we are going to discontinue that. It appears to be upper or at least right side:. With dark black stools. Will start on pantoprazole. Hold Coumadin. Dr. Alicea has been consulted. They will see tomorrow. No other change. Acute blood loss anemia. Getting 2 units today. Will get Lasix in between units. Probable upper GI cause. Will be on pantoprazole and will be with consult. Will recheck after 2nd unit in the morning and will take most of the night to get most of his 2 units in. Should be adequate. Unless he starts bleeding actively. Atrial fibrillation. At this time he seems to be doing well. Blood pressure is stable will continue his beta-yovanny he has on a paced rhythm now. Discontinue his Coumadin. Not sure when we will be able to restart that. May depend on what we find. Certainly will not be happening over the next 7 days. Discussed this. Discussed risk. Both he and his family understand. Acute on chronic kidney failure. Actually was worse a few days ago. Seems to be doing better. I suspect some of this is prerenal will see what happens once he gets blood. I am not going to give more than his blood for fluids. And see how things go. Recheck a.m.. Infection right toe. Overall doing well. As per Infectious Disease I do not think we need to address at this time. Peripheral artery disease. Stable. No other change. Congestive heart failure. Systolic left heart. Overall stable. Will need to follow closely. Will see what happens once he gets his blood products. May need to give more Lasix holding oral medicines at this time. Hypertension. Mildly elevated will follow. Can restart his other medicines if we need to am going to hold them for now. Code status. Discussed with him in his family they would like DNR. GI prophylaxis on PPI. DVT prophylaxis SCDs can not use Lovenox on Coumadin and have to hold that. With GI bleed. Disposition. Patient will be here at least 48 hours. Will have to see what happens with treatment will see how it goes from there. High risk for significant serious outcome with bleeding but will need to closely follow and should be okay Quality VTE Deep Vein Thrombosis/Pulmonary Embolism Present on Admission: No
[2023-11-06] MEDS: SODIUM CHLORIDE 0.9% FLUSH 10 ML IV ×2 (20:25→23:44)
[2023-11-06] MEDS: FUROSEMIDE 40 MG/4 ML VIAL IV (20:25)
--- NOTE | 2023-11-06 23:21 | PC.NURSE ---
Patient is alert and oriented. Breath sounds CTA with RA sat of 95%. HRR and telemetry was v-paced. Denies nausea. BT present and is passing flatus. Denied dysuria and is using urinal; stands at bedside with walker and SBA due to generalized weakness. Is able to turn himself in bed. Is wearing bilateral calf SCD's. Denied pain. Dressings to heels and toes are CDI but heels/feet are reddened so heel protectors applied. Edema present in bilateral feet left > right. Fall risk score is high and bed alarm is activated. Is NPO; patient verbalizes understanding.
[2023-11-06] MEDS: METOPROLOL ER 25 MG TABLET PO (23:52)
[2023-11-07] VITALS (24 sets, daily range): BP systolic 77–121; BP diastolic 43–91; PULSE 19–70; RESP 13–99; TEMP 35.7–36.4; O2SAT 97–100; BMI 19.6
[2023-11-07 05:19] LABS: Add Manual Diff / Slide Review NO; Basophils Absolute Auto 100 /uL (0-100); Basophils Percent Auto 0.6 % (0-2); Eosinophils Absolute Auto 100 /uL (0-450); Eosinophils Percent Auto 0.8 % (2-4); Hematocrit 29.6 % (41-53); Lymphocytes Absolute Auto 1500 /uL (1100-4500); Lymphocytes Percent Auto 18.5 % (25-40); Mean Corpuscular HGB Conc 33.8 % (30-36); Mean Corpuscular Hemoglobin 32.7 PG (26-34); Mean Corpuscular Volume 96.8 fL (80-100); Monocytes Absolute Auto 1000 /uL (0-900); Monocytes Percent Auto 11.6 % (3-14); Neutrophils Absolute Auto 5700 /uL (1500-7000); Neutrophils Percent Auto 68.5 % (50-75); Platelet Count 245 X10^3/uL (150-400); Red Blood Cell Count 3.06 X10^6/uL (4.5-5.9); Red Cell Distribution Width 16.6 % (11.6-14.8); White Blood Cell Count 8.3 X10^3/uL (4.5-11.0)
[2023-11-07 05:33] LABS: Alanine Aminotransferase 21 IU/L (<50); Albumin 3.3 g/dL (3.5-5.0); Albumin Globulin Ratio 1.3 (1.0-2.8); Alkaline Phosphatase 76 U/L (38-126); Aspartate Aminotransferase 32 IU/L (17-59); BUN Creatinine Ratio 38.1 (6-22); Bilirubin Total 0.8 mg/dL (0.2-1.3); Blood Urea Nitrogen 53 mg/dL (9-20); Calcium 8.4 mg/dL (8.4-10.2); Carbon Dioxide 21 mmol/L (22-32); Chloride 111 mmol/L (98-107); Estimated Glomerular Filt Rate 49 mL/min (>60); Globulin 2.5 g/dL (1.7-4.1); Glucose 105 mg/dL (80-110); HEMOLYSIS < 15 (0-50); Potassium 3.8 mmol/L (3.4-5.1); Sodium 138 mmol/L (137-145); Total Protein 5.8 g/dL (6.3-8.2)
--- NOTE | 2023-11-07 07:02 | PM.CALLCOV.1 ---
Call Coverage Note Note Date of Patient Contact: 11/07/23 Narrative of Care Provided: EGD planned for 1:30pm today
--- NOTE | 2023-11-07 07:57 | P.PN_ITS ---
Subjective Subjective Date Patient Seen: 11/07/23 Time Patient Seen: 07:57 Interval history: Patient discussed with Dr. Flynn Received transfusion yesterday blood counts this morning much improved seem to be back to baseline. Reviewed notes from Infectious Disease at [facility] patient was previously on Linezolid, discontinued in favor of doxycycline because of thrombocytopenia. Doxycycline was discontinued October 25 over concerns about persistent hematological abnormalities, and with evidence of wound healing nicely Patient with a bowel movement this morning that was not black, per patient report. Patient reports feeling much better more energetic etcetera No dyspnea or trouble breathing whatsoever Exam Vital Signs (past 8 hours): - 11/07/23 04:12 11/07/23 04:12 Temperature 96.9 F L Pulse Rate 60 Respiratory Rate 16 Blood Pressure 110/54 L Pulse Oximetry 97 Oxygen Flow Rate 0 Oxygen Delivery Method Room Air Oxygen Flow Rate 0 Objective Labs 11/07/23 05:01 11/07/23 05:01 Labs: Laboratory Results - last 24 hr 11/06/23 11/06/23 11/07/23 15:12 15:53 05:01 WBC 7.5 8.3 RBC 2.36 L 3.06 L Hgb 7.8 L 10.0 L Hct 23.5 L 29.6 L MCV 99.5 96.8 MCH 33.0 32.7 MCHC 33.1 33.8 RDW 17.6 H 16.6 H Plt Count 260 245 Neut % (Auto) Not Reportable 68.5 Lymph % (Auto) Not Reportable 18.5 L Miner % (Auto) Not Reportable 11.6 Eos % (Auto) Not Reportable 0.8 L Baso % (Auto) Not Reportable 0.6 Neut # (Auto) 5700 Lymph # (Auto) Not Reportable 1500 Miner # (Auto) Not Reportable 1000 H Eos # (Auto) 100 Baso # (Auto) Not Reportable 100 Total Counted 100 Seg Neutrophils % 68.0 Band Neutrophils % 1.0 L Lymphocytes % (Manual) 20.0 L Monocytes % (Manual) 10.0 Eosinophils % (Manual) 1.0 L Neutrophils # (Manual) 5175 Nucleated RBCs 144 H RBC Morphology See below Polychromasia 1+ H Hypochromasia 2+ H Poikilocytosis 2+ H Anisocytosis 2+ H Target Cells 1+ H Acanthocytes (Spur) 3+ Schistocytes 2+ H PT 24.5 H INR 2.1 H APTT 37 H Sodium 135 L 138 Potassium 3.7 3.8 Chloride 110 H 111 H Carbon Dioxide 19 L 21 L BUN 58 H 53 H Creatinine 1.40 H 1.39 H Estimated GFR 49 L 49 L BUN/Creatinine Ratio 41.4 H 38.1 H Glucose 157 H 105 Calcium 8.5 8.4 Total Bilirubin 0.8 0.8 AST 27 32 ALT 21 21 Alkaline Phosphatase 69 76 Total Protein 5.5 L 5.8 L Albumin 3.2 L 3.3 L Globulin 2.3 2.5 Albumin/Globulin Ratio 1.4 1.3 Blood Type A Positive Rho(D) Type Cancelled Antibody Screen Negative Crossmatch See Detail [facility] Medical History Elevated troponin Eustachian tube dysfunction Ulcer of patton Callus of toe Toe ulcer Anticoagulation monitoring, INR range 2-3 Microscopic hematuria Xerosis of skin BPH w urinary obs/LUTS Venous insufficiency of both lower extremities Cataracts, bilateral (~2014) Hypertension Knee pain, right (07/2017) Neck pain (03/2017) Actinic keratosis Basal cell carcinoma Squamous cell carcinoma Rosacea (2009) Fractures (~1961) Skin lesion of face BPH (benign prostatic hyperplasia) Chronic back pain Dyslipidemia Congestive heart failure Atrial fibrillation and flutter (2013) Adjustment insomnia (10/07/16) Spinal stenosis of lumbosacral region (06/19/15) Rosacea (06/19/15) Midline low back pain without sciatica (06/19/15) Essential hypertension (06/19/15) Allergic rhinitis due to pollen (06/19/15) NSTEMI (non-ST elevated myocardial infarction) Surgical History History of permanent cardiac pacemaker placement Hx of cataract surgery (2014) History of ankle surgery (~1961) History of cardioversion Hx of Moh's micrographic surgery for skin cancer S/P excision of skin lesion, follow-up exam History of radiofrequency ablation (RFA) procedure for cardiac arrhythmia (06/10/17) Family History Father Heart disease Mother Heart disease Social History marital status: number of children: 2 household members: family Smoking Status: Never smoker alcohol intake: former caffeine: No Assessment & Plan Assessment & Plan narrative: 1. Anemia-unclear whether this is due to acute blood loss anemia with GI bleeding or a medication effect on bone marrow suppression etcetera. Patient with some history of potentially black tarry stools which is why he is on proton pump inhibitor and plans have been made for upper endoscopy. Patient currently NPO with plans it appears for endoscopy later today. Patient on low-level IV fluids. 2. History of congestive heart failure-patient with left ventricular ejection fraction of 35-40% on echocardiography April 2023. No evidence of volume overload after transfusion given with Lasix as well. Continue to monitor fluid intake etcetera 3. Left fourth toe nonhealing ulcer-appears to have healed in as per Infectious Disease. I chose not to unwrap and undress it this morning. He remains off antibiotics. 4. Atrial fibrillation-patient seems to have adequate rate control at this time. Patient to remain off warfarin until anemia issues are better understood. Relatively low risk to be off anticoagulation in the relatively short term while trying to sort out his anemia 5. Hypertension-patient with more normal blood pressures after some volume was given in the form of red blood cells etcetera. Patient would benefit from continued treatment with his metoprolol but continue monitor carefully. May need dose reduction if persists with hypotension 6. Acute kidney injury-patient's numbers appear to be back to baseline after volume was given yesterday. Quality VTE Deep Vein Thrombosis/Pulmonary Embolism Present on Admission: No [facility]EE Charge codes Subsequent inpatient/observation care: 30051
[2023-11-07] MEDS: METOPROLOL ER 25 MG TABLET PO (08:57)
[2023-11-07] MEDS: PANTOPRAZOLE 40 MG VIAL 20 MG IV ×2 (08:57→20:20)
--- NOTE | 2023-11-07 10:24 | DIET.CONS ---
Dietary Consultation Note Admission Date: 11/06/2023 16:23 Assessment: 88 y M presenting w/ anemia. Nutrition screened for low MNA. Met with pt and Marla at bedside. Reports a notable decrease in po intakes r/t decrease in energy levels beginning in October. Marla reports using strawberry ensures or added protein powder to milkshakes to help increase protein/kcal intake. She cooks/prepares meals. Diet recall: B-eggs, toast, fruit L-reduced intake/skipped meal or yogurt or protein milkshake/ensure D-Few bites of cooked dinner (meat, carb, veg) Nutrition focused physical exam: Muscle loss: Moderate loss temporalis, moderate loss clavicle region, interosseous Subcutaneous fat loss: Moderate loss buccal and orbital fat pads, triceps Ht: 187.96 cm Wt: 69.5 kg BMI: 19.7 UBW: 73.482 kg on 10/19/23 (-5.5% weight loss in 1 month, severe), 78 kg 1 yr ago (-11% in 1 yr, non-severe) Last BM: 11/07/23 (11/07/23 06:36) MNA: 9 Matt Score: 19 Diet: 11/06/23 18:49 NPO Diet Diet Modifications: NPO Type: NPO after Midnight Nutrition Percent Meal Consumed pt npo 11/06/23 18:00 Labs: RBC 3.06 X10^6/uL (4.5-5.9) L 11/07/23 05:01 Hgb 10.0 g/dL (13.5-17.5) L 11/07/23 05:01 Hct 29.6 % (41-53) L 11/07/23 05:01 Creatinine 1.39 mg/dL (0.66-1.25) H 11/07/23 05:01 Nutrition Diagnosis: Severe Acute Protein Calorie Malnutrition r/t decreased ability to consume adequate intake in setting of fatigue as evidenced by 5.5% weight loss in 1 month, severe, moderate muscle wasting (temporalis, deltoid, pectoralis major, trapezius, interosseous), moderate subcutaneous fat loss (triceps, buccal, orbital), <75% estimated energy needs in 1 month per diet recall, and BMI 19.7, underweight for age. The patient is at much higher risk for medical and surgical complications because of their malnutrition. This increases the difficulty and complexity of medical and surgical interventions and increases the chances of poor outcomes such as morbidity and mortality. Interventions: 1. Increased energy-protein po intake -Discussed continuing ONS throughout day or protein milkshakes, discussed different types of ONS that will best meet needs 2. When diet is ordered, will coordinate ONS/protein supplementation BID EER: -2000 kcals (30 kcals/kg per bmi) -85 g protein (1.25 g/kg per LEO, malnutrition) Monitoring/Evaluations: diet advancement, po intakes Electronically Signed by: Vida Quinn 11/07/23 10:24 Clinical Dietitian [address] [id number]
--- NOTE | 2023-11-07 14:49 | PM.CN ---
History of Present Illness Consult details Date Patient Seen: 11/07/23 Time Patient Seen: 14:49 Chief complaint: Extreme Anemia Reason for consult: Severe anemia Requesting provider: Hunter Lacy Narrative: Severe anemia, history of black stools. No abdominal pain. Meds Home Medications and Allergies Home Medications Medication Instructions Recorded Confirmed Type cholecalciferol (vitamin D3) 25 2,000 unit PO QPM 01/20/18 11/06/23 History mcg (1,000 unit) tablet (Vitamin D3) metoprolol succinate 25 mg 25 mg PO BID 06/08/23 11/06/23 History tablet,extended release 24 hr dutasteride 0.5 mg capsule 0.5 mg PO DAILY #90 caps 06/13/23 11/06/23 Rx tamsulosin 0.4 mg capsule 0.8 mg (2 x 0.4 mg) PO BEDTIME 08/03/23 11/06/23 Rx #180 caps atorvastatin 40 mg tablet 40 mg PO DAILY 08/25/23 11/06/23 History prothrombin time test strips #18 ea 09/01/23 11/07/23 Rx (Coaguchek XS strips) montelukast 10 mg tablet 10 mg PO QPM #90 tabs 09/18/23 11/06/23 Rx warfarin 5 mg tablet 2.5 mg (1/2 x 5 mg) PO DAILY #90 09/28/23 11/06/23 Rx tabs allopurinol 300 mg tablet 300 mg PO DAILY #90 tabs 10/24/23 11/06/23 Rx furosemide 40 mg tablet 40 mg PO DAILY 11/03/23 11/07/23 History losartan 25 mg tablet 25 mg PO DAILY 11/03/23 11/07/23 History mupirocin 2 % topical ointment 1 applic topical TID 11/07/23 11/07/23 History Allergies Allergy/AdvReac Type Severity Reaction Status Date / Time Penicillins Allergy Intermediate Rash Verified 11/03/23 14:00 KAYLYNN Inhibitors AdvReac Intermediate COUGH Verified 11/03/23 14:00 [KAYLYNN INHIBITORS] Review of Systems Review of Systems ROS: Yes All systems reviewed with the patient and are negative except as otherwise documented ENT Ears, Nose, Mouth, and Throat: Yes hearing loss Exam Vital Signs (past 8 hours): - 11/07/23 07:00 11/07/23 08:00 11/07/23 08:57 Temperature 96.7 F L Pulse Rate 70 70 Respiratory Rate 16 Blood Pressure 121/68 121/68 Pulse Oximetry 99 99 Oxygen Delivery Method Room Air Oxygen Flow Rate 0 11/07/23 12:00 11/07/23 14:26 Temperature 96.8 F L 97.2 F L Pulse Rate 63 66 Respiratory Rate 16 20 Blood Pressure 111/58 L 117/62 Pulse Oximetry 98 98 Oxygen Delivery Method Room Air Oxygen Flow Rate 0 Oxygen Delivery Method Room Air Oxygen Flow Rate 0 Const General: cooperative and frail appearing Nutritional Appearance: thin HENMT Head: normocephalic and atraumatic Eyes General: appearance normal, both eyes and all related structures Sclera: sclerae normal Neck Neck: trachea midline Resp Effort & Inspection: normal respiratory effort and able to speak in complete sentences Cardio Rate: regular rate Rhythm: abnormal rhythm GI Inspection: non-distended Palpation: soft Skin General: atrophy, dry skin, ecchymosis and pallor Neuro General: patient alert, patient awake and patient oriented x3 Cognition: normal cognition Psych Mental Status: mental status grossly normal Attitude: cooperative Judgment: judgment good Objective Labs 11/07/23 05:01 11/07/23 05:01 Labs: Laboratory Results - last 24 hr 11/06/23 11/06/23 11/07/23 15:12 15:53 05:01 WBC 7.5 8.3 RBC 2.36 L 3.06 L Hgb 7.8 L 10.0 L Hct 23.5 L 29.6 L MCV 99.5 96.8 MCH 33.0 32.7 MCHC 33.1 33.8 RDW 17.6 H 16.6 H Plt Count 260 245 Neut % (Auto) Not Reportable 68.5 Lymph % (Auto) Not Reportable 18.5 L Wells % (Auto) Not Reportable 11.6 Eos % (Auto) Not Reportable 0.8 L Baso % (Auto) Not Reportable 0.6 Neut # (Auto) 5700 Lymph # (Auto) Not Reportable 1500 Wells # (Auto) Not Reportable 1000 H Eos # (Auto) 100 Baso # (Auto) Not Reportable 100 Total Counted 100 Seg Neutrophils % 68.0 Band Neutrophils % 1.0 L Lymphocytes % (Manual) 20.0 L Monocytes % (Manual) 10.0 Eosinophils % (Manual) 1.0 L Neutrophils # (Manual) 5175 Nucleated RBCs 144 H RBC Morphology See below Polychromasia 1+ H Hypochromasia 2+ H Poikilocytosis 2+ H Anisocytosis 2+ H Target Cells 1+ H Acanthocytes (Spur) 3+ Schistocytes 2+ H PT 24.5 H INR 2.1 H APTT 37 H Sodium 135 L 138 Potassium 3.7 3.8 Chloride 110 H 111 H Carbon Dioxide 19 L 21 L BUN 58 H 53 H Creatinine 1.40 H 1.39 H Estimated GFR 49 L 49 L BUN/Creatinine Ratio 41.4 H 38.1 H Glucose 157 H 105 Calcium 8.5 8.4 Total Bilirubin 0.8 0.8 AST 27 32 ALT 21 21 Alkaline Phosphatase 69 76 Total Protein 5.5 L 5.8 L Albumin 3.2 L 3.3 L Globulin 2.3 2.5 Albumin/Globulin Ratio 1.4 1.3 Blood Type A Positive Rho(D) Type Cancelled Antibody Screen Negative Crossmatch See Detail [facility] Medical History Elevated troponin Eustachian tube dysfunction Ulcer of patton Callus of toe Toe ulcer Anticoagulation monitoring, INR range 2-3 Microscopic hematuria Xerosis of skin BPH w urinary obs/LUTS Venous insufficiency of both lower extremities Cataracts, bilateral (~2014) Hypertension Knee pain, right (07/2017) Neck pain (03/2017) Actinic keratosis Basal cell carcinoma Squamous cell carcinoma Rosacea (2009) Fractures (~1961) Skin lesion of face BPH (benign prostatic hyperplasia) Chronic back pain Dyslipidemia Congestive heart failure Atrial fibrillation and flutter (2013) Adjustment insomnia (10/07/16) Spinal stenosis of lumbosacral region (06/19/15) Rosacea (06/19/15) Midline low back pain without sciatica (06/19/15) Essential hypertension (06/19/15) Allergic rhinitis due to pollen (06/19/15) NSTEMI (non-ST elevated myocardial infarction) Surgical History History of permanent cardiac pacemaker placement Hx of cataract surgery (2014) History of ankle surgery (~1961) History of cardioversion Hx of Moh's micrographic surgery for skin cancer S/P excision of skin lesion, follow-up exam History of radiofrequency ablation (RFA) procedure for cardiac arrhythmia (06/10/17) Family History Father Heart disease Mother Heart disease Social History marital status: number of children: 2 household members: family Tobacco & Substance Use Smoking Status: Never smoker alcohol intake: former Diet and Exercise caffeine: No Assessment & Plan Assessment & Plan narrative: Likey upper GI bleed on anticoagulation w anemia requiring transfusion Plan: Stop coumadin, transfuse. Diagnostic EGD Time Spent With Patient Time with patient: 30 to 49 minutes with 50% spent counseling/coordinating care
[2023-11-07] MEDS: LACTATED RINGERS 1,000 ML 75 ML IV (15:00)
--- NOTE | 2023-11-07 15:12 | PM.OP.EGD ---
Operative Date/Time/Diagnoses Date of procedure: 11/07/23 Time of procedure: 15:12 Pre-op diagnosis: GI bleed, anemia Post-op diagnosis: same Procedure & Clinicians Study performed: EGD with anesthesia Same procedure as scheduled: Yes Indications: GI bleed and anemia Surgeon: Esthela Alicea Procedure Notes Procedure in detail: Preop diagnosis: GI bleed and anemia Postop diagnosis: Same Operative procedure: EGD with anesthesia Surgeon: Neisha Alicea MD Findings: Duodenal ulcer base estimated at 4 mm. Patches of gastritis and patches of duodenitis no active bleeding at this time Procedure: Patient placed in supine position. Scope was inserted into the esophagus advanced to the stomach right insufflated and identified the pylorus. Intubation into the pylorus it was good look at the 1st 2nd and 3rd portion of duodenum. Retroflex was included in the stomach. Findings as above Impression: Small duodenal ulcer with duodenitis and gastritis Plan: Ppi b.i.d. for 6-8 weeks and then recommend daily especially if patient was to be placed back onto and anticoagulation. Restart clear liquid diet Findings: duodenal ulcer and gastritis Specimen(s): none sent Complications: none Post-procedure Follow up: as needed Disposition: PACU
--- NOTE | 2023-11-07 15:34 | CM.DANOTE ---
Patient is an 88 yo male who was admitted on 11/06/23 for Anemia/GI BLeed. Pt has [facility] for insurance and his PCP is Dr. Hunter Lacy. EMR was reviewed. Per MD, pt with hx of AFIB and osteomyelitis of the toe and admitted for anemia and GI bleed. Per Surgeon, pt to have EGD today around 1430. Per RN, pt off the floor to OR for EGD and DIL bedside. SW met bedside with LESLIE Gutiérrez and explained role and she confirms that about a year ago they moved pt to live with them (emanuel Gutiérrez) in [place] and pt typically uses a 4WW at baseline and is mostly independent with ADLs but past few months has needed a bit more supervision during the day and therefore they moved pt from the trailer next to the house into the house. Pt no longer has home infusion for IV-Abx but recently started HH services with [facility] last week for pt's increased weakness. LESLIE works from home so is typically there 27/12 but they also have 3 adult children locally and other family that help provide assist or stay with pt if emanuel and LESLIE have to be away from home. Lots of local support. LESLIE confirms that she currently feels comfortable with plan of discharge home with their assist and Resume [facility] and pt has upcoming initial Oncology appointment in Jan at [facility] for hematology. [facility] stated they can get pt in sooner if MD feels it's needed after discharge and contact at [facility] is Clarisse [phone]. OSVALDO faxed clinicals to [facility] and alerted them to pt's admission for plan of Resume [facility] at discharge. Plan: SW to follow closely for EGD results to confirm safe plan of home with family and Resume [facility] when medically stable to discharge. NAY Huang Discharge Planning/Care Management CM Discharge Assessment Start: 11/07/23 15:30 Freq: Status: Active Protocol: Document 11/07/23 15:30 BF (Rec: 11/07/23 15:34 BF [id number]) Discharge Planning Assessment Assigned Senior Director Insight NAY Daniels DPOA/Assigned Designee Name Emanuel Gutiérrez Contact Information [phone] Advance Directives? Yes: DPOA, Living Will, HIPAA Auth Advance Directives on File No History Provided By Patient,Family Member,Medical Record Has Patient been admitted in last 30 No days? Prior Living Arrangements House Household Members family Type of transporation used prior to Relies on Others admit Independent with ADL's No Is patient alert and oriented? Yes Needs Assistance With Meal Prep,Managing Medications ,Home Chores / Shopping Caregiver for Another No DME Already Rented / Owned FWW / Walker Patient/Family Preference Home with Home Health Comment Currently open with [facility] to Discharge No Discharge Plan Home with Home Health Transportation Arrangement Son and DIL bedside and will transport Referrals Initiated Home Health Additional Comment [facility]ume [facility] Whiteboard Updated in Patient Room with Yes name and ext. # of Senior Director Insight Review Status In Process Please Provide Date Initial DC 11/07/23 Assessment Was Performed Next Review Type Continued Stay Review
--- NOTE | 2023-11-07 16:22 | SUR.PHASEI ---
PT transferred to room 206 in stretcher by this RN. Pt able to stand and transfer to bed with stand by assist.
[2023-11-07] MEDS: PHYTONADIONE (VIT K1) 5 MG TABLET 10 MG PO (16:40)
[2023-11-07] MEDS: SODIUM CHLORIDE 0.9% FLUSH 10 ML IV (20:21)
[2023-11-07] MEDS: TAMSULOSIN 0.4 MG CAPSULE PO (20:21)
--- NOTE | 2023-11-07 23:49 | PC.NURSE ---
Patient is alert and oriented but seems [place] without hearing aids. Breath sounds CTA with RA sat of 99%. HRR w/pacemaker. BP soft at 103/49 so Metoprolol held tonight. Denies nausea. BT present and abdomen is soft. Voiding less frequently tonight; denies dysuria. Is able to turn himself in bed and gets out of bed using walker and SBA although has generalized weakness. Did ambulate in gutierrez to room 209 and back to room and tolerated well. Denied pain. Has had SCD's on since prior to shift change and did request they not be put back on after getting back into bed. Has dressings to bilateral heels, left 4th toe and right 2nd toe which are CDI. Did note he has reddened but blanchable skin on coccyx so encouraged to lie on sides when in bed. Fall risk score is high and bed alarm is activated.
[2023-11-08 00:25] VITALS: BP 118/63; PULSE 67; RESP 17; TEMP 35.9; O2SAT 100
[2023-11-08 05:57] LABS: Hematocrit 31.9 % (41-53); Hemoglobin 10.7 g/dL (13.5-17.5)
[2023-11-08 06:00] VITALS: BP 124/60; PULSE 66; RESP 16; TEMP 36.4; O2SAT 97
[2023-11-08 06:27] LABS: BUN Creatinine Ratio 35.9 (6-22); Blood Urea Nitrogen 42 mg/dL (9-20); Calcium 8.4 mg/dL (8.4-10.2); Carbon Dioxide 21 mmol/L (22-32); Chloride 107 mmol/L (98-107); Estimated Glomerular Filt Rate > 60 mL/min (>60); Glucose 106 mg/dL (80-110); HEMOLYSIS < 15 (0-50); Potassium 3.4 mmol/L (3.4-5.1); Sodium 134 mmol/L (137-145)
[2023-11-08 08:00] VITALS: BP 107/58; PULSE 63; RESP 16; TEMP 36; O2SAT 100
[2023-11-08 08:51] VITALS: BP 124/60
[2023-11-08] MEDS: METOPROLOL ER 25 MG TABLET PO (08:51)
[2023-11-08] MEDS: allopurinoL 100 MG TABLET 300 MG PO (08:51)
[2023-11-08] MEDS: ATORVASTATIN 20 MG TABLET 40 MG PO (08:51)
[2023-11-08] MEDS: SODIUM CHLORIDE 0.9% FLUSH 10 ML IV (08:52)
[2023-11-08] MEDS: PANTOPRAZOLE 40 MG VIAL 20 MG IV (08:52)
[2023-11-08 09:21] VITALS: PULSE 62
--- NOTE | 2023-11-08 10:21 | CM.DPC ---
DCP Cont. Reviewed EMR and team rounds for status updates. Pt continues to be very anemic. Will continue to monitor for d/c home tomorrow.
--- NOTE | 2023-11-08 13:14 | PM.DS.1 ---
History of Present Illness History of Present Illness Date Patient Seen: 11/08/23 Time Patient Seen: 13:14 Chief complaint: Extreme Anemia Narrative: Mr. Coates is an 88-year-old male with a history of atrial fibrillation w/BiV pacemaker on warfarin, PAD, multiple chronic LE wounds, left 2nd toe ulcer and osteomyelitis that was being followed/treated by Dr. Estrada (ID at [facility]). Antibiotics were recently stopped due to concern for drug-induced thrombocytopenia and worsening renal function, with toe ulcer sufficiently healed. Per admission HPI patient had outpatient labs drawn and was called to say that he had a low hematocrit and was asked to come to the emergency room. Endorsed increased fatigue and noticeable weight loss over recent weeks. Noticed some black stools in the days leading up to presentation. Denied nausea/vomiting/abdominal pain. He does have a remote history of colonoscopy with colon polyp 10 or 20 years ago never had follow up colonoscopy after that. ER workup notable for hemoglobin 7.8, hematocrit 23.5, sodium 135, chloride 110, bicarb 19, BUN 58, creatinine 1.4, platelets 157. Admitted for blood transfusion and EGD for suspected upper GI bleed. Discharge Providers Provider Date of admission: 11/06/23 16:23 Discharge Date: 11/08/23 Primary care physician: Hunter Lacy MD Consults: 11/06/23 15:59 Consult to General Surgery Stat Comment: Consulting Provider: Esthela Alicea Reason for consultation: gi bleed Has provider been notified: Yes Discharge provider: Hunter Lacy MD Summary Hospital Course Discharge Diagnosis: #Gastritis and duodenitis #Duodenal ulcer #Anemia #Severe protein calorie malnutrition #CHF #AFib #Hypertension #LEO Hospital Course: Admitted for anemia due to suspected upper GI bleed. Received 2 units PRBC transfusion and subsequently underwent EGD which was notable for a duodenal ulcer base approximately 4 mm in size as well as patches of gastritis and duodenitis without active bleeding. Started on high dose PPI b.i.d. with recommendation to continue for 6-8 weeks, then reduce to daily if placed back on anticoagulation. Recovered well and feeling much more energetic after blood transfusion. Progressed to normal diet by time of discharge. Status at Discharge Cognitive/behavioral status at discharge: at baseline, oriented Functional status at discharge: uses cane/walker Overall status at discharge: patient is back to baseline Time Spent with Patient Time spent: Greater than 30 minutes Exam Vital Signs (past 8 hours): - 11/08/23 06:00 11/08/23 08:00 11/08/23 08:51 Temperature 97.6 F 96.8 F L Pulse Rate 66 63 Respiratory Rate 16 16 Blood Pressure 124/60 107/58 L 124/60 Pulse Oximetry 97 100 Oxygen Flow Rate 0 0 11/08/23 09:21 Temperature Pulse Rate 62 Respiratory Rate Blood Pressure Pulse Oximetry Oxygen Flow Rate Oxygen Delivery Method Room Air Oxygen Flow Rate 0 Narrative Exam Narrative: General: Frail, chronically ill-appearing, no distress HEENT: Normocephalic, EOMI, moist mucous membranes CV: Regular rate and rhythm, normal S1-S2 Resp: Clear to auscultation bilaterally, comfortable work of breathing Abdomen: Soft, nontender Neuro: Normal cognition, seated at bedside window with daughter, no focal motor deficits, using FWW to ambulate safely in room Skin: Pallor improved compared to previous exams in clinic, scattered ecchymoses and scabs on bilateral forearms/hands, Objective Labs 11/08/23 05:35 11/08/23 05:35 Labs: Laboratory Results - last 24 hr 11/08/23 05:35 Hgb 10.7 L Hct 31.9 L Sodium 134 L Potassium 3.4 Chloride 107 Carbon Dioxide 21 L BUN 42 H Creatinine 1.17 Estimated GFR > 60 BUN/Creatinine Ratio 35.9 H Glucose 106 Calcium 8.4 PFSH Medical History Elevated troponin Eustachian tube dysfunction Ulcer of patton Callus of toe Toe ulcer Anticoagulation monitoring, INR range 2-3 Microscopic hematuria Xerosis of skin BPH w urinary obs/LUTS Venous insufficiency of both lower extremities Cataracts, bilateral (~2014) Hypertension Knee pain, right (07/2017) Neck pain (03/2017) Actinic keratosis Basal cell carcinoma Squamous cell carcinoma Rosacea (2009) Fractures (~1962) Skin lesion of face BPH (benign prostatic hyperplasia) Chronic back pain Dyslipidemia Congestive heart failure Atrial fibrillation and flutter (2013) Adjustment insomnia (10/07/16) Spinal stenosis of lumbosacral region (06/19/15) Rosacea (06/19/15) Midline low back pain without sciatica (06/19/15) Essential hypertension (06/19/15) Allergic rhinitis due to pollen (06/19/15) NSTEMI (non-ST elevated myocardial infarction) Surgical History History of permanent cardiac pacemaker placement Hx of cataract surgery (2014) History of ankle surgery (~1962) History of cardioversion Hx of Moh's micrographic surgery for skin cancer S/P excision of skin lesion, follow-up exam History of radiofrequency ablation (RFA) procedure for cardiac arrhythmia (06/10/17) Family History Father Heart disease Mother Heart disease Social History marital status: number of children: 2 household members: family Smoking Status: Never smoker alcohol intake: former caffeine: No Discharge Assessment & Plan Assessment and Plan Assessment: 88-year-old male admitted for anemia due to upper GI bleed, found to have duodenal ulcer and gastritis with duodenitis on EGD. Plan of Treatment: #Upper GI bleed #Duodenal ulcer #Gastritis and duodenitis #Anemia -Anemia improve s/p 2 units PRBC transfusion -Omeprazole 40 mg b.i.d. for 8 weeks, reduce to daily thereafter given need for anticoagulation #Protein calorie malnutrition Evaluated by Nutrition, physical findings c/w severe protein calorie malnutrition r/t decreased ability to consume adequate intake in setting of fatigue as evidenced by 5.5% weight loss in 1 month, severe, moderate muscle wasting (temporalis, deltoid, pectoralis major, trapezius, interosseous), moderate subcutaneous fat loss (triceps, buccal, orbital), <75% estimated energy needs in 1 month per diet recall, and BMI 19.7, underweight for age -Discussed ONS or protein milk shakes throughout day -EER: 2000 kcals (30 kcals/kg per bmi); 85 g protein (1.25 g/kg per LEO, malnutrition) -May benefit from additional nutrition consultation in outpatient setting #AFib Rate controlled throughout hospitalization without incident -Continue home metoprolol #CHF Tolerated blood transfusion without incident, no clinical signs of volume overload on exam -Continue home furosemide #Hypertension -Continue home losartan #AoCKD Creatinine 1.94 with GFR 33 on admission, returned to baseline with volume repletion -Continue home losartan Discharge Plan Discharge Plan Patient Disposition: Home Provider Discharge Comment: Please call clinic to schedule hospital follow-up visit within next 10 days Discharge orders & Medications Prescriptions: New omeprazole 40 mg capsule,delayed release(DR/EC) 40 mg PO BID Qty: 60 1RF Continued metoprolol succinate 25 mg tablet extended release 24 hr 25 mg PO BID atorvastatin 40 mg tablet 40 mg PO DAILY Patient Comments: nightly furosemide 40 mg tablet 40 mg PO DAILY Rx Instructions: 40 mg orally once per day losartan 25 mg tablet 25 mg PO DAILY Patient Comments: nightly Rx Instructions: one tab daily dutasteride 0.5 mg capsule 0.5 mg PO DAILY Qty: 90 1RF tamsulosin 0.4 mg capsule 0.8 mg PO BEDTIME Qty: 180 1RF (DME) Coaguchek XS Strip See Rx Instructions .Route Qty: 18 11RF Rx Instructions: As directed montelukast 10 mg tablet 10 mg PO QPM Qty: 90 0RF allopurinol 300 mg tablet 300 mg PO DAILY Qty: 90 3RF Rx Instructions: nightly cholecalciferol (vitamin D3) [Vitamin D3] 1,000 unit Tablet 2,000 unit PO QPM mupirocin 2 % Ointment 1 applic TOPICAL TID Discontinued warfarin 5 mg tablet 2.5 mg PO DAILY Qty: 90 1RF Rx Instructions: Take 1/2 tab (2.5 mg) daily or as directed. Tuesday full pill Follow up/Referrals: Hunter Lacy MD [Primary Care Provider] - Visit Report/Discharge Packet Stand Alone Forms: Patient Portal/API, Stroke Signs & Symptoms Discharge Data Primary Care Provider: Hunter Lacy Discharges patient from system. Discharge Date/Time: 11/08/23 13:45 Quality VTE Deep Vein Thrombosis/Pulmonary Embolism Present on Admission: No IH PROFEE Charge Codes Discharge inpatient/observation: 40512
--- NOTE | 2023-11-08 13:37 | CM.DPC ---
DCP Cont. Per family's request, put in Home Health orders to resume [facility]. Sent f/f to [facility], notified Dr. Lacy that he is discharging today. No further needs identified at this time.
--- NOTE | 2023-11-08 14:13 | PC.NURSE ---
Discharge Note Patient A&O, VSS, RA, no complaints of pain or discomfort. Patient agreeable with discharge plan. Discharge packet reviewed with patient and daughter in law, all questions/concerns addressed. PIV discontinued. Patient able to dress self and pack all belongings with minimal assistance. Patient taken down via wheelchair to POV.
== END 2023-11-08 13:45 | disposition home health service (06) | DRG 377 ==
LOC: ED 15:20 → AC 16:24
PROVIDERS: Internal Medicine; Surgery; Admitting Provider Family Medicine; Emergency Provider Emergency Medicine; PCP Family Medicine; Referring Provider Emergency Medicine; Visit Provider Family Medicine
PROC: 0DJ08ZZ Inspection of Upper Intestinal Tract, Via Natural or Artificial Opening Endoscopic (ICD-10-PCS; CPT 43235; principal; 2023-11-07 15:00)
DX: K26.4 Chronic or unspecified duodenal ulcer with hemorrhage (principal); E43 Unspecified severe protein-calorie malnutrition; D62 Acute posthemorrhagic anemia; I13.0 Hypertensive heart and chronic kidney disease with heart failure and stage 1 through stage 4 chronic kidney disease, or unspecified chronic kidney disease; I50.20 Unspecified systolic (congestive) heart failure; Z68.1 Body mass index [BMI] 19.9 or less, adult; I48.91 Unspecified atrial fibrillation; I73.9 Peripheral vascular disease, unspecified; N18.9 Chronic kidney disease, unspecified; K29.71 Gastritis, unspecified, with bleeding; K29.81 Duodenitis with bleeding; Z95.0 Presence of cardiac pacemaker; Z79.01 Long term (current) use of anticoagulants
CPT/HCPCS: 36415; 36430; 80048; 80053; 85007; 85014; 85018; 85025; 85610; 85730; 86850; 86900; 86901; 93005; 96374; 99284; 99285; P9016; C9113; J1940; J2704

== ENCOUNTER → 2023-12-12 13:11 | Outpatient (CLI) | payer OTHER, SELFPAY ==
[2023-11-06 16:31] VITALS: BMI 18.7
--- NOTE | 2023-12-12 13:13 | DI.ECHO.S_ITS ---
[facility] : : [address] : : [place] : : [id number] : : Phone: [phone] Echocardiogram Report + + :Name: ABDON LOMELI Study Date: 12/12/2023 Height: 74 in : :[facility] ReadingLocation: Weight: 161 lb : : Gender: Male BSA: 2.0 m2 : :: 1935 Age: 88 yrs BP: 134/75 mmHg: :Reason For Study: CHRONIC HEART FAILURE : :Ordering Physician: VARINDER, : :THONG Performed By: Hunter Fishman : :Referring: THONG REEDER : + + Interpretation Summary The left ventricle is normal in size. Left ventricular wall thickness is moderately increased. There is increased echo reflect terms of myocardium. Differential diagnosis infiltrative cardiomyopathy versus hypertensive heart disease. Correlate clinically and consider workup to rule out cardiac amyloidosis. The ejection fraction is estimated to be 50-55%. Previously LVEF 35 to 40%. Compared to the prior exam, the left ventricular function is improved. The right ventricle is mild to moderately dilated. Right ventricular systolic function is moderately reduced. Previously mildly reduced. There is a pacemaker lead in the right ventricle. There is mild to moderate mitral regurgitation. Compared to the prior echo study, there has been no change in the severity of mitral regurgitation. There is mild to moderate aortic regurgitation. Previously mild AR. The tricuspid annulus is dilated. There is moderate tricuspid regurgitation. Previously mild to moderate TR. The right ventricular systolic pressure is estimated to be at least 70.4 mmHg based on an estimated right atrial pressure of 15 mm Hg. Previously 53 mmHg. 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 This is unchanged compared to the previous study. 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 4.0 cm in diameter. Previously 3.6 cm. Procedure: A two-dimensional transthoracic echocardiogram with color flow and Doppler was performed. The study quality was technically adequate. Comparison is made with the echocardiogram of 04/20/2023. The patient has a paced rhythm. Left Ventricle: Left ventricular wall thickness is moderately increased. The left ventricle is normal in size. There is no thrombus. The ejection fraction is estimated to be 50-55%. Compared to the prior exam, the left ventricular function is improved. There is basal inferior wall hypokinesis. Diastolic function could not be accurately assessed due to paced rhythm. Right Ventricle: The right ventricle is mild to moderately dilated. There is a pacemaker lead in the right ventricle. Right ventricular systolic function is moderately reduced. Atria: The left atrium is severely dilated. There has been no significant change since the previous study. The right atrium is severely dilated. There is a catheter/pacemaker lead seen in the right atrium. The interatrial septum grossly appears intact with no obvious evidence for an atrial septal defect. Mitral Valve: The mitral valve leaflets appear mildly thickened, but open well. There is no mitral valve stenosis. There is mild to moderate mitral regurgitation. Compared to the prior echo study, there has been no change in the severity of mitral regurgitation. Aortic Valve: The aortic valve is trileaflet. There is no aortic valve stenosis. There is mild to moderate aortic regurgitation. Tricuspid Valve: The tricuspid annulus is dilated. There is no tricuspid stenosis. There is moderate tricuspid regurgitation. The right ventricular systolic pressure is estimated to be at least 70.4 mmHg based on an estimated right atrial pressure of 15 mm Hg. Pulmonic Valve: The pulmonic valve is not well seen, but is grossly normal. The pulmonic valve is not well visualized. There is no pulmonic valvular stenosis. There is mild pulmonic regurgitation. 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 This is unchanged compared to the previous study. 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 The IVC is dilated (diameter is greater than 2.1 cm) and it collapses less than 50% with a sniff. This suggests a high right atrial pressure of 15 mm Hg. Pericardium/ Pleura There is no pericardial effusion. There is no pleural effusion. MMode/2D Measurements & Calculations LVIDd: 4.8 cm LVOT diam: 2.2 cm LVIDs: 4.0 cm Ao root diam: 4.1 cm FS: 15.7 % asc Aorta Diam: 4.0 cm IVSd: 1.5 cm LVPWd: 1.4 cm LV pierce. diameter/BSA (cm/m^2): 2.4 LV sys. diameter/BSA (cm/m^2): 2.0 LA A2 area: 53.6 cm2 RA long axis: 8.4 cm LA A4 area: 45.2 cm2 RA area: 45.0 cm2 LA length (vol): 8.7 cm RA vol: 204.6 ml LA vol: 237.1 ml RA : 103.2 ml/m2 LA vol index: 119.7 ml/m2 IVC diam: 2.2 cm RVD1 (basal): 4.9 cm RVD2 (mid): 3.3 cm TAPSE: 1.3 cm Doppler Measurements & Calculations Ao V2 max: 136.0 cm/sec LVOT Max Augusto: 94.1 cm/sec Ao V2 mean: 93.4 cm/sec LV V1 max P.5 mmHg Ao max P.4 mmHg LV V1 VTI: 19.3 cm Ao mean P.8 mmHg MINDA(I,D): 2.9 cm2 Ao V2 VTI: 26.3 cm MINDA(V,D): 2.7 cm2 sev ratio: 0.73 MINDA indexed to BSA (cm^2/m^2): 1.4 AI P1/2t: 488.4 msec AI dec slope: 219.5 cm/sec2 MV E max augusto: 69.2 cm/sec TR max augusto: 372.0 cm/sec MV A max augusto: 23.1 cm/sec TR max P.4 mmHg MV E/A: 3.0 PA V2 max: 88.1 cm/sec Med Peak E' Augusto: 5.2 cm/sec PA V2 mean: 57.6 cm/sec E/E' med: 13.4 PA mean P.5 mmHg Lat Peak E' Augusto: 7.3 cm/sec PA pr(Accel): 46.5 mmHg E/E' lat: 9.4 E/e' average: 11.4 MV dec time: 0.16 sec SV(LVOT): 75.3 ml Reading Physician:04:28 PM
== END ==
PROVIDERS: PCP Family Medicine; Referring Provider Nurse Practitioner Acute Care; Visit Provider Nurse Practitioner Acute Care
DX: I08.3 Combined rheumatic disorders of mitral, aortic and tricuspid valves (principal); I77.810 Thoracic aortic ectasia; I77.89 Other specified disorders of arteries and arterioles; I50.22 Chronic systolic (congestive) heart failure; Z95.0 Presence of cardiac pacemaker
CPT/HCPCS: 93306